=== PATIENT | female | born 1965 | race Two or more races ===

== ENCOUNTER 2020-08-16 21:34 | Inpatient (IN) | payer OTHER ==
[~2020-08-16] VITALS: Ht 154.9 cm; Wt 96.2 kg
[2020-08-16 23:05] LABS: Basophils # (auto) 0 10 ^3/uL (0-0.2); Basophils % (auto) 0.1 % (0.0-2.0); Eosinophils # (auto) 0 10 ^3/uL (0-0.8); Hemoglobin 10.1 g/dL (12.2-16.2); Lymphocytes # (auto) 0.5 10 ^3/uL (0.4-5.4)
[2020-08-16 23:06] LABS: Hematocrit 31.6 % (36.0-46.0); Lymphocytes % (auto) 4.2 % (10.0-50.0); Mean Corpuscular Hgb Conc. 32.1 g/dL (32.0-36.0); Mean Corpuscular Volume 77.7 fL (80.0-100.0); Monocytes # (auto) 0.7 10 ^3/uL (0-1.3); Monocytes % (auto) 5.8 % (0.0-12.0); Neutrophils # (auto) 10.5 10 ^3/uL (1.6-8.6); Neutrophils % (auto) 89.9 % (37.0-80.0); Platelet Count (auto) 369 10^3/uL (140-450); Red Blood Cells 4.06 10^6/uL (4.0-5.20); Red Cell Distribution Width 19.6 % (11.8-14.3); White Blood Cell 11.7 10^3/uL (4.4-10.8)
[2020-08-16] MEDS ORDERED: levoFLOXacin 750MG 150 ML IV ONE (23:15)
[2020-08-16 23:18] LABS: INR 0.97 (0.9-1.15); Partial Thromboplastin Time 23.9 sec (23.0-31.2)
[2020-08-16 23:19] LABS: Albumin 2.8 g/dL (3.4-5.0); Anion Gap 2 (5-15); Blood Urea Nitrogen 16 mg/dL (7-18); Calcium 8.8 mg/dL (8.5-10.1); Carbon Dioxide 28 mmol/L (21-32); Chloride 110 mmol/L (98-107); Glucose 119 mg/dL (74-106); Magnesium 2.4 mg/dL (1.6-2.6); Potassium 4.3 mmol/L (3.5-5.1); Sodium 140 mmol/L (136-145)
[2020-08-16 23:27] LABS: Alanine Aminotransferase 23 U/L (13-56); Alkaline Phosphatase 79 U/L (45-117); Aspartate Aminotransferase 25 U/L (15-37); BUN/Creatinine Ratio 20.8; Bilirubin, Total 0.2 mg/dL (0.2-1.0); GFR African American 100 mL/min; GFR Non-African American 83 mL/min; Total Protein 7.7 g/dL (6.4-8.2)
[2020-08-17] MEDS ORDERED: LORazepam 2MG/ML-1ML VIAL IV ONE (05:30)
[2020-08-17] MEDS ORDERED: HYDROcodone-ACET 5/325MG TAB PO ONE (08:00)
[2020-08-17] MEDS ORDERED: DexAMETHasone SOD PHOS 10MG/1ML VIAL INJ IV ONE (09:45)
[2020-08-17] MEDS ORDERED: cefTRIAXone 1GM/50ML D5W 50 ML IV ONE (09:45)
[2020-08-17] MEDS ORDERED: NITROGLYCERIN 0.4 MG SL TAB SL PRN (10:00)
[2020-08-17] MEDS ORDERED: MORPHINE SULF INJ 2 MG/ML SYRINGE 1ML IV PRN (10:00)
[2020-08-17] MEDS: ONDANSETRON HCL 4 MG/2 ML VIAL IV PRN ×2 (10:00→23:18)
[2020-08-17] MEDS ORDERED: FUROSEMIDE 40 MG/4 ML VIAL IV ONE (10:00)
[2020-08-17] MEDS ORDERED: ONDANSETRON HCL 4 MG/2 ML VIAL ONE (10:01)
[2020-08-17 10:10] VITALS: BP 129/88
[2020-08-17] MEDS ORDERED: SODIUM CHLORIDE 0.9% 1,000 ML IV SCH (10:15)
[2020-08-17] MEDS ORDERED: ACETAMINOPHEN 325 MG TAB PO PRN (10:15)
[2020-08-17] MEDS ORDERED: VANCOMYCIN PER PHARMACY 0 MG IV SCH (10:15)
[2020-08-17] MEDS ORDERED: ENOXAPARIN SOD 100 MG/1 ML SYRINGE SC ONE (10:15)
[2020-08-17] MEDS ORDERED: methylPREDNISolone SOD SUCC 125 MG/2 ML VL IV ONE (10:15)
[2020-08-17] MEDS: VANCOMYCIN 1GM/250ML 250 ML IV SCH ×2 (11:55→22:05)
[2020-08-17 12:50] LABS: Urine Bacteria NONE SEEN /hpf (None Seen); Urine Blood Negative /uL (Negative); Urine Mucus FEW (None Seen); Urine Specific Gravity 1.027 (1.001-1.035); Urine WBC 1 /hpf (0 - 5)
[2020-08-17] MEDS: MORPHINE SULFATE 4 MG/ML SYR/VIAL IV PRN ×2 (13:05→23:18)
[2020-08-17] MEDS: PIPERACILLIN-TAZOB 3.375GM 100 ML IV SCH ×2 (13:53→18:46)
[2020-08-17] MEDS: methylPREDNISolone SOD SUCC 40 MG/ML VL IV SCH ×2 (14:00→22:03)
[2020-08-17 14:12] LABS: Basophils # (auto) 0 10 ^3/uL (0-0.2); Basophils % (auto) 0.1 % (0.0-2.0); Eosinophils # (auto) 0 10 ^3/uL (0-0.8); Monocytes # (auto) 0.7 10 ^3/uL (0-1.3)
[2020-08-17 14:14] LABS: Hematocrit 32.7 % (36.0-46.0); Hemoglobin 10.5 g/dL (12.2-16.2); Lymphocytes # (auto) 0.5 10 ^3/uL (0.4-5.4); Lymphocytes % (auto) 3.3 % (10.0-50.0); Mean Corpuscular Hemoglobin 24.8 pg (28.0-32.0); Mean Corpuscular Hgb Conc. 32.2 g/dL (32.0-36.0); Mean Corpuscular Volume 76.8 fL (80.0-100.0); Monocytes % (auto) 4.8 % (0.0-12.0); Neutrophils # (auto) 12.8 10 ^3/uL (1.6-8.6); Neutrophils % (auto) 91.8 % (37.0-80.0); Platelet Count (auto) 359 10^3/uL (140-450); Red Blood Cells 4.25 10^6/uL (4.0-5.20); Red Cell Distribution Width 19.9 % (11.8-14.3)
[2020-08-17 14:29] LABS: Anion Gap 6 (5-15); Blood Urea Nitrogen 16 mg/dL (7-18); Carbon Dioxide 29 mmol/L (21-32); Chloride 103 mmol/L (98-107); Glucose 114 mg/dL (74-106); Magnesium 2.1 mg/dL (1.6-2.6); Potassium 3.6 mmol/L (3.5-5.1); Sodium 138 mmol/L (136-145)
[2020-08-17 14:31] LABS: Lactic Acid w/Reflex 2.1 mmol/L (0.4-2.0)
[2020-08-17 14:32] LABS: INR 1.04 (0.9-1.15); Partial Thromboplastin Time 26.8 sec (23.0-31.2)
[2020-08-17 14:34] VITALS: BP 122/77
[2020-08-17] MEDS: ALBUTEROL SULF HFA 90MCG INH 200DOSE IN SCH ×2 (14:34→21:25)
[2020-08-17 14:37] LABS: Alanine Aminotransferase 22 U/L (13-56); Alkaline Phosphatase 85 U/L (45-117); Aspartate Aminotransferase 19 U/L (15-37); BUN/Creatinine Ratio 19.3; Bilirubin, Total 0.5 mg/dL (0.2-1.0); CRP High Sensitivity 6.87 mg/dL (< 0.3); GFR African American 92 mL/min; GFR Non-African American 76 mL/min; Lactate Dehydrogenase 351 U/L (84-246); Total Protein 8.1 g/dL (6.4-8.2)
[2020-08-17 15:30] LABS: Cholesterol 163 mg/dL (< 200); HDL Cholesterol 52 mg/dL (40-59); LDL Cholesterol 98 mg/dL (< 100); Triglycerides 105 mg/dL (< 150)
[2020-08-17 18:22] VITALS: BP 124/64
[2020-08-17] MEDS: LORazepam 2MG/ML-1ML VIAL IV PRN (18:51)
[2020-08-17 21:25] VITALS: BP 130/66
[2020-08-17] MEDS: BUDESONIDE (INHALATION) 180 MCG IH IN SCH (21:25)
[2020-08-17] MEDS: ENOXAPARIN SOD 100 MG/1 ML SYRINGE SC SCH (22:04)
[2020-08-17] MEDS: FAMOTIDINE (10MG/ML) 2ML VL IV SCH (22:05)
[2020-08-18] VITALS (14 sets, daily range): BP systolic 93–153; BP diastolic 43–81
--- NOTE | 2020-08-18 01:04 | NUR ---
Admit to [facility] JOSE ANGEL SANTILLAN admitted to [facility] via gurney on director of cardiac rehabilitation, and portable 02. Patient transferred to bed, connected to unit monitoring and oxygen, [facility]. Patient oriented to Lis Pfeiffer, primary RN, unit, room, bed, and unit policies regarding patient care and visiting hours. All questions and concerns addressed, patient verbalized understanding. Pt on non rebreather at this time, RT will come back and place on CPAP or BiPAP. No S/S of distress. Shortness of breath when talking. Will continue to monitor.
[2020-08-18] MEDS: MORPHINE SULFATE 4 MG/ML SYR/VIAL IV PRN ×3 (02:38→20:21)
[2020-08-18] MEDS: PIPERACILLIN-TAZOB 3.375GM 100 ML IV SCH ×4 (02:38→18:20)
[2020-08-18 03:29] LABS: Basophils # (auto) 0 10 ^3/uL (0-0.2); Basophils % (auto) 0.1 % (0.0-2.0); Eosinophils # (auto) 0 10 ^3/uL (0-0.8); Hemoglobin 9.5 g/dL (12.2-16.2); Monocytes # (auto) 0.6 10 ^3/uL (0-1.3)
[2020-08-18 03:31] LABS: Lymphocytes # (auto) 0.6 10 ^3/uL (0.4-5.4); Lymphocytes % (auto) 5.3 % (10.0-50.0); Mean Corpuscular Hemoglobin 25.2 pg (28.0-32.0); Mean Corpuscular Hgb Conc. 32.9 g/dL (32.0-36.0); Mean Corpuscular Volume 76.5 fL (80.0-100.0); Monocytes % (auto) 5.9 % (0.0-12.0); Neutrophils # (auto) 9.3 10 ^3/uL (1.6-8.6); Neutrophils % (auto) 88.7 % (37.0-80.0); Platelet Count (auto) 354 10^3/uL (140-450); Red Blood Cells 3.79 10^6/uL (4.0-5.20); Red Cell Distribution Width 19.1 % (11.8-14.3); White Blood Cell 10.5 10^3/uL (4.4-10.8)
[2020-08-18 03:55] LABS: Albumin 2.6 g/dL (3.4-5.0); BUN/Creatinine Ratio 25.4; Bilirubin, Total 0.4 mg/dL (0.2-1.0); Calcium 8.6 mg/dL (8.5-10.1); Total Protein 7.1 g/dL (6.4-8.2)
[2020-08-18] MEDS: LORazepam 2MG/ML-1ML VIAL IV PRN ×5 (05:36→21:26)
--- NOTE | 2020-08-18 05:37 | NUR ---
Pt states feels like she needs her inhaler. Treatment due at 0600, Ativan given for anxiety. Will continue to monitor.
[2020-08-18] MEDS: BUDESONIDE (INHALATION) 180 MCG IH IN SCH ×2 (06:17→22:28)
[2020-08-18] MEDS: ALBUTEROL SULF HFA 90MCG INH 200DOSE IN SCH ×3 (06:17→22:27)
[2020-08-18] MEDS: methylPREDNISolone SOD SUCC 40 MG/ML VL IV SCH ×2 (07:10→18:20)
--- NOTE | 2020-08-18 07:45 | NUR ---
REPORT REPORT RECEIVED FROM MAGALI DUPREE, CARE ASSUMED.
[2020-08-18] MEDS: SODIUM CHLORIDE 0.9% 1,000 ML IV SCH ×2 (08:00→10:45)
--- NOTE | 2020-08-18 08:12 | NUR ---
PT PLACED ON HIGH FLOW NC ON 100% FIO2 AT 50LPM. JOON FLYNN MADE AWARE.
--- NOTE | 2020-08-18 08:15 | NUR ---
INITIAL CONTACT PT IS AWAKE, ALERT, AND ORIENTED. PT APPEARS TO BE ANXIOUS AND RESTLESS AT THIS TIME. WAS ABLE TO EDUCATED AND ABLE TO CALM DOWN. PT C/O LOWER ABDOMINAL/PELVIC PAIN. WARM COMPRESS AND PAIN MEDICATION TO BE GIVEN. PT ABLE TO MOVE ALL EXTREMITIES EQUALLY AND REPOSITION SELF IN BED. PT ON HIGH FLOW. OXYGEN SATURATION GREATER THEM 92%. VITAL SIGNS REMAIN STABLE. SKIN INTACT. ALARMS IN PLACE. BED LOCKED IN LOWEST POSITION, HEAD OF BED GREATER THAN 30 DEGREES. CALL LIGHT AND PERSONAL BELONGINGS WITHIN REACH. PT INSTRUCTED TO CALL FOR ASSISTANCE. PT VERBALIZED UNDERSTANDING.
[2020-08-18] MEDS: ONDANSETRON HCL 4 MG/2 ML VIAL IV PRN (08:35)
--- NOTE | 2020-08-18 10:00 | NUR ---
MD VISIT DR.MOHSIN REDD AT BEDSIDE. MD AWARE OF LABS, PAIN, AND OXYGEN STATUS. NEW ORDERS RECEIVED.
--- NOTE | 2020-08-18 10:20 | NUR ---
HERNANDEZ MONTANA FROM [facility] CALLED FOR UPDATE.
[2020-08-18] MEDS: HYDROcodone-ACET 5/325MG TAB PO PRN ×2 (10:53→11:53)
--- NOTE | 2020-08-18 10:53 | NUR ---
PAIN/ANXIETY PT C/O OF LOWER ABDOMINAL DISCOMFORT AND FEELING ANXIOUS. PRN NORCO AND ATIVAN ADMINISTERED. VS REMAIN STABLE. WARM COMPRESS APPLIED TO LOWER ABDOMEN, PT REPOSITIONED IN BED. NO FURTHER REQUEST MADE BY PATIENT.
--- NOTE | 2020-08-18 11:52 | NUR ---
FAMILY PATIENT SON BABITA CALLED FOR UPDATE. PASSWORD PROVIDED.
[2020-08-18] MEDS: FAMOTIDINE (10MG/ML) 2ML VL IV SCH ×2 (11:54→21:26)
[2020-08-18] MEDS: ZINC SULFATE 220mg CAP or TAB PO SCH (11:54)
[2020-08-18] MEDS: VANCOMYCIN 1GM/250ML 250 ML IV SCH ×2 (11:54→21:25)
[2020-08-18] MEDS: ASCORBIC ACID 1,000 MG TAB PO SCH (11:55)
[2020-08-18] MEDS: ENOXAPARIN SOD 100 MG/1 ML SYRINGE SC SCH ×2 (11:55→21:26)
[2020-08-18] MEDS: CHOLECALCIFEROL (VITD3) 2,000 UNIT CAP PO SCH (11:55)
--- NOTE | 2020-08-18 14:30 | NUR ---
US PRIVACY OFFICER AT BEDSIDE.
--- NOTE | 2020-08-18 15:18 | NUR ---
US RESULTS SPOKE WITH RN LPN LVN. THEY DID OBTAIN IMAGES OF BLADDER DURING US, NO ABNORMAL FINDINGS PRESENT. IF MD WISHES THE IMAGINING REPORT TO STATE THAT, HE MAY MAKE A REQUEST.
--- NOTE | 2020-08-18 18:00 | NUR ---
CARES SYLVAIN CARE PERFORMED AND PARTIAL LINEN CHANGE COMPLETE. PATIENT ABLE TO STAND AT BEDSIDE BRIEFLY AND REPOSITION SELF IN BED. PATIENT SITTING UP FOR DINNER. CALL LIGHT WITHIN REACH.
[2020-08-18] MEDS: FUROSEMIDE 20 MG/2 ML VIAL IV SCH (18:20)
--- NOTE | 2020-08-18 19:09 | NUR ---
MD VISIT AT BEDSIDE SPEAKING WITH PATIENT. MD REVIEWING MEDICAL CHART.
--- NOTE | 2020-08-18 19:38 | NUR ---
REPORT REPORT GIVEN TO MAGALI DUPREE, CARE ENDORSED.
[2020-08-19] VITALS (12 sets, daily range): BP systolic 105–154; BP diastolic 50–81
[2020-08-19] MEDS: MORPHINE SULFATE 4 MG/ML SYR/VIAL IV PRN ×6 (01:21→21:02)
[2020-08-19] MEDS: PIPERACILLIN-TAZOB 3.375GM 100 ML IV SCH ×5 (01:21→23:12)
[2020-08-19] MEDS: LORazepam 2MG/ML-1ML VIAL IV PRN ×4 (03:14→22:06)
[2020-08-19 04:17] LABS: Basophils # (auto) 0 10 ^3/uL (0-0.2); Basophils % (auto) 0.1 % (0.0-2.0); Eosinophils # (auto) 0 10 ^3/uL (0-0.8); Hemoglobin 10.1 g/dL (12.2-16.2); Lymphocytes # (auto) 0.7 10 ^3/uL (0.4-5.4); Lymphocytes % (auto) 5.4 % (10.0-50.0); Mean Corpuscular Hgb Conc. 32.6 g/dL (32.0-36.0); Mean Corpuscular Volume 76.6 fL (80.0-100.0); Monocytes # (auto) 0.8 10 ^3/uL (0-1.3); Monocytes % (auto) 5.9 % (0.0-12.0); Neutrophils # (auto) 12.1 10 ^3/uL (1.6-8.6); Neutrophils % (auto) 88.6 % (37.0-80.0); Nucleated Red Blood Cells % 0.1 %; Platelet Count (auto) 416 10^3/uL (140-450); Red Blood Cells 4.05 10^6/uL (4.0-5.20); Red Cell Distribution Width 19.3 % (11.8-14.3); White Blood Cell 13.7 10^3/uL (4.4-10.8)
[2020-08-19 04:34] LABS: Potassium 3.6 mmol/L (3.5-5.1)
[2020-08-19 04:46] LABS: Albumin 2.5 g/dL (3.4-5.0); Bilirubin, Total 0.4 mg/dL (0.2-1.0); CRP High Sensitivity 6.14 mg/dL (< 0.3); Calcium 8.6 mg/dL (8.5-10.1); Magnesium 2.1 mg/dL (1.6-2.6); Phosphorus 3.1 mg/dL (2.5-4.90)
[2020-08-19 04:53] LABS: INR 1.08 (0.9-1.15); Partial Thromboplastin Time 28.5 sec (23.0-31.2)
[2020-08-19] MEDS: ALBUTEROL SULF HFA 90MCG INH 200DOSE IN SCH ×3 (06:05→23:38)
[2020-08-19] MEDS: BUDESONIDE (INHALATION) 180 MCG IH IN SCH ×2 (06:05→23:38)
--- NOTE | 2020-08-19 08:00 | NUR ---
OPENING SHIFT NOTE Received report from NOC RN, Lis. Assumed care of patient. Patient is currently on Novel Respiratory Isolation for COVID-19. Received patient lying in bed, connected to bedside monitor with alarms in place. Patient is A&Ox4, complains of pain to back and feeling restless, but is well controlled with pain medication and will received Ativan as ordered. No other s/s of distress noted. Patient on Bipap 12/7 fiO2 100% with O2 sats in the low 90s. RT attempted to take patient off Bipap this am on High Flow patient quickly desaturated to the 70s. ABG pending this am. Patient with PIV to R AC #20 patent and flushes well. Bean draining to gravity clear yellow UOP. Bed in lowest position, rails x3 up and call light within reach. Updated on plan of care. Will continue to monitor.
[2020-08-19] MEDS: FUROSEMIDE 20 MG/2 ML VIAL IV SCH ×2 (08:09→18:05)
--- NOTE | 2020-08-19 08:19 | NUR ---
Pt has anxiety during the shift. Pt has been on pain medication and ativan every 4 hours throughout the shift. Pt has stated increased pain to left chest area, increased sounds of coarseness as opposed to the previous shift. A CXR was ordered for this morning. Hot packs and hot water have been provided per request. Bipap has been in place for comfort and rest this shift and since pt was not maintaining adequate O2 sat. Pt got upset with another RN thinking he was yelling at her when infact he was just trying to encourage her to relax and breathe in an elevated voice to be heard over the vents and through his mask. Pt was encouraged to relax as much as possible and focus on her breathing. Report given to AM shift, care endorsed.
--- NOTE | 2020-08-19 08:54 | NUR ---
Paged Dr Berger regarding morning CXR results of subcutaneous emphysema and worsening pneumonia.
[2020-08-19] MEDS ORDERED: VANCOMYCIN 1GM/250ML 250 ML IV SCH (09:00)
[2020-08-19] MEDS: ZINC SULFATE 220mg CAP or TAB PO SCH (09:56)
[2020-08-19] MEDS: ASCORBIC ACID 1,000 MG TAB PO SCH (09:56)
[2020-08-19] MEDS: CHOLECALCIFEROL (VITD3) 2,000 UNIT CAP PO SCH (09:57)
[2020-08-19] MEDS: FAMOTIDINE (10MG/ML) 2ML VL IV SCH ×2 (10:05→22:05)
[2020-08-19] MEDS: DexAMETHasone SOD PHOS 10MG/1ML VIAL INJ IV SCH (10:07)
[2020-08-19] MEDS: ENOXAPARIN SOD 100 MG/1 ML SYRINGE SC SCH ×2 (10:07→22:06)
--- NOTE | 2020-08-19 10:14 | NUR ---
MEDICATIONS 1000 am medications given except for oral/po medications due to patient being on Bipap and quickly desaturating once taken off. Pain medication given as ordered, q4hrs PRN, last pulled medication was around 0555 per Pyxis.
--- NOTE | 2020-08-19 13:02 | NUR ---
MD Dr Houser and Dr Woodward at bedside. Pulmonary consult now with Dr Woodward. Orders received.
--- NOTE | 2020-08-19 14:55 | NUR ---
FAMILY T/C from patient's son, Moshe. Verified password. Received updated contact number for son, . Updated on patient status. All questions addressed at this time. Informed son that Dr. Houser was attempting to call family and update on patient status.
--- NOTE | 2020-08-19 15:15 | NUR ---
RESPIRATORY Patient found with Bipap mask and O2 sats dropped as low as the 40s. RN paged RT and replaced Bipap at current settings. O2 sats quickly returned to 80s once mask was properly replaced. After 10 minutes patient's O2 sats returned to baseline low 90s. Pradip RT aware. No need for any RT interventions. Will continue to monitor.
[2020-08-19] MEDS ORDERED: REMDESIVIR 200 MG in NS 210ml LOADING DOSE ADULT IV ONE (17:00)
--- NOTE | 2020-08-19 18:59 | NUR ---
CLOSING SHIFT NOTE Patient lying in bed. Patient remains on Bipap 12/7 fiO2 100% with O2 sats in low 90s. Patient received loading dose of Remdesivir. Patient pending convalescent plasma. Bean draining clear yellow UOP. Patient has been medicated for pain and anxiety throughout shift with Morphine and Ativan. Report to be given to Nedra MARTINEZ RN.
--- NOTE | 2020-08-19 19:20 | NUR ---
Opening Shift Note Received shift report and Assumed care of patient, awake and alert. No S/S of distress patient currently on bipap with settings of 12/7, 100% FIO2 / 12 patient is resting quietly in bed patient has a valdez draining to gravity yellow urine, patient bed is in the lowest position with bed rails up x3 and brake applied.
--- NOTE | 2020-08-19 20:40 | NUR ---
Family Call: Received a call from patient Son Moshe, requesting up date on patient, questions answered and concerns addressed. Family member verbalized understating of patient condition.
[2020-08-19] MEDS: VANCOMYCIN 1GM/250ML 250 ML IV SCH (20:48)
--- NOTE | 2020-08-19 21:00 | NUR ---
Pain Patient c/o of pain 8/10 generalized to the chest and neck, patient provided with medication
--- NOTE | 2020-08-19 22:00 | NUR ---
Anxiety Patient c/o of reduced pain but having anxiety due to use of the bipap. patient medicated per md order.
--- NOTE | 2020-08-19 23:20 | NUR ---
Patient Rounding Patient resting quietly with out s/s of distress or SOB Patient is on Bipap at this time.O2 Sat of 94%
[2020-08-20] VITALS (13 sets, daily range): BP systolic 102–135; BP diastolic 49–75
[2020-08-20] MEDS: LORazepam 2MG/ML-1ML VIAL IV PRN ×4 (02:10→19:45)
[2020-08-20] MEDS: MORPHINE SULFATE 4 MG/ML SYR/VIAL IV PRN ×2 (02:10→07:45)
--- NOTE | 2020-08-20 02:10 | NUR ---
PAIN/ANXIETY: Pt anxious, removed leads, gown, and bipap mask. Pt also c/o pain at level 7/10 in chest area. Pt given water to drink as also thirsty. Pt requesting medication for pain. Pt medicated w/ Morphine 2mg IV for pain and Ativan 1mg IV for anxiety as per order. To continue to monitor pt.
--- NOTE | 2020-08-20 03:10 | NUR ---
Patient Rounding Patient resting quietly without S/S of distress or SOB patient remains on bipap at 94% Oxygen
[2020-08-20 03:49] LABS: Basophils # (auto) 0 10 ^3/uL (0-0.2); Basophils % (auto) 0.1 % (0.0-2.0); Eosinophils # (auto) 0.1 10 ^3/uL (0-0.8); Lymphocytes # (auto) 0.8 10 ^3/uL (0.4-5.4); Monocytes # (auto) 0.5 10 ^3/uL (0-1.3)
[2020-08-20 03:54] LABS: Eosinophils % (auto) 0.6 % (0.0-7.0); Hematocrit 33.6 % (36.0-46.0); Hemoglobin 11.3 g/dL (12.2-16.2); Lymphocytes % (auto) 8.1 % (10.0-50.0); Mean Corpuscular Hgb Conc. 33.6 g/dL (32.0-36.0); Mean Corpuscular Volume 77.4 fL (80.0-100.0); Monocytes % (auto) 4.8 % (0.0-12.0); Neutrophils # (auto) 8.8 10 ^3/uL (1.6-8.6); Neutrophils % (auto) 86.4 % (37.0-80.0); Platelet Count (auto) 472 10^3/uL (140-450); Red Blood Cells 4.34 10^6/uL (4.0-5.20); Red Cell Distribution Width 19.2 % (11.8-14.3); White Blood Cell 10.2 10^3/uL (4.4-10.8)
--- NOTE | 2020-08-20 03:54 | NUR ---
Convolesnt Plasma C-plasma started pre-vital signs WNL, patient resting quietly without s/s of distress.
--- NOTE | 2020-08-20 04:09 | NUR ---
C-Plasma Transfusion is progressing well and patient vs WNL patient resting quietly without s/s of distress or SOB
[2020-08-20 04:10] LABS: Potassium 3.4 mmol/L (3.5-5.1)
[2020-08-20 04:14] LABS: Calcium 8.9 mg/dL (8.5-10.1)
--- NOTE | 2020-08-20 05:00 | NUR ---
Morning Care provided patient with partial bath using CHG wipes valdez care and tasha area care provided patient refused linen change.
[2020-08-20] MEDS: VANCOMYCIN 1GM/250ML 250 ML IV SCH ×2 (05:20→14:33)
--- NOTE | 2020-08-20 05:37 | NUR ---
C-Plasma Transfusion Complete VS WNL patient shows no s/s of reaction 200ML infused.
[2020-08-20] MEDS: ALBUTEROL SULF HFA 90MCG INH 200DOSE IN SCH ×3 (06:23→23:40)
[2020-08-20] MEDS: BUDESONIDE (INHALATION) 180 MCG IH IN SCH ×2 (06:23→23:39)
[2020-08-20] MEDS: FUROSEMIDE 20 MG/2 ML VIAL IV SCH ×2 (06:31→18:40)
[2020-08-20] MEDS: PIPERACILLIN-TAZOB 3.375GM 100 ML IV SCH ×4 (06:33→23:30)
--- NOTE | 2020-08-20 07:45 | NUR ---
OPENING SHIFT NOTE Received report from NOC RN, Annette. Assumed care of patient. Patient is currently on Novel Respiratory Isolation for COVID-19. Received patient lying in bed, connected to bedside monitor with alarms in place. Patient is A&Ox4, complains of pain to back and feeling restless, and will medicated with Morphine as ordered. No other s/s of distress noted. Patient on Bipap 12/7 fiO2 100% with O2 sats in the low 90s. Patient frequently adjusting and removing Bipap mask, but is easily reoriented and follows directions appropriately. Patient with PIV to R AC #20 patent and flushes well. Bean draining to gravity clear yellow UOP. Bed in lowest position, rails x3 up and call light within reach. Updated on plan of care. Will continue to monitor.
--- NOTE | 2020-08-20 10:02 | NUR ---
assessment Per consult patient worried about finances being in the hospital. Patient has been informed to go online and print up disability paperwork and have her son Moshe take to her PCP. Patient is on bipap and unable to talk at this time. I will do an assessment once off bipap and patient is able to communicate with me. I have also left a message for patients son Moshe to return my call. Addendum: 08/20/20 at [place] by Odalys Jolly Amended: Links added.
[2020-08-20] MEDS: ENOXAPARIN SOD 100 MG/1 ML SYRINGE SC SCH ×2 (10:26→19:45)
[2020-08-20] MEDS: CHOLECALCIFEROL (VITD3) 2,000 UNIT CAP PO SCH (10:26)
[2020-08-20] MEDS: ASCORBIC ACID 1,000 MG TAB PO SCH (10:26)
[2020-08-20] MEDS: FAMOTIDINE (10MG/ML) 2ML VL IV SCH ×2 (10:26→19:44)
[2020-08-20] MEDS: POTASSIUM CHL 10 Meq TABLET PO SCH ×2 (10:27→19:45)
[2020-08-20] MEDS: DexAMETHasone SOD PHOS 10MG/1ML VIAL INJ IV SCH (10:27)
[2020-08-20] MEDS: ZINC SULFATE 220mg CAP or TAB PO SCH (10:27)
--- NOTE | 2020-08-20 11:00 | NUR ---
FAMILY T/C from patient's son, Moshe. Verified password. Updated on patient status and plan of care. Relayed info from delinquency prevention social worker in regards to patient getting disability due to miss work. All questions addressed at this time.
--- NOTE | 2020-08-20 11:05 | NUR ---
MD Dr Houser to see patient.
[2020-08-20] MEDS: Ensure Enlive Strawberry 8oz Bottle PO SCH ×2 (11:55→18:00)
--- NOTE | 2020-08-20 12:08 | NUR ---
MD Dr Woodward to see patient.
--- NOTE | 2020-08-20 12:45 | NUR ---
VANCO TROUGH Called lab. 1200 trough not drawn yet. Per Santa, lab is short staffed and someone will be up shortly. Addendum: 08/20/20 at 1321 by GILBERT LIM RN Notified Jennifer in pharmacy that 1200 trough has not been drawn yet and patient was still infusing Zosyn.
--- NOTE | 2020-08-20 12:55 | NUR ---
Nutrition Assessment Notes Please refer to link for full assessment notes. Est Energy needs: [id number] kcals (12-15 kcal/kgBW) Est Protein needs: 95-115 gms/day (2.0-2.5 gm/kgIBW of 47.7 kg) Will continue to monitor and reassess prn. Addendum: 08/20/20 at [address] Amended: Links added.
--- NOTE | 2020-08-20 14:57 | NUR ---
Respiratory note: PATIENT WAS PLACED ON HFNC TO TRIAL FOR TOLERANCE; SHE FAILED DUE TO LOW SPO2 WITH SATS MAINTAINING AT 86%. SHE WAS PLACED BACK ON BIPAP WITH ALL PREVIOUSLY ORDERED SETTINGS. RN VAMSHI AWARE OF TRIAL, AND FAILURE, OF HFNC.
--- NOTE | 2020-08-20 14:57 | NUR ---
RESPIRATORY RT at bedside. Attempted to place patient on High Flow. Patient unable to tolerate. O2 sats dropped to low 80s. RT placed patient back on Bipap at previous settings.
[2020-08-20] MEDS: REMDESIVIR 100mg in NS 230ml DAILYx4DAYS (NO VENT) IV SCH (17:00)
--- NOTE | 2020-08-20 18:54 | NUR ---
CLOSING SHIFT NOTE Patient lying in bed. Patient remains on Bipap 12/7 fiO2 100% with O2 sats in low 90s. Patient received second dose of Remdesivir. Bean draining clear yellow UOP. Patient has been medicated for pain and anxiety throughout shift with Morphine and Ativan. Report to be given to NOC Annette DUPREE.
--- NOTE | 2020-08-20 19:15 | NUR ---
RECEIVED REPORT FROM NURSE HUNT TO RESUME CARE OF PATIENT
--- NOTE | 2020-08-20 19:35 | NUR ---
PATIENT ATTEMPTING TO GET OUT OF BED AND REMOVE BIPAP. REORIENTED PATIENT. PATIENT STATES SHE HAS TROUBLE BREATHING AND IS ANXIOUS. PATIENT REPOSITIONED HEAD OF BEAD SECURED BIPAP MASK TO PREVENT LEAKS. PATIENT O2SAT 83-87% ON BIPAP, ENCOURAGED PATIENT TO RELAX AND CONCENTRATE ON HER BREATHING PT O2SAT 89-91% ON BIPAP. INFORMED PATIENT WILL GET HER ANXIETY MEDICATION TO HELP RELAX HER. PT VERBALIZES UNDERSTANDING AND REMAINS IN BED WITH CALL LIGHT WITHIN REACH.
--- NOTE | 2020-08-20 20:08 | NUR ---
ANXIETY PATIENT C/O OF ANXIETY REQUESTING HER ANXIETY MEDICATION. ADMINISTERED ATIVAN 1MG IV PRESCRIBED PATIENT TOLERATED WELL. PATIENT LYING IN COMFORTABLY SIDE LYING SEMI FOWLERS, IN NO APPARENT RESPIRATORY DISTRESS OR SOB O2 SAT 92-95%. WILL CONTINUE TO MONITOR PATIENT.
--- NOTE | 2020-08-20 20:39 | NUR ---
BED BATH AND COMPLETE LINEN CHANGE ON PATIENT. PATIENT SKIN INTACT
[2020-08-21] VITALS (40 sets, daily range): BP systolic 84–222; BP diastolic 44–113
[2020-08-21] MEDS: LORazepam 2MG/ML-1ML VIAL IV PRN ×2 (00:37→04:30)
--- NOTE | 2020-08-21 00:37 | NUR ---
ANXIETY PATIENT WOKE UP AND WAS FEELING SOB AND TACHYPNEIC. PATIENT REMOVED BIPAP MASK OFF ADVISED PATIENT TO LEAVE MASK ON. PATIENT REQUESTING ANXIETY MEDICATION. ADMINISTERED ATIVAN 1MG IV PRESCRIBED. PATIENT CURRENTLY RELAXED IN BED O2SAT 93% RR 23
[2020-08-21] MEDS: MORPHINE SULFATE 4 MG/ML SYR/VIAL IV PRN ×2 (01:46→05:30)
--- NOTE | 2020-08-21 01:48 | NUR ---
PAIN PATIENT C/O 10/10 BODY AND NECK PAIN REQUESTING PAIN MEDICATION. PATIENT REMOVED BIPAP. PLACED PATIENT BACK ON BIPAP INFORMED HER THAT IF SHE DOESNT KEEP BIPAP ON OR SHE MAY RISK GETTING INTUBATED PATIENT VERBALIZES UNDERSTANDING. PATIENT O2SAT 92% ON BIPAP. ADMINISTERED MORPHINE 2MG IV PRESCRIBED.
--- NOTE | 2020-08-21 02:16 | NUR ---
REASSESSMENT OF PAIN PATIENT HAS NO COMPLAINTS OF PAIN OR ANY DISCOMFORT. LYING IN BED COMFORTABLY AND CONTINUES TO BE ON BIPAP WITHOUT ANY RESPIRATORY DISTRESS OR SOB
[2020-08-21 03:24] LABS: Basophils # (auto) 0 10 ^3/uL (0-0.2); Eosinophils # (auto) 0 10 ^3/uL (0-0.8); Eosinophils % (auto) 0.2 % (0.0-7.0); Lymphocytes # (auto) 0.8 10 ^3/uL (0.4-5.4); Monocytes # (auto) 0.7 10 ^3/uL (0-1.3)
[2020-08-21 03:26] LABS: Basophils % (auto) 0.1 % (0.0-2.0); Hemoglobin 11.1 g/dL (12.2-16.2); Mean Corpuscular Hemoglobin 24.2 pg (28.0-32.0); Mean Corpuscular Hgb Conc. 31.8 g/dL (32.0-36.0); Mean Corpuscular Volume 76.3 fL (80.0-100.0); Monocytes % (auto) 4.1 % (0.0-12.0); Neutrophils # (auto) 14.5 10 ^3/uL (1.6-8.6); Neutrophils % (auto) 90.6 % (37.0-80.0); Platelet Count (auto) 522 10^3/uL (140-450); Red Blood Cells 4.59 10^6/uL (4.0-5.20); Red Cell Distribution Width 19.3 % (11.8-14.3)
[2020-08-21 03:42] LABS: Albumin 2.5 g/dL (3.4-5.0); Anion Gap 6 (5-15); Blood Urea Nitrogen 22 mg/dL (7-18); Calcium 9.4 mg/dL (8.5-10.1); Carbon Dioxide 34 mmol/L (21-32); Chloride 96 mmol/L (98-107); Glucose 78 mg/dL (74-106); Potassium 3.1 mmol/L (3.5-5.1); Sodium 136 mmol/L (136-145)
[2020-08-21 03:52] LABS: Alanine Aminotransferase 13 U/L (13-56); Alkaline Phosphatase 75 U/L (45-117); Aspartate Aminotransferase 27 U/L (15-37); BUN/Creatinine Ratio 25.6; Bilirubin, Total 0.7 mg/dL (0.2-1.0); CRP High Sensitivity > 19.0 mg/dL (< 0.3); GFR African American 88 mL/min; GFR Non-African American 73 mL/min; Lactate Dehydrogenase 433 U/L (84-246); Total Protein 8.1 g/dL (6.4-8.2)
[2020-08-21] MEDS: FUROSEMIDE 20 MG/2 ML VIAL IV SCH ×2 (04:30→18:00)
--- NOTE | 2020-08-21 05:02 | NUR ---
ANXIETY/TACHYPNEIC/LOW O2SAT PATIENT ANXIOUS REPEATEDLY TAKES OFF MASK AND O2 SAT 60-70S TACHYPNEIC 40-50S. REAPPLIED BIPAP ON PATIENT. PATIENT UNABLE TO REDIRECT AND CONSTANTLY ATTEMPTS TO TAKE OFF MASKS. ADMINISTERED ATIVAN 1MG IV PRESCRIBED ALONG WITH LASIX 20MG IV. PATIENT CONSTINUES TO BE TACHYPNEIC UNABLE TO CALM DOWN APPEARS TO BE MORE CONFUSED AND NOT FOLLOWING COMMANDS. STAT ABG TAKEN BY RT. HOSPITALIST [place] AT BEDSIDE TO EXAMINE PATIENT, PATIENT MORE RELAXED BUT STILL TACHYPNEIC IN 30-40S ON BIPAP FIO2 100%. PATIENT HR 110S RR 47 [id number] PATIENT LYING IN HIGH FOWLERS POSITION. ABG REPORTED TO HOSPITALIST, NO NEW ORDERS WERE GIVEN.
--- NOTE | 2020-08-21 05:30 | NUR ---
PAIN PATIENT C/O 10/10 BODY AND NECK PAIN REQUESTING PAIN MEDICAITON. ADMINISTERED MORPHINE 2MG IV PRESCRIBED. WILL CONTINUE TO MONITOR PATIENT
[2020-08-21] MEDS: PIPERACILLIN-TAZOB 3.375GM 100 ML IV SCH ×4 (05:42→22:22)
--- NOTE | 2020-08-21 05:55 | NUR ---
REASSESSMENT OF PAIN PATINET HAS NO COMPLAINTS OF PAIN RESTING IN BED HIGH FOWLERS POSITION
[2020-08-21] MEDS: ALBUTEROL SULF HFA 90MCG INH 200DOSE IN SCH (06:29)
[2020-08-21] MEDS: BUDESONIDE (INHALATION) 180 MCG IH IN SCH (06:29)
--- NOTE | 2020-08-21 07:00 | NUR ---
BIPAP RT CHANGED SETTINGS TO BIPAP 18/5 FIO2 100% PATIENT WAS NOT TOLERATING PREVIOUS SETTINGS RT WILL COME BACK AND REEVALUATE PATIENT. PATIENT RESTING COMFORTABLY IN BED WITH HR 110S RR 20S AND O2SAT LOW 90S. WILL CONTINUE TO MONITOR PATINET.
--- NOTE | 2020-08-21 07:29 | NUR ---
GAVE REPORT TO NURSE AMEZCUA TO RESUME CARE OF PATIENT
[2020-08-21] MEDS: Ensure Enlive Strawberry 8oz Bottle PO SCH (07:32)
[2020-08-21] MEDS: POTASSIUM CHL 10 Meq TABLET PO SCH (09:04)
[2020-08-21] MEDS: ZINC SULFATE 220mg CAP or TAB PO SCH (09:04)
[2020-08-21] MEDS: ASCORBIC ACID 1,000 MG TAB PO SCH (09:05)
[2020-08-21] MEDS: CHOLECALCIFEROL (VITD3) 2,000 UNIT CAP PO SCH (09:05)
--- NOTE | 2020-08-21 09:10 | NUR ---
DR. BURCH AT BEDSIDE: ORDERS INFORMED PATIENT IS CONFUSED AND PULLS OFF BIPAP. DESATS DOWN TO 30% ON O2 SATS. INFORMED PATIENT NEEDS TO BE INTUBATED. WAITING FOR MORNING ABG. NOW SATS ARE UP TO 87% ON 100% OF FIO2 ON BIPAP. CONTINUE CARE.
[2020-08-21] MEDS ORDERED: POTASSIUM CHL 20 Meq TABLET PO ONE (09:15)
[2020-08-21] MEDS ORDERED: FAMOTIDINE (10MG/ML) 2ML VL IV SCH (10:00)
[2020-08-21] MEDS ORDERED: ETOMIDATE (2MG/ML) 20ML VIAL IV ONE (11:41)
[2020-08-21] MEDS ORDERED: ROCURONIUM 10MG/ML 10ML VIAL IV ONE (11:41)
--- NOTE | 2020-08-21 12:28 | NUR ---
Midline Placement: Patient educated on need for midline placement. All risks and benefits explained and all questions and concerns addresses prior to procedure. 18g/10cm midline inserted via LEFT BASILIC vein using Ultrasound. Sterile technique utilized. Blood return obtained from SINGLE lumen and flushed easily with NS using proper technique. Midline secured with saline lock; biodisc and occlusive dressing applied. Primary RN notified. Midline lot # [id number].
--- NOTE | 2020-08-21 12:45 | NUR ---
INTUBATION AT THIS TIME: DR NIXON AT BEDSIDE PATIENT NEEDING TO BE INTUBATED AT THIS TIME. PATIENT GIVEN ETOMIDATE 20 MG AND 90 MG OF CHELSEA. AT THIS TIME. PRE-OXYGENATED. R.T AT BEDSIDE. #7.5 ETT, 22 CM AT LIP PLACED. PATIENT PLACED ON SETTINGS AC 18, 450 VT, 100% FIO2, PEEP +8. PATIENT'S SEDATION GTT'S STARTED AROUND 1300, SEE IV FLOW SHEET FOR TITRATIONS MADE. ALL GTT'S INFUSING INTO LEFT UPPER ARM MID LINE. PICC LINE RN'S TO COME BACK LATER TO INSERT PICC LINE OVER MID LINE. WILL CONTINUE CARE.
[2020-08-21] MEDS ORDERED: fentaNYL Drip 2500mCg/250mlNS 250 ML IV ONE (12:55)
[2020-08-21] MEDS ORDERED: MIDAZOLAM DRIP 50 mg/50mL 50 ML IV ONE (12:56)
[2020-08-21] MEDS: fentaNYL Drip 2500mCg/250mlNS 250 ML IV SCH (13:00)
[2020-08-21] MEDS: PROPOFOL 100 ML IV SCH (13:00)
[2020-08-21] MEDS ORDERED: POTASSIUM EFFERVESENT TAB 25 MEQ GT ONE (13:00)
[2020-08-21] MEDS: MIDAZOLAM DRIP 50 mg/50mL 50 ML IV SCH ×2 (13:00→22:23)
[2020-08-21] MEDS ORDERED: POTASSIUM CHL 10 Meq TABLET PO SCH (14:00)
--- NOTE | 2020-08-21 14:30 | NUR ---
VENT CHANGES MADE: DR. NIXON GIVEN ORDERS VENT CHANGED OVER TO PRESSURE CONTROL RATE 18, PRESSURE 28, PEEP +12, FIO2 AT 100%. PATIENT NOW SATSING AT 96 % AFTER CHANGES ON VENT MADE. CONTINUE CARE. Addendum: 08/21/20 at 1603 by Marge Cruz RN Molly ZHAO AT BEDSIDE AND MADE CHANGES.
[2020-08-21] MEDS: ALBUTEROL SULF 2.5 MG/0.5ML(0.5%) NEB SOLN NEB SCH ×2 (14:59→19:03)
[2020-08-21] MEDS: ACETYLCYSTEINE 10 %(100MG/ML) SOL 4ML NEB SCH ×2 (14:59→19:03)
[2020-08-21] MEDS: ENOXAPARIN SOD 100 MG/1 ML SYRINGE SC SCH ×2 (15:39→21:07)
[2020-08-21] MEDS: DexAMETHasone SOD PHOS 10MG/1ML VIAL INJ IV SCH (15:39)
[2020-08-21] MEDS: REMDESIVIR 100mg in NS 230ml DAILYx4DAYS (NO VENT) IV SCH ×2 (17:00→19:26)
--- NOTE | 2020-08-21 18:25 | NUR ---
PICC LINE RN'S AT BEDSIDE: STAT CXR TO BE TAKEN. CONTINUE CARE.
--- NOTE | 2020-08-21 18:40 | NUR ---
PICC line placement Patient/Patient significant other educated on need for PICC line placement. All risks and benefits explained and all questions and concerns addressed prior to procedure. Noted past medical history and allergies with no contraindications. INR and Plt counts within acceptable range. 5 fr PICC line inserted via LEFT BASILIC vein using [employer] US and Tip Location System. Sterile technique with maximum barrier precautions utilized. Blood return obtained from each of TRIPLE lumens and each flushed easily with NS using proper technique. PICC secured with Stat-lock; biodisc and occlusive dressing applied. Stat portable chest x-ray obtained for PICC tip placement. *Baseline Arm Circumference 44CM. *INTERNAL L. 44CM *EXTERNAL L. 44CM PICC lot # [id number]. Note:
--- NOTE | 2020-08-21 18:42 | NUR ---
PICC LINE RN'S CORTNEY'D MIDLINE IV AND PUT NEW PICC LINE TO LEFT UPPER ARM. CXR VERIFIED. OKAY TO USE AT THIS TIME, VERBAL FROM JOON.Edyta' Addendum: 08/21/20 at 1853 by Marge Cruz RN PREVIOUS GTTS NOW IN PICC LINE.
--- NOTE | 2020-08-21 18:45 | NUR ---
OK to use PICC line Xray completed. OK to use PICC line. PRIMARY RN NOTIFIED
[2020-08-21] MEDS: BUDESONIDE (INHALATION) 0.5 MG/2 ML NEB NEB SCH (19:03)
--- NOTE | 2020-08-21 21:00 | NUR ---
Hospitalist paged. Low O2 saturation
[2020-08-21] MEDS: POTASSIUM EFFERVESENT TAB 25 MEQ GT SCH (21:06)
[2020-08-21] MEDS: FAMOTIDINE (10MG/ML) 2ML VL IV SCH (21:07)
--- NOTE | 2020-08-21 21:10 | NUR ---
covering and lining supervisor aware of low saturation.
--- NOTE | 2020-08-21 21:36 | NUR ---
Patient repositioned and suctioned. RT aware. Patient oxygen saturation in the 70S-80S and labile. Hospitalist paged awaiting response
--- NOTE | 2020-08-21 21:42 | NUR ---
Becerra OUTBOARD MOTORBOAT RIGGER updated regarding poc, pertinent lab values, imaging, and patient current status. ABG at midnight ordered.
--- NOTE | 2020-08-21 22:08 | NUR ---
OG placed. Placement verified via stomach acid contents returned and bowel sounds. RT aware of abg at 0000. cross roller aware of poc. No further orders.
[2020-08-22] VITALS (84 sets, daily range): BP systolic 64–148; BP diastolic 23–95
[2020-08-22] MEDS: ACETYLCYSTEINE 10 %(100MG/ML) SOL 4ML NEB SCH ×4 (00:29→22:13)
[2020-08-22] MEDS: ALBUTEROL SULF 2.5 MG/0.5ML(0.5%) NEB SOLN NEB SCH ×3 (00:29→22:13)
[2020-08-22] MEDS: MIDAZOLAM DRIP 50 mg/50mL 50 ML IV SCH ×6 (02:42→22:35)
[2020-08-22 03:40] LABS: Nucleated Red Blood Cells % 0.1 %
[2020-08-22 03:42] LABS: Basophils # (auto) 0 10 ^3/uL (0-0.2); Eosinophils # (auto) 0.3 10 ^3/uL (0-0.8); Eosinophils % (auto) 1.3 % (0.0-7.0); Hematocrit 36.5 % (36.0-46.0); Hemoglobin 11.4 g/dL (12.2-16.2); Lymphocytes # (auto) 0.9 10 ^3/uL (0.4-5.4); Lymphocytes % (auto) 3.7 % (10.0-50.0); Mean Corpuscular Hemoglobin 24.3 pg (28.0-32.0); Mean Corpuscular Hgb Conc. 31.3 g/dL (32.0-36.0); Mean Corpuscular Volume 77.6 fL (80.0-100.0); Monocytes # (auto) 0.8 10 ^3/uL (0-1.3); Monocytes % (auto) 3.3 % (0.0-12.0); Neutrophils # (auto) 22.8 10 ^3/uL (1.6-8.6); Neutrophils % (auto) 91.7 % (37.0-80.0); Platelet Count (auto) 590 10^3/uL (140-450); Red Blood Cells 4.71 10^6/uL (4.0-5.20); Red Cell Distribution Width 19.4 % (11.8-14.3); White Blood Cell 24.8 10^3/uL (4.4-10.8)
[2020-08-22 03:57] LABS: Albumin 2.5 g/dL (3.4-5.0); Calcium 9.3 mg/dL (8.5-10.1); Potassium 3.2 mmol/L (3.5-5.1)
[2020-08-22 04:00] LABS: Bilirubin, Total 0.8 mg/dL (0.2-1.0); Total Protein 8.3 g/dL (6.4-8.2)
[2020-08-22] MEDS: FUROSEMIDE 20 MG/2 ML VIAL IV SCH (04:53)
[2020-08-22] MEDS: PIPERACILLIN-TAZOB 3.375GM 100 ML IV SCH (06:04)
[2020-08-22] MEDS: BUDESONIDE (INHALATION) 0.5 MG/2 ML NEB NEB SCH ×2 (06:23→22:13)
--- NOTE | 2020-08-22 06:23 | NUR ---
Respiratory note: HELD MUCOMYST AND ALBUTEROL TX, DUE TO ELEVATED HR. RN INFORMED, PULMOCORT GIVEN ONLY AT THIS TIME.
[2020-08-22] MEDS: NOREPINEPHRINE 8 MG/250ML KIT 250 ML IV SCH ×2 (07:00→14:02)
--- NOTE | 2020-08-22 07:00 | NUR ---
REPORT RECEIVED FROM SUBSTANCE ABUSE CLINICIAN NURSE. PATIENT RESTING IN BED AT THIS TIME, INTUBATED AND SEDATED. RESPIRATIONS EVEN AND UNLABORED. PATIENTS BLOOD PRESSURE IN TO 70-80'S SYSTOLIC. WILL CONTINUE TO TITRATE VASOPRESSORS PER PROTOCOL. BED IN LOW POSITION. WILL CONTINUE TO MONITOR.
--- NOTE | 2020-08-22 07:45 | NUR ---
Respiratory note: VENT CHANGE POST AM ABG PER DIAMOND CLEANER [place] KINSEY. RR FROM 18 TO 20
--- NOTE | 2020-08-22 08:45 | NUR ---
UPON ASSESSING PATIENT THERE IS NOTED SUBCUTANEOUS EMPHYSEMA NOTED TO RIGHT CLAVICLE AREA. PER REPORT THIS HAS BEEN NOTED AND MD AWARE. WILL INFORM MD ON ROUNDS.
[2020-08-22] MEDS: POTASSIUM EFFERVESENT TAB 25 MEQ GT SCH (08:51)
[2020-08-22] MEDS: ENOXAPARIN SOD 100 MG/1 ML SYRINGE SC SCH (08:51)
[2020-08-22] MEDS: ZINC SULFATE 220mg CAP or TAB GT SCH (08:51)
[2020-08-22] MEDS: FAMOTIDINE (10MG/ML) 2ML VL IV SCH (08:51)
[2020-08-22] MEDS: CHOLECALCIFEROL (VITD3) 1,000UNIT=25mCg TAB GT SCH (08:52)
[2020-08-22] MEDS: ASCORBIC ACID 1,000 MG TAB GT SCH (08:52)
[2020-08-22] MEDS: DexAMETHasone SOD PHOS 10MG/1ML VIAL INJ IV SCH (08:53)
--- NOTE | 2020-08-22 10:00 | NUR ---
PAGED DR BURCH FOR PATIENTS DECREASED BLOOD PRESSURES IN THE 60-70S SYSTOLIC AND ON 28MCG/MIN OF LEVOPHED CURRENTLY. MD CALLED BACK AND ORDERED PHENYLEPHRINE PER PROTOCOL NEEDED. MD ALSO ORDERED ALBUMIN X1 DOSE. ALL ORDERS NOTED IN CHART.
[2020-08-22] MEDS: PHENYLEPHRINE IV 250 ML IV SCH ×2 (10:15→18:35)
[2020-08-22] MEDS ORDERED: ALBUMIN 25% 100 ML IV ONE (10:15)
--- NOTE | 2020-08-22 11:16 | NUR ---
DR BURCH AT BEDSIDE TO ASSESS PATIENT AND DISCUSS PLAN OF CARE. ALL ORDERS NOTED IN CHART. MD AWARE THAT MORNING POTASSIUM WAS GIVEN WELL SUBCUTANEOUS EMPHYSEMA TO THE RIGHT CLAVICLE AREA.
--- NOTE | 2020-08-22 11:40 | NUR ---
WOUND CARE NOTE: Wound care in to see patient per wound care request regarding low Moo score of 11 and intubation status, putting patient to high risk for skin breakdown. Patient is 55 years old female with admitting diagnosis of CoVid 19, Pneumonia. Patient is resting in SDU low air loss bed in Rm. 263. Patient is intubated,sedated and mechanically ventilated. Patient appears to be in no pain using Conklin Guardado Faces Pain Scale. Skin assessment done with the assistance of patient's nurse, JOON Lee. No open wound noted other than intact ecchymosis to L clarke and fading ecchymosis to Rt lateral feet and 5th toe. No pressure injury noted. Rosita care given, applied moisture barrier cream to lower sacral, buttocks and applied protective Opti foam dressing to upper sacrum. Repositioned patient for comfort facing her Lt. side, redistributed pressure points with pillows and elevate heels on pillows. Patient tolerated well. JOON Lee at bedside. RECOMMENDATION: Nursing to continue with BID/PRN cleaning and application Barrier cream to sacral, buttocks as preventative, Dietary consult for low Moo score, frequent turning and repositioning as condition permits, redistribute pressure points with pillows, elevate heels on pillows, continue monitoring by wound care while patient is intubated. Addendum: 08/22/20 at 1514 by Komal Dangelo RN Amended: Links added.
[2020-08-22] MEDS ORDERED: ALBUMIN 25% 100 ML IV SCH (11:45)
[2020-08-22] MEDS: fentaNYL Drip 2500mCg/250mlNS 250 ML IV SCH ×2 (11:52)
[2020-08-22] MEDS: PIPERACILLIN-TAZOB 2.25GM 50 ML IV SCH ×2 (11:52→18:10)
--- NOTE | 2020-08-22 12:20 | NUR ---
DR NIXON AT BEDSIDE TO ASSESS PATIENT AND DISCUSS PLAN OF CARE. NO NEW ORDERS AT THIS TIME.
[2020-08-22] MEDS: SODIUM CHLORIDE 0.9% 1,000 ML IV SCH ×2 (13:55→23:15)
[2020-08-22] MEDS: PROPOFOL 100 ML IV SCH (14:00)
--- NOTE | 2020-08-22 14:53 | NUR ---
SPOKE TO DR CARREON AND UPDATED ON PATIENT STATUS AND URINE OUTPUT. PER MD WILL STOP LASIX AT THIS TIME. ALL ORDERS NOTED IN CHART.
[2020-08-22] MEDS: ALBUMIN 25% 100 ML IV SCH (16:30)
--- NOTE | 2020-08-22 16:40 | NUR ---
PATIENT TRANSFERRED FROM [facility] ROOM 263 TO ICU ROOM 112 CONNECTED TO PORTABLE VENTILATOR AND MONITOR. VITAL SIGNS STABLE. UPON ARRIVAL PATIENT CONNECTED TO BEDSIDE MONITOR AND VENTILATOR. BED IN LOW POSITION. WILL CONTINUE TO MONITOR.
[2020-08-22] MEDS: REMDESIVIR 100mg in NS 230ml DAILYx4DAYS (NO VENT) IV SCH (17:33)
[2020-08-22] MEDS ORDERED: FUROSEMIDE 40 MG/4 ML VIAL IV SCH (18:00)
[2020-08-22] MEDS: NYSTATIN (MOUTH-THROAT) 500,000 UNITS/5 ML SUSP MT SCH ×2 (18:10→22:22)
--- NOTE | 2020-08-22 21:15 | NUR ---
PAGED RT REGARDING LOW SATURATION SPO2 WENT LOW 74% LUNG SOUNDS CLEAR ANTERIORLY, DIMINISHED AT LATERAL SIDES. WHITE MINIMUM ETT SECRETIONS. PATIENT RIDING VENT, TV DECREASING PERIODICALLY WHICH LEADS TO DESATURATION. VERIFIED ETT TUBE PLACEMENT AGAIN. CHANGED PULSE OX FROM LEFT FINGER TO LEFT EAR LOBE. FIO2 AT 90%. RT CHANGED IT TO 100%
--- NOTE | 2020-08-22 21:36 | NUR ---
PAGED RT REGARDING LOW SPO2 DESATURATING LOW 50% REPOSITIONED PATIENT, NO SEEING ANY IMPROVEMENTS, HR INCREASED TO 90 - 100 BPM. BASELINE 70 -80 BPM. NOTIFIED GEOPHYSICIST YVONNE FOR ADVICE.
--- NOTE | 2020-08-22 22:10 | NUR ---
RT AT BEDSIDE.
[2020-08-22] MEDS: LINEZOLID 600MG/300ML 300 ML IV SCH (22:24)
--- NOTE | 2020-08-22 23:19 | NUR ---
RESPIRATORY STATUS ABOUT EVERY 20 MIN PATIENT DESATURATES TO LOW 80%, SATURATION RETURNS BACK ABOVE 95% WITHIN 15 SECONDS OF DESATURATION.
[2020-08-23] VITALS (101 sets, daily range): BP systolic 95–133; BP diastolic 47–67
[2020-08-23] MEDS: ALBUMIN 25% 100 ML IV SCH ×2 (00:11→09:38)
[2020-08-23] MEDS: PIPERACILLIN-TAZOB 2.25GM 50 ML IV SCH ×4 (00:12→18:34)
--- NOTE | 2020-08-23 01:10 | NUR ---
RT AT BEDSIDE NEW VENTILATOR SETTINGS
[2020-08-23] MEDS: NOREPINEPHRINE 8 MG/250ML KIT 250 ML IV SCH (01:18)
[2020-08-23] MEDS: fentaNYL Drip 2500mCg/250mlNS 250 ML IV SCH ×2 (01:20→15:49)
[2020-08-23] MEDS: MIDAZOLAM DRIP 50 mg/50mL 50 ML IV SCH ×3 (02:47→17:47)
[2020-08-23] MEDS: PHENYLEPHRINE IV 250 ML IV SCH ×3 (02:55→19:35)
[2020-08-23 03:56] LABS: Basophils # (auto) 0 10 ^3/uL (0-0.2); Basophils % (auto) 0.1 % (0.0-2.0); Eosinophils # (auto) 0 10 ^3/uL (0-0.8); Hematocrit 27.1 % (36.0-46.0); Monocytes # (auto) 1.1 10 ^3/uL (0-1.3); Neutrophils # (auto) 16.5 10 ^3/uL (1.6-8.6); Red Cell Distribution Width 19.3 % (11.8-14.3)
[2020-08-23 04:08] LABS: Hemoglobin 8.4 g/dL (12.2-16.2); Lymphocytes # (auto) 0.5 10 ^3/uL (0.4-5.4); Lymphocytes % (auto) 2.8 % (10.0-50.0); Mean Corpuscular Hgb Conc. 31.1 g/dL (32.0-36.0); Mean Corpuscular Volume 77.3 fL (80.0-100.0); Neutrophils % (auto) 91.1 % (37.0-80.0); Platelet Count (auto) 448 10^3/uL (140-450); Red Blood Cells 3.51 10^6/uL (4.0-5.20); White Blood Cell 18.2 10^3/uL (4.4-10.8)
[2020-08-23 04:27] LABS: Albumin 3.2 g/dL (3.4-5.0); Calcium 9.1 mg/dL (8.5-10.1)
[2020-08-23 04:30] LABS: BUN/Creatinine Ratio 23.6; Bilirubin, Total 1.3 mg/dL (0.2-1.0); Total Protein 7.5 g/dL (6.4-8.2)
--- NOTE | 2020-08-23 04:34 | NUR ---
WITH MARINUM MOVEMENT PATIENT DESATURATED TO LOW 80'S TAKES 5 TO 10 MIN TO RECOVER ABOVE 90'S WILL HOLD BED LINEN CHANGE AND BATH AT THIS TIME.
[2020-08-23] MEDS: NYSTATIN (MOUTH-THROAT) 500,000 UNITS/5 ML SUSP MT SCH ×4 (05:41→22:34)
[2020-08-23] MEDS: ACETYLCYSTEINE 10 %(100MG/ML) SOL 4ML NEB SCH ×3 (06:25→22:05)
[2020-08-23] MEDS: ALBUTEROL SULF 2.5 MG/0.5ML(0.5%) NEB SOLN NEB SCH ×3 (06:25→22:05)
[2020-08-23] MEDS: BUDESONIDE (INHALATION) 0.5 MG/2 ML NEB NEB SCH ×2 (06:25→22:05)
--- NOTE | 2020-08-23 07:00 | NUR ---
REPORT RECEIVED FROM COUNTING MACHINE OPERATOR NURSE. PATIENT RESTING IN BED AT THIS TIME INTUBATED AND SEDATED. RESPIRATIONS EVEN AND UNLABORED. NO SIGNS OF ACUTE DISTRESS NOTED. BED IN LOW POSITION, WILL CONTINUE TO MONITOR.
[2020-08-23] MEDS: SODIUM CHLORIDE 0.9% 1,000 ML IV SCH ×2 (09:15→13:00)
[2020-08-23] MEDS ORDERED: FAMOTIDINE (10MG/ML) 2ML VL IV SCH (10:00)
[2020-08-23] MEDS: ENOXAPARIN SOD 100 MG/1 ML SYRINGE SC SCH (10:04)
[2020-08-23] MEDS: ZINC SULFATE 220mg CAP or TAB GT SCH (10:04)
[2020-08-23] MEDS: LINEZOLID 600MG/300ML 300 ML IV SCH ×2 (10:04→22:34)
[2020-08-23] MEDS: CHOLECALCIFEROL (VITD3) 1,000UNIT=25mCg TAB GT SCH (10:05)
[2020-08-23] MEDS: DexAMETHasone SOD PHOS 10MG/1ML VIAL INJ IV SCH (10:06)
[2020-08-23] MEDS: ASCORBIC ACID 1,000 MG TAB GT SCH (10:06)
--- NOTE | 2020-08-23 11:05 | NUR ---
DR NIXON AT BEDSIDE TO ASSESS PATIENT AND DISCUSS PLAN OF CARE. MD MADE AWARE OF PATIENTS DESATURATIONS THROUGHOUT THE NIGHT AND VENTILATOR CHANGES. MD SPOKE WITH NILAM DELCID TO MAKE VENTIALOR CHANGES. ALL ORDERS NOTED IN CHART.
--- NOTE | 2020-08-23 11:46 | NUR ---
DR BURCH AT BEDSIDE TO ASSESS PATIENT AND DISCUSS PLAN OF CARE. PER MD WILL START TUBE FEEDINGS IF OK WITH DR EID. ALL ORDERS NOTED IN CHART.
--- NOTE | 2020-08-23 12:05 | NUR ---
Nutrition Followup Note Wt 94.7 kg Pt is intubated sedated COVID +ve in isolation. Pt is currently NPO with no new diet orders Est Energy needs: 4464-7101 kcals (12-15 kcal/kgBW), Est Protein needs: 95-115 gms/day (2.0-2.5 gm/kgIBW of 47.7 kg). Will continue to monitor and reassess prn. Labs: JAUN 1.3 H GLU 133 H ALB 3.2 L. BM: Pt has no BM reported per RN note Skin: BS 11 low risk, full details in director career services note PES: 1) Inadequate oral intake aeb pt with 0% PO intake on BIPAP, refusal to eat r/t pt with a poor appetite 2) Obesity aeb 199% IBW and BMI of 39.6 kg/m2 r/t energy intake in excess of energy needs Comments: will continue to monitor NPO status, skin status. F/u high 2-3 days Rec: 1) advance diet as medically feasible 2) continue current plan of care. 3) consider EN support with Jevity @ 45 ml/hr per MD approval
[2020-08-23] MEDS ORDERED: Jevity 1.2 Cal/Fiber 1 Liter GT SCH (13:00)
--- NOTE | 2020-08-23 13:00 | NUR ---
Respiratory note: VENT CHANGES MADE PER . NEW VENT SETTINGS A/C 14, 450, +14, 100%. ABG IN 1 HOUR. RN AWARE OF CHANGE.
--- NOTE | 2020-08-23 13:08 | NUR ---
DR CARREON AT BEDSIDE TO ASSESS PATIENT AND DISCUSS PLAN OF CARE. PER MD IF PATIENT IS STARTED ON TUBE FEEDINGS STOP IV FLUIDS. ALL ORDERS NOTED IN CHART.
[2020-08-23] MEDS: PROPOFOL 100 ML IV SCH (14:00)
[2020-08-23] MEDS: REMDESIVIR 100mg in NS 230ml DAILYx4DAYS (NO VENT) IV SCH (17:19)
--- NOTE | 2020-08-23 18:14 | NUR ---
SPOKE TO DR CARREON AND UPDATED ON PATIENT STATUS AND URINE OUTPUT. PER MD ADMINISTER LASIX 40MG IVP X 1 DOSE. ALL ORDERS NOTED IN CHART.
[2020-08-23] MEDS ORDERED: FUROSEMIDE 40 MG/4 ML VIAL IV ONE (18:15)
--- NOTE | 2020-08-23 19:45 | NUR ---
Opening Shift Note Report received from day shift RN. Pt on mechanical ventilator on sedation. Full assessment done see interventions. Pt in isolation for COVID-19. All alarms on and audible. VSS. Pt in full view of RN. No pain indicated
--- NOTE | 2020-08-23 22:45 | NUR ---
Family Received phone call from Son, Moshe. Updated on POC and all questions and concerns addressed at this time.
[2020-08-24] VITALS (102 sets, daily range): BP systolic 99–136; BP diastolic 38–71
[2020-08-24] MEDS: PHENYLEPHRINE IV 250 ML IV SCH ×3 (03:55→20:35)
[2020-08-24 04:52] LABS: Eosinophils # (auto) 0.1 10 ^3/uL (0-0.8); Hemoglobin 7.4 g/dL (12.2-16.2); Neutrophils # (auto) 11.8 10 ^3/uL (1.6-8.6)
[2020-08-24 04:54] LABS: Basophils # (auto) 0 10 ^3/uL (0-0.2); Basophils % (auto) 0.1 % (0.0-2.0); Eosinophils % (auto) 0.5 % (0.0-7.0); Hematocrit 23.2 % (36.0-46.0); Lymphocytes # (auto) 0.3 10 ^3/uL (0.4-5.4); Lymphocytes % (auto) 2.5 % (10.0-50.0); Mean Corpuscular Hemoglobin 24.7 pg (28.0-32.0); Mean Corpuscular Hgb Conc. 32.1 g/dL (32.0-36.0); Mean Corpuscular Volume 77.2 fL (80.0-100.0); Monocytes % (auto) 7.6 % (0.0-12.0); Neutrophils % (auto) 89.3 % (37.0-80.0); Platelet Count (auto) 327 10^3/uL (140-450); Red Cell Distribution Width 19.8 % (11.8-14.3); White Blood Cell 13.2 10^3/uL (4.4-10.8)
[2020-08-24 05:29] LABS: Calcium 8.6 mg/dL (8.5-10.1); Potassium 3.7 mmol/L (3.5-5.1)
[2020-08-24 05:32] LABS: BUN/Creatinine Ratio 18.3; Bilirubin, Total 0.5 mg/dL (0.2-1.0); Total Protein 6.9 g/dL (6.4-8.2)
[2020-08-24] MEDS: NYSTATIN (MOUTH-THROAT) 500,000 UNITS/5 ML SUSP MT SCH ×4 (06:00→22:00)
[2020-08-24] MEDS: BUDESONIDE (INHALATION) 0.5 MG/2 ML NEB NEB SCH ×2 (06:00→22:33)
[2020-08-24] MEDS: PIPERACILLIN-TAZOB 2.25GM 50 ML IV SCH ×4 (06:25→17:54)
[2020-08-24] MEDS: MIDAZOLAM DRIP 50 mg/50mL 50 ML IV SCH ×2 (06:29→16:00)
[2020-08-24] MEDS: SODIUM CHLORIDE 0.9% 1,000 ML IV SCH (07:42)
--- NOTE | 2020-08-24 09:12 | NUR ---
OPEN RECEIVED REPORT FROM NIGHT RN. ASSUMED CARE OF ICU PATIENT, FULL CODE STATUS. PATIENT SEDATED ON VENT. CURRENTLY ON AC MODE, 70% FIO2, +14 PEEP. OGT WITH JEVITY AT 25 ML/HR. MALHOTRA TO GRAVITY. SEE BARIATRIC SURGEON FOR FURTHER PATIENT INFORMATION, SEE IV SPREAD SHEET FOR INFO. WILL CONTINUE TO TURN PATIENT Q2HRS AND PRN. OFF LOADING PRESSURE AREAS WITH PILLOWS. CONTINUE CARE.
--- NOTE | 2020-08-24 10:00 | NUR ---
DR. MIX AT BEDSIDE: ORDERS MD UPDATED ON PT'S CURRENT STATUS, LABS AND POC FOR TODAY. ORDERS GIVEN AND TO BE CARRIED OUT. CONTINUE CARE AT THIS TIME.
[2020-08-24] MEDS ORDERED: BUMETANIDE 2.5mg/10ml (0.25 mg/ml) INJ IV ONE (10:15)
--- NOTE | 2020-08-24 10:40 | NUR ---
DR. NIXON AT BEDSIDE: ORDERS MD UPDATED ON PT'S CURRENT STATUS, LABS AND ABG RESULTS AT THIS TIME. ORDERS RECEIVED AND TO BE CARRIED OUT. CONTINUE CARE.
[2020-08-24 11:14] LABS: Urine WBC None Seen /hpf (0 - 5)
[2020-08-24] MEDS: CHOLECALCIFEROL (VITD3) 1,000UNIT=25mCg TAB GT SCH (11:21)
[2020-08-24] MEDS: ZINC SULFATE 220mg CAP or TAB GT SCH (11:21)
[2020-08-24] MEDS: ASCORBIC ACID 1,000 MG TAB GT SCH (11:21)
[2020-08-24] MEDS: LINEZOLID 600MG/300ML 300 ML IV SCH ×2 (11:21→22:00)
[2020-08-24] MEDS: ENOXAPARIN SOD 100 MG/1 ML SYRINGE SC SCH (11:21)
[2020-08-24 11:37] LABS: Urine Amorphous Crystal MOD /hpf (None Seen); Urine Bacteria NONE SEEN /hpf (None Seen); Urine Blood 1+ /uL (Negative); Urine Hyaline Cast FEW /lpf (0 - 2); Urine Mucus FEW (None Seen); Urine Specific Gravity 1.015 (1.001-1.035)
[2020-08-24 11:39] LABS: Creatinine, Urine 69 mg/dL (30.0-125.0); Sodium Urine 30 mmol/L (40-220)
[2020-08-24] MEDS: PROPOFOL 100 ML IV SCH (13:05)
--- NOTE | 2020-08-24 14:23 | NUR ---
HOLD ON TURNING AT THIS TIME: RESP. STATUS UNSTABLE PATIENT CURRENT O2 SATS 90%. VENTILATOR FIO2 CURRENTLY AT 100% AND PATIENT DE-SATS WHEN TURNING OR TOUCHING OF PATIENT. HOLDING TURNING AT THIS TIME. REMAINS IN SUPINE POSITION. CONTINUE CARE.
[2020-08-24] MEDS: ACETYLCYSTEINE 10 %(100MG/ML) SOL 4ML NEB SCH ×3 (14:53→22:33)
[2020-08-24] MEDS: ALBUTEROL SULF 2.5 MG/0.5ML(0.5%) NEB SOLN NEB SCH ×3 (14:53→22:33)
[2020-08-24 18:14] LABS: Calcium 8.8 mg/dL (8.5-10.1); Potassium 3.8 mmol/L (3.5-5.1)
--- NOTE | 2020-08-24 19:30 | NUR ---
Opening Shift Note Received pt on mechanical ventilator, on covid isolation. Full assessment done see interventions. VSS. No pain indicated at this time. Pt currently sedated, see IV spreadsheet for details. Will continue to monitor closely
--- NOTE | 2020-08-24 20:45 | NUR ---
Family Received phone call from son, Moshe. Updated on POC all questions and concerns addressed at this time.
--- NOTE | 2020-08-24 22:00 | NUR ---
Turned pt at this time and able to tolerate with no change in respiratory status. Will continue to monitor closely.
--- NOTE | 2020-08-24 22:39 | NUR ---
RT NOTE VENT CHECK COMPLETED. PT TOLERATING SETTINGS. NO CHANGES MADE. RT GAVE PT TX INLINE. TUBE MOVED TO THE LEFT POSTION TO PREVENT ANY SKIN BREAKDOWN AT THE LIPS. RT HELPED JOON JEAN-BAPTISTE REPOSITION PT. RT SUCTIONED ETT WITH A MODERATE RETURN OF THICK, YELLOW BLOOD TINGED SECRETIONS. PT AT 100% FIO2. RT LAVAGED AND SUCTIONED TO TRY AND BREAK UP ANY POSSIBLE PLUGGING AND HELP GET THE SAT UP. RT DROPPED FIO2 TO 80% TO TEST TO SEE IF PT COULD MAINTIAN THE 93% SPO2 AT A LOWER FIO2. PT DID DROP DOWN TO 87%. RT CAME BACK UP IN INCREMENTS OF 5% UNTIL RT HAD NO OTHER OPTION BUT TO PLACE PT BACK ON 100% FIO2. PT SPO2 93% AT 100% FIO2.
[2020-08-24] MEDS: fentaNYL Drip 2500mCg/250mlNS 250 ML IV SCH (22:50)
[2020-08-25] VITALS (85 sets, daily range): BP systolic 99–142; BP diastolic 2–73
--- NOTE | 2020-08-25 | NUR ---
Residuals Pt is having high residuals, will turn off TF at this time and continue to reassess.
--- NOTE | 2020-08-25 04:00 | NUR ---
Residuals at 50cc. will still hold TF for now.
[2020-08-25] MEDS: PHENYLEPHRINE IV 250 ML IV SCH ×3 (04:55→21:35)
[2020-08-25] MEDS: SODIUM CHLORIDE 0.9% 1,000 ML IV SCH (05:00)
[2020-08-25] MEDS: PIPERACILLIN-TAZOB 2.25GM 50 ML IV SCH ×5 (05:38→23:46)
[2020-08-25] MEDS: MIDAZOLAM DRIP 50 mg/50mL 50 ML IV SCH ×4 (05:38→16:45)
[2020-08-25 06:00] LABS: Basophils # (auto) 0 10 ^3/uL (0-0.2); Basophils % (auto) 0.2 % (0.0-2.0); Eosinophils # (auto) 0 10 ^3/uL (0-0.8); Eosinophils % (auto) 0.1 % (0.0-7.0); Hemoglobin 8.5 g/dL (12.2-16.2); Lymphocytes # (auto) 0.3 10 ^3/uL (0.4-5.4); Lymphocytes % (auto) 1.8 % (10.0-50.0); Mean Corpuscular Hemoglobin 24.1 pg (28.0-32.0); Mean Corpuscular Hgb Conc. 30.2 g/dL (32.0-36.0); Monocytes # (auto) 1.7 10 ^3/uL (0-1.3); Monocytes % (auto) 8.8 % (0.0-12.0); Neutrophils % (auto) 89.1 % (37.0-80.0); Nucleated Red Blood Cells % 0.1 %; Platelet Count (auto) 372 10^3/uL (140-450)
[2020-08-25 06:01] LABS: Red Cell Distribution Width 20.2 % (11.8-14.3)
[2020-08-25] MEDS: NYSTATIN (MOUTH-THROAT) 500,000 UNITS/5 ML SUSP MT SCH ×4 (06:11→21:44)
[2020-08-25 06:20] LABS: Albumin 2.7 g/dL (3.4-5.0); BUN/Creatinine Ratio 15.8; Calcium 8.9 mg/dL (8.5-10.1); Potassium 4.2 mmol/L (3.5-5.1)
[2020-08-25 06:22] LABS: Bilirubin, Total 0.5 mg/dL (0.2-1.0); Total Protein 7.6 g/dL (6.4-8.2)
--- NOTE | 2020-08-25 06:56 | NUR ---
Left message with Dr. Saunders regarding critical BUN this AM. Awaiting return call.
--- NOTE | 2020-08-25 07:00 | NUR ---
REPORT RECEIVED FROM HOME VISITS NURSE NURSE. PATIENT RESTING IN BED AT THIS TIME, INTUBATED AND SEDATED. RESPIRATIONS EVEN AND UNLABORED. NO SIGNS OF ACUTE DISTRESS NOTED. BED IN LOW POSITION. WILL CONTINUE TO MONITOR.
--- NOTE | 2020-08-25 07:00 | NUR ---
REPORT RECEIVED FROM VALIDATION ENGINEER NURSE. PATIENT RESTING IN BED INTUBATED AND SEDATED. RESPIRATIONS EVEN AND UNLABORED. NO SIGNS OF ACUTE DISTRESS NOTED. BED IN LOW POSITION. WILL CONTINUE TO MONITOR.
--- NOTE | 2020-08-25 08:16 | NUR ---
UPDATED SON ON PATIENT STATUS AND INFORMED THAT I WILL CALL WHEN MD ROUNDS AND UPDATE ABOUT ANY CHANGES AND POSSIBLE NEED FOR DIALYSIS CATHETER IF PERFORMANCE IMPROVEMENT DIRECTOR FEELS ITS NEEDED. SON VERBALIZED UNDERSTANDING AND ALL QUESTIONS AND CONCERNS WERE ADDRESSED AT THIS TIME.
[2020-08-25] MEDS: LINEZOLID 600MG/300ML 300 ML IV SCH ×2 (09:25→21:42)
[2020-08-25] MEDS: ZINC SULFATE 220mg CAP or TAB GT SCH (09:26)
[2020-08-25] MEDS: ENOXAPARIN SOD 100 MG/1 ML SYRINGE SC SCH (09:26)
[2020-08-25] MEDS: CHOLECALCIFEROL (VITD3) 1,000UNIT=25mCg TAB GT SCH (09:26)
[2020-08-25] MEDS: ASCORBIC ACID 1,000 MG TAB GT SCH (09:26)
--- NOTE | 2020-08-25 09:30 | NUR ---
AM CARE PARTIAL LINEN CHANGE COMPLETED. PATIENT TOLERATED WELL WITH NO DECREASED IN SATURATIONS. UPON ASSESSING RESIDUALS OF GASTRIC ON CONTENT THERE WAS NOTED TO BE APPROXIMATELY 60ML OF RESIDUAL. STARTED TUBE FEEDINGS AT 15ML/HR. WILL CONTINUE TO MONITOR FOR TOLERANCE.
--- NOTE | 2020-08-25 09:47 | NUR ---
DR MIX ON UNIT TO DISCUSS PLAN OF CARE. PER MD PATIENT NEEDS DIALYSIS AT THIS TIME. OBTAIN CONSENT FROM FAMILY FOR CATHETER PLACEMENT. PATIENT TO HAVE DIALYSIS TODAY ONCE CATHETER PLACED. ALL ORDERS NOTED IN CHART.
[2020-08-25] MEDS ORDERED: SODIUM CHL 0.9% 1000 ML BAG XX ONE (10:15)
--- NOTE | 2020-08-25 10:30 | NUR ---
DR NIXON ON UNIT TO DISCUSS PLAN OF CARE. PER MD WILL PLACE DIALYSIS CATHETER ONCE CONSENTS OBTAINED.
--- NOTE | 2020-08-25 10:30 | NUR ---
CONSENT OBTAINED CONSENT FROM MAGGY SANTILLAN WELL SON BABITA SANTILLAN TO PLACE GLO CATHETER FOR DIALYSIS. ALL QUESTIONS AND CONCERNS ADDRESSED AT THIS TIME. DOUBLE NURSE CONSENT OBTAINED VIA TELEPHONE. ALL CONSENTS PLACED IN CHART.
[2020-08-25] MEDS ORDERED: HEPARIN 1,000 UNITS/ml 1ML VIAL ONE (10:34)
--- NOTE | 2020-08-25 11:00 | NUR ---
GLO CATHETER PLACEMENT DR NIXON AT BEDSIDE TO PLACE DIALYSIS CATHETER. GLO CATHETER PLACED TO RIGHT FEMORAL ARTERY. PATIENT TOLERATED WELL. NO BLEEDING NOTED, STERILE DRESSING PLACED. Addendum: 08/25/20 at 1720 by Rosa Giron RN ULTRASOUND USED TO OBTAIN PLACEMENT.
--- NOTE | 2020-08-25 12:20 | NUR ---
DIALYSIS NURSE AT BEDSIDE TO START TREATMENT. VITAL SIGNS STABLE, WILL CONTINUE TO MONITOR.
[2020-08-25] MEDS: PROPOFOL 100 ML IV SCH (14:00)
--- NOTE | 2020-08-25 15:20 | NUR ---
DIALYSIS COMPLETED, REMOVED 2.6LITERS.
[2020-08-25] MEDS: fentaNYL Drip 2500mCg/250mlNS 250 ML IV SCH (15:52)
--- NOTE | 2020-08-25 16:11 | NUR ---
Nutrition Followup Note Wt 98.1 kg Pt is intubated sedated COVID +ve in isolation with medical personnel at bedside when rounded this morning. Pt is currently NPO with TF held d/t residuals per RN note. Pt with no new diet orders Est Energy needs: 8250-6057 kcals (12-15 kcal/kgBW), Est Protein needs: 95-115 gms/day (2.0-2.5 gm/kgIBW of 47.7 kg). Will continue to monitor and reassess prn. Labs: GLU 112 H ALB 2.7 L, BUN 90 H, Creat 5.68 H, GFR 8 L BM: Pt has no BM reported per RN note Skin: BS 12 high risk, full details in rn care manager note PES: 1) Inadequate oral intake aeb pt with 0% PO intake on BIPAP, refusal to eat r/t pt with a poor appetite 2) Obesity aeb 199% IBW and BMI of 39.6 kg/m2 r/t energy intake in excess of energy needs Comments: will continue to monitor NPO status, skin status. F/u high 2-3 days Rec: 1) advance diet as medically feasible 2) continue current plan of care. 3) consider EN support with Jevity @ 45 ml/hr per MD approval
[2020-08-25] MEDS: ALBUTEROL SULF 2.5 MG/0.5ML(0.5%) NEB SOLN NEB SCH ×2 (18:29→22:30)
[2020-08-25] MEDS: BUDESONIDE (INHALATION) 0.5 MG/2 ML NEB NEB SCH (18:29)
--- NOTE | 2020-08-25 20:00 | NUR ---
STARTED JEVITY AT 10CC CURRENT RESIDUAL IS 15CC YELLOW FLUID.
--- NOTE | 2020-08-25 20:11 | NUR ---
COOLING MEASURES RECTAL TEMP 100.0. APPLIED COLD DAMP WASH CLOTH TO FOREHEAD. DECREASED ROOM TEMPERATURE.
--- NOTE | 2020-08-25 20:14 | NUR ---
HOLDING NORMAL SALINE PER REPORT PER REPORT MD REQUESTED TO HOLD NS IF FEEDING IS RUNNING.
[2020-08-25] MEDS: ACETYLCYSTEINE 10 %(100MG/ML) SOL 4ML NEB SCH ×2 (22:30→22:31)
--- NOTE | 2020-08-25 23:40 | NUR ---
COOLING MEASURES TEMP RECTAL 100.6 APPLIED ICE PACKS TO BILATERAL AXILLA, NECK AND GROIN.
--- NOTE | 2020-08-25 23:49 | NUR ---
JEVITY RUNNING AT 10CC/HR RESIDUAL IS 20CC HOB 40 DEGREES WILL CONTINUE TO MONITOR AND TITRATE FEEDING PATIENT TOLERATING IT.
[2020-08-26] VITALS (100 sets, daily range): BP systolic 80–139; BP diastolic 36–68
[2020-08-26] MEDS: SODIUM CHLORIDE 0.9% 1,000 ML IV SCH (01:00)
[2020-08-26] MEDS: ALBUTEROL SULF 2.5 MG/0.5ML(0.5%) NEB SOLN NEB SCH ×6 (02:19→22:00)
--- NOTE | 2020-08-26 04:01 | NUR ---
TOLERATING FEEDING JEVITY INCREASED TO 20 CC/HR RESIDUAL 10 CC HOB 40 DEGREES HYPOACTIVE BOWEL SOUNDS NO S/S OF RESPIRATORY DISTRESS OR ASPIRATION.
[2020-08-26 04:19] LABS: Basophils # (auto) 0 10 ^3/uL (0-0.2); Basophils % (auto) 0.1 % (0.0-2.0); Eosinophils # (auto) 0.1 10 ^3/uL (0-0.8); Hemoglobin 7.8 g/dL (12.2-16.2); Lymphocytes # (auto) 0.6 10 ^3/uL (0.4-5.4); Nucleated Red Blood Cells % 0.1 %
[2020-08-26 04:21] LABS: Eosinophils % (auto) 0.7 % (0.0-7.0); Hematocrit 24.7 % (36.0-46.0); Lymphocytes % (auto) 4.3 % (10.0-50.0); Mean Corpuscular Hemoglobin 24.1 pg (28.0-32.0); Mean Corpuscular Hgb Conc. 31.4 g/dL (32.0-36.0); Mean Corpuscular Volume 76.6 fL (80.0-100.0); Monocytes # (auto) 0.9 10 ^3/uL (0-1.3); Monocytes % (auto) 6.7 % (0.0-12.0); Neutrophils # (auto) 11.7 10 ^3/uL (1.6-8.6); Neutrophils % (auto) 88.2 % (37.0-80.0); Platelet Count (auto) 293 10^3/uL (140-450); Red Blood Cells 3.23 10^6/uL (4.0-5.20); White Blood Cell 13.2 10^3/uL (4.4-10.8)
[2020-08-26 04:23] LABS: Red Cell Distribution Width 19.9 % (11.8-14.3)
[2020-08-26 04:33] LABS: Potassium 3.8 mmol/L (3.5-5.1)
[2020-08-26 04:38] LABS: Albumin 2.4 g/dL (3.4-5.0); BUN/Creatinine Ratio 13.4; Bilirubin, Total 0.6 mg/dL (0.2-1.0); Calcium 8.2 mg/dL (8.5-10.1); Total Protein 6.7 g/dL (6.4-8.2)
[2020-08-26] MEDS: PHENYLEPHRINE IV 250 ML IV SCH ×3 (05:55→22:35)
[2020-08-26] MEDS: PIPERACILLIN-TAZOB 2.25GM 50 ML IV SCH ×3 (05:58→19:28)
[2020-08-26] MEDS: NYSTATIN (MOUTH-THROAT) 500,000 UNITS/5 ML SUSP MT SCH ×4 (05:58→21:40)
[2020-08-26] MEDS: MIDAZOLAM DRIP 50 mg/50mL 50 ML IV SCH ×4 (06:47→21:41)
[2020-08-26] MEDS: fentaNYL Drip 2500mCg/250mlNS 250 ML IV SCH ×2 (06:49→21:43)
[2020-08-26] MEDS: ACETYLCYSTEINE 10 %(100MG/ML) SOL 4ML NEB SCH ×3 (06:59→22:00)
--- NOTE | 2020-08-26 07:25 | NUR ---
REPORT REPORT RECEIVED FROM AMRIT DUPREE, CARE ASSUMED. VS REMAIN STABLE AT THIS TIME.
--- NOTE | 2020-08-26 07:50 | NUR ---
INITIAL CONTACT PT INTUBATED AND ON MECHANICAL VENTILATION. NO DISTRESS NOTED. TOLERATING MECHANICAL VENTILATOR WELL AT THIS TIME. OXYGEN SATURATION 91%. LUNGS CLEAR ANTERIORLY. VS STABLE. PHYSICAL ASSESSMENT COMPLETE. HEART RATE 90-100'S SINUS RHYTHM. TUBE FEEDINGS RUNNING THROUGH OGT. MALHOTRA CATHETER PRESENT AND SECURED BELOW BLADDER. SKIN INTACT. ALL EXTREMITIES OFF LOADED ON PILLOWS. PT ON FREQUENT TURNING SCHEDULE. ALARMS IN PLACE. BED LOCKED IN LOWEST POSITION. WILL CONTINUE TO MONITOR.
--- NOTE | 2020-08-26 08:00 | NUR ---
TUBE FEEDINGS GASTRIC RESIDUAL CHECKED. 40 CC TUBE FEEDINGS NOTED. WILL CONTINUE FEEDINGS AT SAME RATE.
[2020-08-26] MEDS ORDERED: BUMETANIDE 2.5mg/10ml (0.25 mg/ml) INJ IV ONE (09:00)
[2020-08-26] MEDS: CHOLECALCIFEROL (VITD3) 1,000UNIT=25mCg TAB GT SCH (09:24)
[2020-08-26] MEDS: ASCORBIC ACID 1,000 MG TAB GT SCH (09:24)
[2020-08-26] MEDS: LINEZOLID 600MG/300ML 300 ML IV SCH (09:24)
[2020-08-26] MEDS: ZINC SULFATE 220mg CAP or TAB GT SCH (09:24)
[2020-08-26] MEDS: ENOXAPARIN SOD 100 MG/1 ML SYRINGE SC SCH (09:25)
[2020-08-26] MEDS: BUDESONIDE (INHALATION) 0.5 MG/2 ML NEB NEB SCH ×2 (10:51→22:00)
--- NOTE | 2020-08-26 10:57 | NUR ---
FAMILY PATIENT SON BABITA CALLED FOR UPDATE. FAMILY REQUESTING TO BE ALLOWED TO COME SEE PATIENT. WILL ASK CASTING MACHINE SERVICE OPERATOR.
--- NOTE | 2020-08-26 11:13 | NUR ---
MD VISIT DR.TANJAVOUR REDD. MD AWARE OF LABS, URINE OUTPUT, AND IV MEDICATIONS.
--- NOTE | 2020-08-26 11:27 | NUR ---
MD VISIT ROUNDING ON PATIENT. MD AWARE OF CURRENT FIO2 SETTINGS AND VS TRENDS. NO NEW ORDERS RECEIVED AT THIS TIME.
[2020-08-26] MEDS: PROPOFOL 100 ML IV SCH (11:33)
[2020-08-26] MEDS: ACETAMINOPHEN 500 MG TAB PO PRN (11:34)
--- NOTE | 2020-08-26 11:34 | NUR ---
COOLING MEASURES INITIATED PATIENT RECTAL TEMPERATURE 100.4. PRN TYLENOL GIVEN WELL ICE PACKS APPLIED TO TRUNK.
[2020-08-26 11:59] LABS: Hepatitis A Ab IgM Negative; Hepatitis B Core IgM Negative; Hepatitis B Surface Antigen Negative (Negative); Hepatitis C Antibody Negative (Negative)
--- NOTE | 2020-08-26 12:00 | NUR ---
TUBE FEEDINGS GASTRIC RESIDUAL CHECKED. GREATER THAN 60 CC, TUBE FEEDINGS HELD AT THIS TIME.
--- NOTE | 2020-08-26 12:40 | NUR ---
MD VISIT ROUNDING AT BEDSIDE.
[2020-08-26] MEDS: NOREPINEPHRINE 8 MG/250ML KIT 250 ML IV SCH (13:23)
--- NOTE | 2020-08-26 13:25 | NUR ---
HYPOTENSION PATIENT BLOOD PRESSURE TRENDING LOW CONTINUOUSLY DESPITE OTHER INTERVENTIONS. MD AWARE. LOW DOSE LEVOPHED STARTED.
--- NOTE | 2020-08-26 18:00 | NUR ---
CARES/TUBE FEEDINGS GASTRIC RESIDUAL CHECKED. 30 CC TUBE FEEDINGS NOTED. WILL CONTINUE FEEDINGS. COMPLETE LINEN CHANGE PERFORMED. SKIN REASSESSMENT COMPLETE. PT REPOSITIONED ON SIDE. TOLERATED WELL.
--- NOTE | 2020-08-26 19:29 | NUR ---
REPORT REPORT GIVEN TO AMRIT DUPREE, CARE ENDORSED.
--- NOTE | 2020-08-26 20:15 | NUR ---
SPOKE TO AMAYA YangNate (MOTHER) UPDATED HER ON PATIENTS STATUS AND POC, ALL QUESTION AND CONCERNS ADDRESSED. AMAYA STATED THAT SHE HERSELF TESTED POSITIVE FOR COVID AND RECOVERED WITH NO SYMPTOMS.
--- NOTE | 2020-08-26 22:00 | NUR ---
DESATURATED TO 77% SPO2 PATIENT BREATHING ABOVE THE VENT, PATIENT WAS SUCTIONED MINIMUM THICK WHITE SECRETIONS. RT AT BEDSIDE RECTAL TEMP READS 99.7, PATIENT FEELS HOT TO TOUCH. RECHECKED TEMP AT AXILLA (99.8) AND ORALLY (100.1) IMPLEMENTED COOLING MEASURES, APPLIED ICE PACKS TO BILATERAL AXILLA AND BEHIND NECK, DAMP WASH CLOTH TO FOREHEAD AND BOTH FEET.
--- NOTE | 2020-08-26 22:40 | NUR ---
PATIENT DESATURATED TO LOW 80'S AFTER PATIENT RECOVERED TO ABOVE 90%, PATIENT DESATURATED AGAIN TO LOW 80'S PAGED RT, FIO2 INCREASED TO 100% FROM 60%, PATIENT IS SATURATING 91% AND ABOVE. WILL CONTINUE TO MONITOR.
[2020-08-27] VITALS (111 sets, daily range): BP systolic 78–160; BP diastolic 32–75
[2020-08-27] MEDS: PIPERACILLIN-TAZOB 2.25GM 50 ML IV SCH ×4 (00:32→17:50)
--- NOTE | 2020-08-27 01:00 | NUR ---
REPARATORY PROGRESS NOTE THERE ARE PERIODS WHERE PATIENT DESATURATES BELOW 90% SPO2 BUT RECOVERS WITHIN 2 TO 5 MIN BACK ABOVE 90% SPO2. WILL CONTINUE TO MONITOR.
[2020-08-27] MEDS: ALBUTEROL SULF 2.5 MG/0.5ML(0.5%) NEB SOLN NEB SCH ×6 (02:38→22:23)
[2020-08-27] MEDS: PROPOFOL 100 ML IV SCH ×5 (03:22→19:24)
[2020-08-27] MEDS: MIDAZOLAM DRIP 50 mg/50mL 50 ML IV SCH ×4 (03:56→22:08)
[2020-08-27 04:09] LABS: Basophils # (auto) 0.1 10 ^3/uL (0-0.2); Eosinophils # (auto) 0.2 10 ^3/uL (0-0.8); Hemoglobin 8.1 g/dL (12.2-16.2); Lymphocytes # (auto) 0.7 10 ^3/uL (0.4-5.4); Monocytes # (auto) 1.1 10 ^3/uL (0-1.3); Neutrophils # (auto) 14.1 10 ^3/uL (1.6-8.6); Neutrophils % (auto) 87.1 % (37.0-80.0)
[2020-08-27 04:10] LABS: Basophils % (auto) 0.3 % (0.0-2.0); Eosinophils % (auto) 1.3 % (0.0-7.0); Hematocrit 25.6 % (36.0-46.0); Lymphocytes % (auto) 4.2 % (10.0-50.0); Mean Corpuscular Hemoglobin 24.4 pg (28.0-32.0); Mean Corpuscular Hgb Conc. 31.7 g/dL (32.0-36.0); Mean Corpuscular Volume 76.9 fL (80.0-100.0); Monocytes % (auto) 7.1 % (0.0-12.0); Platelet Count (auto) 346 10^3/uL (140-450); Red Blood Cells 3.32 10^6/uL (4.0-5.20); White Blood Cell 16.1 10^3/uL (4.4-10.8)
[2020-08-27 04:16] LABS: Red Cell Distribution Width 20.4 % (11.8-14.3)
[2020-08-27 04:32] LABS: Albumin 2.2 g/dL (3.4-5.0); Calcium 8.7 mg/dL (8.5-10.1); Potassium 4.2 mmol/L (3.5-5.1)
[2020-08-27 04:37] LABS: BUN/Creatinine Ratio 13.7; Bilirubin, Total 0.5 mg/dL (0.2-1.0); Total Protein 6.9 g/dL (6.4-8.2)
--- NOTE | 2020-08-27 05:28 | NUR ---
PAGED RT PATIENT DESATURATING TO SPO2 80% AFTER XRAY WAS TAKEN. DOES NOT TOLERATE TURNS, BREATHING OVER VENT, LUNGS SOUND COARSE, NO ETT SECRETIONS.
[2020-08-27] MEDS: NYSTATIN (MOUTH-THROAT) 500,000 UNITS/5 ML SUSP MT SCH ×4 (05:38→22:06)
--- NOTE | 2020-08-27 05:39 | NUR ---
CALLED TO BEDSIDE, PT DESATURATING ON VENTILATOR TO 77%. MANUALLY VENTILATED PT WITH PEEP VALVE TO 10 CM H20. SPO2 INCREASED TO 94%. TOTAL TIME IN ROOM 15 MINS.
--- NOTE | 2020-08-27 05:39 | NUR ---
RT AT BEDSIDE PT SAT AT 80%
--- NOTE | 2020-08-27 05:44 | NUR ---
PAGE HOSPITALIST REGARDING PATIENT DESATURATING
--- NOTE | 2020-08-27 05:50 | NUR ---
HOSPITALIST RETURNED CALL RECEIVED NEW ORDERS, PARALYTIC
[2020-08-27] MEDS ORDERED: ATRACURIUM BESYLATE (10 MG/ ML) 10 ML VIAL ONE ×2 (05:51→23:40)
[2020-08-27] MEDS: ATRACURIUM BESYLATE 1,000 MG in D5W 5% 150 ML IV SCH (06:10)
--- NOTE | 2020-08-27 06:10 | NUR ---
STARTED PARALYTIC (TOF #5 STARTING POINT) GETTING 4/4 AT LEVEL #5, FACIAL NERVE LEFT SIDE. PATIENT RECEIVED BOLUS ACCORDING TO PROTOCOL.
[2020-08-27] MEDS: ACETYLCYSTEINE 10 %(100MG/ML) SOL 4ML NEB SCH ×3 (06:44→22:23)
[2020-08-27] MEDS: PHENYLEPHRINE IV 250 ML IV SCH ×3 (06:55→23:35)
--- NOTE | 2020-08-27 07:00 | NUR ---
VASOPRESSOR SYSTOLIC BLOOD PRESSURE TRENDING 90'S. DIALYSIS NURSE AT BEDSIDE ABOUT TO START TREATMENT. LEVOPHED GTT STARTED AT LOW DOSE TO ALLOW FOR DIALYSIS TREATMENT TO BE PERFORMED.
--- NOTE | 2020-08-27 07:00 | NUR ---
DECREASED FIO2 TO 85% POST AM ABG.
--- NOTE | 2020-08-27 07:25 | NUR ---
REPORT REPORT RECEIVED FROM AMRIT DUPREE, CARE ASSUMED. VS REMAIN STABLE AT THIS TIME WITH VASOPRESSOR THERAPY.
--- NOTE | 2020-08-27 08:00 | NUR ---
INITIAL CONTACT PT INTUBATED AND ON MECHANICAL VENTILATION. NO DISTRESS NOTED. TOLERATING MECHANICAL VENTILATOR WELL AT THIS TIME. OXYGEN SATURATION 93% ON FIO2 85%. LUNGS CLEAR ANTERIORLY. VS STABLE. PT ON PARALYTIC. TRAIN OF FOUR PERFORMED. 4/4 TICKS NOTED AT MA OF 5. PARALYTIC INCREASED. PHYSICAL ASSESSMENT COMPLETE. HEART RATE 80-90'S SINUS RHYTHM. TUBE FEEDINGS BEING HELD AT THIS TIME. MALHOTRA CATHETER PRESENT AND SECURED BELOW BLADDER. SKIN INTACT. ALL EXTREMITIES OFF LOADED ON PILLOWS. PT ON FREQUENT TURNING SCHEDULE. ALARMS IN PLACE. BED LOCKED IN LOWEST POSITION. WILL CONTINUE TO MONITOR.
--- NOTE | 2020-08-27 08:10 | NUR ---
DIALYSIS DIALYSIS STARTED, TOLERATING TREATMENT AT THIS TIME.
--- NOTE | 2020-08-27 08:20 | NUR ---
WARMING MEASURES PT RECTAL TEMPERATURE 96.6, CORRELATING WITH ORAL TEMPERATURE. BLANKETS APPLIED. WILL CONTINUE TO MONITOR.
--- NOTE | 2020-08-27 09:51 | NUR ---
MD VISIT DR.BAVEJA REDD AT BEDSIDE. MD AWARE OF RESPIRATORY STATUS AND DESATURATION EVENTS THROUGHOUT THE NIGHT. MD SATISFIED WITH CURRENT SETTINGS AND VS. REPEAT ABG 2 HOURS AFTER DIALYSIS IS COMPLETE.
--- NOTE | 2020-08-27 09:59 | NUR ---
MD VISIT ROUNDING AT BEDSIDE. MD AWARE OF LABS AND IMAGING. NO NEW ORDERS RECEIVED AT THIS TIME.
[2020-08-27] MEDS: ENOXAPARIN SOD 100 MG/1 ML SYRINGE SC SCH (10:00)
[2020-08-27] MEDS: BUDESONIDE (INHALATION) 0.5 MG/2 ML NEB NEB SCH ×2 (10:10→18:05)
[2020-08-27] MEDS: ZINC SULFATE 220mg CAP or TAB GT SCH (10:22)
[2020-08-27] MEDS: ASCORBIC ACID 1,000 MG TAB GT SCH (10:22)
[2020-08-27] MEDS: CHOLECALCIFEROL (VITD3) 1,000UNIT=25mCg TAB GT SCH (10:23)
--- NOTE | 2020-08-27 10:23 | NUR ---
LOVENOX HELD PER ADMINISTRATION DIRECTION COMMENT, HOLD DOSE IF HBG LESS THAN 9.0. PT HGB THIS MORNING IS 8.1.
--- NOTE | 2020-08-27 10:35 | NUR ---
MD VISIT DR.TANJAVOUR REDD AT BEDSIDE. SPEAKING WITH ALL AROUND PRESSER. ORDERS OBTAINED FOR BUMEX 4 MG ONE TIME DOSE.
[2020-08-27] MEDS ORDERED: BUMETANIDE 2.5mg/10ml (0.25 mg/ml) INJ IV ONE (10:45)
--- NOTE | 2020-08-27 11:30 | NUR ---
DIALYSIS COMPLETE 2 L REMOVED. VS REMAIN STABLE AT THIS TIME.
--- NOTE | 2020-08-27 11:50 | NUR ---
TOF TRAIN OF FOUR PERFORMED 2/4 TICKS NOTED AT MA OF 5. CONTINUE PARALYTIC AT SAME RATE.
--- NOTE | 2020-08-27 12:40 | NUR ---
DESATURATION WHILE CHECKING PATENCY OF IV LINES. NO REPOSITIONING OR SUCTIONING BEING PERFORMED, PT DESATURATED FROM 90'S TO 42%. 100% FIO2 BOOST GIVEN. OXYGEN SATURATION CHECKED FROM OTHER SOURCE, CORRELATING. RT PAGED STAT TO BEDSIDE. FIO2 INCREASED BY RT TO 100%. PATIENT REPOSITIONED MORE ON LEFT SIDE WITH HEAD OF BED INCREASED TO 45%. AFTER APPROX 5 MINUTES. PATIENT OXYGEN SATURATION RETURNED TO GREATER THAN 90%. PARALYTIC INCREASED DUE TO TRAIN OF FOUR APPEARING MORE PROMINENT THAN PREVIOUSLY CHECKED. ALL FOUR TICKS NOTED AT MA OF 5.
[2020-08-27] MEDS: fentaNYL Drip 2500mCg/250mlNS 250 ML IV SCH ×2 (12:53→22:09)
--- NOTE | 2020-08-27 13:08 | NUR ---
FAMILY ATTEMPTED TO CONTACT PATIENTS SON. NO ANSWER, MESSAGE LEFT REQUESTING CALL BACK.
--- NOTE | 2020-08-27 14:08 | NUR ---
abg obtained. decreased fio2 to 90% post abg. spo2 99% after change. rn aware of changes.
--- NOTE | 2020-08-27 14:08 | NUR ---
Nutrition Followup Note Wt 97.0 kg Pt is intubated sedated COVID +ve in isolation with medical personnel at bedside when rounded this morning. Pt with propofol running at 21.576 ml/hr which provides 570 kcal from lipids. Pt is currently NPO with Jevity 1.2 ordered at 40 ml/hr. Pt received 190 ml of TF 08/26 per RN with residuals of 60ml, TF held per RN note. Pt with ESTEFANY with HD per MD note, consider Nepro CS 1.8 at 40 ml/hr while pt is on HD. Est Energy needs: 4416-6888 kcals (14-18 kcal/kgBW 97kg), Est Protein needs: 95-115 gms/day (2.0-2.5 gm/kgIBW of 47.7 kg). Will continue to monitor and reassess prn. Labs: BUN 77H, Creat 5.62H, Alb 2.2L, Na 133L, Alb 2.2L BM: Pt has no BM reported per RN note Skin: BS 12 high risk, full details in patient care specialist note PES: 1) Inadequate oral intake aeb pt with 0% PO intake on BIPAP, refusal to eat r/t pt with a poor appetite 2) Obesity aeb 199% IBW and BMI of 39.6 kg/m2 r/t energy intake in excess of energy needs Comments: will continue to monitor NPO status, skin status. F/u high 2-3 days Rec: 1) advance diet as medically feasible 2) continue current plan of care. 3) Consider Nepro CS 1.8 at 40 ml/hr while on HD 4) consider EN support with Jevity 1.2 @ 45 ml/hr per MD approval if ESTEFANY resolves and no HD needed
--- NOTE | 2020-08-27 16:00 | NUR ---
TOF TRAIN OF FOUR PERFORMED 2/4 TICKS NOTED AT MA OF 5. CONTINUE PARALYTIC AT SAME RATE.
--- NOTE | 2020-08-27 16:20 | NUR ---
CARES PARTIAL LINEN CHANGE COMPLETED. SYLVAIN CARE AND ORAL CARE PERFORMED. PT REPOSITIONED ON SIDE. VS REMAIN STABLE. ALL EXTREMITIES OFF LOADED ON PILLOWS. ALARMS IN PLACE. WILL CONTINUE TO MONITOR.
[2020-08-27] MEDS: NOREPINEPHRINE 8 MG/250ML KIT 250 ML IV SCH (16:47)
--- NOTE | 2020-08-27 19:12 | NUR ---
REPORT REPORT GIVEN TO CIELO DUPREE, CARE ENDORSED. VS STABLE.
--- NOTE | 2020-08-27 20:08 | NUR ---
INITIAL CONTACT PT INTUBATED AND ON MECHANICAL VENTILATION. NO DISTRESS NOTED. TOLERATING MECHANICAL VENTILATOR WELL AT THIS TIME. OXYGEN SATURATION 99% ON FIO2 90%. LUNGS CLEAR ANTERIORLY. VS STABLE. PT ON PARALYTIC. TRAIN OF FOUR PERFORMED. 2/4 TICKS NOTED AT MA OF 5, ROTATED THE SIDE TO RIGHT ULNAR NERVE, TEMPERATURE CORRELATES WITH RECTAL, AXILLARY AND ORAL SITES. PHYSICAL ASSESSMENT COMPLETE. HEART RATE 80-90'S SINUS RHYTHM. TUBE FEEDINGS BEING HELD AT THIS TIME. MALHOTRA CATHETER PRESENT AND SECURED BELOW BLADDER. SKIN INTACT. ALL EXTREMITIES OFF LOADED ON PILLOWS. PT ON FREQUENT TURNING SCHEDULE, TOLERATING TURNS. ALARMS IN PLACE. BED LOCKED IN LOWEST POSITION. WILL CONTINUE TO MONITOR.
[2020-08-28] VITALS (102 sets, daily range): BP systolic 87–148; BP diastolic 38–80
[2020-08-28] MEDS: PIPERACILLIN-TAZOB 2.25GM 50 ML IV SCH ×4 (00:04→18:16)
[2020-08-28] MEDS: ATRACURIUM BESYLATE 1,000 MG in D5W 5% 150 ML IV SCH ×2 (00:05→13:00)
[2020-08-28] MEDS: PROPOFOL 100 ML IV SCH ×6 (00:06→22:43)
--- NOTE | 2020-08-28 00:11 | NUR ---
TOF TRAIN OF FOUR PERFORMED 2/4 TICKS NOTED AT MA OF 5. CONTINUE PARALYTIC AT SAME RATE.
[2020-08-28] MEDS: MIDAZOLAM DRIP 50 mg/50mL 50 ML IV SCH ×4 (02:18→18:19)
[2020-08-28] MEDS: ALBUTEROL SULF 2.5 MG/0.5ML(0.5%) NEB SOLN NEB SCH ×6 (02:38→22:19)
--- NOTE | 2020-08-28 04:00 | NUR ---
TOF /, MA 5
--- NOTE | 2020-08-28 04:00 | NUR ---
TOF 4/4 AT MA OF 5 WILL TITRATE PARALYTIC PER PROTOCOL
--- NOTE | 2020-08-28 04:10 | NUR ---
CARES PARTIAL BED BATH. PATIENT DESATURATED DURING CARES TO 87% (75% FIO2), HYPEROXYGENATION USING 100% BUTTON. PATIENT RECOVERED TO 91%
[2020-08-28 04:51] LABS: Hemoglobin 7.6 g/dL (12.2-16.2); White Blood Cell 14.8 10^3/uL (4.4-10.8)
[2020-08-28 04:54] LABS: Hematocrit 23.7 % (36.0-46.0); Mean Corpuscular Hemoglobin 24.1 pg (28.0-32.0); Mean Corpuscular Volume 75.3 fL (80.0-100.0); Platelet Count (auto) 323 10^3/uL (140-450); Red Blood Cells 3.15 10^6/uL (4.0-5.20)
[2020-08-28 05:00] LABS: Red Cell Distribution Width 20.4 % (11.8-14.3)
--- NOTE | 2020-08-28 05:00 | NUR ---
TOF /, MA 5
[2020-08-28 05:02] LABS: Band Neutrophils % (manual) 0; Basophils % (manual) 0 (0.0-2.0); Blast Cells 0; Eosinophils % (manual) 0 (0-7); Metamyelocytes % 0; Myelocytes % 0; Promyelocytes % 0; Reactive Lymphocytes 0
[2020-08-28 05:07] LABS: Albumin 1.9 g/dL (3.4-5.0); Calcium 8.5 mg/dL (8.5-10.1); Potassium 3.7 mmol/L (3.5-5.1)
[2020-08-28 05:11] LABS: BUN/Creatinine Ratio 11.2; Bilirubin, Total 0.4 mg/dL (0.2-1.0); Total Protein 6.6 g/dL (6.4-8.2)
[2020-08-28 05:44] LABS: Lymphocytes % (manual) 8 (10.0-50.0); Monocytes % (manual) 9 (0-12)
[2020-08-28] MEDS: NYSTATIN (MOUTH-THROAT) 500,000 UNITS/5 ML SUSP MT SCH ×4 (06:00→22:40)
--- NOTE | 2020-08-28 06:00 | NUR ---
TOF /, MA 5
[2020-08-28] MEDS: ACETYLCYSTEINE 10 %(100MG/ML) SOL 4ML NEB SCH ×3 (06:55→22:19)
[2020-08-28] MEDS: BUDESONIDE (INHALATION) 0.5 MG/2 ML NEB NEB SCH ×2 (06:55→18:26)
--- NOTE | 2020-08-28 07:54 | NUR ---
PT'S SON NEL CALLED TO GET AN UPDATE ON PT'S CONDITION. I UPDATED HIM ON PT'S CURRENT OXYGENATION REQUIREMENTS, NEEDING TO BE PARALYZED AND REVIEWED AM LABS AND COMPARED TO PREVIOUS ONES. I DISCUSSED WITH HIM THAT DR. BURCH WANTED A FAMILY MEETING WITH HIM AND HIS FAMILY AT NOON.PT'S SON VERBALIZED UNDERSTANDING.
[2020-08-28] MEDS: PHENYLEPHRINE IV 250 ML IV SCH ×2 (07:55→16:15)
[2020-08-28] MEDS: ENOXAPARIN SOD 100 MG/1 ML SYRINGE SC SCH (08:18)
[2020-08-28] MEDS: ZINC SULFATE 220mg CAP or TAB GT SCH (09:20)
[2020-08-28] MEDS: CHOLECALCIFEROL (VITD3) 1,000UNIT=25mCg TAB GT SCH (09:21)
[2020-08-28] MEDS: ASCORBIC ACID 1,000 MG TAB GT SCH (09:21)
--- NOTE | 2020-08-28 09:30 | NUR ---
AM ASSESSMENT COMPLETED PT REMAINS INTUBATED BOTH SEDATED AND PARALYZED WITH ATRACURIUM TOF AT 4/4 TWITCHES, HOWEVER PT IS IN SYNCHRONY WITH VENTILATOR , WELL OXYGENATED AND IS NOT ON ANY DISTRESS. PT CURRENTLY REQUIRING 75% FIO2 AND TOLERATING BEING REPOSITION. LS WITH RHONCHI BUT CLEAR OUT POST SUCTIONING. PT HAS THICK GRIFFIN ETT SECRETIONS WITH BLOOD STREAKS. PT'S SKIN REMAINS INTACT. ABDOMEN SOFT WITH HYPOACTIVE BOWEL SOUNDS, FC IN PLACE WITH DRAINING CLEAR YELLOW URINE. PT'S BP IN THE LOW 90'S TO 100'S ON 6 JEFFERSON/MIN OF LEVOPHED. REPOSITIONED PT WITH JOON DE LOS SANTOS'S ASSISTANCE.
--- NOTE | 2020-08-28 10:57 | NUR ---
DR. BURCH ROUNDING ON PT. HAS A MEETING WITH PT'S FAMILY AT NOON TO DISCUSS PT'S MEDICAL CONDITION AND POC. PT HAS BEEN INTUBATED FOR 12 DAYS , FAMILY WOULD HAVE TO DECIDE IF PT GETS A TRACHEOSTOMY , PT STILL REQUIRING A HIGH OXYGENATION AND A PARALYTIC ALONG WITH LEVOPHED FOR BP SUPPORT.
[2020-08-28] MEDS ORDERED: LACTULOSE 20Gm/30ML SOLN GT ONE (11:45)
[2020-08-28] MEDS ORDERED: BUMETANIDE 2.5mg/10ml (0.25 mg/ml) INJ IV ONE (12:15)
[2020-08-28] MEDS: fentaNYL Drip 2500mCg/250mlNS 250 ML IV SCH (12:25)
[2020-08-28] MEDS: NOREPINEPHRINE 8 MG/250ML KIT 250 ML IV SCH (12:29)
--- NOTE | 2020-08-28 12:55 | NUR ---
TOF 4/ MEDICATED WITH LACTULOSE FOR CONSTIPATION RX BY DR. BURCH. PT HAS NOT HAD A BM SINCE ADMISSION.
--- NOTE | 2020-08-28 16:00 | NUR ---
T0F 02/23 REPOSITION PT WITH RT UZMA'S ASSISTANCE. PT TOLERATED WELL.
--- NOTE | 2020-08-28 16:03 | NUR ---
DR. Jaylin BRADFORD CAME IN TO SEE PT FOR GI CONSULTATION FOR PEG TUBE PLACEMENT. SHE WILL LET KIERSTEN RUSSO KNOW WHEN SHE'LL INSERT PEG TUBE. MD AWARE PT HAS BEEN INTUBATED FOR 12 DAYS AND PT'S FAMILY WANT EVERYTHING DONE PEG AND TRACH.
--- NOTE | 2020-08-28 18:30 | NUR ---
TO4 4/4 PT REMANS ON SAME ATRACURIUM DOSE, SHE TOLERATED BEING TURNED FOR BED BATH WITHOUT ANY MAJOR DESATURATION. PT RECUPERATED WELL AFTER PROVIDING 100% OXYGENATING DURING AND AFTER PROCEDURE.
--- NOTE | 2020-08-28 18:30 | NUR ---
PT HAD A LARGE LOSE BM FROM LACTULOSE THAT WAS PREVIOUSLY GIVEN. COMPLETE BED BATH GIVEN . LINEN CHANGED AND REPOSITIONED FOR COMFORT.PT SPO2 DROPPED TO 85 % BUT FULLY RECOVERED AFTER GIVING HER 100% OXYGENATION. ORAL CARE PROVIDED.
--- NOTE | 2020-08-28 19:00 | NUR ---
REPORT GIVEN TO ONCOMING SHIFT.
--- NOTE | 2020-08-28 22:25 | NUR ---
PATIENT DESATURATING TO LOW 88% PATIENT DID NOT TOLERATE TURNING WITHOUT DESATURATING, OXYGENATED PATIENT 100% DURING TURNING (SP02 GOES UP TO 96%), SOON FI02 RETURNS TO 75% PATIENT DESATURATES BACK TO 88%. LUNG SOUND COARSE, NO ETT SECRETIONS. RT AT BEDSIDE, INCREASED FI02 FROM 75% TO 80%
--- NOTE | 2020-08-28 22:33 | NUR ---
IMPLEMENTED WARMING MEASURES RECTAL TEMP 95.9, AXILLARY TEMP 94.5 INCREASED ROOM TEMP, COVERED PATIENT WITH PREWARMED BLANKETS.
[2020-08-29] VITALS (102 sets, daily range): BP systolic 90–141; BP diastolic 38–62
[2020-08-29] MEDS: PIPERACILLIN-TAZOB 2.25GM 50 ML IV SCH ×5 (00:05→23:51)
[2020-08-29] MEDS: PHENYLEPHRINE IV 250 ML IV SCH ×3 (00:08→17:15)
[2020-08-29] MEDS: MIDAZOLAM DRIP 50 mg/50mL 50 ML IV SCH ×5 (00:09→22:26)
[2020-08-29] MEDS: fentaNYL Drip 2500mCg/250mlNS 250 ML IV SCH ×2 (00:11→15:02)
--- NOTE | 2020-08-29 00:12 | NUR ---
SPO2 DROPS TO 88-89% FI02 80% WITH OXYGENATION 100% SP02 GOES UP TO 95% LUNG SOUNDS COARSE, NO ETT SECRETIONS.
--- NOTE | 2020-08-29 00:15 | NUR ---
RT AT BEDSIDE SPO2 90%
[2020-08-29] MEDS: ATRACURIUM BESYLATE 1,000 MG in D5W 5% 150 ML IV SCH ×2 (01:15→15:03)
[2020-08-29] MEDS: PROPOFOL 100 ML IV SCH ×3 (02:11→18:52)
[2020-08-29] MEDS: ALBUTEROL SULF 2.5 MG/0.5ML(0.5%) NEB SOLN NEB SCH ×6 (02:13→21:50)
--- NOTE | 2020-08-29 04:00 | NUR ---
TOF AT 2000, 0000 AND 0400 TOF 4/4 ON MA OF 5. PATIENT IS SYNCHRONIZED WITH THE VENT, NO SIGN OF SHORTNESS OF BREATH. SITE: RIGHT FACIAL NERVE, SKIN IS INTACT, EYES ARE CLOSE AND MOIST, PATIENT WAS TURNED EVERY TWO HOURS.
[2020-08-29 04:32] LABS: Hemoglobin 7.6 g/dL (12.2-16.2); White Blood Cell 13.2 10^3/uL (4.4-10.8)
[2020-08-29 04:39] LABS: Hematocrit 23.8 % (36.0-46.0); Mean Corpuscular Hemoglobin 24.6 pg (28.0-32.0); Mean Corpuscular Hgb Conc. 32.1 g/dL (32.0-36.0); Mean Corpuscular Volume 76.6 fL (80.0-100.0); Platelet Count (auto) 278 10^3/uL (140-450); Red Blood Cells 3.11 10^6/uL (4.0-5.20)
[2020-08-29 04:51] LABS: INR 0.99 (0.9-1.15); Partial Thromboplastin Time 27.4 sec (23.0-31.2)
[2020-08-29 05:00] LABS: Albumin 1.9 g/dL (3.4-5.0); BUN/Creatinine Ratio 11.3; Bilirubin, Total 0.4 mg/dL (0.2-1.0); Calcium 8.6 mg/dL (8.5-10.1); Total Protein 6.6 g/dL (6.4-8.2)
--- NOTE | 2020-08-29 05:00 | NUR ---
CARES PARTIAL BED LINEN CHANGE, CHG BATH, OPTIFOAM ALLIED TO SACRUM, NEW RECTAL THERMOMETER. PATIENT TOLERATED TURNS WITH OXYGENATION OF 100% VIA VENT. PICC LINE DRESSING INTACT AND RETURNS.
[2020-08-29 05:53] LABS: Red Cell Distribution Width 20.7 % (11.8-14.3)
[2020-08-29 05:54] LABS: Band Neutrophils % (manual) 0; Basophils % (manual) 0 (0.0-2.0); Blast Cells 0; Eosinophils % (manual) 0 (0-7); Metamyelocytes % 0; Myelocytes % 0; Promyelocytes % 0; Reactive Lymphocytes 0
[2020-08-29] MEDS: NYSTATIN (MOUTH-THROAT) 500,000 UNITS/5 ML SUSP MT SCH ×4 (06:27→21:58)
[2020-08-29 06:37] LABS: Lymphocytes % (manual) 4 (10.0-50.0); Monocytes % (manual) 4 (0-12)
[2020-08-29] MEDS: ACETYLCYSTEINE 10 %(100MG/ML) SOL 4ML NEB SCH ×3 (07:10→21:50)
[2020-08-29] MEDS: LACTULOSE 20Gm/30ML SOLN GT SCH (09:40)
[2020-08-29] MEDS: CHOLECALCIFEROL (VITD3) 1,000UNIT=25mCg TAB GT SCH (09:40)
[2020-08-29] MEDS: ZINC SULFATE 220mg CAP or TAB GT SCH (09:40)
[2020-08-29] MEDS: ASCORBIC ACID 1,000 MG TAB GT SCH (09:40)
[2020-08-29] MEDS: ENOXAPARIN SOD 100 MG/1 ML SYRINGE SC SCH (09:41)
[2020-08-29] MEDS: BUDESONIDE (INHALATION) 0.5 MG/2 ML NEB NEB SCH ×2 (10:11→21:50)
--- NOTE | 2020-08-29 10:41 | NUR ---
Dr. Parry rounding on pt, new orders received at this time.
--- NOTE | 2020-08-29 11:45 | NUR ---
WOUND CARE NOTE: PATIENT IS BEING MONITORED FOR SKIN INTEGRITY. SHE CONTINUES TO BE INTUBATED, SEDATED, IN COVID ROOM 112A, AIRBORNE ISOLATION. PATIENT IS RESTING ON ICU LOW AIRLOSS BED. SHE CONTINUES TO BE WOUND FREE AT THIS TIME PER BEDSIDE NURSE. SKIN/WOUND CARE PLAN UPDATED. RECOMMEND: CONTINUATION WITH ALL WOUND CARE ORDERS PREVIOUSLY PRESCRIBED BY . WOUND CARE TEAM WILL CONTINUE TO MONITOR.
--- NOTE | 2020-08-29 12:07 | NUR ---
COVID swab taken and walked to lab
--- NOTE | 2020-08-29 12:12 | NUR ---
Nutrition Followup Note Wt 93.4 kg Pt is intubated sedated COVID +ve in isolation with medical personnel at bedside when rounded this morning. Pt with propofol running at 22.94 ml/hr which provides 605 kcal from lipids. Pt received 73 ml Jevity 1.2 on 08/27 per RN doc. Pt is active for a PEG Tube placement. Pt with ESTEFANY with HD per MD note. Consider Nepro CS 1.8 at 40 ml/hr while pt is on HD. Est Energy needs: 1030-2695 kcals (14-18 kcal/kgBW 97kg), Est Protein needs: 95-115 gms/day (2.0-2.5 gm/kgIBW of 47.7 kg). Will continue to monitor and reassess prn. Labs: BUN 54H, Creat 4.76H, Alb 1.9L BM: Pt has no BM reported per RN note Skin: BS 12 high risk, full details in caretaker resort note PES: 1) Inadequate oral intake aeb pt with 0% PO intake on BIPAP, refusal to eat r/t pt with a poor appetite 2) Obesity aeb 199% IBW and BMI of 39.6 kg/m2 r/t energy intake in excess of energy needs Comments: will continue to monitor NPO status, skin status. F/u high 2-3 days Rec: 1) advance diet as medically feasible 2) continue current plan of care. 3) Consider Nepro CS 1.8 at 40 ml/hr while on HD 4) consider EN support with Jevity 1.2 @ 45 ml/hr per MD approval if ESTEFANY resolves and no HD needed
--- NOTE | 2020-08-29 12:30 | NUR ---
Received phone call from MD Fragoso, new orders received, Will hold HD for today.
[2020-08-29] MEDS ORDERED: BUMETANIDE 2.5mg/10ml (0.25 mg/ml) INJ IV ONE (13:00)
[2020-08-29] MEDS ORDERED: BUMETANIDE INJECTION 10 ML ONE (15:25)
--- NOTE | 2020-08-29 16:03 | NUR ---
RECEIVED PHONE CALL FROM [place]. Pt still COVID positive.
--- NOTE | 2020-08-29 18:00 | NUR ---
Partial linen change performed at this time, pt tolerated well. Skin integrity assessed for any changes; none noted. Z-GUARD applied to moisture related areas and optifoam to sacrum.
--- NOTE | 2020-08-29 19:49 | NUR ---
Assumed care, full assessment done; see interventions. Patient sedated and paralyzed, TOF performed to right restorationism with 4/4 twitches noted on mA 5; patient already on max dose of Atracurium. Levophed, Versed, Fentanyl, and Propofol infusing per IV spreadsheet. Vital signs stable. Oral care and repositioning done. Continue care.
--- NOTE | 2020-08-29 22:33 | NUR ---
Left UA PICC dressing changed using sterile technique.
[2020-08-30] VITALS (102 sets, daily range): BP systolic 87–125; BP diastolic 40–67
[2020-08-30] MEDS: PROPOFOL 100 ML IV SCH ×4 (00:04→22:09)
[2020-08-30] MEDS: fentaNYL Drip 2500mCg/250mlNS 250 ML IV SCH ×2 (01:29→14:53)
[2020-08-30] MEDS: ATRACURIUM BESYLATE 1,000 MG in D5W 5% 150 ML IV SCH ×2 (01:29→14:51)
[2020-08-30] MEDS: PHENYLEPHRINE IV 250 ML IV SCH ×3 (01:35→18:15)
--- NOTE | 2020-08-30 02:00 | NUR ---
Full CHG bath given, linens changed, no new skin issues noted. Patient tolerated activity well with no desaturation issues.
[2020-08-30] MEDS: ALBUTEROL SULF 2.5 MG/0.5ML(0.5%) NEB SOLN NEB SCH ×6 (02:01→22:30)
[2020-08-30] MEDS: MIDAZOLAM DRIP 50 mg/50mL 50 ML IV SCH ×2 (02:25→22:09)
[2020-08-30 04:13] LABS: Basophils # (auto) 0 10 ^3/uL (0-0.2); Eosinophils # (auto) 0.2 10 ^3/uL (0-0.8); Hemoglobin 7.3 g/dL (12.2-16.2); Lymphocytes # (auto) 0.9 10 ^3/uL (0.4-5.4)
[2020-08-30 04:16] LABS: Basophils % (auto) 0.3 % (0.0-2.0); Eosinophils % (auto) 1.5 % (0.0-7.0); Lymphocytes % (auto) 7.2 % (10.0-50.0); Mean Corpuscular Hemoglobin 24.3 pg (28.0-32.0); Mean Corpuscular Hgb Conc. 31.7 g/dL (32.0-36.0); Mean Corpuscular Volume 76.6 fL (80.0-100.0); Monocytes # (auto) 1.6 10 ^3/uL (0-1.3); Monocytes % (auto) 12.9 % (0.0-12.0); Neutrophils # (auto) 9.7 10 ^3/uL (1.6-8.6); Neutrophils % (auto) 78.1 % (37.0-80.0); Platelet Count (auto) 253 10^3/uL (140-450); White Blood Cell 12.4 10^3/uL (4.4-10.8)
[2020-08-30 04:21] LABS: Red Cell Distribution Width 20.1 % (11.8-14.3)
[2020-08-30 04:52] LABS: Potassium 3.7 mmol/L (3.5-5.1)
[2020-08-30 04:59] LABS: Albumin 1.8 g/dL (3.4-5.0); BUN/Creatinine Ratio 11.8; Bilirubin, Total 0.4 mg/dL (0.2-1.0); Calcium 8.6 mg/dL (8.5-10.1); Total Protein 6.6 g/dL (6.4-8.2)
[2020-08-30] MEDS: PIPERACILLIN-TAZOB 2.25GM 50 ML IV SCH ×3 (05:36→17:43)
[2020-08-30] MEDS: NYSTATIN (MOUTH-THROAT) 500,000 UNITS/5 ML SUSP MT SCH ×4 (05:37→22:08)
[2020-08-30] MEDS: ACETYLCYSTEINE 10 %(100MG/ML) SOL 4ML NEB SCH ×3 (06:56→22:30)
--- NOTE | 2020-08-30 07:30 | NUR ---
Opening Shift Note Assumed care of pt at this time. Full assessment done, see interventions. Patient on sedation and paralyzed. TOF performed to right voodoo with 4/4 twitches at mA 5 and patient on max dose of Atracurium. See IV spreadsheet for details. VS stable. Continue care
--- NOTE | 2020-08-30 08:59 | NUR ---
Family Son, Moshe, updated on pt status. All questions and concerns addressed at this time.
--- NOTE | 2020-08-30 09:39 | NUR ---
Dr. Parry rounding on pt
[2020-08-30] MEDS: ENOXAPARIN SOD 30 MG/0.3 ML SYRINGE SC SCH (10:00)
[2020-08-30] MEDS: LACTULOSE 20Gm/30ML SOLN GT SCH (10:23)
[2020-08-30] MEDS: CHOLECALCIFEROL (VITD3) 1,000UNIT=25mCg TAB GT SCH (10:23)
[2020-08-30] MEDS: ZINC SULFATE 220mg CAP or TAB GT SCH (10:23)
[2020-08-30] MEDS: ASCORBIC ACID 1,000 MG TAB GT SCH (10:23)
[2020-08-30] MEDS: BUDESONIDE (INHALATION) 0.5 MG/2 ML NEB NEB SCH ×2 (10:25→18:49)
--- NOTE | 2020-08-30 10:56 | NUR ---
Dr. Fragoso in to see pt, decided pt will get dialysis today
--- NOTE | 2020-08-30 13:28 | NUR ---
Received phone call from Dr. Houser, new order received to transfuse 1 u prbc after dialyses. Will type and screen pt first
--- NOTE | 2020-08-30 14:34 | NUR ---
Dialysis nurse at bedside dialyzing pt
--- NOTE | 2020-08-30 16:45 | NUR ---
Dialysis ended. Dialysis nurse able to remove 2L from patient. VSS
--- NOTE | 2020-08-30 17:06 | NUR ---
Blood transfusion started No S/S of reaction noted. Will continue to monitor closely
--- NOTE | 2020-08-30 19:13 | NUR ---
Report given to date night caregiver RN. Blood transfusion still transfusing. VSS
--- NOTE | 2020-08-30 19:35 | NUR ---
Pharmacy called pharmacy for Atracurium since pt doesn't have more in medication Pyxis. Pharmacy Nim stated he will send me some.
--- NOTE | 2020-08-30 20:00 | NUR ---
Opening Shift note Received report from day shift RN Alma. Pt came in on 08/16 for SOB and cough was 70% RA. Pt was COVID + 3 days prior to coming into [facility] and was started on azithromycin and prednisone but symptoms worsened. Pt was admitted to [facility]. Pt was intubated 08/21 due to the patient being on bipap and spo2 at 70%. Pt came to the ICU on 08/22. Hx obtained from chart and previous RN. Pt is currently intubated, sedated, and on paralytic. Pt is lying in bed, eyes closed, TOF 4/4 at 5mV and maxed on paralytic. Subcutaneous emphysema noted to the left side of neck. PRAKASH PICC line and Rt groin Rohith asymptomatic and dressing is clean and intact. Pt has valdez that is patent and draining. No s/s of distress noted at this time. Bed is locked at lowest position and side rails are up. Will continue to monitor.
--- NOTE | 2020-08-30 20:25 | NUR ---
Blood Finished infusing Blood finished infusing, line flushed with normal saline. No s/s of distress noted to the patient. VS are as follows : Temp 99.5, HR 106, RR 26, Spo2 98%, B/p 104/58. Will continue to monitor.
[2020-08-31] VITALS (99 sets, daily range): BP systolic 86–116; BP diastolic 39–71
[2020-08-31] MEDS: PIPERACILLIN-TAZOB 2.25GM 50 ML IV SCH ×4 (01:07→18:03)
[2020-08-31] MEDS: PROPOFOL 100 ML IV SCH ×5 (01:43→21:09)
[2020-08-31] MEDS: fentaNYL Drip 2500mCg/250mlNS 250 ML IV SCH ×2 (01:43→13:30)
[2020-08-31] MEDS: MIDAZOLAM DRIP 50 mg/50mL 50 ML IV SCH ×7 (01:53→23:54)
[2020-08-31] MEDS: ALBUTEROL SULF 2.5 MG/0.5ML(0.5%) NEB SOLN NEB SCH ×6 (02:24→22:36)
[2020-08-31] MEDS: PHENYLEPHRINE IV 250 ML IV SCH ×3 (02:35→19:15)
--- NOTE | 2020-08-31 05:00 | NUR ---
Wound Pictures taken Pictures taken of the right ear non blanching redness, tongue wound, and medial thighs hyperpigmentation. Pt positioned off of the right ear, oral care provided, and z guard placed medial thighs. Wound care consult placed. Addendum: 08/31/20 at 0647 by LISA LO RN RN Wound consult already in place. Will place wound care documentation sheets in their place for wound care to evaluate.
[2020-08-31 05:25] LABS: Basophils # (auto) 0.1 10 ^3/uL (0-0.2); Eosinophils # (auto) 0.1 10 ^3/uL (0-0.8); Eosinophils % (auto) 0.6 % (0.0-7.0); Neutrophils # (auto) 10.7 10 ^3/uL (1.6-8.6)
[2020-08-31 05:28] LABS: Basophils % (auto) 0.5 % (0.0-2.0); Hematocrit 23.8 % (36.0-46.0); Lymphocytes % (auto) 7.1 % (10.0-50.0); Mean Corpuscular Hemoglobin 26.4 pg (28.0-32.0); Mean Corpuscular Hgb Conc. 33.5 g/dL (32.0-36.0); Mean Corpuscular Volume 78.7 fL (80.0-100.0); Monocytes # (auto) 1.8 10 ^3/uL (0-1.3); Monocytes % (auto) 13.5 % (0.0-12.0); Neutrophils % (auto) 78.3 % (37.0-80.0); Nucleated Red Blood Cells % 0.4 %; Platelet Count (auto) 249 10^3/uL (140-450); Red Blood Cells 3.02 10^6/uL (4.0-5.20); White Blood Cell 13.6 10^3/uL (4.4-10.8)
[2020-08-31 05:35] LABS: Red Cell Distribution Width 21.3 % (11.8-14.3)
[2020-08-31] MEDS: NYSTATIN (MOUTH-THROAT) 500,000 UNITS/5 ML SUSP MT SCH ×4 (06:13→22:11)
[2020-08-31] MEDS: ACETYLCYSTEINE 10 %(100MG/ML) SOL 4ML NEB SCH ×3 (06:33→22:36)
[2020-08-31] MEDS: BUDESONIDE (INHALATION) 0.5 MG/2 ML NEB NEB SCH ×2 (06:33→22:36)
--- NOTE | 2020-08-31 06:40 | NUR ---
Respiratory note: RECEIVED PATIENT ON V6 CARESCAPE VENT ORALLY INTUBATED WITH A 7.5 ETT SECURED VIA CARA AT THE 23CM MARKING AT THE LIP, AND MECHANICALLY VENTILATED WITH THE CHARTED SETTINGS. SPO2 94%, LUNG SOUNDS DIM T/O, NO SECRETIONS WHEN SUCTIONED. SKIN IS WARM/DRY TO THE TOUCH AND IS INTACT NEAR CARA SITE. THERE IS AN OGT IN PLACE AND IS SECURED TO THE ETT. PITTING EDEMA NOTED IN BILATERAL UPPER AND LOWER EXTREMITIES. LEG SEQUENTIALS ARE IN PLACE AND OPERATIONAL. PATIENT IS UNRESPONSIVE TO BOTH VERBAL/TACTILE STIMULI AND IS SEDATED ON VERSED, PROPOFOL, AND FENTANYL DRIPS, AND IS ALSO PARALYZED ON AN ATRICURIUM DRIP. SHE IS RESTING COMFORTABLY AND TOLERATING VENT WELL, NO CHANGES MADE. VENT PLUGGED INTO RED OUTLET AND ALL ALARMS ARE SET AND AUDIBLE. WILL CONTINUE TO ASSESS PATIENT WELL VENTILATOR FUNCTION. [employer] RUN INLINE.
--- NOTE | 2020-08-31 08:36 | NUR ---
Family updated on pt status Family JOSE ANGEL Sehtty updated on patient's status and condition after password verification. All questions and concerns addressed. Patient's son Moshe verbalized understanding.
[2020-08-31] MEDS ORDERED: BUMETANIDE 2.5mg/10ml (0.25 mg/ml) INJ IV ONE (10:00)
--- NOTE | 2020-08-31 10:00 | NUR ---
TOF 4/5 MILIAMPS TWITCHES NOTED ON LEFT UPPER BROW. PATIENT'S BASELINE AT 5 MILIAMPS PER REPORT. ATRECURIUM WILL CONTINUE RUNNING AT A RATE OF 10 MCG.
[2020-08-31 11:02] LABS: Potassium 3.9 mmol/L (3.5-5.1)
[2020-08-31 11:04] LABS: BUN/Creatinine Ratio 9.9
--- NOTE | 2020-08-31 11:45 | NUR ---
HOSPITALIST VISITS/AUTH TO START ENTERAL FEEDING DR BURCH VISITS, UPDATED ON PATIENT'S STATUS, DRIPS AND CONFIRM ORDER FOR ENTERAL FEEDING PATIENT IS ON PARALYTIC. DR BURCH AUTHORIZED THIS NURSE TO CONTINUE WITH ENTERAL FEEDING PREVIOUSLY ORDERED YESTERDAY, MD DISCUSSED WITH DR NIXON WELL AND BOTH AUTHORIZED START OF ENTERAL FEEDING. WILL BEGIN FEEDING AND MONITOR FOR ASPIRATION PRECAUTIONS ON SHIFT.
--- NOTE | 2020-08-31 12:00 | NUR ---
NEPHROLOGY VISITS DR CARREON UPDATED ON PATIENT'S STATUS, ORDERS TO HOLD BUMEX RECEIVED.
--- NOTE | 2020-08-31 12:52 | NUR ---
Nutrition Followup Note Wt 93.3 kg Pt is intubated sedated COVID +ve in isolation. Pt with propofol running at 21.576 ml/hr which provides 570 kcal from lipids. Pt last received TF of 73 ml Jevity 1.2 on 08/27 per RN doc. Pt medications now have Nepro CS 1.8 ordered at 40 ml/hr consider starting TF when medically feasible Est Energy needs: 6922-8536 kcals (14-18 kcal/kgBW 97kg), Est Protein needs: 95-115 gms/day (2.0-2.5 gm/kgIBW of 47.7 kg). Will continue to monitor and reassess prn. Labs: BUN 61H, Creat 5.18H, Alb 1.8L, Na 133L BM: Pt has no BM reported per RN note Skin: BS 9 high risk, full details in memory care director note PES: 1) Inadequate oral intake aeb pt with 0% PO intake on BIPAP, refusal to eat r/t pt with a poor appetite 2) Obesity aeb 199% IBW and BMI of 39.6 kg/m2 r/t energy intake in excess of energy needs Comments: will continue to monitor NPO status, skin status. F/u high 2-3 days Rec: 1) advance diet as medically feasible 2) continue current plan of care. 3) Consider Nepro CS 1.8 at 40 ml/hr while on HD 4) consider EN support with Jevity 1.2 @ 45 ml/hr per MD approval if ESTEFANY resolves and no HD needed
--- NOTE | 2020-08-31 13:16 | NUR ---
WOUND CARE NOTE: Wound care in to see patient due to new skin integrity issue noted by bedside nurse upon assessment. Bedside nurse took photograph of patient's new skin issue upon discovery for reference. Patient continue resting in ICU low air loss bed in Rm. 112. Patient is intubated, sedated and mechanically ventilated. Patient appears to be in no pain using Conklin Guardado Faces Pain Scale. Skin assessment done with the assistance of charge nurse, JOON Parsons. Patient's medial distal tongue noted with 1x1cm mucosal ulcer. Wound is red with pink surrounding skin. Patient is receiving routine oral care and repositioning of ET tube by R.T. 2x1cm slow to candy redness noted to her Rt. ear, skin is intact, clean and dry, left open to air. Patient's upper medial thigh noted with brown hyperpigmented skin appears to be from moisture associated dermatitis. Patient is big and skin on thighs are touching. Patient's sacral and back remain intact, with pink blanchable skin. Rosita care given and applied Z Guard cream to sacral, buttocks and thighs. Reapplied preventative Opti foam sacral dressing. Repositioned patient for comfort facing her Lt side, redistributed pressure points with pillows. Patient tolerated well. JOON Parsons at bedside. Dr. Houser at ICU nurse station and made aware of patient's new skin issue. RECOMMENDATION: Nursing to continue with BID/PRN cleaning and application of Z Guard cream to sacral, buttocks and thighs per MD order, continue with routine oral care, keep mucosal ulcer moist, continuation of all other wound care orders prescribed by MD, continue with skin/wound plan of care, continue monitoring by wound care while patient is hospitalized. Addendum: 08/31/20 at 1657 by Komal Dangelo RN Amended: Links added.
--- NOTE | 2020-08-31 13:29 | NUR ---
CALL RECEIVED FROM [facility] [employer] REVIEW SPOKE WITH PAUL, UPDATED ON PATIENT'S STATUS. PAUL NOTIFIED THAT PATIENT NOT STABLE FOR TRANSFER.
--- NOTE | 2020-08-31 14:00 | NUR ---
TOF 4/5 MILIAMPS TWITCHES NOTED ON LEFT UPPER BROW. PATIENT'S BASELINE AT 5 MILIAMPS PER REPORT. ATRECURIUM WILL CONTINUE RUNNING AT A RATE OF 10 MCG.
[2020-08-31] MEDS: ASCORBIC ACID 1,000 MG TAB GT SCH (14:01)
[2020-08-31] MEDS: ZINC SULFATE 220mg CAP or TAB GT SCH (14:01)
[2020-08-31] MEDS: LACTULOSE 20Gm/30ML SOLN GT SCH (14:01)
[2020-08-31] MEDS: CHOLECALCIFEROL (VITD3) 1,000UNIT=25mCg TAB GT SCH (14:01)
[2020-08-31] MEDS: ENOXAPARIN SOD 30 MG/0.3 ML SYRINGE SC SCH (14:02)
--- NOTE | 2020-08-31 14:30 | NUR ---
ENTER FEEDING STARTED PER DR BURCH'S ORDER, PATIENT HAS HYPOACTIVE BOWEL SOUNDS, ENTERAL FEEDING STARTED AT 10 MG/HR, HOB ELEVATED ABOVE 30 DEGREES, WILL MONITOR FOR PATIENT TOLERANCE AND ASPIRATION PRECAUTIONS.
--- NOTE | 2020-08-31 16:50 | NUR ---
BM/COMFORT PATIENT CLEANSED OF MODERATE SIZE ORANGE/BROWN LOOSE STOOL, ZGUARD APPLIED, COMPLETE BEDDING CHANGED - PATIENT TOLERATED WELL. WILL CONTINUE TO MONITOR.
--- NOTE | 2020-08-31 18:00 | NUR ---
TOF NO TWITCHES NOTED ON 10 MILIAMPS ON LEFT UPPER BROW. PATIENT'S BASELINE AT 5 MILIAMPS PER REPORT. ATRECURIUM DECREASED TO 8 MCG PER PROTOCOL.
[2020-08-31] MEDS: ATRACURIUM BESYLATE 1,000 MG in D5W 5% 150 ML IV SCH (18:49)
--- NOTE | 2020-08-31 18:50 | NUR ---
BM/COMFORT/FEEDING PATIENT CLEANSED OF MODERATE SIZE, LOOSE ORANGE/BROWN STOOL. Z-GUARD SKIN PROTECTANT APPLIED - PATIENT TOLERATED WELL. ENTERAL FEEDING RESIDUAL 150 MLS. FEEDING REMAINS RUNNING AT 10 MLS/HR.
--- NOTE | 2020-08-31 20:00 | NUR ---
Opening Shift note Received report from day shift RN Puja. Pt came in on 08/16 for SOB and cough was 70% RA. Pt was COVID + 3 days prior to coming into [facility] and was started on azithromycin and prednisone but symptoms worsened. Pt was admitted to [facility]. Pt was intubated 08/21 due to the patient being on bipap and spo2 at 70%. Pt came to the ICU on 08/22. Hx obtained from chart and previous RN. Pt is currently intubated, sedated, and on paralytic. Pt is lying in bed, eyes closed, TOF 2/4 at 5mV on 8mg/hr of paralytic. PRAKASH PICC line and Rt groin Rohith asymptomatic and dressing is clean and intact. No BM at this time. Pt has valdez that is patent and draining. No s/s of distress noted at this time. Bed is locked at lowest position and side rails are up. Will continue to monitor.
--- NOTE | 2020-08-31 22:00 | NUR ---
Tube feeding residual 40ml total input of tube feeding 50ml of residual Tube feeding stopped at this time. Will continue to monitor.
--- NOTE | 2020-08-31 22:42 | NUR ---
RT NOTE VENT CHECK COMPLETED. NO CHANGES MADE. PT TOLERATING SETTINGS. TX GIVEN INLINE. RT NOTICED THAT THE TUBE LOOKED LIKE IT HAD SLIPPED OUT SOME SINCE LAST CHECK. RT WITH JOON LOZANO ASSISTANCE WAS ABLE TO ADVANCE THE TUBE BACK TO 23CM AT THE LIP FROM THE 20CM AT THE LIP IT WAS FOUND AT DURING THIS CHECK. RT SUCTIONED PT MOUTH AND RETURNED A MODERATE AMOUNT OF BLOOD TINGED SECRETIONS. SUCTION OF ETT RETURNED A SMALL AMOUNT OF THIN CLEAR SECRETIONS.
--- NOTE | 2020-08-31 22:42 | NUR ---
ETT Pt's ETT at 20 at the lip. VSS, spo2 at 94%. RT AR advanced tube back to 23 at the lip. Pt tolerated well. VS WNL. Will continue to monitor.
[2020-09-01] VITALS (100 sets, daily range): BP systolic 91–135; BP diastolic 34–65
[2020-09-01] MEDS: PIPERACILLIN-TAZOB 2.25GM 50 ML IV SCH ×4 (00:16→18:00)
[2020-09-01] MEDS: PROPOFOL 100 ML IV SCH ×3 (01:19→21:15)
[2020-09-01] MEDS: fentaNYL Drip 2500mCg/250mlNS 250 ML IV SCH (01:42)
[2020-09-01] MEDS: ALBUTEROL SULF 2.5 MG/0.5ML(0.5%) NEB SOLN NEB SCH ×6 (02:20→22:12)
[2020-09-01] MEDS: MIDAZOLAM DRIP 50 mg/50mL 50 ML IV SCH ×4 (03:37→21:15)
--- NOTE | 2020-09-01 04:23 | NUR ---
Blood drawn and sent to lab
--- NOTE | 2020-09-01 04:50 | NUR ---
Tube feeding restarted Residual is 10ml, will restart tube feeding at 10ml/hr
--- NOTE | 2020-09-01 05:45 | NUR ---
Bowel Movement Large loose dark brown bowel movement. Linen changed, tasha care provided, and z guard placed. Addendum: 09/01/20 at 0602 by LISA LO RN RN Pt desaturated to 90% despite preoxygenation. After a couple minutes, oxygen saturation came up to 93%.
[2020-09-01] MEDS: NYSTATIN (MOUTH-THROAT) 500,000 UNITS/5 ML SUSP MT SCH ×4 (05:47→22:00)
[2020-09-01] MEDS: ACETYLCYSTEINE 10 %(100MG/ML) SOL 4ML NEB SCH ×3 (06:27→22:13)
[2020-09-01 06:41] LABS: Hematocrit 23.7 % (36.0-46.0); Hemoglobin 8.1 g/dL (12.2-16.2); Mean Corpuscular Hemoglobin 27.2 pg (28.0-32.0); Mean Corpuscular Hgb Conc. 34.2 g/dL (32.0-36.0); Mean Corpuscular Volume 79.6 fL (80.0-100.0); Platelet Count (auto) 242 10^3/uL (140-450); Red Blood Cells 2.98 10^6/uL (4.0-5.20); White Blood Cell 13.2 10^3/uL (4.4-10.8)
[2020-09-01 06:56] LABS: Basophils % (manual) 0 (0.0-2.0); Blast Cells 0; Promyelocytes % 0; Reactive Lymphocytes 0; Red Cell Distribution Width 22.2 % (11.8-14.3)
[2020-09-01 06:57] LABS: Calcium 7.6 mg/dL (8.5-10.1); Potassium 3.4 mmol/L (3.5-5.1)
[2020-09-01 07:05] LABS: BUN/Creatinine Ratio 10.4
--- NOTE | 2020-09-01 07:50 | NUR ---
CALL RECEIVED FROM RADIOLOGIST/PNEUMO CALL RECEIVED FROM RADIOLOGIST TO REPORT RIGHT SIDE PNEUMO "MEASURING 2 CM". ATTEMPTED TO [facility] HOSPITALIST, NOT AVAILABLE UNTIL AFTER 8 AM.
--- NOTE | 2020-09-01 08:00 | NUR ---
TOF ATRICURIUM CURRENTLY RUNNING AT 12 MCG - PATIENT BASELINE 5/10 MILIAMPS. CURRENTLY PATIENT 4/4 AT 10/10 MILIAMPS. WILL INCREASE ATRICURIUM TO 14 MCG PER PROTOCOL AND REASSESS.
--- NOTE | 2020-09-01 08:36 | NUR ---
SPOKE WITH HOSPITALIST DR CARREON RETURNED CALL, ORDERED DR BURCH TO BE NOTIFIED, PAGED DR BURCH, AWAITING RESPONSE.
--- NOTE | 2020-09-01 08:45 | NUR ---
RETURN CALL FROM DR BURCH NOTIFIED OF PNEUMOTHORAX - MD WILL REVIEW.
[2020-09-01 09:24] LABS: Band Neutrophils % (manual) 6
[2020-09-01 09:25] LABS: Eosinophils % (manual) 3 (0-7); Lymphocytes % (manual) 4 (10.0-50.0); Metamyelocytes % 3; Monocytes % (manual) 7 (0-12); Myelocytes % 2
[2020-09-01] MEDS: BUDESONIDE (INHALATION) 0.5 MG/2 ML NEB NEB SCH ×2 (09:29→22:13)
[2020-09-01] MEDS ORDERED: POTASSIUM EFFERVESENT TAB 25 MEQ PO ONE (09:30)
[2020-09-01] MEDS: ZINC SULFATE 220mg CAP or TAB GT SCH (09:35)
[2020-09-01] MEDS: CHOLECALCIFEROL (VITD3) 1,000UNIT=25mCg TAB GT SCH (09:35)
[2020-09-01] MEDS: ASCORBIC ACID 1,000 MG TAB GT SCH (09:35)
[2020-09-01] MEDS: ENOXAPARIN SOD 30 MG/0.3 ML SYRINGE SC SCH (09:35)
[2020-09-01] MEDS: LACTULOSE 20Gm/30ML SOLN GT SCH (09:36)
--- NOTE | 2020-09-01 09:43 | NUR ---
NEPHROLOGY AT BEDSIDE DR CARREON VISITS, UPDATED ON PATIENT'S STATUS. DOCTOR REQUESTING ALL FLUIDS TO BE CHANGED FROM D5 TO NS. CALLED PHARMACY, WILL NOTIFY PHARMACIST AND CALL BACK.
--- NOTE | 2020-09-01 10:53 | NUR ---
ORDERS CHANGED FROM D5 TO NS.
[2020-09-01] MEDS ORDERED: ATRACURIUM BESYLATE IV SCH (11:00)
[2020-09-01] MEDS ORDERED: SODIUM CHL 0.9% IV SCH (11:00)
[2020-09-01] MEDS: ATRACURIUM BESYLATE IV SCH (11:52)
[2020-09-01] MEDS: SODIUM CHL 0.9% IV SCH (11:52)
--- NOTE | 2020-09-01 13:00 | NUR ---
TOF ATRICURIUM CURRENTLY RUNNING AT 14 MCG - PATIENT BASELINE 5/10 MILIAMPS. CURRENTLY PATIENT 4/4 TWITCHES AT 10/10 MILIAMPS. WILL INCREASE ATRICURIUM TO MAX RATE 15 MCG PER PROTOCOL.
[2020-09-01] MEDS ORDERED: BUMETANIDE 2.5mg/10ml (0.25 mg/ml) INJ IV ONE (15:00)
--- NOTE | 2020-09-01 18:35 | NUR ---
Family updated on pt status/Consent Family JOSE ANGEL Shetty updated on patient's status and condition after password verificastion. All questions and concerns addressed. Patient's mother Nani Neal and spouse Davis Johnson both verbalized understanding. Family was also notified of Dr. Houser's conversation with son Moshe regarding need for chest tube. Family verbalized understanding and stated patient's spouse will be giving telephone consent and verified by second [employer].
--- NOTE | 2020-09-01 19:15 | NUR ---
LAB FOR SEND OUT PER LAB, SBP WAS ORDERED BY AND WILL BE A SEND OUT AND WILL NOT BE SENT TILL TOMORROW MORNING. ORDERS WILL BE CHANGED TO COLLECT TOMORROW MORNING WITH AM LAB FOR SEND OUT IN THE AM.
--- NOTE | 2020-09-01 20:15 | NUR ---
Opening Shift Note: Patient is intubated/sedated/paralyzed. Patient was originally admitted to [facility] and transferred to ICU on 08/22/20 related to previous intubation. Positive COVID (08/17/20 & 08/29/20); all precaution in place. Neuro: pupils bilateral 2 mm/sluggish; absent cough/gag; flaccid extremities; per report, baseline MA 5: currently 4/4 twitches; max on atracurium @ 15, Fentanyl @ 200, Propofol @ 40; Versed @ 15. Cardio: ST 110s; SBPs 90s-100s; generalized nonpitting edema noted; all pulses palpable. Resp: ET size 7.5/23 @ lip intubated on 08/21/20; settings PC 30, rate 26, FiO2 65%, PEEP 10. Anterior lung sounds coarse anterior/lateral; no secretions from ET tube; small/bloody secretions from mouth; Dr. Hobbs planning to insert right CT related to right 2 cm pneumothorax. GI: OGT clamped at this time for CT insertion; previously Nephro carb steady with goal rate of 40 ml/hr; no residual at this time; hypoactive BS; last BM 09/01/20 early AM and per report was diarrhea. : Bean inserted on 08/16/20 for strict I/O: yellow/cloudy; new onset dialysis with admission, right femoral radhika catheter inserted on 08/25/20, last dialysis on 08/30/20 with 2L out per report. Skin: oral mucosal ulcerations [employer]ICE PRESIDENT [employer] DEVELOPMENT: lip moisturizer applied; right ear slow to candy:[employer]; bilateral medial thighs MASD/hyperpigmentation. IV: LUE PICC TLC inserted on 08/21/20. Patient received conv. Plasma on 08/20/20 and one unit of PRBCs on 08/30/20. Still pending Echo but will not be completed until COVID neg. Plan for Trach/PEG with Dr. Logan and Dr. Parry when patient is more stable/COVID neg. Pending BMP/CBC/CXR for AM. Will continue to round/reposition/perform oral care prn.
--- NOTE | 2020-09-01 21:15 | NUR ---
Dr. Hobbs at bedside to place chest tube for 2 cm right pneumothorax.
[2020-09-01] MEDS: PHENYLEPHRINE IV 250 ML IV SCH ×2 (23:20→23:21)
[2020-09-02] VITALS (99 sets, daily range): BP systolic 80–131; BP diastolic 34–95
[2020-09-02] MEDS: SODIUM CHL 0.9% IV SCH ×2 (00:15→12:58)
[2020-09-02] MEDS: ATRACURIUM BESYLATE IV SCH ×2 (00:15→12:58)
[2020-09-02] MEDS: fentaNYL Drip 2500mCg/250mlNS 250 ML IV SCH ×2 (00:15→13:46)
[2020-09-02] MEDS: MIDAZOLAM DRIP 50 mg/50mL 50 ML IV SCH ×5 (00:30→22:15)
[2020-09-02] MEDS: PHENYLEPHRINE IV 250 ML IV SCH ×3 (01:23→20:03)
[2020-09-02] MEDS: Nepro With Carb Steady 1 Liter Bottle GT SCH (02:00)
--- NOTE | 2020-09-02 02:00 | NUR ---
Nephro carb steady restarted at 10 ml/hr; goal 40 ml/hr. Residual is 0 ml.
[2020-09-02] MEDS: ALBUTEROL SULF 2.5 MG/0.5ML(0.5%) NEB SOLN NEB SCH ×6 (02:05→22:41)
--- NOTE | 2020-09-02 02:30 | NUR ---
Patient bathe/linen change Patient given complete CHG bath. Skin integrity assessed for any changes. Linens and gown changed. Patient repositioned for comfort.
--- NOTE | 2020-09-02 03:14 | NUR ---
AM labs and urine sample for osmolarity/NA sent to lab via [employer] system.
[2020-09-02 03:27] LABS: Hemoglobin 8.6 g/dL (12.2-16.2); Mean Corpuscular Volume 79.6 fL (80.0-100.0)
[2020-09-02 03:29] LABS: Hematocrit 26.8 % (36.0-46.0); Mean Corpuscular Hemoglobin 25.5 pg (28.0-32.0); Platelet Count (auto) 283 10^3/uL (140-450); Red Blood Cells 3.36 10^6/uL (4.0-5.20); White Blood Cell 18.4 10^3/uL (4.4-10.8)
[2020-09-02 03:30] LABS: Red Cell Distribution Width 21.8 % (11.8-14.3)
[2020-09-02 03:31] LABS: Basophils % (manual) 0 (0.0-2.0); Blast Cells 0; Eosinophils % (manual) 0 (0-7); Promyelocytes % 0; Reactive Lymphocytes 0
[2020-09-02 03:44] LABS: BUN/Creatinine Ratio 10.6; Calcium 8.7 mg/dL (8.5-10.1); Potassium 5.5 mmol/L (3.5-5.1)
[2020-09-02 04:00] LABS: Band Neutrophils % (manual) 4; Lymphocytes % (manual) 6 (10.0-50.0); Metamyelocytes % 3; Monocytes % (manual) 8 (0-12); Myelocytes % 1
[2020-09-02] MEDS: PIPERACILLIN-TAZOB 2.25GM 50 ML IV SCH ×4 (06:00→18:22)
[2020-09-02] MEDS: NYSTATIN (MOUTH-THROAT) 500,000 UNITS/5 ML SUSP MT SCH ×4 (06:00→20:08)
--- NOTE | 2020-09-02 06:00 | NUR ---
Page sent to physical education teacher hospitalist in regards to high potassium level of 5.5. No plans for dialysis today.
[2020-09-02] MEDS: ACETYLCYSTEINE 10 %(100MG/ML) SOL 4ML NEB SCH ×3 (06:40→22:40)
[2020-09-02] MEDS: BUDESONIDE (INHALATION) 0.5 MG/2 ML NEB NEB SCH ×2 (06:40→18:52)
--- NOTE | 2020-09-02 06:40 | NUR ---
Respiratory note: RECEIVED PT FROM SYSTEMS SECURITY ANALYST ON VENT V-8 PLUGGED INTO RED OUTLET. ALL VENT ALARMS ARE AUDIBLE, AND FUNCTIONING. AMBU BAG/MASK IS AT BEDSIDE CONNECTED TO AN O2 SOURCE. ETT IS 7.5 @ THE 23 LIP LINE SECURED WITH A CARA. MOVED ETT FROM LEFT TO RIGHT. SOME ORAL SKIN BREAK DOWN NOTED AT THE TOP CENTER/BOTTOM LIP, AND ON THE TIP OF TONGUE. RN AWARE. BS ARE CLEAR/DIMINISHED BILATERALLY. SX FOR SCANT AMOUNTS OF THICK, WHITE SECRETIONS. NO GAG REFLEX NOTED. MEDNEB TX GIVEN INLINE VIA AEROGEN, WITH NO ADVERSE EFFECTS NOTED. PT SKIN IS WARM/DRY TO THE TOUCH. EDEMA NOTED IN BOTH UPPER, AND LOWER EXTREMITIES. CHEST TUBE PLACED IN R PLEURAL CAVITY. PT CONTINUE TO BE UNRESPONSIVE TO BOTH VERBAL, AND TACTILE STIMULI. NO NEW VENT CHANGES ORDERED AT THIS TIME. WILL CONTINUE TO MONITOR PT. CHARTING COMPLETE FROM OUTSIDE OF PT ROOM PER COVID-19 PRECAUTIONS/PROTOCOL.
--- NOTE | 2020-09-02 07:10 | NUR ---
Page return from hand button splitter hospitalist: new order for lokelma 10g x1 for potassium of 5.5.
[2020-09-02] MEDS ORDERED: SODIUM ZIRCONIUM CYCL 10 GM PAK PO ONE (08:00)
[2020-09-02] MEDS: LACTULOSE 20Gm/30ML SOLN GT SCH (08:35)
[2020-09-02] MEDS: ASCORBIC ACID 1,000 MG TAB GT SCH (08:35)
[2020-09-02] MEDS: ENOXAPARIN SOD 30 MG/0.3 ML SYRINGE SC SCH (08:36)
[2020-09-02] MEDS: ZINC SULFATE 220mg CAP or TAB GT SCH (08:36)
[2020-09-02] MEDS: CHOLECALCIFEROL (VITD3) 1,000UNIT=25mCg TAB GT SCH (08:37)
--- NOTE | 2020-09-02 09:50 | NUR ---
[employer] - UPDATE GIVEN .
--- NOTE | 2020-09-02 10:15 | NUR ---
PATIENT'S SON BABITA YOUNG - UPDATED ON PATIENT CONDITION - VERBALIZES UNDERSTANDING.
[2020-09-02] MEDS: PROPOFOL 100 ML IV SCH ×3 (10:34→20:08)
--- NOTE | 2020-09-02 11:10 | NUR ---
PATIENT'S MOTHER PHONES - UPDATED ON PATIENT CONDITION.
--- NOTE | 2020-09-02 11:40 | NUR ---
DR EID VISITS-NO NEW ORDERS AT THIS TIME.
--- NOTE | 2020-09-02 12:48 | NUR ---
Nutrition Followup Note Wt 100 kg Pt is intubated sedated COVID +ve in isolation. Pt with propofol running at 21.576 ml/hr which provides 570 kcal from lipids. Pt is with Nepro CS 1.8 at 40 ml/hr ordered. Per Rn note starting TF 09/02 at 10 ml/hr currently with no residuals, continue to advance TF rate as tolerated. Est Energy needs: 5691-0502 kcals (14-18 kcal/kgBW 97kg), Est Protein needs: 95-115 gms/day (2.0-2.5 gm/kgIBW of 47.7 kg). Will continue to monitor and reassess prn. Labs: BUN 49H, Creat 4.62H, Alb 1.8L, K 5.5H, Na 128L BM: Pt had 3 BMs 09/01 per RN note Skin: BS 9 high risk, full details in career placement specialist note PES: 1) Inadequate oral intake aeb pt with 0% PO intake on BIPAP, refusal to eat r/t pt with a poor appetite 2) Obesity aeb 199% IBW and BMI of 39.6 kg/m2 r/t energy intake in excess of energy needs Comments: will continue to monitor NPO status, skin status. F/u high 2-3 days Rec: 1) advance diet as medically feasible 2) continue current plan of care. 3) Continue Nepro CS 1.8 at 40 ml/hr while on HD 4) consider EN support with Jevity 1.2 @ 45 ml/hr per MD approval if ESTEFANY resolves and no HD needed
--- NOTE | 2020-09-02 13:00 | NUR ---
DR DELCID VISITS-ORDER RECEIVED.
--- NOTE | 2020-09-02 14:30 | NUR ---
PATIENT WITH CONSISTENT 8O'S SBP-LEVOPHED INCREASED PER PROTOCOL.
[2020-09-02] MEDS: DexAMETHasone SOD PHOS 10MG/1ML VIAL INJ IV SCH (14:42)
[2020-09-02] MEDS ORDERED: BUMETANIDE 2.5mg/10ml (0.25 mg/ml) INJ IV ONE (14:45)
[2020-09-02] MEDS: SODIUM ZIRCONIUM CYCL 10 GM PAK GT SCH ×2 (14:45→20:08)
[2020-09-02] MEDS ORDERED: ALBUMIN 25% 100 ML IV SCH (15:00)
[2020-09-02] MEDS ORDERED: CATHFLO ACTIVASE (ALTEPLASE) 2 MG VIAL IV ONE (15:00)
[2020-09-02] MEDS: CATHFLO ACTIVASE (ALTEPLASE) 2 MG VIAL IV ONE ×2 (15:00→15:19)
--- NOTE | 2020-09-02 15:05 | NUR ---
PHARMACY NOTIFIED OF NEED FOR CATHLFLO AFTER ATTEMPTS TO RETRIEVE FROM CATHLAB UNSUCCESSFUL.
--- NOTE | 2020-09-02 15:45 | NUR ---
HD TREATMENT ABLE TO BE RESUMED AFTER PATIENT LAID FLAT - QM CATHETER POSITIONAL. NO NEED TO GIVE ALTEPLASE - DR NIXON AND VELMA NOTIFIED - ORDERS RECEIVED. TF TURNED OFF.
[2020-09-02] MEDS: ALBUMIN 25% 100 ML IV SCH ×2 (16:12→17:00)
--- NOTE | 2020-09-02 17:00 | NUR ---
PER HD RN - 3RD DOSE OF ALBUMIN NOT NEEDED - SBP STABLE 100'S
[2020-09-02] MEDS: NOREPINEPHRINE 8 MG/250ML KIT 250 ML IV SCH (17:41)
--- NOTE | 2020-09-02 17:54 | NUR ---
DR MIRELES VISITS - NO NEW ORDERS RECEIVED.
--- NOTE | 2020-09-02 18:50 | NUR ---
AT BEDSIDE IN FULL PPE DUE TO COVID PRECAUTIONS. RECEIVED PT ON VENT V19, VENT CONNECTED TO RED OUTLET O2 AND MEDICAL AIR WALL SOURCE. AMBU BAG AND MASK AT BEDSIDE.MOUTH NOTED TO HAVE BLOODY SCABBING AND DRY BLOOD. SXD VIA ETT FOR SMALL CREAMY GRIFFIN. MED NEB TX GIVEN VIA VENT/AEROGEN, NO ADVERSE REACTION NOTED. RN [facility] AT BEDSIDE AND AWARE OF PT FINDINGS. PTS CURRENT TEMP IS 98.1F. WILL CONTINUE POC.
--- NOTE | 2020-09-02 20:00 | NUR ---
Opening Shift Note: Patient is intubated/sedated/paralyzed. Patient was originally admitted to [facility] and transferred to ICU on 08/22/20 related to previous intubation. Positive COVID (08/17/20 & 08/29/20); all precaution in place. Neuro: pupils bilateral 4 mm/sluggish; absent cough/gag; flaccid extremities; per report, baseline MA 5: currently 4/4 twitches; max on atracurium @ 15, Fentanyl @ 200, Propofol @ 40; Versed @ 15. Cardio: ST 110s-120s; SBPs 90s-110s; generalized nonpitting edema noted; all pulses palpable. Resp: ET size 7.5/23 @ lip intubated on 08/21/20; settings PC 30, rate 26, FiO2 60%, PEEP 10. Anterior lung sounds diminished anterior/lateral; no secretions from ET tube; large amount/bloody secretions from mouth; Dr. Hobbs inserted right CT related to right 2 cm pneumothorax on 09/01/12. GI: OGT running Nephro carb steady at 20 ml/hr with 5 ml residual; with goal rate of 40 ml/hr; active BS; last BM 09/02/20 and per report was diarrhea. : Bean inserted on 08/16/20 for strict I/O: yellow/cloudy; new onset dialysis with admission, right femoral radhika catheter inserted on 08/25/20, last dialysis on 09/02/20 with 2L out per report. Skin: oral mucosal ulcerations JIM: lip moisturizer applied; right ear slow to candy:JIM; bilateral medial thighs MASD/hyperpigmentation. IV: LUE PICC TLC inserted on 08/21/20. Patient received conv. Plasma on 08/20/20 and one unit of PRBCs on 08/30/20. Still pending Echo but will not be completed until COVID neg. Plan for Trach/PEG with Dr. Logan and Dr. Parry when patient is more stable/COVID neg. Pending BMP/CBC/CXR for AM. Will continue to round/reposition/perform oral care prn. Addendum: 09/03/20 at 0001 by TERESSA YEGAER RN FiO2 65% not 60%
--- NOTE | 2020-09-02 22:41 | NUR ---
Respiratory note: AT BEDSIDE IN FULL PPE DUE TO COVID PRECAUTIONS. NO VENT CHANGES MADE. SXD VIA ETT FOR SCANT WHITE/GRIFFIN. MED NEB TX GIVEN VIA AEROGEN, NO ADVERSE REACTION NOTED. PTS CURRENT TEMP IS 98.2F. WILL CONTINUE TO MONITOR.
[2020-09-03] VITALS (101 sets, daily range): BP systolic 88–118; BP diastolic 39–63
[2020-09-03] MEDS: PROPOFOL 100 ML IV SCH ×6 (00:02→21:00)
[2020-09-03] MEDS: ALBUTEROL SULF 2.5 MG/0.5ML(0.5%) NEB SOLN NEB SCH ×6 (02:23→22:23)
[2020-09-03] MEDS: fentaNYL Drip 2500mCg/250mlNS 250 ML IV SCH ×2 (02:30→14:31)
[2020-09-03] MEDS: MIDAZOLAM DRIP 50 mg/50mL 50 ML IV SCH ×5 (02:30→21:55)
[2020-09-03] MEDS: ATRACURIUM BESYLATE IV SCH ×2 (03:30→14:32)
[2020-09-03] MEDS: SODIUM CHL 0.9% IV SCH ×2 (03:30→14:32)
--- NOTE | 2020-09-03 04:30 | NUR ---
Patient bathe/linen change Patient given complete CHG bath. Skin integrity assessed for any changes. Partial linen and gown changed. Patient repositioned for comfort.
[2020-09-03 04:58] LABS: Eosinophils # (auto) 0 10 ^3/uL (0-0.8)
[2020-09-03 05:00] LABS: Basophils # (auto) 0.1 10 ^3/uL (0-0.2); Basophils % (auto) 0.4 % (0.0-2.0); Hematocrit 25.4 % (36.0-46.0); Hemoglobin 7.9 g/dL (12.2-16.2); Lymphocytes # (auto) 0.9 10 ^3/uL (0.4-5.4); Lymphocytes % (auto) 4.9 % (10.0-50.0); Mean Corpuscular Hgb Conc. 31.1 g/dL (32.0-36.0); Mean Corpuscular Volume 80.3 fL (80.0-100.0); Monocytes # (auto) 1.4 10 ^3/uL (0-1.3); Monocytes % (auto) 7.3 % (0.0-12.0); Neutrophils # (auto) 16.8 10 ^3/uL (1.6-8.6); Neutrophils % (auto) 87.4 % (37.0-80.0); Nucleated Red Blood Cells % 0.3 %; Platelet Count (auto) 337 10^3/uL (140-450); Red Blood Cells 3.17 10^6/uL (4.0-5.20); White Blood Cell 19.3 10^3/uL (4.4-10.8)
[2020-09-03] MEDS: PHENYLEPHRINE IV 250 ML IV SCH ×3 (05:13→20:51)
[2020-09-03] MEDS: PIPERACILLIN-TAZOB 2.25GM 50 ML IV SCH ×3 (05:13→12:48)
[2020-09-03] MEDS: NYSTATIN (MOUTH-THROAT) 500,000 UNITS/5 ML SUSP MT SCH ×4 (05:13→20:51)
[2020-09-03] MEDS: NOREPINEPHRINE 8 MG/250ML KIT 250 ML IV SCH (05:15)
[2020-09-03 05:17] LABS: Red Cell Distribution Width 22.1 % (11.8-14.3)
[2020-09-03 05:18] LABS: BUN/Creatinine Ratio 9.9; Calcium 8.6 mg/dL (8.5-10.1); Potassium 4.4 mmol/L (3.5-5.1)
[2020-09-03] MEDS: SODIUM ZIRCONIUM CYCL 10 GM PAK GT SCH (05:44)
[2020-09-03] MEDS: ACETYLCYSTEINE 10 %(100MG/ML) SOL 4ML NEB SCH ×3 (06:22→22:23)
--- NOTE | 2020-09-03 07:25 | NUR ---
Page sent to Dr. Valente in regards to patient's AM ABG results. Worsening respiratory acidosis; notification to day shift RN about page
--- NOTE | 2020-09-03 07:51 | NUR ---
DR MIRELES RETURNS CALL - ORDERS RECEIVED. Signed: 09/03/20 at 0752 by Ronit Corrigan RN
[2020-09-03] MEDS ORDERED: SODIUM BICARBONATE 8.4 % INJ 50ML VIAL IV ONE (08:00)
[2020-09-03] MEDS: ASCORBIC ACID 1,000 MG TAB GT SCH (08:59)
[2020-09-03] MEDS: ENOXAPARIN SOD 30 MG/0.3 ML SYRINGE SC SCH (08:59)
[2020-09-03] MEDS: CHOLECALCIFEROL (VITD3) 1,000UNIT=25mCg TAB GT SCH (08:59)
[2020-09-03] MEDS: DexAMETHasone SOD PHOS 10MG/1ML VIAL INJ IV SCH (08:59)
[2020-09-03] MEDS: ZINC SULFATE 220mg CAP or TAB GT SCH (09:00)
[2020-09-03] MEDS: LACTULOSE 20Gm/30ML SOLN GT SCH (09:00)
[2020-09-03] MEDS: BUDESONIDE (INHALATION) 0.5 MG/2 ML NEB NEB SCH ×2 (10:04→22:23)
--- NOTE | 2020-09-03 10:40 | NUR ---
PATIENT INVOL LARGE AMT LOOSE LIQ BROWN STOOL - COMPLETE LINENS CHANGED WITH PERICARE GIVEN. TF PLACED ON HOLD. LACTULOSE HELD THIS AM.
--- NOTE | 2020-09-03 11:05 | NUR ---
PATIENT'S SON CALLS - UPDATED ON PATIENT CONDITION - VERBALIZED UNDERSTANDING.
--- NOTE | 2020-09-03 11:37 | NUR ---
DR CARREON VISITS - DISCUSSED PATIENT CONDITION-MD TO REVIEW CHART TO DETERMINE NEED FOR FURTHER ORDERS.
--- NOTE | 2020-09-03 11:45 | NUR ---
PATIENT'S MOTHER PHONES - UPDATED ON PATIENT CONDITION - VERBALIZED UNDERSTANDING.
--- NOTE | 2020-09-03 11:48 | NUR ---
DR NIXON VISITS - ORDERS RECEIVED AT 1020 FOR VENTILATOR CHANGES AND INSTITUTED PER RT.
--- NOTE | 2020-09-03 11:53 | NUR ---
DR BURCH VISITS, NO NEW ORDERS AT PRESENT.
--- NOTE | 2020-09-03 12:12 | NUR ---
DR CRAWFORD VISITS - UPDATED ON CURRENT PATIENT FIO2 NEEDS - NO ORDERS RECEIVED.
--- NOTE | 2020-09-03 13:00 | NUR ---
DR BURCH INFORMS FRAMING MILL SUPERVISOR OF FAMILY TOMORROW AT 1500 - SHE SPOKE WITH PATIENT'S SON SO FAMILY AWARE OF MEETING.
[2020-09-03] MEDS ORDERED: BUMETANIDE 2.5mg/10ml (0.25 mg/ml) INJ IV ONE (13:30)
[2020-09-03] MEDS: NOREPINEPHRINE BITARTRATE 16 MG in SODIUM CHL 0.9% 250 ML IV SCH (16:00)
--- NOTE | 2020-09-03 16:00 | NUR ---
TF RE-STARTED AT 25ML/HR
--- NOTE | 2020-09-03 18:40 | NUR ---
CLAIMS MANAGER NOTED LARGE AIR LEAK IN PLEURAVAC. CLAIMS MANAGER NOTED AUDIBLE LEAK AT CHEST TUBE INSERTION SITE, SUTURES NOTED INTACT WITH OCCLUSIVE DRESSING COVERING CHEST TUBE. STAT CXR ORDERED. BILAT BREATH SOUNDS CLEAR AND DIMINISHED - SAO2 98%.
--- NOTE | 2020-09-03 19:33 | NUR ---
RECEIVED CALL FROM [facility] RE: ABNORMAL CHEST XRAY RESULT STATING CHEST TUBE NO LONGER IN PLEURAL SPACE - CALL PLACED TO DR MIRELES.
--- NOTE | 2020-09-03 19:45 | NUR ---
DR MIRELES RETURNS CALL - INFORMED OF CHEST TUBE ISSUE - STATES SKEIN YARD DRIER SHOULD NOTIFY HOSPITALIST COVERING FOR DR NIXON - CALL PLACED TO HOSPITALIST.
--- NOTE | 2020-09-03 19:50 | NUR ---
Page sent to deputy sheriff civil division hospitalist per Dr. Valente for chest tube removal. Spoke with Reyes MEJIA, review of CXR completed and agreed to removed chest tube as it is in the soft tissue.
--- NOTE | 2020-09-03 20:00 | NUR ---
Opening Shift Note: Patient is intubated/sedated/paralyzed. Patient was originally admitted to [facility] and transferred to ICU on 08/22/20 related to previous intubation. Positive COVID (08/17/20 & 08/29/20); all precaution in place. Neuro: pupils bilateral 4 mm/sluggish; absent cough/gag; flaccid extremities; per report, baseline MA 5: currently 4/4 twitches; max on atracurium @ 15, Fentanyl @ 200, Propofol @ 40; Versed @ 15. Cardio: SR 80s-90s; SBPs 100s-110s; generalized nonpitting edema noted; all pulses palpable; DP weak. Resp: ET size 7.5/23 @ lip intubated on 08/21/20; settings PC 30, rate 28, FiO2 65%, PEEP 10. Anterior lung sounds diminished bases and JUAN; expiratory wheezes in RUL; no secretions from ET tube; moderate amount/bloody secretions from mouth; Dr. Hobbs inserted right CT related to right 2 cm pneumothorax on 09/01/12; Chest tube removed per Dr. Valente and solar installation foreman hospitalist as it is in the soft tissue with a major air leak. GI: OGT running Nephro carb steady at 25 ml/hr with 0 ml residual; increased to 40 ml/hr; with goal rate of 40 ml/hr; active BS; last BM 09/03/20 and per report was diarrhea. : Bean inserted on 08/16/20 for strict I/O: yellow/cloudy; new onset dialysis with admission, right femoral radhika catheter inserted on 08/25/20, last dialysis on 09/02/20 with 2L out per report. Skin: oral mucosal ulcerations JIM: lip moisturizer applied; right ear slow to candy:SHEET ROCK INSTALLER; bilateral medial thighs MASD/hyperpigmentation. IV: LUE PICC TLC inserted on 08/21/20. Patient received conv. Plasma on 08/20/20 and one unit of PRBCs on 08/30/20. Still pending Echo but will not be completed until COVID neg. Plan for Trach/PEG with Dr. Logan and Dr. Parry when patient is more stable/COVID neg. Pending BMP/CBC/CXR/ABG/HD for AM. Per Dr. Houser and Dr. Woodward notes, family meeting to discuss plan of care will take place tomorrow at 1500. Will continue to round/reposition/perform oral care prn.
[2020-09-04] VITALS (106 sets, daily range): BP systolic 102–158; BP diastolic 40–84
[2020-09-04] MEDS: PROPOFOL 100 ML IV SCH ×6 (02:00→23:49)
[2020-09-04] MEDS: MIDAZOLAM DRIP 50 mg/50mL 50 ML IV SCH ×5 (02:00→21:50)
[2020-09-04] MEDS: ALBUTEROL SULF 2.5 MG/0.5ML(0.5%) NEB SOLN NEB SCH ×6 (02:25→22:11)
[2020-09-04] MEDS: ATRACURIUM BESYLATE IV SCH ×2 (02:30→13:59)
[2020-09-04] MEDS: SODIUM CHL 0.9% IV SCH ×2 (02:30→13:59)
[2020-09-04] MEDS: fentaNYL Drip 2500mCg/250mlNS 250 ML IV SCH ×2 (03:30→13:03)
--- NOTE | 2020-09-04 05:30 | NUR ---
Patient bathe/linen change Patient given complete CHG bath. Skin integrity assessed for any changes. Linens and gown changed. Patient repositioned for comfort.
[2020-09-04 05:37] LABS: Hemoglobin 7.2 g/dL (12.2-16.2)
[2020-09-04 05:39] LABS: Hematocrit 22.1 % (36.0-46.0); Mean Corpuscular Hemoglobin 25.8 pg (28.0-32.0); Mean Corpuscular Hgb Conc. 32.6 g/dL (32.0-36.0); Platelet Count (auto) 300 10^3/uL (140-450); Red Blood Cells 2.79 10^6/uL (4.0-5.20); White Blood Cell 20.4 10^3/uL (4.4-10.8)
[2020-09-04 05:49] LABS: Red Cell Distribution Width 22.7 % (11.8-14.3)
[2020-09-04 05:50] LABS: Basophils % (manual) 0 (0.0-2.0); Blast Cells 0; Eosinophils % (manual) 0 (0-7); Promyelocytes % 0; Reactive Lymphocytes 0
[2020-09-04 05:58] LABS: BUN/Creatinine Ratio 10.4; Calcium 8.7 mg/dL (8.5-10.1); Potassium 3.2 mmol/L (3.5-5.1)
[2020-09-04] MEDS: NYSTATIN (MOUTH-THROAT) 500,000 UNITS/5 ML SUSP MT SCH ×2 (06:00→11:43)
[2020-09-04] MEDS: Nepro With Carb Steady 1 Liter Bottle GT SCH (06:00)
[2020-09-04] MEDS: PHENYLEPHRINE IV 250 ML IV SCH ×3 (06:12→23:15)
--- NOTE | 2020-09-04 06:15 | NUR ---
Low potassium: level is 3.2. HD about to start, RN at bedside. Page sent to collection team lead hospitalist.
[2020-09-04] MEDS: ACETYLCYSTEINE 10 %(100MG/ML) SOL 4ML NEB SCH ×3 (06:23→22:11)
[2020-09-04 06:51] LABS: Band Neutrophils % (manual) 2; Lymphocytes % (manual) 9 (10.0-50.0); Metamyelocytes % 3; Monocytes % (manual) 17 (0-12); Myelocytes % 3
--- NOTE | 2020-09-04 07:34 | NUR ---
SBP 109. PT. WAS STARTED ON HEMODIALYSIS AT 0650 THIS AM. INCREASED LEVOPHED GTT. TO 6 MCG., HD RN SAID HE IS PULLING FLUID OFF. MONITORING BP.
--- NOTE | 2020-09-04 07:40 | NUR ---
ASSESS- PT. LYING IN BED ON VENT SIZE #7.5 ET, 23 AT THE LIP, PC-28, PRESSURE-30, PEEP-10, FIO2-65%. LUNGS WITH INSPIRATORY WHEEZE RT. UPPER LOBE, CLEAR THROUGHOUT REMAINDER LUNGS. PT. ON TRACRIUM GTT. AT 15 MCG./KG./MIN MAX DOSE WITH TOF 4 OUT OF 4. ON VERSED GTT. AT 15 MG./HR., FENTANYL GTT. AT 200 MCG./MIN., AND PROPOFOL GTT. AT 40 MCG. NO GAG/COUGH REFLEX. PUPILS 4 AND SLUGGISH JAUN. NO RESPONSE TO PAINFUL/TACTILE STIMULI. NO MOVEMENT OF EXTREMITIES SEEN, FLACCID ALL EXT. OGT IN PLACE WITH TF OF NEPHRO AT 40 CC/HR., TURNED OFF DURING HD. ABD. SOFT, ROUND, LG. BOWEL SOUNDS HYPOACTIVE ALL FOUR QUADRANTS. F/C TO GRAVITY WITH CLOUDY YELLOW URINE WITH SEDIMENT. RECTAL PROBE IN PLACE. RADIAL PULSES STRONG, PALPABLE JAUN. DORSALIS PEDAL PULSES WEAK, PALPABLE JAUN. SCD'S JAUN. LE. ON LEVOPHED GTT. AT 4 MCG. PICC PRAKASH TLC INTACT. HANDS SWOLLEN JAUN., NON-PITTING EDEMA. 2 PLUS EDEMA ANKLES/FT. JAUN. ULCERS IN MOUTH BLEEDING AT TIMES WITH ORAL CARE. RT. EAR WITH BLANCHABLE REDNESS, PT. MOVES HEAD TO RT. SIDE, PLACED TOWEL TO LIFT EAR OFF PILLOW. JAUN. INNER THIGHS WITH ERYTHEMA, PEELING SKIN, OPEN TO AIR. GLO CATHETER RT. FEMORAL INTACT WITH DSG. D/I, CURRENTLY RECEIVING HD. ON AIRBORNE PRECAUTIONS FOR COVID POSITIVE.
[2020-09-04] MEDS ORDERED: POTASSIUM CHL 20MEQ/100ML 100 ML IV ONE (07:45)
--- NOTE | 2020-09-04 08:15 | NUR ---
Respiratory note: PT FIO2 TITRATED TO 55%. PT TOLERATING WELL.
--- NOTE | 2020-09-04 08:20 | NUR ---
SBP ONE TEENS TO 120'S. MONITORING BP.
--- NOTE | 2020-09-04 08:30 | NUR ---
ORDER FOR 20 MEQ. KCL IV TIMES ONE GIVEN PREVIOUSLY BY HOSPITALIST THIS AM FOR K LEVEL 3.2. PULLED MED. AND HELD FOR NOW TO CLARIFY WITH CAR BODY MECHANIC, PT. IS CURRENTLY RECEIVING HEMODIALYSIS WITH 3K BATH HD RN SAID.
[2020-09-04] MEDS: ENOXAPARIN SOD 30 MG/0.3 ML SYRINGE SC SCH (09:19)
[2020-09-04] MEDS: LACTULOSE 20Gm/30ML SOLN GT SCH (09:19)
--- NOTE | 2020-09-04 09:30 | NUR ---
HEMODIALYSIS COMPLETED, 3 LITERS REMOVED PER BUSINESS AREA MANAGER. BP STABLE. WILL TITRATE LEVOPHED GTT. DOWN TO KEEP SBP >90.
[2020-09-04] MEDS: DexAMETHasone SOD PHOS 10MG/1ML VIAL INJ IV SCH (09:36)
[2020-09-04] MEDS: ZINC SULFATE 220mg CAP or TAB GT SCH (09:36)
[2020-09-04] MEDS: CHOLECALCIFEROL (VITD3) 1,000UNIT=25mCg TAB GT SCH (09:36)
[2020-09-04] MEDS: ASCORBIC ACID 1,000 MG TAB GT SCH (09:36)
[2020-09-04] MEDS ORDERED: VANCOMYCIN PER PHARMACY 0 MG IV SCH (09:45)
[2020-09-04] MEDS: BUDESONIDE (INHALATION) 0.5 MG/2 ML NEB NEB SCH ×2 (10:05→18:35)
--- NOTE | 2020-09-04 10:20 | NUR ---
SBP 153, HAS BEEN IN THE 140'S-150'S AFTER HD. TITRATED LEVOPHED GTT. DOWN TO 4 MCG. MONITORING BP.
--- NOTE | 2020-09-04 10:50 | NUR ---
BP 143/76. TITRATED LEVOPHED GTT. DOWN TO 2 MCG. MONITORING BP.
--- NOTE | 2020-09-04 11:12 | NUR ---
DR. CARREON Provider/Hospitalist at bedside. GAVE UPDATE ON PT. ORDER TO D'C POTASSIUM RIDER ORDERED THIS AM BY HOSPITALIST. MED NOT GIVEN PREVIOUSLY.
[2020-09-04 11:19] LABS: Urine Bacteria FEW /hpf (None Seen); Urine Blood 2+ /uL (Negative); Urine Budding Yeast MANY /hpf (None Seen); Urine Specific Gravity 1.017 (1.001-1.035); Urine WBC 51 /hpf (0 - 5); Urine WBC Clumps PRESENT /hpf (None Seen)
[2020-09-04] MEDS: MEROPENEM 500MG IVPB 50 ML IV SCH (11:27)
--- NOTE | 2020-09-04 11:35 | NUR ---
DR. NIXON Provider/Hospitalist at bedside. GAVE UPDATE ON PT.
--- NOTE | 2020-09-04 11:45 | NUR ---
SBP 134. TURNED OFF LEVOPHED GTT. CONTINUING TO MONITOR BP.
--- NOTE | 2020-09-04 11:57 | NUR ---
DR. BURCH Provider/Hospitalist at bedside. GAVE UPDATE ON PT. NEW ORDERS RECEIVED PREVIOUSLY.
[2020-09-04] MEDS: NOREPINEPHRINE BITARTRATE 16 MG in SODIUM CHL 0.9% 250 ML IV SCH (12:30)
--- NOTE | 2020-09-04 12:45 | NUR ---
TOF 4 OUT OF FOUR. TRACIUM GTT. AT 15 MCG./KG./MIN. MAX DOSE. PT. REMAINS SEDATED, UNAROUSABLE WITH PC ON VENT.
--- NOTE | 2020-09-04 12:51 | NUR ---
Nutrition Followup Note Wt 101.2 kg Pt is intubated, sedated, positive for COVID. Pt with propofol running at 21.576 ml/hr which provides 570 kcal from lipids. Pt is with Nepro CS 1.8 at 40 ml/hr, with no residuals per RN. RN noted pt received HD. Est Energy needs: 5611-8653 kcals (14-18 kcal/kgBW 97kg), Est Protein needs: 95-115 gms/day (2.0-2.5 gm/kgIBW of 47.7 kg). Will continue to monitor and reassess prn. Labs: BUN 51H, Creat 4.91H, Alb 1.8L, K 3.2H BM: Pt had no BM today per RN note Skin: BS 12 high risk, full details in special needs child caregiver note PES: 1) Inadequate oral intake aeb pt with 0% PO intake on BIPAP, refusal to eat r/t pt with a poor appetite 2) Obesity aeb 199% IBW and BMI of 39.6 kg/m2 r/t energy intake in excess of energy needs Comments: will continue to monitor NPO status, skin status. F/u high 2-3 days Rec: 1) Advance diet as medically feasible 2) Continue current plan of care. 3) Continue Nepro CS 1.8 at 40 ml/hr while on HD 4) Consider EN support with Jevity 1.2 @ 45 ml/hr per MD approval if ESTEFANY resolves and no HD needed
--- NOTE | 2020-09-04 13:30 | NUR ---
SBP 100'S TO ONE TEENS. PT. REMAINS OFF LEVOPHED GTT. MONITORING BP.
--- NOTE | 2020-09-04 15:25 | NUR ---
DR. BURCH AND DR. NIXON HAD FAMILY MEETING WITH PT'S. , DTG., SON AND MOM WITH MYSELF.
[2020-09-04] MEDS ORDERED: VANCOMYCIN 1GM/250ML 250 ML IV ONE (16:00)
--- NOTE | 2020-09-04 18:00 | NUR ---
AUSCULTATED GOOD PLACEMENT WITH OGT. CHECKED RESIDUAL LESS THAN 5 CC. NO EMESIS. TOLERATING NEPHRO AT 40 CC/HR.
--- NOTE | 2020-09-04 19:30 | NUR ---
REPORT REPORT RECEIVED FROM JOON GARCIA PATIENT ISOLATED FOR POSITIVE COVID RESULT. SEDATED AND PARALYZED. MD ORDERS TO WEAN OFF PARALYTIC. WILL ASSESS PATIENT INTUBATED ON PRESSURE CONTROL MODE, FIO2 55% VS STABLE. NOT ON PRESSOR SUPPORT. PATIENT IS ON TUBE FEEDING OF NEPHRO AT 40ML/HR HAD HD TODAY 3L OUT WILL DO FULL ASSESSMENT - REFER INTERVENTIONS
--- NOTE | 2020-09-04 20:00 | NUR ---
WEANING PARALYTICS TRACIUM WAS DECREASED TO 13MCG/KG/MIN AT 1600HRS NO DESATURATIONS/DISTRESS NOTED PATIENT REMAINED UNAROUSABLE, VS STABLE DECREASED TRACIUM TO 11 MCG/KG/MIN WILL CONTINUE TO MONITOR Addendum: 09/04/20 at 2157 by Neida Ferrer RN TOF /
[2020-09-04] MEDS: metroNIDAZOLE 500MG/100ML 100 ML IV SCH (21:50)
--- NOTE | 2020-09-04 22:00 | NUR ---
WEANING OFF PARALYTIC PATIENT REMAINED STABLE REFER IV SPREADSHEET FOR TITRATION Addendum: 09/05/20 at 0237 by Neida Ferrer RN REMAINED UNAROUSABLE
[2020-09-05] VITALS (99 sets, daily range): BP systolic 98–146; BP diastolic 41–78
--- NOTE | 2020-09-05 | NUR ---
TUBE FEEDING OGT RESIDUAL CHECKED = 0 ML CONTINUED TUBE FEEDING AT 40ML/HR
[2020-09-05] MEDS: fentaNYL Drip 2500mCg/250mlNS 250 ML IV SCH ×3 (00:09→20:40)
[2020-09-05] MEDS: MIDAZOLAM DRIP 50 mg/50mL 50 ML IV SCH ×7 (00:26→20:41)
[2020-09-05] MEDS: ALBUTEROL SULF 2.5 MG/0.5ML(0.5%) NEB SOLN NEB SCH ×6 (02:05→22:19)
[2020-09-05] MEDS: PROPOFOL 100 ML IV SCH ×5 (02:50→23:51)
--- NOTE | 2020-09-05 04:00 | NUR ---
HYGIENE PATIENT CLEANED WITH CHG WIPES.LINENS CHANGED. ORAL CARE DONE
[2020-09-05 04:10] LABS: Hematocrit 21.8 % (36.0-46.0); Mean Corpuscular Hemoglobin 25.3 pg (28.0-32.0); Mean Corpuscular Hgb Conc. 32.3 g/dL (32.0-36.0); Mean Corpuscular Volume 78.2 fL (80.0-100.0); Platelet Count (auto) 281 10^3/uL (140-450); Red Blood Cells 2.78 10^6/uL (4.0-5.20); White Blood Cell 18.3 10^3/uL (4.4-10.8)
[2020-09-05 04:12] LABS: Red Cell Distribution Width 22.9 % (11.8-14.3)
[2020-09-05 04:14] LABS: Band Neutrophils % (manual) 0; Basophils % (manual) 0 (0.0-2.0); Blast Cells 0; Eosinophils % (manual) 0 (0-7); Metamyelocytes % 0; Myelocytes % 0; Promyelocytes % 0; Reactive Lymphocytes 0
--- NOTE | 2020-09-05 04:20 | NUR ---
PICC LINE DRESSING PICC LINE DRESSING CHANGE DUE. SITE CLEANED ASEPTICALLY DRESSING CHANGED
[2020-09-05 04:25] LABS: Calcium 8.7 mg/dL (8.5-10.1); Potassium 3.1 mmol/L (3.5-5.1)
--- NOTE | 2020-09-05 04:30 | NUR ---
TRACIUM OFF PATIENT COUGH AND GAG NOTED - HYPOACTIVE TOF 4/4 VS STABLE
[2020-09-05 04:38] LABS: Lymphocytes % (manual) 12 (10.0-50.0); Monocytes % (manual) 11 (0-12)
--- NOTE | 2020-09-05 05:16 | NUR ---
PAGED HOSPITALIST FOR CRITICAL LAB RESULT
--- NOTE | 2020-09-05 05:27 | NUR ---
HOSPITALIST CALLED BACK INFORMED OF HGB 7.0 AND POTASSIUM 3.1 FOR HGB - IF PATIENT IS FOR DIALYSIS TODAY TO REPEAT H&H AND TRANSFUSE BLOOD DURING DIALYSIS FOR POTASSIUM - WILL HOLD OFF REPLACEMENT FOR NOW AND INFORM NEPHRO
[2020-09-05] MEDS: metroNIDAZOLE 500MG/100ML 100 ML IV SCH ×3 (06:07→22:08)
--- NOTE | 2020-09-05 06:30 | NUR ---
ASKED PBX IF DR. CARREON HAD AN DISTRICT SUPERINTENDENT MD AT NIGHT/ UNDER A GROUP OF CONFLICTS ANALYST - SHE SAID SHE IS NOT SURE AND CONNECTED ME TO [facility] ASKED THE DIRECTOR PRODUCT OF [facility] - SHE SAID DR. CARREON IS NOT UNDER THE GROUP WILL INFORM DAY SHIFT RN TO INFORM DR. CARREON OF LAB RESULTS TODAY
[2020-09-05] MEDS: ACETYLCYSTEINE 10 %(100MG/ML) SOL 4ML NEB SCH ×3 (06:32→22:18)
[2020-09-05] MEDS: BUDESONIDE (INHALATION) 0.5 MG/2 ML NEB NEB SCH ×2 (06:32→22:19)
--- NOTE | 2020-09-05 07:20 | NUR ---
REPORT REPORT GIVEN TO DAY SHIFT JOON JEAN-BAPTISTE
[2020-09-05] MEDS: PHENYLEPHRINE IV 250 ML IV SCH ×2 (07:35→15:55)
[2020-09-05 08:21] LABS: Hemoglobin 7.6 g/dL (12.2-16.2)
[2020-09-05 08:23] LABS: Hematocrit 23.3 % (36.0-46.0)
[2020-09-05] MEDS: ENOXAPARIN SOD 30 MG/0.3 ML SYRINGE SC SCH (10:00)
--- NOTE | 2020-09-05 10:20 | NUR ---
Stool sample obtained and sent to lab
[2020-09-05] MEDS: ASCORBIC ACID 1,000 MG TAB GT SCH (10:31)
[2020-09-05] MEDS: ZINC SULFATE 220mg CAP or TAB GT SCH (10:31)
[2020-09-05] MEDS: MEROPENEM 500MG IVPB 50 ML IV SCH (10:32)
[2020-09-05] MEDS: CHOLECALCIFEROL (VITD3) 1,000UNIT=25mCg TAB GT SCH (10:32)
[2020-09-05] MEDS: DexAMETHasone SOD PHOS 10MG/1ML VIAL INJ IV SCH (10:32)
--- NOTE | 2020-09-05 10:52 | NUR ---
MD Fragoso rounding on pt. Made aware of potassium level. New order for PO potassium 20 meq. Will carry out.
[2020-09-05] MEDS ORDERED: POTASSIUM EFFERVESENT TAB 25 MEQ GT ONE (11:00)
[2020-09-05 11:05] LABS: Calcium 9.1 mg/dL (8.5-10.1)
--- NOTE | 2020-09-05 11:05 | NUR ---
Dr. Houser rounding on pt. New orders received. New order for convalescent plasma received. Spoke with blood bank and they stated that the order was placed with [facility]
--- NOTE | 2020-09-05 12:00 | NUR ---
Pt tolerating TF well. No residuals. Continue at goal rate.
--- NOTE | 2020-09-05 12:10 | NUR ---
09/05/20 1210 Faxed to [facility] [phone], clinical packet with post stabilization requesting transfer to their facility.
[2020-09-05] MEDS: NOREPINEPHRINE BITARTRATE 16 MG in SODIUM CHL 0.9% 250 ML IV SCH (12:30)
--- NOTE | 2020-09-05 13:00 | NUR ---
Received call from case management; working on transfer to [place].
--- NOTE | 2020-09-05 14:03 | NUR ---
09/05/20 Yani3 Called [facility] [phone], spoke with Sudhir material flow analyst, stated they received the clinical packet, per Stacie HANDLEY she has not started working on the transfer gave authorization for 09/06/20 @1000 am # [id number]
--- NOTE | 2020-09-05 17:30 | NUR ---
Elimination/ Valdez change Pt had another large liquid BM. Cleansed pt and provided skin care/barrier cream. Valdez DC'D and inserted new valdez per MD order.
--- NOTE | 2020-09-05 19:14 | NUR ---
End of shift Report given and care endorsed to assembler 1st shift RN
--- NOTE | 2020-09-05 20:10 | NUR ---
REPORT ASSUMED CARE OF PATIENT. PATIENT ISOLATED FOR POSITIVE COVID RESULT. PATIENT REMAINED SEDATED WITH VERSED,PROPOFOL AND FENTANYL. PUPILS BOTH SLUGGISHLY REACTIVE TO LIGHT. HYPOACTIVE COUGH AND GAG NOTED. INTUBATED AND VENTILATED ON PRESSURE CONTROL MODE, FIO2 WAS INCREASED THIS MORNING TO 65% HR AND BP STABLE. TEMP LOW 97.0F RECTALLY - COVERED WITH WARM BLANKETS. PATIENT IS ON TUBE FEEDING OF NEPHRO AT 40ML/HR - TOLERATED WELL. NO RESIDUAL NOTED. MALHOTRA CATHETER WAS CHANGED TODAY WITH YELLOWISH OUTPUT WITH SEDIMENTS STILL. FOR DIALYSIS CLIFF ORDERED. LEFT UPPER ARM PICC LINE - DRESSING DRY AND INTACT. REPOSITIONED, ORAL CARE DONE. FULL ASSESSMENT DONE -REFER INTERVENTIONS.
[2020-09-06] VITALS (102 sets, daily range): BP systolic 101–141; BP diastolic 44–77
--- NOTE | 2020-09-06 00:10 | NUR ---
ELIMINATION/HYGIENE PATIENT HAD A MODERATE AMOUNT LOOSE BROWNISH STOOL. SPONGE BATH RENDERED. LINENS CHANGED. Z GUARD APPLIED ON THE GROIN AND PERIANAL AREA OPTIFOAM SACRAL CHANGED. REPOSITIONED
[2020-09-06] MEDS: PHENYLEPHRINE IV 250 ML IV SCH ×3 (00:15→20:00)
--- NOTE | 2020-09-06 00:30 | NUR ---
HELD FEEDING FOR NOW TO SEE IF IT HELP WITH DECREASING LOOSE STOOL
[2020-09-06] MEDS: MIDAZOLAM DRIP 50 mg/50mL 50 ML IV SCH ×3 (00:44→13:37)
[2020-09-06] MEDS: ALBUTEROL SULF 2.5 MG/0.5ML(0.5%) NEB SOLN NEB SCH ×5 (02:13→22:16)
--- NOTE | 2020-09-06 03:00 | NUR ---
CALLED BLOOD BANK TO FOLLOW UP CONVALESCENT PLASMA - STILL NOT AVAILABLE
[2020-09-06] MEDS: PROPOFOL 100 ML IV SCH ×3 (04:14→21:00)
[2020-09-06 05:19] LABS: Hematocrit 22.3 % (36.0-46.0); Hemoglobin 7.1 g/dL (12.2-16.2); Mean Corpuscular Hemoglobin 25.4 pg (28.0-32.0); Mean Corpuscular Hgb Conc. 31.8 g/dL (32.0-36.0); Platelet Count (auto) 287 10^3/uL (140-450); Red Blood Cells 2.78 10^6/uL (4.0-5.20); White Blood Cell 16.9 10^3/uL (4.4-10.8)
[2020-09-06 05:25] LABS: Red Cell Distribution Width 23.2 % (11.8-14.3)
[2020-09-06 05:27] LABS: Basophils % (manual) 0 (0.0-2.0); Blast Cells 0; Eosinophils % (manual) 0 (0-7); Promyelocytes % 0; Reactive Lymphocytes 0
[2020-09-06 05:38] LABS: Albumin 2.2 g/dL (3.4-5.0); BUN/Creatinine Ratio 12.2; Calcium 9.4 mg/dL (8.5-10.1); Potassium 3.8 mmol/L (3.5-5.1)
[2020-09-06 05:41] LABS: Bilirubin, Total 0.5 mg/dL (0.2-1.0); Total Protein 6.9 g/dL (6.4-8.2)
[2020-09-06 06:34] LABS: Band Neutrophils % (manual) 1; Lymphocytes % (manual) 8 (10.0-50.0); Metamyelocytes % 2; Monocytes % (manual) 9 (0-12); Myelocytes % 3
[2020-09-06] MEDS: metroNIDAZOLE 500MG/100ML 100 ML IV SCH ×3 (06:56→21:30)
[2020-09-06] MEDS: ACETYLCYSTEINE 10 %(100MG/ML) SOL 4ML NEB SCH ×3 (08:11→22:16)
[2020-09-06] MEDS: BUDESONIDE (INHALATION) 0.5 MG/2 ML NEB NEB SCH ×2 (08:11→22:17)
--- NOTE | 2020-09-06 08:30 | NUR ---
Respiratory note: PT FI02 DECREASED TO 55%. PT TOLERATING. CHARLES CONTINUE TO MONITO.
--- NOTE | 2020-09-06 09:00 | NUR ---
Dialysis nurse at bedside
[2020-09-06] MEDS: fentaNYL Drip 2500mCg/250mlNS 250 ML IV SCH ×2 (10:00→21:00)
[2020-09-06] MEDS: ENOXAPARIN SOD 30 MG/0.3 ML SYRINGE SC SCH (10:00)
[2020-09-06] MEDS: ASCORBIC ACID 1,000 MG TAB GT SCH (10:43)
[2020-09-06] MEDS: ZINC SULFATE 220mg CAP or TAB GT SCH (10:43)
[2020-09-06] MEDS: MEROPENEM 500MG IVPB 50 ML IV SCH (10:44)
[2020-09-06] MEDS: DexAMETHasone SOD PHOS 10MG/1ML VIAL INJ IV SCH (10:44)
[2020-09-06] MEDS: CHOLECALCIFEROL (VITD3) 1,000UNIT=25mCg TAB GT SCH (10:44)
--- NOTE | 2020-09-06 10:45 | NUR ---
MD austin rounding on pt. Stated to give first unit of prbc with dialysis.
--- NOTE | 2020-09-06 11:02 | NUR ---
One unit of PRBC being transfused with dialysis.
[2020-09-06] MEDS: SODIUM CHL 0.9% IV SCH (11:15)
[2020-09-06] MEDS: ATRACURIUM BESYLATE IV SCH (11:15)
--- NOTE | 2020-09-06 11:28 | NUR ---
Nutrition Followup Note Wt 101.0 kg Pt is intubated, sedated, positive for COVID. Pt with propofol running at 21.576 ml/hr which provides 570 kcal from lipids. Pt is with Nepro CS 1.8 at 40 ml/hr, providing 1728 kcals and 78 gm proteins with no residuals per RN. pt to have HD today Est Energy needs: 9777-3232 kcals (14-18 kcal/kgBW 97kg), Est Protein needs: 95-115 gms/day (2.0-2.5 gm/kgIBW of 47.7 kg). Will continue to monitor and reassess prn. Labs: BUN 57 H CREAT 4.67 H ALB 2.2 L BM: Pt had 1 BM today per RN note Skin: BS 11 high risk, full details in client care manager note PES: 1) Inadequate oral intake aeb pt with 0% PO intake on BIPAP, refusal to eat r/t pt with a poor appetite 2) Obesity aeb 199% IBW and BMI of 39.6 kg/m2 r/t energy intake in excess of energy needs Comments: will continue to monitor NPO status, EN tolerance, skin status. F/u high 2-3 days Rec: 1) Advance diet as medically feasible 2) Continue current plan of care. 3) Continue Nepro CS 1.8 at 40 ml/hr while on HD
--- NOTE | 2020-09-06 12:20 | NUR ---
1 PRBC Infused with dialysis. 3 liters removed.
[2020-09-06] MEDS: NOREPINEPHRINE BITARTRATE 16 MG in SODIUM CHL 0.9% 250 ML IV SCH (12:30)
--- NOTE | 2020-09-06 12:30 | NUR ---
1 unit Convalescent plasma infusing per MD order.
--- NOTE | 2020-09-06 14:30 | NUR ---
09/06/20 1430 Received a call from Karoline HANDLEY at [facility] and stated the FIO2 on the patient was too high and they would not transfer today, will review again tomorrow, gave in patient stay auth for 09/07/20 @1000 am [id number]
--- NOTE | 2020-09-06 15:00 | NUR ---
Convalescent plasma infused. VSS. See VS interventions.
[2020-09-06] MEDS ORDERED: VANCOMYCIN 500 MG in D5W 5% 100 ML IV ONE (16:00)
--- NOTE | 2020-09-06 19:32 | NUR ---
Report given to family services coordinator RN to assume care
--- NOTE | 2020-09-06 19:35 | NUR ---
OPENING SHIFT RECEIVED REPORT FROM DAY SHIFT RN. ASSUMED CARE OF PATIENT. PATIENT INTUBATED AND SEDATED WITH NO SIGNS OR SYMPTOMS OF SOB, PAIN OR DISTRESS. LEFT UPPER ARM PICC TLC AND RIGHT FEMORAL GLO CATHETER - CLEAN/DRY/INTACT. MALHOTRA HUNG TO GRAVITY. SEDATION: VERSED - 9MG/HR FENTANYL - 200MCG/MIN PROPOFOL - 40MCG/KG/HR REPOSITIONED FOR COMFORT. BED IN LOWEST POSITION, SIDE RAILS UP X2. WILL CONTINUE TO MONITOR.
[2020-09-07] VITALS (99 sets, daily range): BP systolic 85–159; BP diastolic 33–91
[2020-09-07] MEDS: MIDAZOLAM DRIP 50 mg/50mL 50 ML IV SCH ×2 (01:00→05:30)
[2020-09-07] MEDS: PROPOFOL 100 ML IV SCH ×3 (01:00→21:30)
[2020-09-07] MEDS: PHENYLEPHRINE IV 250 ML IV SCH ×3 (01:15→18:39)
--- NOTE | 2020-09-07 03:05 | NUR ---
MORNING CARE PERFORMED MORNING CARE WITH CHG WIPES AND WASH CLOTHS TO THE FACE. PARTIAL LINEN CHANGE AND GOWN CHANGED. REPOSITIONED FOR COMFORT. SKIN REASSESSED AT THIS TIME. ORAL AND MALHOTRA CARE PERFORMED. WILL CONTINUE TO MONITOR
[2020-09-07 04:58] LABS: Basophils # (auto) 0.1 10 ^3/uL (0-0.2); Hemoglobin 7.9 g/dL (12.2-16.2); Lymphocytes # (auto) 0.9 10 ^3/uL (0.4-5.4)
[2020-09-07 05:00] LABS: Basophils % (auto) 0.8 % (0.0-2.0); Eosinophils # (auto) 0.2 10 ^3/uL (0-0.8); Eosinophils % (auto) 1.1 % (0.0-7.0); Hematocrit 23.2 % (36.0-46.0); Lymphocytes % (auto) 6.7 % (10.0-50.0); Mean Corpuscular Hemoglobin 27.6 pg (28.0-32.0); Mean Corpuscular Volume 81.3 fL (80.0-100.0); Monocytes # (auto) 1.2 10 ^3/uL (0-1.3); Monocytes % (auto) 8.8 % (0.0-12.0); Neutrophils # (auto) 11.7 10 ^3/uL (1.6-8.6); Neutrophils % (auto) 82.6 % (37.0-80.0); Nucleated Red Blood Cells % 0.4 %; Platelet Count (auto) 263 10^3/uL (140-450); Red Blood Cells 2.86 10^6/uL (4.0-5.20); White Blood Cell 14.1 10^3/uL (4.4-10.8)
[2020-09-07 05:01] LABS: Red Cell Distribution Width 24.3 % (11.8-14.3)
[2020-09-07 05:34] LABS: Calcium 7.8 mg/dL (8.5-10.1); Potassium 3.3 mmol/L (3.5-5.1)
[2020-09-07 05:37] LABS: Bilirubin, Total 0.6 mg/dL (0.2-1.0); Total Protein 6.1 g/dL (6.4-8.2)
[2020-09-07 05:43] LABS: BUN/Creatinine Ratio 12.5
--- NOTE | 2020-09-07 05:54 | NUR ---
PAGED HIGH [facility] - AWAITING CALL BACK
[2020-09-07] MEDS: metroNIDAZOLE 500MG/100ML 100 ML IV SCH ×3 (06:08→22:13)
[2020-09-07] MEDS: ACETYLCYSTEINE 10 %(100MG/ML) SOL 4ML NEB SCH ×3 (06:24→22:33)
[2020-09-07] MEDS: ALBUTEROL SULF 2.5 MG/0.5ML(0.5%) NEB SOLN NEB SCH ×3 (06:24→22:33)
[2020-09-07] MEDS: BUDESONIDE (INHALATION) 0.5 MG/2 ML NEB NEB SCH ×2 (06:24→22:33)
--- NOTE | 2020-09-07 07:30 | NUR ---
END OF SHIFT REPORT GIVEN TO DAY SHIFT RN. CARE ENDORSED.
--- NOTE | 2020-09-07 08:30 | NUR ---
ASSESSMENT COMPLETED SEE INTERVENTIONS
--- NOTE | 2020-09-07 08:30 | NUR ---
Respiratory note: ADVANCED ETT 3CM FROM 22 TO 25 POST AM XRAY.
[2020-09-07] MEDS ORDERED: POTASSIUM EFFERVESENT TAB 25 MEQ GT ONE (09:00)
[2020-09-07] MEDS ORDERED: CALCIUM GLUC 4.65meq/50ml D5AE 50 ML IV ONE (09:00)
--- NOTE | 2020-09-07 09:07 | NUR ---
SPOKE WITH DR BURCH, NEW ORDERS RECEIVED, DR BURCH NOT IN HOSPITAL TODAY. PLACED NEW CXR TO CHECK ETT PLACEMENT DUE TO ADVANCEMENT OF ETT BY 3 CM BY MICHAEL DELCID PER LAST CXR RESULTS
[2020-09-07] MEDS: CHOLECALCIFEROL (VITD3) 1,000UNIT=25mCg TAB GT SCH (11:09)
[2020-09-07] MEDS: DexAMETHasone SOD PHOS 10MG/1ML VIAL INJ IV SCH (11:09)
[2020-09-07] MEDS: ZINC SULFATE 220mg CAP or TAB GT SCH (11:09)
[2020-09-07] MEDS: ASCORBIC ACID 1,000 MG TAB GT SCH (11:09)
[2020-09-07] MEDS: ENOXAPARIN SOD 30 MG/0.3 ML SYRINGE SC SCH (11:10)
[2020-09-07] MEDS: SODIUM CHL 0.9% IV SCH (11:15)
[2020-09-07] MEDS: ATRACURIUM BESYLATE IV SCH (11:15)
[2020-09-07] MEDS: MEROPENEM 500MG IVPB 50 ML IV SCH ×2 (11:16→20:30)
--- NOTE | 2020-09-07 11:29 | NUR ---
re-assessment I faxed clinical information to [facility] for continued stay authorization. Called and spoke with Elvira and she informed me they are still reviewing and to call back in a couple hours. Addendum: 09/07/20 at 1131 by Odalys DIAZ Amended: Links added.
--- NOTE | 2020-09-07 12:15 | NUR ---
WOUND CARE NOTE: IN TO SEE PATIENT AT THIS TIME FOR SKIN INTEGRITY MONITORING. PATIENT CONTINUES TO BE INTUBATED, SEDATED, CURRENT OTTO SCORE IS 11. PATIENT CONTINUES TO REST ON ICU LOW AIRLOSS MATTRESS. SHE REMAINS ON AIRBORNE ISOLATION FOR COVID 19. PATIENT'S INTERTRIGO TO SACRUM/BUTTOCKS/PERINEUM, BILATERAL UPPER MEDIAL THIGHS IS NOT IMPROVING. SHE MAY BENEFIT WITH SWITCHING FROM ANTIFUNGAL CLEAR BARRIER CREAM TO BID APPLICATIONS OF NYSTATIN POWDER. SKIN REMAINS INTACT TO THESE AREAS. PATIENT HAS A SMALL MUCOSAL ULCER TO THE TONGUE FROM THE ET TUBE. WOUND APPEARS SLIGHTLY IMPROVED FROM LAST EXAM. RIGHT EAR STILL HAS NON BLANCHABLE DARK RED AREA. PATIENT APPEARS TO FAVOR TURNING HER HEAD IN THIS DIRECTION. HEAD/NECK IS PROPPED UP, SO TO AVOID THIS POSITION. NEW WOUND PHOTOS TAKEN AT THIS TIME FOR REFERENCE. SKIN/WOUND CARE PLAN UPDATED. RECOMMEND: NYSTATIN POWDER BID TO INTERTRIGO TO SACRUM/BUTTOCKS/PERIENEUM, BILATERAL UPPER MEDIAL THIGHS, CONTINUATION WITH ALL OTHER WOUND CARE ORDERS PREVIOUSLY PRESCRIBED BY MD. WOUND CARE TEAM WILL CONTINUE TO MONITOR PATIENT. Addendum: 09/07/20 at 1542 by Kourtney Ford RN Amended: Links added.
[2020-09-07] MEDS: NOREPINEPHRINE BITARTRATE 16 MG in SODIUM CHL 0.9% 250 ML IV SCH (12:30)
--- NOTE | 2020-09-07 13:28 | NUR ---
re-assessment I called back to [facility] and per Radha, patients disability case manager Karoline has authorized continued stay for today Auth # [id number]. Addendum: 09/07/20 at 1329 by Odalys DIAZ Amended: Links added.
--- NOTE | 2020-09-07 13:30 | NUR ---
DR MUNSON AT BEDSIDE
[2020-09-07] MEDS ORDERED: VANCOMYCIN 500 MG in D5W 5% 100 ML IV ONE (18:00)
[2020-09-07] MEDS ORDERED: FUROSEMIDE 20 MG/2 ML VIAL IV ONE (18:00)
[2020-09-07] MEDS ORDERED: POTASSIUM CHL 20MEQ/100ML 100 ML IV ONE (18:30)
--- NOTE | 2020-09-07 18:30 | NUR ---
Respiratory note: RECEIVED PT ON VENT V8, VENT CHECK DONE BY PTS ROOM DOOR DUE TO COVID PRECAUTIONS. VENT CONNECTED TO RED OUTLET AND O2 SOURCE ALARMS ARE SET AND AUDIBLE AMBU BAG AND MASK AT BEDSIDE. PTS CURRENT TEMP READS 98.4F. JOON RAMIREZ AT BEDSIDE. WILL CONTINUE TO MONITOR.
[2020-09-07] MEDS: fentaNYL Drip 2500mCg/250mlNS 250 ML IV SCH (20:00)
[2020-09-07] MEDS: NYSTATIN TOPICAL POWDER 15GM TOP SCH (22:00)
--- NOTE | 2020-09-07 22:33 | NUR ---
Respiratory note: AT BEDSIDE IN FULL PPE DUE TO COVID PRECAUTIONS. AT BEDSIDE FOR ROUTINE VENT CHECK AND MED NEB TX. BS ARE FINE COURSE SXD FOR SMALL GRIFFIN/BROWN. ORAL BREAKDOWN NOTED ON CORNERS OF MOUTH AND JOON HAMMER AWARE, WOUND NURSE IS ALSO AWARE. TX GIVEN INLINE VIA AEROGEN, NO ADVERSE REACTION NOTED. JIL WATER CHANGED AT THIS TIME. WILL CONTINUE TO MONITOR.
[2020-09-08] VITALS (100 sets, daily range): BP systolic 95–151; BP diastolic 45–82
[2020-09-08] MEDS: PROPOFOL 100 ML IV SCH ×4 (01:30→22:30)
[2020-09-08] MEDS: PHENYLEPHRINE IV 250 ML IV SCH ×3 (02:15→18:55)
[2020-09-08 05:41] LABS: Hematocrit 25.9 % (36.0-46.0); Hemoglobin 8.6 g/dL (12.2-16.2); Mean Corpuscular Hemoglobin 27.1 pg (28.0-32.0); Mean Corpuscular Hgb Conc. 33.2 g/dL (32.0-36.0); Mean Corpuscular Volume 81.6 fL (80.0-100.0); Platelet Count (auto) 299 10^3/uL (140-450); Red Blood Cells 3.17 10^6/uL (4.0-5.20); White Blood Cell 16.2 10^3/uL (4.4-10.8)
[2020-09-08 05:42] LABS: Red Cell Distribution Width 24.5 % (11.8-14.3)
[2020-09-08 05:47] LABS: Basophils % (manual) 0 (0.0-2.0); Blast Cells 0; Promyelocytes % 0; Reactive Lymphocytes 0
[2020-09-08] MEDS ORDERED: FUROSEMIDE 20 MG/2 ML VIAL IV SCH (06:00)
[2020-09-08 06:01] LABS: Band Neutrophils % (manual) 17; Eosinophils % (manual) 2 (0-7); Lymphocytes % (manual) 4 (10.0-50.0); Metamyelocytes % 1; Monocytes % (manual) 1 (0-12); Myelocytes % 2
[2020-09-08 06:05] LABS: Albumin 2.1 g/dL (3.4-5.0); Calcium 8.6 mg/dL (8.5-10.1); Magnesium 2.3 mg/dL (1.6-2.6); Potassium 3.2 mmol/L (3.5-5.1)
[2020-09-08 06:08] LABS: BUN/Creatinine Ratio 15.2; Bilirubin, Total 0.6 mg/dL (0.2-1.0); Phosphorus 4.7 mg/dL (2.5-4.90); Total Protein 6.2 g/dL (6.4-8.2)
[2020-09-08] MEDS: metroNIDAZOLE 500MG/100ML 100 ML IV SCH ×2 (06:17→14:00)
[2020-09-08] MEDS ORDERED: POTASSIUM CHL 20MEQ/100ML 100 ML IV ONE ×2 (06:30→19:00)
--- NOTE | 2020-09-08 06:36 | NUR ---
SPOKE WITH HOSPITALIST MADE AWARE OF POTASSIUM - 3.2 RECEIVED ORDERS TO REPLACE WITH 20MEQ K RIDER IV. WILL CONTINUE TO MONITOR.
--- NOTE | 2020-09-08 07:29 | NUR ---
END OF SHIFT REPORT GIVEN TO DAY SHIFT RN. CARE ENDORSED.
--- NOTE | 2020-09-08 07:45 | NUR ---
Opening Shift Note Received pt on mechanical ventilator sedated on versed, propofol, and fentanyl See IV spreadsheet for details. Full assessment done see interventions. Oral care done; pt bleeding from sores in mouth. mouth moisturizer applied. No S/S of pain indicated. Pt swollen on b/l upper extremities. Redness/ irritation noted to inner thighs. Bean catheter hung to gravity; patent. Continue care.
[2020-09-08] MEDS: MEROPENEM 500MG IVPB 50 ML IV SCH ×2 (07:55→21:43)
[2020-09-08] MEDS: fentaNYL Drip 2500mCg/250mlNS 250 ML IV SCH ×2 (08:00→20:18)
[2020-09-08] MEDS: POTASSIUM CHL 20MEQ/100ML 100 ML IV SCH ×2 (08:45→10:45)
[2020-09-08] MEDS: ENOXAPARIN SOD 30 MG/0.3 ML SYRINGE SC SCH (10:00)
[2020-09-08] MEDS: NYSTATIN TOPICAL POWDER 15GM TOP SCH ×2 (10:00→22:00)
[2020-09-08] MEDS: BUDESONIDE (INHALATION) 0.5 MG/2 ML NEB NEB SCH ×2 (10:04→22:37)
[2020-09-08] MEDS: ALBUTEROL SULF 2.5 MG/0.5ML(0.5%) NEB SOLN NEB SCH ×2 (10:04→22:37)
[2020-09-08] MEDS: ACETYLCYSTEINE 10 %(100MG/ML) SOL 4ML NEB SCH ×2 (10:04→22:37)
[2020-09-08 10:57] LABS: Partial Thromboplastin Time 21.9 sec (23.0-31.2)
[2020-09-08] MEDS: ATRACURIUM BESYLATE IV SCH (11:15)
[2020-09-08] MEDS: SODIUM CHL 0.9% IV SCH (11:15)
[2020-09-08] MEDS: ZINC SULFATE 220mg CAP or TAB GT SCH (11:28)
[2020-09-08] MEDS: ASCORBIC ACID 1,000 MG TAB GT SCH (11:29)
[2020-09-08] MEDS: CHOLECALCIFEROL (VITD3) 1,000UNIT=25mCg TAB GT SCH (11:29)
[2020-09-08] MEDS: DexAMETHasone SOD PHOS 10MG/1ML VIAL INJ IV SCH (11:30)
--- NOTE | 2020-09-08 11:59 | NUR ---
Nutrition Followup Note Wt 102.5 kg Pt is intubated, sedated, positive for COVID. Pt with propofol running at 24.52 ml/hr which provides 647 kcal from lipids. Pt is with Nepro CS 1.8 at 40 ml/hr, providing 1728 kcals and 78 gm proteins with no residuals per RN. Est Energy needs: 6784-2252 kcals (14-18 kcal/kgBW 97kg), Est Protein needs: 95-115 gms/day (2.0-2.5 gm/kgIBW of 47.7 kg). Will continue to monitor and reassess prn. Labs: BUN 53 H CREAT 3.48 H ALB 2.1 L, Gluc 126 H, K 3.2 L BM: Pt is with diarrhea today per RN note Skin: BS 11 high risk, full details in aged or disabled care worker note PES: 1) Inadequate oral intake aeb pt with 0% PO intake on BIPAP, refusal to eat r/t pt with a poor appetite 2) Obesity aeb 199% IBW and BMI of 39.6 kg/m2 r/t energy intake in excess of energy needs Comments: will continue to monitor NPO status, EN tolerance, skin status. F/u high 2-3 days Rec: 1) Advance diet as medically feasible 2) Continue current plan of care. 3) Continue Nepro CS 1.8 at 40 ml/hr while on HD
[2020-09-08] MEDS: NOREPINEPHRINE BITARTRATE 16 MG in SODIUM CHL 0.9% 250 ML IV SCH (12:30)
--- NOTE | 2020-09-08 16:30 | NUR ---
CARES partial linen change given at this time. Pt tolerated well. Skin integirty assessed for any changes; none noted. zguard applied to inner thighs. Bleeding from mouth noted.
[2020-09-08] MEDS: MIDAZOLAM DRIP 50 mg/50mL 50 ML IV SCH ×3 (18:25→23:00)
[2020-09-08] MEDS ORDERED: MICAFUNGIN SODIUM 100 MG in SODIUM CHL 0.9% 100 ML IV ONE (19:00)
--- NOTE | 2020-09-08 19:28 | NUR ---
Report given to overnight houseperson RN to assume care
--- NOTE | 2020-09-08 23:40 | NUR ---
HELD POTASSIUM PATIENT RECEIVED 60 MEQ OF K FOR POTASSIUM OF 3.2. K LAB VALUES AT 2237 IS 4.6, PATIENT IS ON HD, HELD 20 MEQ OF POTASSIUM.
--- NOTE | 2020-09-08 23:40 | NUR ---
CARES PARTIAL BED LINEN CHANGE, PARTIAL BED BATH, OPTIFOAM TO SACRUM. PATIENT TOLERATED TURNS WELL, VS STABLE
[2020-09-09] VITALS (101 sets, daily range): BP systolic 90–141; BP diastolic 48–91
--- NOTE | 2020-09-09 | NUR ---
FEEDING FEEDING RUNNING AT 40 CC/HR NO RESIDUAL HOB 35 DEGREES NG TUBE AUSCULTATED, TUBE IS SECURED.
[2020-09-09] MEDS: metroNIDAZOLE 500MG/100ML 100 ML IV SCH ×3 (00:30→15:01)
[2020-09-09] MEDS: PROPOFOL 100 ML IV SCH ×5 (02:27→20:00)
[2020-09-09] MEDS: PHENYLEPHRINE IV 250 ML IV SCH ×3 (03:15→19:55)
[2020-09-09 04:45] LABS: Hematocrit 26.3 % (36.0-46.0); Hemoglobin 8.7 g/dL (12.2-16.2); Mean Corpuscular Hgb Conc. 33.2 g/dL (32.0-36.0); Mean Corpuscular Volume 81.3 fL (80.0-100.0); Platelet Count (auto) 299 10^3/uL (140-450); Red Blood Cells 3.23 10^6/uL (4.0-5.20); White Blood Cell 14.5 10^3/uL (4.4-10.8)
[2020-09-09 04:54] LABS: Blast Cells 0; Promyelocytes % 0; Reactive Lymphocytes 0; Red Cell Distribution Width 24.8 % (11.8-14.3)
[2020-09-09 04:56] LABS: Basophils % (manual) 0 (0.0-2.0)
[2020-09-09 05:00] LABS: Albumin 1.9 g/dL (3.4-5.0); Calcium 9.3 mg/dL (8.5-10.1); Potassium 4.5 mmol/L (3.5-5.1)
[2020-09-09 05:05] LABS: BUN/Creatinine Ratio 16.2; Bilirubin, Total 0.4 mg/dL (0.2-1.0); Total Protein 6.3 g/dL (6.4-8.2)
[2020-09-09 05:25] LABS: Band Neutrophils % (manual) 1; Eosinophils % (manual) 1 (0-7); Lymphocytes % (manual) 3 (10.0-50.0); Metamyelocytes % 4; Monocytes % (manual) 1 (0-12); Myelocytes % 1
--- NOTE | 2020-09-09 06:00 | NUR ---
STOPPED FEEDING - DIARRHEA
[2020-09-09] MEDS: MIDAZOLAM DRIP 50 mg/50mL 50 ML IV SCH ×3 (06:01→20:00)
--- NOTE | 2020-09-09 06:10 | NUR ---
CARES FULL BED LINEN CHANGE, BED BATH. OPTIFOAM TO SACRUM. TOLERATED TURNS, STABLE VS
[2020-09-09] MEDS: BUDESONIDE (INHALATION) 0.5 MG/2 ML NEB NEB SCH ×2 (06:30→22:04)
[2020-09-09] MEDS: ALBUTEROL SULF 2.5 MG/0.5ML(0.5%) NEB SOLN NEB SCH ×3 (06:30→22:04)
[2020-09-09] MEDS: ACETYLCYSTEINE 10 %(100MG/ML) SOL 4ML NEB SCH ×3 (06:30→22:04)
[2020-09-09] MEDS: MEROPENEM 500MG IVPB 50 ML IV SCH ×2 (07:55→20:15)
[2020-09-09] MEDS: fentaNYL Drip 2500mCg/250mlNS 250 ML IV SCH ×2 (08:01→18:38)
[2020-09-09] MEDS: CHOLECALCIFEROL (VITD3) 1,000UNIT=25mCg TAB GT SCH (09:28)
[2020-09-09] MEDS: DexAMETHasone SOD PHOS 10MG/1ML VIAL INJ IV SCH (09:28)
[2020-09-09] MEDS: ASCORBIC ACID 1,000 MG TAB GT SCH (09:28)
[2020-09-09] MEDS: ZINC SULFATE 220mg CAP or TAB GT SCH (09:28)
[2020-09-09] MEDS: ENOXAPARIN SOD 30 MG/0.3 ML SYRINGE SC SCH (09:29)
--- NOTE | 2020-09-09 09:30 | NUR ---
NEPHROLOGY VISITS DR CARREON UPDATED ON PATIENT'S STATUS, PATIENT WILL BE RECEIVING DIALYSIS TODAY PER MD. NO VERBAL ORDERS RECEIVED AT THIS TIME.
[2020-09-09] MEDS ORDERED: MICAFUNGIN SODIUM 100 MG in SODIUM CHL 0.9% 100 ML IV SCH (10:00)
[2020-09-09] MEDS ORDERED: POTASSIUM EFFERVESENT TAB 25 MEQ PO SCH (10:00)
--- NOTE | 2020-09-09 10:40 | NUR ---
PULMONOLOGY AT BEDSIDE DR NIXON UPDATED ON PATIENT'S STATUS AND MD PREVIOUSLY NOTIFIED OF MORNING ABG. NO VERBAL ORDERS RECEIVED AT THIS TIME.
[2020-09-09] MEDS: ATRACURIUM BESYLATE IV SCH (11:15)
[2020-09-09] MEDS: SODIUM CHL 0.9% IV SCH (11:15)
--- NOTE | 2020-09-09 12:25 | NUR ---
DIALYSIS NURSE AT BEDSIDE
[2020-09-09] MEDS: NOREPINEPHRINE BITARTRATE 16 MG in SODIUM CHL 0.9% 250 ML IV SCH (12:30)
[2020-09-09] MEDS ORDERED: VANCOMYCIN 1GM/250ML 250 ML IV ONE (13:00)
--- NOTE | 2020-09-09 14:39 | NUR ---
HOSPITALIST AT BEDSIDE DR BURCH UPDATED ON PATIENT'S STATUS, DIARRHEA AND DIALYSIS IN PROCESS. NO VERBAL ORDERS RECEIVED AT THIS THIS TIME, WILL FOLLOW-UP WITH RESPIRATORY THERAPY TO DECREASE FIO2 APPROPRIATE.
--- NOTE | 2020-09-09 15:25 | NUR ---
DIALYSIS COMPLETE A TOTAL OF 2 LITERS REMOVED, PATIENT TOLERATED WELL. WILL CONTINUE TO MONITOR.
[2020-09-09] MEDS ORDERED: LOPERAMIDE 2 mg/15ml ORAL soln GT PRN (15:45)
--- NOTE | 2020-09-09 16:05 | NUR ---
Faxed to [facility] [phone] face sheet, D/C order for transfer to [facility], progress notes, Post Stabilization, requesting transfer to [facility].
[2020-09-09] MEDS: NYSTATIN TOPICAL POWDER 15GM TOP SCH ×2 (17:33→21:47)
--- NOTE | 2020-09-09 21:00 | NUR ---
FEEDING RUNNING AT 20 CC/HR RESIDUAL 4 CC BOWEL SOUNDS HYPERACTIVE. HOB 35 DEGREES. OG TUBE LOCATION VERIFIED BY AUSCULTATIONS. NO SIGN OF ASPIRATION.
[2020-09-10] VITALS (101 sets, daily range): BP systolic 95–168; BP diastolic 39–98
--- NOTE | 2020-09-10 00:11 | NUR ---
FEEDING RUNNING AT 20 CC/HR RESIDUAL 2 CC BOWEL SOUNDS HYPERACTIVE. HOB 35 DEGREES. OG TUBE LOCATION VERIFIED BY AUSCULTATIONS. NO SIGN OF ASPIRATION.
[2020-09-10] MEDS: MIDAZOLAM DRIP 50 mg/50mL 50 ML IV SCH ×3 (02:00→20:04)
--- NOTE | 2020-09-10 02:30 | NUR ---
SENT URINE FOR CULTURING
[2020-09-10] MEDS: PHENYLEPHRINE IV 250 ML IV SCH ×3 (04:15→20:55)
--- NOTE | 2020-09-10 05:22 | NUR ---
FEEDING RUNNING AT 20 CC/HR RESIDUAL 0 CC BOWEL SOUNDS HYPERACTIVE. HOB 35 DEGREES. NO SIGN OF ASPIRATION OR BOWEL MOVEMENT.
[2020-09-10] MEDS: fentaNYL Drip 2500mCg/250mlNS 250 ML IV SCH (05:35)
[2020-09-10] MEDS: PROPOFOL 100 ML IV SCH ×4 (05:36→23:15)
[2020-09-10 05:58] LABS: Hematocrit 26.7 % (36.0-46.0); Hemoglobin 8.8 g/dL (12.2-16.2); Mean Corpuscular Hemoglobin 26.6 pg (28.0-32.0); Mean Corpuscular Hgb Conc. 32.8 g/dL (32.0-36.0); Platelet Count (auto) 300 10^3/uL (140-450); Red Blood Cells 3.29 10^6/uL (4.0-5.20); White Blood Cell 15.7 10^3/uL (4.4-10.8)
[2020-09-10 06:18] LABS: Red Cell Distribution Width 25.7 % (11.8-14.3)
[2020-09-10 06:19] LABS: Albumin 2.1 g/dL (3.4-5.0); BUN/Creatinine Ratio 15.1; Calcium 9.2 mg/dL (8.5-10.1); Potassium 3.5 mmol/L (3.5-5.1)
[2020-09-10 06:20] LABS: Basophils % (manual) 0 (0.0-2.0); Blast Cells 0; Promyelocytes % 0; Reactive Lymphocytes 0
[2020-09-10 06:22] LABS: Bilirubin, Total 0.5 mg/dL (0.2-1.0); Total Protein 6.7 g/dL (6.4-8.2)
[2020-09-10 07:19] LABS: Band Neutrophils % (manual) 2; Eosinophils % (manual) 5 (0-7); Lymphocytes % (manual) 8 (10.0-50.0); Metamyelocytes % 4; Monocytes % (manual) 5 (0-12); Myelocytes % 1
[2020-09-10] MEDS: BUDESONIDE (INHALATION) 0.5 MG/2 ML NEB NEB SCH ×2 (07:44→22:06)
[2020-09-10] MEDS: ALBUTEROL SULF 2.5 MG/0.5ML(0.5%) NEB SOLN NEB SCH ×3 (07:44→22:06)
[2020-09-10] MEDS: ACETYLCYSTEINE 10 %(100MG/ML) SOL 4ML NEB SCH ×3 (07:45→22:06)
--- NOTE | 2020-09-10 07:59 | NUR ---
Respiratory note: RECEIVED PATIENT ON V8 CARESCAPE VENT ORALLY INTUBATED WITH A 7.5 ETT SECURED VIA CARA AT THE 22CM MARKING AT THE LIP AND MECHANICALLY VENTILATED WITH THE CHARTED SETTINGS. SPO2 92%, LUNG SOUNDS DIM T/O. SCANT AMOUNT OF THIN CLEAR SECRETIONS WHEN SUCTIONED. SKIN IS WARM/DRY TO THE TOUCH. PITTING EDEMA NOTED IN BILATERAL UPPER/LOWER EXTREMITIES. LEG SEQUENTIALS ARE IN PLACE AND OPERATIONAL. PATIENT IS UNRESPONSIVE TO BOTH VERBAL/TACTILE STIMULI AND IS SEDATED ON PROPOFOL, VERSED, AND FENTANYL DRIPS. SHE IS RESTING COMFORTABLY AND TOLERATING VENT WELL, NO CHANGES MADE. VENT PLUGGED INTO RED OUTLET AND ALL ALARMS ARE SET AND AUDIBLE. WILL CONTINUE TO ASSESS PATIENT WELL VENTILATOR FUNCTION. [employer] IN[employer].
[2020-09-10] MEDS: ENOXAPARIN SOD 30 MG/0.3 ML SYRINGE SC SCH (08:38)
[2020-09-10] MEDS: ZINC SULFATE 220mg CAP or TAB GT SCH (08:39)
[2020-09-10] MEDS: CHOLECALCIFEROL (VITD3) 1,000UNIT=25mCg TAB GT SCH (08:39)
[2020-09-10] MEDS: ASCORBIC ACID 1,000 MG TAB GT SCH (08:39)
[2020-09-10] MEDS: MEROPENEM 500MG IVPB 50 ML IV SCH ×2 (08:40→20:00)
[2020-09-10] MEDS: NYSTATIN TOPICAL POWDER 15GM TOP SCH ×2 (10:00→22:00)
--- NOTE | 2020-09-10 11:46 | NUR ---
Nutrition Followup Note Wt 101.8kg Pt is intubated, sedated, positive for COVID. Pt with propofol running at 21.576 ml/hr which provides 569 kcal from lipids. Pt is with Nepro CS 1.8 at 20 ml/hr, providing 864 kcals and 39 gm proteins with no residuals per RN. pt had HD on 09/09 Est Energy needs: 9897-9156 kcals (14-18 kcal/kgBW 97kg), Est Protein needs: 95-115 gms/day (2.0-2.5 gm/kgIBW of 47.7 kg). Will continue to monitor and reassess prn. Labs: BUN 45 H, CREAT 2.98 H ALB 2.1 L BM: Pt had 1 BM yesterday per RN note Skin: BS 11 high risk, full details in md do resident urgent care note PES: 1) Inadequate oral intake aeb pt with 0% PO intake on BIPAP, refusal to eat r/t pt with a poor appetite 2) Obesity aeb 199% IBW and BMI of 39.6 kg/m2 r/t energy intake in excess of energy needs Comments: will continue to monitor NPO status, EN tolerance, skin status. F/u high 2-3 days Rec: 1) Advance diet as medically feasible 2) Continue current plan of care. 3) Advance Nepro CS 1.8 at 40 ml/hr while on HD
[2020-09-10] MEDS: NOREPINEPHRINE BITARTRATE 16 MG in SODIUM CHL 0.9% 250 ML IV SCH (12:30)
--- NOTE | 2020-09-10 14:28 | NUR ---
09/10/20 Nestor8 Called [facility] [phone] and spoke with David grants analyst, stated they received the clinical packet, stated per Naila HANDLEY the patient is not stable for them to transfer to a [facility] facility, gave authorization for in patient stay 09/11/20 @1000am #[id number].
--- NOTE | 2020-09-10 20:00 | NUR ---
ADMITTED ON 08/16/20 WITH DYSPNEA, COUGH AND DIAPHORESIS. WAS IN [facility] ON BIPAP. ON 08/21 SHE WAS INTUBATED AND BROUGHT HERE. +COVID. WE HAVE HAD DIFFICULTY IN WEANING HER DOWN ON PC VENTILATION. SHE IS A NG PATIENT AND THEY ARE NOT ACCEPTING HER ON PRESSURE CONTROL VENTILATION AND A PEEP OF 10. SHE IS AUTHORIZED FOR TRANSFER IF WE CAN WEAN HER DOWN. ORALLY INTUBATED. ORAL NGT WITH NEPRO AT 30CC/HR. RESIDUAL 10CC. OBESE. LARGE AMOUNT OF WHITE SECRETIONS FROM THE ETT. LARGE AMOUNT OF CLEAR ORAL SECRETIONS WITH A FEW FLECKS OF BLOOD. NO FEVER. NSR WITHOUT ECTOPY. BP STABLE. HAS A LEFT TRIPLE LUMEN PICC WITH NORMAL SALINE, FENTANYL, PROPOFOL AND VERSED. NO LONGER ON ATRACURIUM. ABDOMEN SOFT AND ROUND. INCONTINENT OF LOOSE, SOFT LIQUID BROWN STOOL. BOTTOM AND INNER THIGH IS A DARKER RED. Z GUARD APPLIED. SCDS ON. REMOVED THEM TO VIEW THE SKIN. REPOSITIONED TO BACK. NUTRITION: NEPRO. RESPIRATORY CULTURE GROWING LORRAINE. UA CULTURE LORRAINE. HAS RECEIVED CONVALESCENT PLASMA. IS MRSA NEGATIVE. C DIFF NEGATIVE.
--- NOTE | 2020-09-10 22:00 | NUR ---
VSS. REPOSITIONED TO LEFT. NSR 86. NO TEMP.
[2020-09-11] VITALS (98 sets, daily range): BP systolic 108–151; BP diastolic 45–86
--- NOTE | 2020-09-11 | NUR ---
Pt tolerating TF at this time. No residuals noted Addendum: 09/11/20 at 1436 by ESTIVEN HURST RN WRONG TIME
--- NOTE | 2020-09-11 | NUR ---
VSS. NSR WITHOUT ECTOPY. LUNGS CLEAR. ORAL CARE DONE. REPOSITIONED. NO BM THIS ROUND. MALHOTRA DRAINING CLEAR YELLOW LIQUID TO DOWN DRAIN BAG. TEMP DONE ORALLY. 2 BLANKETS ADDED. IV SHOWS NO REDNESS OR SWELLING.
[2020-09-11] MEDS: MIDAZOLAM DRIP 50 mg/50mL 50 ML IV SCH ×4 (02:00→21:30)
--- NOTE | 2020-09-11 02:00 | NUR ---
ST 100. NO ECTOPY. BP STABLE. TOLERATING TUBE FEEDING.
[2020-09-11] MEDS: PROPOFOL 100 ML IV SCH ×4 (02:30→22:15)
--- NOTE | 2020-09-11 03:49 | NUR ---
AM LABS DRAWN
[2020-09-11 04:49] LABS: Hemoglobin 8.3 g/dL (12.2-16.2); White Blood Cell 12.4 10^3/uL (4.4-10.8)
[2020-09-11 04:50] LABS: Hematocrit 25.2 % (36.0-46.0); Mean Corpuscular Hgb Conc. 32.9 g/dL (32.0-36.0); Mean Corpuscular Volume 82.1 fL (80.0-100.0); Platelet Count (auto) 299 10^3/uL (140-450); Red Blood Cells 3.07 10^6/uL (4.0-5.20)
[2020-09-11 05:03] LABS: Albumin 1.8 g/dL (3.4-5.0); Calcium 8.6 mg/dL (8.5-10.1); Potassium 3.5 mmol/L (3.5-5.1)
[2020-09-11 05:06] LABS: BUN/Creatinine Ratio 16.6; Bilirubin, Total 0.4 mg/dL (0.2-1.0)
[2020-09-11] MEDS: PHENYLEPHRINE IV 250 ML IV SCH ×2 (05:15→13:35)
[2020-09-11 05:40] LABS: Basophils % (manual) 0 (0.0-2.0); Blast Cells 0; Metamyelocytes % 0; Myelocytes % 0; Promyelocytes % 0; Reactive Lymphocytes 0
[2020-09-11] MEDS: fentaNYL Drip 2500mCg/250mlNS 250 ML IV SCH ×2 (06:00→18:41)
[2020-09-11 06:13] LABS: Band Neutrophils % (manual) 4; Lymphocytes % (manual) 7 (10.0-50.0)
[2020-09-11 06:14] LABS: Eosinophils % (manual) 10 (0-7); Monocytes % (manual) 12 (0-12)
[2020-09-11] MEDS: BUDESONIDE (INHALATION) 0.5 MG/2 ML NEB NEB SCH ×2 (07:10→22:15)
[2020-09-11] MEDS: ALBUTEROL SULF 2.5 MG/0.5ML(0.5%) NEB SOLN NEB SCH ×3 (07:10→22:15)
[2020-09-11] MEDS: ACETYLCYSTEINE 10 %(100MG/ML) SOL 4ML NEB SCH ×3 (07:10→22:15)
[2020-09-11] MEDS: MEROPENEM 500MG IVPB 50 ML IV SCH ×2 (08:10→20:00)
[2020-09-11] MEDS: ASCORBIC ACID 1,000 MG TAB GT SCH (10:00)
[2020-09-11] MEDS: ZINC SULFATE 220mg CAP or TAB GT SCH (10:00)
[2020-09-11] MEDS: ENOXAPARIN SOD 30 MG/0.3 ML SYRINGE SC SCH (10:00)
[2020-09-11] MEDS: NYSTATIN TOPICAL POWDER 15GM TOP SCH ×2 (10:00→21:51)
[2020-09-11] MEDS: CHOLECALCIFEROL (VITD3) 1,000UNIT=25mCg TAB GT SCH (10:00)
--- NOTE | 2020-09-11 10:15 | NUR ---
NEPHROLOGY VISITS DR CARREON UPDATED ON PATIENT'S STATUS, PATIENT WILL BE RECEIVING DIALYSIS TODAY PER MD. NO VERBAL ORDERS RECEIVED AT THIS TIME.
--- NOTE | 2020-09-11 10:38 | NUR ---
Dr. Woodward rounding on pt. continue current care
--- NOTE | 2020-09-11 12:00 | NUR ---
Pt tolerating TF at this time. No residuals noted
[2020-09-11] MEDS: NOREPINEPHRINE BITARTRATE 16 MG in SODIUM CHL 0.9% 250 ML IV SCH (12:30)
--- NOTE | 2020-09-11 15:44 | NUR ---
Dialysis nurse done at bedside. 2.5 liters out. Pt tolerated well, VS stable throughout procedure.
--- NOTE | 2020-09-11 18:28 | NUR ---
Temperature Pt's temp at 101.7. Ice packs applied and Tylenol given per MD order.
[2020-09-11] MEDS: ACETAMINOPHEN 500 MG TAB PO PRN (19:15)
--- NOTE | 2020-09-11 20:00 | NUR ---
ADMITTED ON 08/16/20 WITH DYSPNEA, COUGH AND DIAPHORESIS. WAS IN [facility] ON BIPAP. ON 08/21 SHE WAS INTUBATED AND BROUGHT HERE. +COVID. WE HAVE HAD DIFFICULTY IN WEANING HER DOWN ON PC VENTILATION. SHE IS A NG PATIENT AND THEY ARE NOT ACCEPTING HER ON PRESSURE CONTROL VENTILATION AND A PEEP OF 10. SHE IS AUTHORIZED FOR TRANSFER IF WE CAN WEAN HER DOWN. ORALLY INTUBATED. ORAL NGT WITH NEPRO AT 30CC/HR. RESIDUAL 0. OBESE. SMALL AMOUNT OF WHITE SECRETIONS FROM THE ETT. LARGE AMOUNT OF CLEAR ORAL SECRETIONS WITH A FEW FLECKS OF BLOOD. NO FEVER. NSR WITHOUT ECTOPY. BP STABLE. HAS A LEFT TRIPLE LUMEN PICC WITH NORMAL SALINE, FENTANYL, PROPOFOL AND VERSED. NO LONGER ON ATRACURIUM. ABDOMEN SOFT AND ROUND. BOTTOM AND INNER THIGH IS A DARKER RED. Z GUARD APPLIED. SCDS ON. REMOVED THEM TO VIEW THE SKIN. REPOSITIONED TO BACK. NUTRITION: NEPRO. RESPIRATORY CULTURE GROWING LORRAINE. UA CULTURE LORRAINE. HAS RECEIVED CONVALESCENT PLASMA. IS MRSA NEGATIVE. C DIFF NEGATIVE. NO VENTILATOR CHANGES TODAY.
--- NOTE | 2020-09-11 20:30 | NUR ---
TUBE FEEDING RESTARTED. REPOSITIONED TO LEFT SIDE. TEMP 100.4. ORAL CARE DONE. SYLVAIN AREA CLEAN AND DRY. 2+ PITTING EDEMA IN ARMS AN LEGS. ALL PULSES ARE STRONG AND PALPABLE.
--- NOTE | 2020-09-11 22:00 | NUR ---
REPOSITIONED. ORAL CARE. USING BED TO TURN HER.
[2020-09-11] MEDS: Nepro With Carb Steady 1 Liter Bottle GT SCH (22:27)
[2020-09-12] VITALS (98 sets, daily range): BP systolic 90–169; BP diastolic 36–92
--- NOTE | 2020-09-12 | NUR ---
TEMP COMING OWN. NSR RATE 88-96. NO ECTOPY. SBP STABLE.
--- NOTE | 2020-09-12 02:30 | NUR ---
LINES FOR PROPOFOL, VERSED , FENTANYL AND MAIN IV ALL CHANGED. REPOSITIONED PATIENT TO HER BACK. LARGE AMOUNT OF ORAL SECRETIONS.
[2020-09-12] MEDS: fentaNYL Drip 2500mCg/250mlNS 250 ML IV SCH ×3 (02:45→23:47)
[2020-09-12] MEDS: PROPOFOL 100 ML IV SCH ×5 (02:45→21:04)
[2020-09-12] MEDS: MIDAZOLAM DRIP 50 mg/50mL 50 ML IV SCH ×3 (02:45→19:44)
--- NOTE | 2020-09-12 05:00 | NUR ---
CHG BATH AND COMPLETE LINEN CHANGE. PICC LINE DRESSING CHANGE.
--- NOTE | 2020-09-12 05:10 | NUR ---
CXR COMPLETED. LABS SENT
[2020-09-12 05:45] LABS: Hematocrit 27.6 % (36.0-46.0); White Blood Cell 13.6 10^3/uL (4.4-10.8)
[2020-09-12 05:48] LABS: Mean Corpuscular Hemoglobin 26.4 pg (28.0-32.0); Mean Corpuscular Hgb Conc. 32.6 g/dL (32.0-36.0); Mean Corpuscular Volume 80.9 fL (80.0-100.0); Platelet Count (auto) 320 10^3/uL (140-450); Red Blood Cells 3.41 10^6/uL (4.0-5.20)
[2020-09-12 06:17] LABS: Calcium 8.6 mg/dL (8.5-10.1); Potassium 3.3 mmol/L (3.5-5.1)
[2020-09-12 06:21] LABS: BUN/Creatinine Ratio 14.7; Bilirubin, Total 0.4 mg/dL (0.2-1.0); Total Protein 6.8 g/dL (6.4-8.2)
[2020-09-12 06:23] LABS: Red Cell Distribution Width 25.7 % (11.8-14.3)
[2020-09-12 06:25] LABS: Basophils % (manual) 0 (0.0-2.0); Blast Cells 0; Metamyelocytes % 0; Promyelocytes % 0; Reactive Lymphocytes 0
[2020-09-12 06:52] LABS: Band Neutrophils % (manual) 3; Eosinophils % (manual) 13 (0-7); Lymphocytes % (manual) 8 (10.0-50.0); Monocytes % (manual) 14 (0-12); Myelocytes % 1
[2020-09-12] MEDS: ALBUTEROL SULF 2.5 MG/0.5ML(0.5%) NEB SOLN NEB SCH ×3 (07:09→22:10)
[2020-09-12] MEDS: ACETYLCYSTEINE 10 %(100MG/ML) SOL 4ML NEB SCH ×3 (07:09→22:10)
[2020-09-12] MEDS: BUDESONIDE (INHALATION) 0.5 MG/2 ML NEB NEB SCH ×2 (07:09→22:10)
[2020-09-12] MEDS: MEROPENEM 500MG IVPB 50 ML IV SCH ×3 (08:00→19:50)
--- NOTE | 2020-09-12 08:00 | NUR ---
GGTS VERIFIED. VISUAL ASSESSMENT DONE THOUGHT WINDOW. PT ON AIRBORNE ISOLATION.
--- NOTE | 2020-09-12 09:09 | NUR ---
AM ASSESSMENT COMPLETED. PT REMAINS INTUBATED AND SEDATED. ON VERSED AT 9 MG/HR AND FENTANYL AT 200 MCG/HR, LS CL IN THE UPPER LOBES & DIMINISHED ON THE BASIS, PT HAVING BLOODY ORAL SECRETIONS WITH ORAL CARE. ST IN THE LOW 100'S AFEBRILE, TOLERATING NEPHRO TF AT 30 ML/HR. SKIN . SKIN WITH MACERATIONS ON COCCYX, PT WILL BE REPOSITION Q2 HOURS AND SKIN WILL BE KEPT CLEAN AND DRY. NYSTATIN POWDER APPLIED AND REPOSITIONED FOR COMFORT AT THIS TIME.
[2020-09-12] MEDS ORDERED: POTASSIUM CHL 20MEQ/100ML 100 ML IV ONE (09:45)
[2020-09-12] MEDS: ZINC SULFATE 220mg CAP or TAB GT SCH (11:04)
[2020-09-12] MEDS: CHOLECALCIFEROL (VITD3) 1,000UNIT=25mCg TAB GT SCH (11:05)
[2020-09-12] MEDS: NYSTATIN TOPICAL POWDER 15GM TOP SCH ×2 (11:05→21:39)
[2020-09-12] MEDS: ENOXAPARIN SOD 30 MG/0.3 ML SYRINGE SC SCH (11:05)
[2020-09-12] MEDS: ASCORBIC ACID 1,000 MG TAB GT SCH (11:49)
--- NOTE | 2020-09-12 12:00 | NUR ---
REPOSITIONED FOR COMFORT. ORAL CARE PROVIDED WITH RT 'S ASSISTANCE.
--- NOTE | 2020-09-12 14:04 | NUR ---
Nutrition Followup Note Wt 97.1 kg Pt is intubated, sedated, positive for COVID. Pt with propofol running at 21.576 ml/hr which provides 569 kcal from lipids. Pt is with Nepro CS 1.8 at 40 ml/hr. Pt received 298 ml of TF 09/12 so far per RN note. Pt is tolerating well per Rn Est Energy needs: 0699-7334 kcals (14-18 kcal/kgBW 97kg), Est Protein needs: 95-115 gms/day (2.0-2.5 gm/kgIBW of 47.7 kg). Will continue to monitor and reassess prn. Labs: BUN 33H, Creat 2.24H, Alb 2.0L BM: Pt had 2 BMs yesterday per RN note Skin: BS 12 high risk, full details in care specialist note PES: Partially resolved: pt receiving TF to meet needs1) Inadequate oral intake aeb pt with 0% PO intake on BIPAP, refusal to eat r/t pt with a poor appetite 2) Obesity aeb 199% IBW and BMI of 39.6 kg/m2 r/t energy intake in excess of energy needs Comments: will continue to monitor NPO status, EN tolerance, skin status. F/u high 2-3 days Rec: 1) Advance diet as medically feasible 2) Continue current plan of care. 3) Advance Nepro CS 1.8 at 40 ml/hr while on HD
--- NOTE | 2020-09-12 19:41 | NUR ---
ADMITTED ON 08/16/20 WITH DYSPNEA, COUGH AND DIAPHORESIS. WAS IN [facility] ON BIPAP. ON 08/21 SHE WAS INTUBATED AND BROUGHT HERE. +COVID. WE HAVE HAD DIFFICULTY IN WEANING HER DOWN ON PC VENTILATION. SHE IS A NG PATIENT AND THEY ARE NOT ACCEPTING HER ON PRESSURE CONTROL VENTILATION AND A PEEP OF 10. SHE IS AUTHORIZED FOR TRANSFER IF WE CAN WEAN HER DOWN. ORALLY INTUBATED. ORAL NGT WITH NEPRO AT 30CC/HR. RESIDUAL 0. OBESE. SMALL AMOUNT OF WHITE SECRETIONS FROM THE ETT. LARGE AMOUNT OF CLEAR ORAL SECRETIONS WITH A FEW FLECKS OF BLOOD. NO FEVER. NSR WITHOUT ECTOPY. BP STABLE. HAS A LEFT TRIPLE LUMEN PICC WITH NORMAL SALINE, FENTANYL, PROPOFOL AND VERSED. NO LONGER ON ATRACURIUM. ABDOMEN SOFT AND ROUND. BOTTOM AND INNER THIGH IS A DARKER RED. SCDS ON. REMOVED THEM TO VIEW THE SKIN. REPOSITIONED TO BACK. NUTRITION: NEPRO. RESPIRATORY CULTURE GROWING LORRAINE. UA CULTURE LORRAINE. HAS RECEIVED CONVALESCENT PLASMA. IS MRSA NEGATIVE. C DIFF NEGATIVE. UNABLE TO WEAN DOWN THE FIO2 TODAY. DID CHANGE THE PRESSURE TO 26, AND ARE CONTINUING ON A RATE OF 28 , FIO2 45% AND A PEEP OF 10.
--- NOTE | 2020-09-12 19:49 | NUR ---
VERSED IN NORMAL SALINE DUE TO A PREVIOUS NA LEVEL OF 122 ON 09/01/20
[2020-09-12] MEDS: Nepro With Carb Steady 1 Liter Bottle GT SCH (20:00)
--- NOTE | 2020-09-12 21:00 | NUR ---
NSR WITHOUT ECTOPY. NO CHANGE IN VENTILATOR SETTINGS OR RATE ON DRIPS.
--- NOTE | 2020-09-12 22:00 | NUR ---
REPOSITIONED THE PATIENT. ORAL CARE DONE. LUNGS CLEAR. NOTHING SUCTIONED FROM THE ETT. IV PICC SITE SHOWS NO REDNESS, DRNG OR SWELLING. SYLVAIN AREA DRY AND CLEAN.
[2020-09-13] VITALS (98 sets, daily range): BP systolic 100–152; BP diastolic 55–83
--- NOTE | 2020-09-13 | NUR ---
REPOSITIONED. ORAL CARE. LESS BLOOD IN THE MOUTH. LUNGS CLEAR AND DIMINISHED. ABDOMEN IS SOFT. ONLY 2 CC RESIDUAL FROM THE OGT. NEPRO AT 40CC/HR. SYLVAIN AREA CLEAN.
[2020-09-13] MEDS: MIDAZOLAM DRIP 50 mg/50mL 50 ML IV SCH ×4 (00:59→22:46)
[2020-09-13] MEDS: PROPOFOL 100 ML IV SCH ×4 (01:00→22:47)
--- NOTE | 2020-09-13 02:00 | NUR ---
CHG BATH AND LINEN CHANGE
--- NOTE | 2020-09-13 03:41 | NUR ---
AM LABS DRAWN
--- NOTE | 2020-09-13 04:00 | NUR ---
VSS. NSR WITHOUT ECTOPY. SEDATION CONTINUES WITH VERSED, FENTANYL AND PROPOFOL. IV SHOWS NO REDNESS OR SWELLING. MALHOTRA IN PLACE DRAINING CLEAR YELLOW LIQUID TO DOWN DRAIN BAG. STRONG PULSES. PITTING EDEMA IN ARMS AND LEGS.
[2020-09-13 04:42] LABS: Potassium 3.7 mmol/L (3.5-5.1)
[2020-09-13 04:45] LABS: BUN/Creatinine Ratio 17.3
[2020-09-13] MEDS: ALBUTEROL SULF 2.5 MG/0.5ML(0.5%) NEB SOLN NEB SCH ×3 (06:24→22:32)
[2020-09-13] MEDS: BUDESONIDE (INHALATION) 0.5 MG/2 ML NEB NEB SCH ×2 (06:24→22:32)
[2020-09-13] MEDS: ACETYLCYSTEINE 10 %(100MG/ML) SOL 4ML NEB SCH ×3 (06:24→22:32)
--- NOTE | 2020-09-13 08:00 | NUR ---
ASSESSMENT COMPLETED SEE INTERVENTIONS
[2020-09-13] MEDS: ZINC SULFATE 220mg CAP or TAB GT SCH (11:36)
[2020-09-13] MEDS: ENOXAPARIN SOD 30 MG/0.3 ML SYRINGE SC SCH (11:37)
[2020-09-13] MEDS: ASCORBIC ACID 1,000 MG TAB GT SCH (11:37)
[2020-09-13] MEDS: NYSTATIN TOPICAL POWDER 15GM TOP SCH ×2 (11:37→21:39)
[2020-09-13] MEDS: CHOLECALCIFEROL (VITD3) 1,000UNIT=25mCg TAB GT SCH (11:37)
[2020-09-13] MEDS: MEROPENEM 500MG IVPB 50 ML IV SCH ×4 (11:38→20:25)
[2020-09-13] MEDS: NOREPINEPHRINE BITARTRATE 16 MG in SODIUM CHL 0.9% 250 ML IV SCH ×2 (11:38→16:13)
[2020-09-13] MEDS: PHENYLEPHRINE IV 250 ML IV SCH ×5 (11:38→16:14)
[2020-09-13] MEDS: fentaNYL Drip 2500mCg/250mlNS 250 ML IV SCH (11:40)
--- NOTE | 2020-09-13 12:30 | NUR ---
DR NIXON AT BEDSIDE
--- NOTE | 2020-09-13 13:10 | NUR ---
WOUND CARE NOTE: Wound care in to see patient for reevaluation of wounds and skin integrity monitoring. Patient continue resting in ICU ow air loss bed in Rm. 112. She's still intubated, sedated and mechanically ventilated. She remain on airborne precaution for CoVid19.Patient appears to be in no pain using Conklin Guardado Faces Pain Scale. Her Moo score is 12. Skin/wound assessment done with the assistance of another ICU nurse. Patient's Rt ear continue to display 2x1cm non-blanchable redness, skin remain intact, clean and dry, left open to air. Distal tongue mucosal ulcer remain the same. She's receiving routine oral care to keep site moist. Upper medial thigh , perineum continue to display , dark brown hyperpigmented skin/intertrigo. Her medial sacrum and perirectal area display open, dry resolving skin tear from dry peeling hyperpigmented skin. Rosita care given and applied Z Guard cream. New photograph of wounds are taken for reference. Repositioned patient for comfort redistributed pressure points with pillows. Patient tolerated well. RECOMMENDATION: Continuation of all wound care orders prescribed by MD, continue with skin/wound plan of care, continue monitoring by wound care while patient is hospitalized. Addendum: 09/13/20 at 1630 by Komal Dangelo RN Amended: Links added.
[2020-09-13] MEDS ORDERED: MICAFUNGIN SODIUM 100 MG in SODIUM CHL 0.9% 100 ML IV ONE (14:00)
--- NOTE | 2020-09-13 18:30 | NUR ---
DR MIX AT BEDSIDE
--- NOTE | 2020-09-13 19:20 | NUR ---
Opening Shift Note Recieved Shift Report and Assumed care of patient, who is sedated with 9 of versed, 40 of Propofol, and 200 of Fentanyl patient is currently vented with settings of PC - 30, Rate -28, PEEP - 10 and FIO2 at 40% patient currently receiving Neupro continuous feeding via OGT at 40 per hour with zero residual.
--- NOTE | 2020-09-13 21:10 | NUR ---
Patient Care; Provided patient with medication as ordered by MD, changed nutrition bottle and tubing, patient repositioned with extremities placed in anatomically correct position, Patient VS are stable at this time patient has gag reflex, suction of the mouth and oral care performed, tasha-area and Bean cleaned and nystatin powder applied.
[2020-09-13] MEDS: Nepro With Carb Steady 1 Liter Bottle GT SCH (21:37)
--- NOTE | 2020-09-13 23:00 | NUR ---
VSS. RECTAL TEMP PROBE STOPPED WORKING. RECTAL TEMP PROBE 97.5. ORAL TEMP IS 99.6. Addendum: 09/15/20 at 0006 by GODWIN FREDERICK RN WRONG DATE
--- NOTE | 2020-09-13 23:30 | NUR ---
Patient repositioned to supine, extremities in anatomically correct position with heels off loaded, patient continues to have stable VS
[2020-09-14] VITALS (100 sets, daily range): BP systolic 97–169; BP diastolic 50–92
--- NOTE | 2020-09-14 | NUR ---
WEAK GAG AND COUGH. DON'T GET MUCH SECRETION FROM THE ETT. SCABBED SIDES OF THE MOUTH. SYLVAIN AREA CHECK. NO BM TONIGHT. NGT RESIDUAL 30CC OF GREEN LIQUID. PUFFINESS IN HANDS AND LEGS.
[2020-09-14] MEDS: fentaNYL Drip 2500mCg/250mlNS 250 ML IV SCH ×3 (00:02→22:30)
--- NOTE | 2020-09-14 02:20 | NUR ---
Patient repositioned, to left side with extremities in anatomically correct position, patient sedated with 9 of versed, 40 of Propofol, and 200 of Fentanyl patient is currently vented with settings of PC - 30, Rate -28, PEEP - 10 and FIO2 at 40% O2 Sat of 98% HR of 88
[2020-09-14] MEDS: PROPOFOL 100 ML IV SCH ×5 (03:58→22:00)
--- NOTE | 2020-09-14 04:20 | NUR ---
Morning Care; Provided patient with a CHG Wipe bath, tasha-area cleaned and valdez care provided, Nystatin powder applied to folds and zgaurd applied, full linen changed and gown provided, suction canister, hoses and Yanker, along with irrigation tray replaced. patient repositioned with all extremities and anatomically correct position oral care and oral suctioning performed, patient tolerated process with minimal distress. sedated with 9 of versed, 40 of Propofol, and 200 of Fentanyl patient is currently vented with settings of PC - 30, Rate -28, PEEP - 10 and FIO2 at 40% O2 Sat of 97% and HR of 87
[2020-09-14 05:06] LABS: Basophils # (auto) 0 10 ^3/uL (0-0.2); Basophils % (auto) 0.3 % (0.0-2.0); Eosinophils # (auto) 0.3 10 ^3/uL (0-0.8); Monocytes # (auto) 0.6 10 ^3/uL (0-1.3); Neutrophils # (auto) 6.7 10 ^3/uL (1.6-8.6); White Blood Cell 8.6 10^3/uL (4.4-10.8)
[2020-09-14 05:08] LABS: Eosinophils % (auto) 3.3 % (0.0-7.0); Hematocrit 23.9 % (36.0-46.0); Hemoglobin 8.7 g/dL (12.2-16.2); Lymphocytes # (auto) 0.9 10 ^3/uL (0.4-5.4); Lymphocytes % (auto) 10.6 % (10.0-50.0); Mean Corpuscular Hemoglobin 30.4 pg (28.0-32.0); Mean Corpuscular Hgb Conc. 36.5 g/dL (32.0-36.0); Mean Corpuscular Volume 83.4 fL (80.0-100.0); Monocytes % (auto) 7.1 % (0.0-12.0); Neutrophils % (auto) 78.7 % (37.0-80.0); Platelet Count (auto) 340 10^3/uL (140-450); Red Blood Cells 2.87 10^6/uL (4.0-5.20)
[2020-09-14] MEDS: MIDAZOLAM DRIP 50 mg/50mL 50 ML IV SCH ×4 (05:10→21:00)
[2020-09-14 05:15] LABS: Red Cell Distribution Width 25.2 % (11.8-14.3)
[2020-09-14 05:27] LABS: Potassium 3.8 mmol/L (3.5-5.1)
[2020-09-14] MEDS: ALBUTEROL SULF 2.5 MG/0.5ML(0.5%) NEB SOLN NEB SCH ×3 (06:52→21:53)
[2020-09-14] MEDS: BUDESONIDE (INHALATION) 0.5 MG/2 ML NEB NEB SCH ×2 (06:52→21:53)
[2020-09-14] MEDS: ACETYLCYSTEINE 10 %(100MG/ML) SOL 4ML NEB SCH ×3 (06:53→21:53)
[2020-09-14 07:06] LABS: BUN/Creatinine Ratio 20.7
[2020-09-14 07:45] LABS: Calcium 7.6 mg/dL (8.5-10.1)
--- NOTE | 2020-09-14 08:00 | NUR ---
OPEN RECEIVED REPORT FROM NIGHT RNGODWIN. ASSUMED CARE OF ICU PATIENT, FULL CODE STATUS. PATIENT SEDATED ON VENT. SEE IV FLOW SHEET FOR GTT'S AND TITRATIONS MADE. PATIENT ON VENT, #7.5 ETT, 25 CM AT LIP. ON PRESSURE CONTROL 30, RATE 28, FIO2 40%, PEEP +10. OGT WITH NEPRO TUBE FEEDING AT 40 ML/HR, NO RESIDUALS AT THIS TIME. MALHOTRA TO GRAVITY. SCD'S TO LE. WILL CONTINUE TO TURN PATIENT Q2HRS AND PRN. OFF LOADING PRESSURE AREAS WITH PILLOWS. SEE HEAT ENGINEERING TEACHER FOR FURTHER PATIENT INFORMATION. PICC LINE TO LEFT UA, PATENT AND FLUSHED. CONTINUE CARE.
[2020-09-14] MEDS: MEROPENEM 500MG IVPB 50 ML IV SCH ×2 (08:08→20:00)
[2020-09-14] MEDS: PHENYLEPHRINE IV 250 ML IV SCH ×2 (08:15→14:10)
[2020-09-14] MEDS: ENOXAPARIN SOD 30 MG/0.3 ML SYRINGE SC SCH (09:11)
[2020-09-14] MEDS: NYSTATIN TOPICAL POWDER 15GM TOP SCH ×2 (09:11→22:00)
[2020-09-14] MEDS: ZINC SULFATE 220mg CAP or TAB GT SCH (10:13)
[2020-09-14] MEDS: ASCORBIC ACID 1,000 MG TAB GT SCH (10:13)
[2020-09-14] MEDS: MICAFUNGIN SODIUM 100 MG in SODIUM CHL 0.9% 100 ML IV SCH (10:13)
[2020-09-14] MEDS: CHOLECALCIFEROL (VITD3) 1,000UNIT=25mCg TAB GT SCH (10:13)
--- NOTE | 2020-09-14 10:35 | NUR ---
DR. FARR AT BEDSIDE: ORDERS MD UPDATED ON PT'S CURRENT STATUS, TRENDING V/S AND POC FOR TODAY. ORDERS GIVEN AND TO BE CARRIED OUT. CONTINUE CARE.
[2020-09-14] MEDS: NOREPINEPHRINE BITARTRATE 16 MG in SODIUM CHL 0.9% 250 ML IV SCH (10:50)
--- NOTE | 2020-09-14 10:52 | NUR ---
Nutrition Followup Note Wt 97.0 kg Pt is intubated, sedated, positive for COVID. Pt with propofol running at 21.576 ml/hr which provides 569 kcal from lipids. Pt is with Nepro CS 1.8 at 40 ml/hr providing 1728 kcals and 77 gm proteins. pt with adequate EN support Est Energy needs: 5795-2497 kcals (14-18 kcal/kgBW 97kg), Est Protein needs: 95-115 gms/day (2.0-2.5 gm/kgIBW of 47.7 kg). Will continue to monitor and reassess prn. Labs: BUN 42 H CREAT 2.03 H GLU 167 H CA 7.6 L, ALB 2.0 L. BM: Pt had 2 BMs yesterday per RN note Skin: BS 12 high risk, full details in transition of care specialist note PES: Inadequate oral intake aeb pt with 0% PO intake on BIPAP, refusal to eat r/t pt with a poor appetite 2) Obesity aeb 199% IBW and BMI of 39.6 kg/m2 r/t energy intake in excess of energy needs Comments: Will continue to monitor NPO status, EN tolerance, skin status. F/u high 2-3 days Rec: 1) Advance diet as medically feasible. 2) Consider prostat 1 packet bid. 3) Continue current plan of care.
--- NOTE | 2020-09-14 11:13 | NUR ---
FAMILY CALLED: UPDATE TALKED WITH PATIENT'S SON, BABITA. UPDATED HIM ON PT'S STATUS, LABS AND POC FOR TODAY. SON TO CALL BACK LATER ON TODAY. CONTINUE CARE.
--- NOTE | 2020-09-14 19:28 | NUR ---
ADMITTED ON 08/16/20 WITH DYSPNEA, COUGH AND DIAPHORESIS. WAS IN [facility] ON BIPAP. ON 08/21 SHE WAS INTUBATED AND BROUGHT HERE. +COVID. WE HAVE HAD DIFFICULTY IN WEANING HER DOWN ON PC VENTILATION. SHE IS A NG PATIENT AND THEY ARE NOT ACCEPTING HER ON PRESSURE CONTROL VENTILATION AND A PEEP OF 10. SHE IS AUTHORIZED FOR TRANSFER IF WE CAN WEAN HER DOWN. ORALLY INTUBATED. ORAL NGT WITH NEPRO AT 40CC/HR. RESIDUAL 0. OBESE. SMALL AMOUNT OF WHITE SECRETIONS FROM THE ETT. LARGE AMOUNT OF CLEAR ORAL SECRETIONS WITH A FEW FLECKS OF BLOOD.BOTH CORNERS OF MOUTH ARE SCABBED. BLEEDS EASILY. NO FEVER. NSR WITHOUT ECTOPY. BP STABLE. HAS A LEFT TRIPLE LUMEN PICC WITH NORMAL SALINE, FENTANYL, PROPOFOL AND VERSED. AT ONE TIME WAS ON ATRACURIUM. ABDOMEN SOFT AND ROUND. BOTTOM AND INNER THIGH IS A DARKER RED. SCDS ON. REMOVED THEM TO VIEW THE SKIN. REPOSITIONED TO BACK. NUTRITION: NEPRO. RESPIRATORY CULTURE GROWING LORRAINE. UA CULTURE LORRAINE. HAS RECEIVED CONVALESCENT PLASMA. IS MRSA NEGATIVE. C DIFF NEGATIVE. UNABLE TO WEAN DOWN THE FIO2 TODAY. DID CHANGE THE PRESSURE TO 30, AND ARE CONTINUING ON A RATE OF 28 , FIO2 40% AND A PEEP OF 10.
[2020-09-14] MEDS: Nepro With Carb Steady 1 Liter Bottle GT SCH (20:00)
--- NOTE | 2020-09-14 23:00 | NUR ---
RECTAL TEMP PROBE STOPPED WORKING. RECTAL TEMP 97.6. ORAL TEMP 99.6.
[2020-09-14] MEDS ORDERED: POTASSIUM CHL 20MEQ/100ML 100 ML IV SCH (23:30)
[2020-09-15] VITALS (97 sets, daily range): BP systolic 112–173; BP diastolic 56–90
--- NOTE | 2020-09-15 | NUR ---
REPOSITIONED. NEPRO BOTTLE MISFUNCTIONING. NO EXTRA BOTTLES AVAILABLE. BOLUS FEED OF 250CC GIVEN. TRIED 2 DIFFERENT TUBINGS AND 3 DIFFERENT PUMPS. ORAL CARE DONE. NOTHING SUCTIONED FROM THE ETT. NO OGT RESIDUAL. ABDOMEN SOFT. ALL PULSES PALPABLE. GOOD URINE OUTPUT.
--- NOTE | 2020-09-15 02:00 | NUR ---
VSS. NO VENTILATOR CHANGES. REPOSITIONED. NOTHING SUCTIONED FROM THE ETT.NSR WITHOUT ECTOPY.
[2020-09-15] MEDS: MIDAZOLAM DRIP 50 mg/50mL 50 ML IV SCH ×3 (02:30→18:27)
[2020-09-15] MEDS: PROPOFOL 100 ML IV SCH ×4 (02:30→22:15)
--- NOTE | 2020-09-15 06:00 | NUR ---
REPOSITIONED AND NEW LINEN DRAW SHEET. ORAL CARE. ADEQUATE URINE OUTPUT
[2020-09-15] MEDS: BUDESONIDE (INHALATION) 0.5 MG/2 ML NEB NEB SCH ×2 (06:20→21:53)
[2020-09-15] MEDS: ALBUTEROL SULF 2.5 MG/0.5ML(0.5%) NEB SOLN NEB SCH ×3 (06:20→21:53)
[2020-09-15] MEDS: ACETYLCYSTEINE 10 %(100MG/ML) SOL 4ML NEB SCH ×3 (06:20→21:53)
[2020-09-15 07:25] LABS: Hemoglobin 8.1 g/dL (12.2-16.2); Mean Corpuscular Volume 82.7 fL (80.0-100.0); White Blood Cell 9.8 10^3/uL (4.4-10.8)
[2020-09-15 07:27] LABS: Hematocrit 25.2 % (36.0-46.0); Mean Corpuscular Hemoglobin 26.6 pg (28.0-32.0); Mean Corpuscular Hgb Conc. 32.1 g/dL (32.0-36.0); Platelet Count (auto) 451 10^3/uL (140-450); Red Blood Cells 3.04 10^6/uL (4.0-5.20)
[2020-09-15 07:31] LABS: Basophils % (manual) 0 (0.0-2.0); Blast Cells 0; Metamyelocytes % 0; Promyelocytes % 0; Reactive Lymphocytes 0
[2020-09-15 07:42] LABS: Potassium 3.5 mmol/L (3.5-5.1)
[2020-09-15 07:52] LABS: BUN/Creatinine Ratio 22.7
[2020-09-15] MEDS: MEROPENEM 500MG IVPB 50 ML IV SCH ×2 (08:30→20:00)
[2020-09-15] MEDS: PHENYLEPHRINE IV 250 ML IV SCH ×3 (08:30→17:35)
--- NOTE | 2020-09-15 08:30 | NUR ---
ASSESSMENT PT RESTING IN BED WITH EYES CLOSED. IN ISOLATION FOR +COVID. PT SEDATED ON PROPOFOL, VERSED AND FENTANYL. VENTILATOR SETTINGS: PC RATE OF 28, PRESSURE OF 30, 40% FIO2, PEEP OF 10 AND I TIME OF 0.8. LUNGS CLEAR THROUGHOUT. SUCTIONED FOR SMALL AMOUNT OF THICK WHITE FLUID VIA ETT. TELE SR 98. PALPABLE PULSES TO ALL EXTREMITIES. SCDS TO BLE. +1 PITTING EDEMA TO THE LET HAND AND +2 PITTING EDEMA TO THE RIGHT HAND. BRUISE TO LEFT ABDOMEN. SMALL SKIN TEAR NOTED IN CREVICE BETWEEN BUTTOCKS, JIM. ABD SOFT WITH + BOWEL SOUNDS. OGT WTIH PLACEMENT VERIFIED BY AUSCULTATION. NO RESIDUAL NOTED. WAITING FOR FEEDING TO BE DELIVERED. LAST BM WAS 3 DAYS AGO. MALHOTRA CATHETER DRAINING YELLOW URINE WITH SEDIMENT. TURNED FOR COMFORT TO HER RIGHT SIDE. HDX CATHETER TO THE RIGHT FEMORAL, SITE BENIGN. RAILS UP AND BED IN LOW POSITION FOR PT SAFETY.
[2020-09-15 09:05] LABS: Band Neutrophils % (manual) 6; Lymphocytes % (manual) 12 (10.0-50.0)
[2020-09-15 09:06] LABS: Eosinophils % (manual) 11 (0-7); Monocytes % (manual) 14 (0-12); Myelocytes % 1
[2020-09-15] MEDS: ZINC SULFATE 220mg CAP or TAB GT SCH (10:33)
[2020-09-15] MEDS: CHOLECALCIFEROL (VITD3) 1,000UNIT=25mCg TAB GT SCH (10:34)
[2020-09-15] MEDS: ASCORBIC ACID 1,000 MG TAB GT SCH (10:34)
[2020-09-15] MEDS: MICAFUNGIN SODIUM 100 MG in SODIUM CHL 0.9% 100 ML IV SCH (10:34)
[2020-09-15] MEDS: ENOXAPARIN SOD 30 MG/0.3 ML SYRINGE SC SCH (10:35)
[2020-09-15] MEDS: NYSTATIN TOPICAL POWDER 15GM TOP SCH ×2 (10:35→21:09)
[2020-09-15] MEDS: fentaNYL Drip 2500mCg/250mlNS 250 ML IV SCH (10:45)
[2020-09-15] MEDS: NOREPINEPHRINE BITARTRATE 16 MG in SODIUM CHL 0.9% 250 ML IV SCH (12:30)
--- NOTE | 2020-09-15 12:30 | NUR ---
CONTINUE MEDS AND CONTINUE CARE.
--- NOTE | 2020-09-15 15:50 | NUR ---
SPOKE WITH PT'S MOTHER AND UPDATED HER ON THE PT'S CONDITION AND POC.
--- NOTE | 2020-09-15 19:00 | NUR ---
Shift opening note: Patient intubated 7.5/ 23CM@LL, Vent on pressure control, bilateral lung sounds clear and diminished. Left upper arm PICC line infusing Fent, Prop, and versed. OG tube in place with feeding running at 40mL/hr, placement checked. Bean catheter draining via gravity with yellow urine. Safety precautions in place. Will continue to monitor. Patient on Isolation for COVID Positive.
--- NOTE | 2020-09-15 19:40 | NUR ---
REPORT REPORT GIVEN TO MELITON GUSMAN RN.
[2020-09-16] VITALS (92 sets, daily range): BP systolic 75–181; BP diastolic 29–121
[2020-09-16] MEDS: PHENYLEPHRINE IV 250 ML IV SCH ×3 (01:55→18:35)
--- NOTE | 2020-09-16 03:45 | NUR ---
Rectal temp probe placed for temp management.
[2020-09-16 04:40] LABS: Basophils # (auto) 0.1 10 ^3/uL (0-0.2); Basophils % (auto) 1.2 % (0.0-2.0); Eosinophils # (auto) 0.8 10 ^3/uL (0-0.8); Eosinophils % (auto) 7.1 % (0.0-7.0); Hematocrit 27.3 % (36.0-46.0); Hemoglobin 8.8 g/dL (12.2-16.2); Lymphocytes # (auto) 1.2 10 ^3/uL (0.4-5.4); Lymphocytes % (auto) 10.7 % (10.0-50.0); Mean Corpuscular Hemoglobin 26.9 pg (28.0-32.0); Mean Corpuscular Hgb Conc. 32.1 g/dL (32.0-36.0); Mean Corpuscular Volume 83.9 fL (80.0-100.0); Monocytes # (auto) 1.5 10 ^3/uL (0-1.3); Monocytes % (auto) 13.5 % (0.0-12.0); Neutrophils # (auto) 7.8 10 ^3/uL (1.6-8.6); Neutrophils % (auto) 67.5 % (37.0-80.0); Nucleated Red Blood Cells % 0.2 %; Platelet Count (auto) 487 10^3/uL (140-450); Red Blood Cells 3.25 10^6/uL (4.0-5.20); White Blood Cell 11.5 10^3/uL (4.4-10.8)
[2020-09-16 04:45] LABS: BUN/Creatinine Ratio 20.1; Potassium 3.5 mmol/L (3.5-5.1)
[2020-09-16 04:53] LABS: Red Cell Distribution Width 25.1 % (11.8-14.3)
[2020-09-16] MEDS: ALBUTEROL SULF 2.5 MG/0.5ML(0.5%) NEB SOLN NEB SCH ×3 (06:29→22:14)
[2020-09-16] MEDS: BUDESONIDE (INHALATION) 0.5 MG/2 ML NEB NEB SCH ×2 (06:29→22:14)
[2020-09-16] MEDS: ACETYLCYSTEINE 10 %(100MG/ML) SOL 4ML NEB SCH ×3 (06:29→22:14)
--- NOTE | 2020-09-16 06:55 | NUR ---
Patient saturating at 86-87%. RT increased FIO2 to 45%. RN will continue to monitor and assess patient.
--- NOTE | 2020-09-16 07:00 | NUR ---
Respiratory note: UNALBE TO READ BACK CRITICAL ABG TO DR NIXON DUE TO BEING UNAVAILABLE FOR PAGES UNTIL [address] HAYNES PAGED TO CALL RT. WILL ATTEMPT ANOTHER PAGE IN 15 MINUTES.
--- NOTE | 2020-09-16 07:10 | NUR ---
Respiratory note: HOLD WORKER HAYNES CALLED, AND READ BACK CRITICAL ABG VALUES. NO CHANGES ORDERED AT THIS TIME. WILL CONTINUE TO MONITOR PT.
--- NOTE | 2020-09-16 07:33 | NUR ---
CALL RECEIVED FROM RADIOLOGIST DR WALLER TO NOTIFY OF RIGHT SIDE PNEUMOTHORAX AND POSSIBLE SHIFT BUT UNABLE TO VERIFY SECONDARY TO PATIENT POSITION. ATTEMPT TO PAGE PULMONOLOGY UNSUCCESSFUL, PAGEABLE AFTER 0800.
--- NOTE | 2020-09-16 08:20 | NUR ---
PAGED PULMONOLOGY DR NIXON TO NOTIFY OF CXR RESULTS, AWAITING RESPONSE.
[2020-09-16] MEDS: ZINC SULFATE 220mg CAP or TAB GT SCH (11:03)
[2020-09-16] MEDS: fentaNYL Drip 2500mCg/250mlNS 250 ML IV SCH (11:03)
[2020-09-16] MEDS: NYSTATIN TOPICAL POWDER 15GM TOP SCH ×2 (11:04→21:06)
[2020-09-16] MEDS: ASCORBIC ACID 1,000 MG TAB GT SCH (11:04)
[2020-09-16] MEDS: ENOXAPARIN SOD 30 MG/0.3 ML SYRINGE SC SCH (11:04)
[2020-09-16] MEDS: CHOLECALCIFEROL (VITD3) 1,000UNIT=25mCg TAB GT SCH (11:04)
[2020-09-16] MEDS: ACETAMINOPHEN 500 MG TAB PO PRN (11:08)
[2020-09-16] MEDS: MEROPENEM 500MG IVPB 50 ML IV SCH ×2 (11:09→21:06)
--- NOTE | 2020-09-16 11:09 | NUR ---
Family updated on pt status Family of SANTILLANJOSE ANGEL updated on patient's status and condition after password verification. All questions and concerns addressed. Patient's mother verbalized understanding and stated she would be calling patient's to call hospital and provide authorization for chest tube insertion. Will await spouse call.
--- NOTE | 2020-09-16 11:15 | NUR ---
09/16/20 1115 Received a call from Naila HANDLEY at [facility], stating the patient is too critical for them to transport, Stated she reviewed the clinicals that were sent and the Vent setting are too high and the ABG results are bad and the patient has a new mod to large Pneumo. Gave authorization for in patient stay 09/17/20 @ 1000am #[id number].
--- NOTE | 2020-09-16 11:27 | NUR ---
RETURN CALL FROM FAMILY SPOKE WITH PATIENT'S SPOUSE MADHU NIELSEN WHO CONSENTED FOR CHEST TUBE INSERTION.
[2020-09-16] MEDS: MIDAZOLAM DRIP 50 mg/50mL 50 ML IV SCH ×2 (11:38→19:17)
--- NOTE | 2020-09-16 12:17 | NUR ---
Nutrition Followup Note Wt 101.7 kg Pt is intubated, sedated, positive for COVID. Pt with propofol running at 24.6ml/hr which provides 649 kcal from lipids. Pt is with Nepro CS 1.8 at 40 ml/hr providing 1728 kcals and 77 gm proteins. pt with adequate EN support Est Energy needs: 5422-5766 kcals (14-18 kcal/kgBW 97kg), Est Protein needs: 95-115 gms/day (2.0-2.5 gm/kgIBW of 47.7 kg). Will continue to monitor and reassess prn. Labs: BUN 38 H CREAT 1.89 H CA 8.0 L ALB 2.0 L BM: Pt had 1 BM 09/11 per RN note Skin: BS 10 high risk, full details in medicare sales representative note PES: Inadequate oral intake aeb pt with 0% PO intake on BIPAP, refusal to eat r/t pt with a poor appetite 2) Obesity aeb 199% IBW and BMI of 39.6 kg/m2 r/t energy intake in excess of energy needs Comments: Will continue to monitor NPO status, EN tolerance, skin status. F/u high 2-3 days Rec: 1) Advance diet as medically feasible. 2) Consider prostat 1 packet bid. 3) Continue current plan of care.
[2020-09-16] MEDS: NOREPINEPHRINE BITARTRATE 16 MG in SODIUM CHL 0.9% 250 ML IV SCH (12:30)
[2020-09-16] MEDS: MICAFUNGIN SODIUM 100 MG in SODIUM CHL 0.9% 100 ML IV SCH (14:09)
[2020-09-16] MEDS ORDERED: ROCURONIUM 10MG/ML 10ML VIAL IV ONE (14:46)
--- NOTE | 2020-09-16 15:12 | NUR ---
CONSENT/FAMILY Family updated on pt status/CONSENT Family of SANTILLANJOSE ANGEL updated on patient's status and condition after password verification. All questions and concerns addressed. Patient's spouse Davis verbalized understanding and consented to surical chest tube insertion. Dr. Mik lombardo.
--- NOTE | 2020-09-16 15:20 | NUR ---
Respiratory note: PT TRANSPORTED TO OR VIA TRANSPORT VENT WITHOUT INCIDENT FOR CHEST TUBE PLACEMENT. RN JONAS, AND BHARGAV AT BEDSIDE. SPO2 97%, HR 110, RR 29.
--- NOTE | 2020-09-16 15:20 | NUR ---
PATIENT OFF FLOOR PATIENT TAKEN TO OR VIA GURNEY AND PORTABLE MONITOR AND VENTILATOR. PATIENT ACCOMPANIED BY THIS NURSE, JONAS, CHARGE NURSE AND Eleuterio KIRKLAND. VSS - WILL CONTINUE TO MONITOR PATIENT UPON RETURN TO FLOOR.
--- NOTE | 2020-09-16 16:20 | NUR ---
RETURN TO FLOOR/COMFORT PATIENT RETURN TO FLOOR, CONNECTED TO BEDSIDE MONITOR, VSS AND DOCUMENTED. CHEST TUBE TO RIGHT UPPER CHEST IS CLEAN, DRY AND INTACT CONNECTED TO LCS WALL SUCTION, SCANT TITLING NOTED ON ATRIUM. COMPLETE BEDDING CHANGED, PATIENT REPOSITIONED TO MAINTAIN SKIN INTEGRITY.
--- NOTE | 2020-09-16 16:30 | NUR ---
Respiratory note: PT TRANSPORTED BACK FROM OR VIA AMBU BAG WITH HME BY USED CAR MANAGER'S WITHOUT INCIDENT, AND PLACED BACK ON VENT WITH PREVIOUS SETTINGS. FIO2 TITRATED FROM 100%, to 60%. PT RETURNED FROM OR WITH A R CHEST TUBE IN PLACE. PT TOLERATED PROCEDURE WELL. WILL ENDORSE PT STATUS TO EXPORT FREIGHT SPECIALIST. CHARTING COMPLETE FROM OUTSIDE OF PT ROOM PER COVID-19 PRECAUTIONS/PROTOCOL.
--- NOTE | 2020-09-16 17:05 | NUR ---
LOW SBP/CONTACT HOSPITALIST SPOKE WITH DR BURCH, AWARE OF SURGICAL CHEST TUBE PLACEMENT AND LOW SBP IN THE 70's and 80s. ORDERS FOR ONE LITER BOLUS NS AND 100 CC ALBUMIN IV X1, KEEP LEVOPHED ON STANDBY.
--- NOTE | 2020-09-16 17:09 | NUR ---
SPOKE WITH PULMONOLOGY DR NIXON UPDATED ON PATIENT'S STATUS, HOSPITALIST ORDERS AND RECENT PLACEMENT OF SURGICAL CHEST TUBE. DR NIXON ALSO AWARE OF RADIOLOGY AT BEDSIDE FOR CXR. WILL NOTIFY MD ONCE REPORT IS AVAILABLE.
[2020-09-16] MEDS ORDERED: ALBUMIN 25% 100 ML IV ONE (17:15)
[2020-09-16] MEDS ORDERED: SODIUM CHLORIDE 0.9% 1,000 ML IV ONE (17:15)
--- NOTE | 2020-09-16 17:17 | NUR ---
CATHETER TIP SENT TO LAB
--- NOTE | 2020-09-16 17:45 | NUR ---
CONTACT PULMONOLOGY DR NIXON AWARE OF CXR RESULTS, REGARDING PREVIOUS ORDERS FOR 1 LITER NS - ORDERS TO GIVE ONLY 500 MLS AND MONITOR.
[2020-09-16] MEDS: PROPOFOL 100 ML IV SCH ×2 (19:20→23:22)
--- NOTE | 2020-09-16 19:30 | NUR ---
Assumed care, patient is a Full code status. On continues sedation, on a vent, Pressure control 30, rate 28 FIO2 60% PEP 10, ETT size 7.5 23 at the lip. Patient also has a chest tube to the Right upper chest, Dressing intact, output at this time 10ml, Bean catheter to gravity, SCDs on on bilateral extremities. Patient was turned and positioned on left side with pillows. Picc line to the left upper arm patent. Will continue to monitor.
--- NOTE | 2020-09-16 21:33 | NUR ---
Family updated on pt status Family JOSE ANGEL Shetty updated on patient's status and condition. All questions and concerns addressed. verbalized understanding.
--- NOTE | 2020-09-16 21:41 | NUR ---
Transfer report given to RN receiving patient on TELE room 287 A. Addendum: 09/16/20 at 2142 by SHERENE LIM RN Chart on the wrong patient.
[2020-09-17] VITALS (101 sets, daily range): BP systolic 91–161; BP diastolic 44–92
[2020-09-17] MEDS: PHENYLEPHRINE IV 250 ML IV SCH ×3 (02:55→19:35)
[2020-09-17 04:36] LABS: Hematocrit 23.3 % (36.0-46.0); Hemoglobin 7.4 g/dL (12.2-16.2)
[2020-09-17 04:39] LABS: Mean Corpuscular Hemoglobin 26.3 pg (28.0-32.0); Mean Corpuscular Hgb Conc. 31.7 g/dL (32.0-36.0); Platelet Count (auto) 404 10^3/uL (140-450); Red Blood Cells 2.81 10^6/uL (4.0-5.20); White Blood Cell 11.5 10^3/uL (4.4-10.8)
[2020-09-17 04:53] LABS: Red Cell Distribution Width 24.3 % (11.8-14.3)
[2020-09-17 04:54] LABS: BUN/Creatinine Ratio 23.9; Calcium 8.9 mg/dL (8.5-10.1); Potassium 3.5 mmol/L (3.5-5.1)
[2020-09-17 04:56] LABS: Basophils % (manual) 0 (0.0-2.0); Blast Cells 0; Metamyelocytes % 0; Myelocytes % 0; Promyelocytes % 0; Reactive Lymphocytes 0
[2020-09-17 05:32] LABS: Band Neutrophils % (manual) 3; Eosinophils % (manual) 3 (0-7); Lymphocytes % (manual) 7 (10.0-50.0); Monocytes % (manual) 12 (0-12)
[2020-09-17] MEDS: ACETYLCYSTEINE 10 %(100MG/ML) SOL 4ML NEB SCH ×3 (06:24→22:57)
[2020-09-17] MEDS: ALBUTEROL SULF 2.5 MG/0.5ML(0.5%) NEB SOLN NEB SCH ×3 (06:24→22:57)
[2020-09-17] MEDS: MIDAZOLAM DRIP 50 mg/50mL 50 ML IV SCH ×2 (07:55→11:42)
--- NOTE | 2020-09-17 08:00 | NUR ---
FIO2 DECREASED TO 40% PER DR NIXON. NO OTHER CHANGES TO BE DONE. ABG TOMORROW MORNING.
--- NOTE | 2020-09-17 08:00 | NUR ---
AM ASSESSMENT COMPLETED PT REMAINS INTUBATED SEDATED ON FENTANYL, PROPOFOL AND VERSED, PT CURRENTLY ON PC SETTINGS ON VENTILATOR AND PEEP OF 10 AT 50% FIO2, PT HAS A CT TO RT UPPER CHEST WALL TO -20 CM H2O SUCTION, NO CREPITUS AT CT INSERTION SITE. PNEUMOTHORAX ALMOST RESOLVED PER CXR, LS CTA & DIMINISHED ON THE BASES, ORAL CARE PROVIDED, PT HAS SOME BLOODY SECRETIONS AND MINIMAL GRIFFIN ETT SECRETIONS. SR WITH PVC'S +2 PITTING EDEMA ON BUE & BLE, PULSES STRONG AND PALPABLE IN ALL 4 EXTREMITIES, FC WITH SECUREMENT DEVICE IN PLACE DRAINING CLEAR YELLOW URINE. PT HAS MULTIPLE SKIN BREAK DOWN, SEE SKIN FLOW SHEET FOR FURTHER DETAIL. ORAL CARE RENDERED PER VAP, REPOSITIONED FOR COMFORT. MONITOR ALARMS VERIFIED.PT REMAINS ON COVID PRECAUTIONS.
--- NOTE | 2020-09-17 08:00 | NUR ---
FIO2 DECREASED TO 40% PER DR NIXON. PT TOLERATING WELL. WILL CONTINUE TO MONITOR PT.
[2020-09-17] MEDS: fentaNYL Drip 2500mCg/250mlNS 250 ML IV SCH ×2 (08:03→18:11)
[2020-09-17] MEDS: MEROPENEM 500MG IVPB 50 ML IV SCH ×2 (08:05→20:00)
[2020-09-17] MEDS: ENOXAPARIN SOD 30 MG/0.3 ML SYRINGE SC SCH (10:00)
--- NOTE | 2020-09-17 10:10 | NUR ---
DR. NIXON ROUNDING ON PT. NO NEW ORDERS RECEIVED FROM . SHE ASKED IF I HAD SPOKEN TO PT'S FAMILY STATING THAT PT IS NOT MAKING MUCH PROGRESS AND ASKING IF THEY HAVE CHANGED THEIR MIND REGARDING PT'S CODE STATUS. I INFORMED MD. THAT PT'S FAMILY IS VERY OPTIMISTIC AND WANT TO HANG ON INTO ANY + CHANGE ON PT'S CONDITION, FOR INSTANCE FIO2 CHANGES, AND PT NOT HAVING A FEVER, THAT THEY WERE REQUESTING SPECIFIC INFORMATION TO UPLIFT THEIR SPIRTS. STATES " WE HAVE ALREADY SPOKEN TO FAMILY".
[2020-09-17] MEDS: BUDESONIDE (INHALATION) 0.5 MG/2 ML NEB NEB SCH ×2 (10:15→22:57)
[2020-09-17] MEDS: MICAFUNGIN SODIUM 100 MG in SODIUM CHL 0.9% 100 ML IV SCH (10:45)
[2020-09-17] MEDS: CHOLECALCIFEROL (VITD3) 1,000UNIT=25mCg TAB GT SCH (10:45)
[2020-09-17] MEDS: ZINC SULFATE 220mg CAP or TAB GT SCH (10:46)
[2020-09-17] MEDS: ASCORBIC ACID 1,000 MG TAB GT SCH (10:46)
[2020-09-17] MEDS: NYSTATIN TOPICAL POWDER 15GM TOP SCH ×2 (10:52→20:53)
[2020-09-17] MEDS: PROPOFOL 100 ML IV SCH ×3 (11:11→18:09)
--- NOTE | 2020-09-17 12:09 | NUR ---
DR. CARREON ROUNDING ON PT. WE DISCUSSED PT'S CONDITION, POC. AWARE OF LOW HGB AND STATES PT HAS RECEIVED MULTIPLE BLOOD TRANSFUSIONS AND THE BODY NEEDS TO ADOPT, PLUS WE ARE CONSTANTLY DRAWING BLOOD FROM PT. WE'LL KEEP ON MONITORING , WE'LL LEAVE IT UP[ TO DR. HUERTA. PT DOESN'T REQUIRE HD AT THIS POINT, JUST MONITORING.
[2020-09-17] MEDS: NOREPINEPHRINE BITARTRATE 16 MG in SODIUM CHL 0.9% 250 ML IV SCH (12:30)
--- NOTE | 2020-09-17 15:36 | NUR ---
09/17/20 [phone] Faxed to [facility] [phone] request to transfer to [facility] with Post Stabilization form, progress notes
--- NOTE | 2020-09-17 22:03 | NUR ---
Family: Password verified. Family called and was updated on patient condition and POC.
[2020-09-18] VITALS (100 sets, daily range): BP systolic 122–190; BP diastolic 60–97
--- NOTE | 2020-09-18 01:59 | NUR ---
Linen change provided. Patient tolerated intervention well with no s/s of discomfort or distress.
[2020-09-18] MEDS: PHENYLEPHRINE IV 250 ML IV SCH ×3 (03:55→20:35)
[2020-09-18 05:03] LABS: Mean Corpuscular Hemoglobin 26.8 pg (28.0-32.0); Mean Corpuscular Hgb Conc. 31.7 g/dL (32.0-36.0); White Blood Cell 12.6 10^3/uL (4.4-10.8)
[2020-09-18 05:06] LABS: Hematocrit 27.2 % (36.0-46.0); Hemoglobin 8.6 g/dL (12.2-16.2); Mean Corpuscular Volume 84.6 fL (80.0-100.0); Platelet Count (auto) 474 10^3/uL (140-450); Red Blood Cells 3.21 10^6/uL (4.0-5.20)
[2020-09-18 05:31] LABS: Basophils % (manual) 0 (0.0-2.0); Blast Cells 0; Metamyelocytes % 0; Myelocytes % 0; Promyelocytes % 0; Reactive Lymphocytes 0; Red Cell Distribution Width 25.2 % (11.8-14.3)
[2020-09-18 05:32] LABS: Calcium 9.1 mg/dL (8.5-10.1); Potassium 3.4 mmol/L (3.5-5.1)
[2020-09-18 05:34] LABS: BUN/Creatinine Ratio 24.3
[2020-09-18] MEDS: ALBUTEROL SULF 2.5 MG/0.5ML(0.5%) NEB SOLN NEB SCH ×3 (06:39→22:41)
[2020-09-18] MEDS: BUDESONIDE (INHALATION) 0.5 MG/2 ML NEB NEB SCH ×2 (06:40→22:41)
[2020-09-18] MEDS: ACETYLCYSTEINE 10 %(100MG/ML) SOL 4ML NEB SCH ×3 (06:40→22:41)
[2020-09-18 06:44] LABS: Band Neutrophils % (manual) 15; Eosinophils % (manual) 1 (0-7); Lymphocytes % (manual) 9 (10.0-50.0); Monocytes % (manual) 12 (0-12)
--- NOTE | 2020-09-18 08:00 | NUR ---
AM ASSESSMENT COMPLETED REMAINS INTUBATED/ SEDATED ON COVID PRECAUTIONS , AIRBORNE ISOLATION. CT TO RT UPPER CHEST WALL WITH SUBCUTANEOUS EMPHYSEMA TO CHEST WALL AND TO NECK, PLEURA SYSTEM WITH SMALL AIR BUBBLES AT SEAL CHAMBER, CT TO -20 CM OF H20 SUCTION. LS CTA & DIMINISHED TO THE BASIS. PT HAS COPIOUS AMOUTS OF ORAL SECRETIONS THAT ARE BLOOD TINGED AND SMALL GRIFFIN ETT SECRETIONS. ORAL CARE PROVIDED AND REPOSITIONED FOR COMFORT. FC WITH SECUREMENT DEVICE IN PLACE PT HAS CLOUDY PALE YELLOW URINE OUT PUT. SKIN HAS MULTIPLE SKIN BREAK DOWN ON BOTH GROIN AND COCCYX. REFER TO SKIN FLOW SHEET.
[2020-09-18] MEDS: PROPOFOL 100 ML IV SCH ×3 (09:04→19:40)
--- NOTE | 2020-09-18 09:04 | NUR ---
JOSE F NIXON FOR CRITICAL ABG RESULTS.
--- NOTE | 2020-09-18 09:10 | NUR ---
DR. NIXON CALLED BACK NOTIFIED DR. NIXON OF PT'S CRITICAL ABG RESULTS NEW ORDERS RECEIVED TO INCREASE RATE TO 30 ALSO MADE AWARE THAT PT HAS SUBCUTANEOUS EMPHYSEMA AROUND CT INSERTION SITE AND AROUND NECK. STATES "IT DOESN'T SURPRISE ME".
--- NOTE | 2020-09-18 09:39 | NUR ---
DR CRAWFORD CAME TO ROUND ON PT HE, WANTS THE NEGATIVE PRESSURE ON THE CT TO BE INCREASED TO -30. I'LLL GO IN TO INCREASE THE PRESSURE.
[2020-09-18] MEDS: ENOXAPARIN SOD 30 MG/0.3 ML SYRINGE SC SCH (10:00)
[2020-09-18] MEDS: MEROPENEM 500MG IVPB 50 ML IV SCH (10:18)
[2020-09-18] MEDS: ZINC SULFATE 220mg CAP or TAB GT SCH (10:19)
[2020-09-18] MEDS: ASCORBIC ACID 1,000 MG TAB GT SCH (10:19)
--- NOTE | 2020-09-18 10:37 | NUR ---
I SPOKE WITH JOHN FROM [facility] SHE WANTED AN UPDATE ON PT'S CONDITION TO SEE IF PT IS STABLE ENOUGH FOR TRANSFER. I PROVIDED HER WITH ALL THE REQUESTED INFORMATION.
[2020-09-18] MEDS: CHOLECALCIFEROL (VITD3) 1,000UNIT=25mCg TAB GT SCH (10:41)
[2020-09-18] MEDS: NYSTATIN TOPICAL POWDER 15GM TOP SCH ×2 (10:42→22:24)
[2020-09-18 11:43] LABS: Magnesium 2.3 mg/dL (1.6-2.6); Phosphorus 7.4 mg/dL (2.5-4.90)
[2020-09-18] MEDS ORDERED: POTASSIUM EFFERVESENT TAB 25 MEQ GT ONE (12:30)
[2020-09-18] MEDS: NOREPINEPHRINE BITARTRATE 16 MG in SODIUM CHL 0.9% 250 ML IV SCH (12:30)
[2020-09-18] MEDS: MICAFUNGIN SODIUM 100 MG in SODIUM CHL 0.9% 100 ML IV SCH (13:48)
[2020-09-18] MEDS: MIDAZOLAM DRIP 50 mg/50mL 50 ML IV SCH ×3 (14:15→22:50)
--- NOTE | 2020-09-18 16:00 | NUR ---
Called [facility] and spoke with Briana [phone] stated the patient is too unstable to for then to transport, they will not transfer a patient on a vent with PC or has a chest tube connected to suction. Patient has in patient stay for 09/19/20 @1000am #[id number].
[2020-09-18] MEDS: fentaNYL Drip 2500mCg/250mlNS 250 ML IV SCH (18:54)
--- NOTE | 2020-09-18 19:00 | NUR ---
Shift opening note: Patient intubated 7.5/ 23CM@LL, Vent on pressure control, bilateral lung sounds clear and diminished. Left upper arm PICC line infusing Fent, Prop, and versed. OG tube in place, placement checked. Bean catheter draining via gravity with yellow urine. Chest tube noted to be patent and draining. Temp 100.[address], cooling measures initiated. Safety precautions in place. Will continue to monitor. Patient on Isolation for COVID Positive.
--- NOTE | 2020-09-18 19:39 | NUR ---
Hospitalist paged: RN paged hospitalist d/t patient having a systolic BP greater than 160. New orders received and verified.
[2020-09-18] MEDS: ACETAMINOPHEN 500 MG TAB PO PRN (20:00)
--- NOTE | 2020-09-18 20:00 | NUR ---
Temp: Patient noted with a temp of 100.8. PRN tylenol given and cooling measures have been initiated.
[2020-09-18] MEDS: LABETALOL HCL 5 MG/ML 4ML SYRINGE IV PRN (21:51)
--- NOTE | 2020-09-18 23:00 | NUR ---
Temp: RN noted cooling measures and PRN tylenol to be effective in managing patients temp. Patient now noted with a temp of 99.1. RN will continue to monitor and assess patient for temp changes.
[2020-09-19] VITALS (101 sets, daily range): BP systolic 106–174; BP diastolic 59–90
[2020-09-19 03:37] LABS: Hematocrit 25.1 % (36.0-46.0); Mean Corpuscular Hemoglobin 26.6 pg (28.0-32.0); Mean Corpuscular Hgb Conc. 31.8 g/dL (32.0-36.0); Mean Corpuscular Volume 83.7 fL (80.0-100.0); Platelet Count (auto) 396 10^3/uL (140-450); White Blood Cell 10.2 10^3/uL (4.4-10.8)
[2020-09-19 03:46] LABS: Red Cell Distribution Width 24.9 % (11.8-14.3)
[2020-09-19 03:47] LABS: Basophils % (manual) 0 (0.0-2.0); Blast Cells 0; Metamyelocytes % 0; Myelocytes % 0; Promyelocytes % 0; Reactive Lymphocytes 0
[2020-09-19] MEDS: PHENYLEPHRINE IV 250 ML IV SCH ×3 (04:55→21:09)
[2020-09-19 05:36] LABS: Band Neutrophils % (manual) 9; Eosinophils % (manual) 4 (0-7); Lymphocytes % (manual) 8 (10.0-50.0); Monocytes % (manual) 14 (0-12)
[2020-09-19] MEDS: ALBUTEROL SULF 2.5 MG/0.5ML(0.5%) NEB SOLN NEB SCH ×3 (06:40→22:34)
[2020-09-19] MEDS: BUDESONIDE (INHALATION) 0.5 MG/2 ML NEB NEB SCH ×2 (06:40→22:34)
[2020-09-19] MEDS: ACETYLCYSTEINE 10 %(100MG/ML) SOL 4ML NEB SCH ×3 (06:40→22:34)
[2020-09-19 09:08] LABS: BUN/Creatinine Ratio 25.9; Potassium 3.2 mmol/L (3.5-5.1)
[2020-09-19] MEDS: ASCORBIC ACID 1,000 MG TAB GT SCH (09:38)
[2020-09-19] MEDS: CHOLECALCIFEROL (VITD3) 1,000UNIT=25mCg TAB GT SCH (09:38)
[2020-09-19] MEDS: MICAFUNGIN SODIUM 100 MG in SODIUM CHL 0.9% 100 ML IV SCH (09:38)
[2020-09-19] MEDS: ZINC SULFATE 220mg CAP or TAB GT SCH (09:38)
--- NOTE | 2020-09-19 09:50 | NUR ---
DR NIXON AT BEDSIDE DISCUSSED PATIENTS STATUS. NEW ORDERS PLACED
[2020-09-19] MEDS: ENOXAPARIN SOD 30 MG/0.3 ML SYRINGE SC SCH (10:00)
[2020-09-19] MEDS: PROPOFOL 100 ML IV SCH ×2 (10:00→15:38)
[2020-09-19] MEDS: NYSTATIN TOPICAL POWDER 15GM TOP SCH ×2 (10:13→21:44)
--- NOTE | 2020-09-19 10:48 | NUR ---
DR CARREON AT BEDSIDE DISCUSSED PATIENTS STATUS AND PLAN OF CARE. NEW ORDERS RECEIVED
--- NOTE | 2020-09-19 11:22 | NUR ---
PATIENT CORTEZ JC CALLED FOR UPDATE PROVIDED PASSWORD. UPDATED ON CURRENT STATUS AND PLAN OF CARE. NO QUESTIONS AT THIS TIME
--- NOTE | 2020-09-19 11:45 | NUR ---
DR BURCH AT BEDSIDE DISCUSSED PATIENTS STATUS AND PLAN OF CARE.
[2020-09-19] MEDS: NOREPINEPHRINE BITARTRATE 16 MG in SODIUM CHL 0.9% 250 ML IV SCH (12:09)
[2020-09-19] MEDS ORDERED: POTASSIUM EFFERVESENT TAB 25 MEQ GT ONE (12:15)
--- NOTE | 2020-09-19 12:46 | NUR ---
Nutrition Followup Note Wt 104.1kg Pt is still intubated, sedated, positive for COVID. Pt with propofol running at 16.182ml/hr which provides 427 kcal from lipids. Pt is with Nepro CS 1.8 at 40 ml/hr providing 1728 kcals and 77 gm proteins. pt received 520 ml of TF 09/18 per Rn note. Est Energy needs: 9428-1878 kcals (14-18 kcal/kgBW 97kg), Est Protein needs: 95-115 gms/day (2.0-2.5 gm/kgIBW of 47.7 kg). Will continue to monitor and reassess prn. Labs: BUN 51H, Creat 2.10H, Alb 2.0L, K 3.4L, CO2 20L BM: Pt had 1 BM 09/11 per RN note Skin: BS 10 high risk, full details in healthcare marketer note PES: Inadequate oral intake aeb pt with 0% PO intake on BIPAP, refusal to eat r/t pt with a poor appetite 2) Obesity aeb 199% IBW and BMI of 39.6 kg/m2 r/t energy intake in excess of energy needs Comments: Will continue to monitor NPO status, EN tolerance, skin status. F/u high 2-3 days Rec: 1) Advance diet as medically feasible. 2) Consider prostat 1 packet bid. 3) Continue current plan of care.
[2020-09-19] MEDS: MIDAZOLAM DRIP 50 mg/50mL 50 ML IV SCH (13:36)
[2020-09-19] MEDS: fentaNYL Drip 2500mCg/250mlNS 250 ML IV SCH (18:19)
[2020-09-19] MEDS: LABETALOL HCL 5 MG/ML 4ML SYRINGE IV PRN (21:36)
[2020-09-20] VITALS (101 sets, daily range): BP systolic 112–166; BP diastolic 62–90
[2020-09-20] MEDS: PHENYLEPHRINE IV 250 ML IV SCH ×3 (04:03→22:35)
[2020-09-20 05:07] LABS: Hematocrit 24.9 % (36.0-46.0); Mean Corpuscular Hemoglobin 26.7 pg (28.0-32.0); Mean Corpuscular Hgb Conc. 32.4 g/dL (32.0-36.0); Mean Corpuscular Volume 82.6 fL (80.0-100.0); Platelet Count (auto) 400 10^3/uL (140-450); Red Blood Cells 3.01 10^6/uL (4.0-5.20); White Blood Cell 8.9 10^3/uL (4.4-10.8)
[2020-09-20 05:09] LABS: Red Cell Distribution Width 25.8 % (11.8-14.3)
[2020-09-20 05:10] LABS: Basophils % (manual) 0 (0.0-2.0); Metamyelocytes % 0
[2020-09-20 05:11] LABS: Blast Cells 0; Myelocytes % 0; Promyelocytes % 0; Reactive Lymphocytes 0
[2020-09-20 05:13] LABS: Potassium 3.7 mmol/L (3.5-5.1)
[2020-09-20 05:20] LABS: Calcium 8.7 mg/dL (8.5-10.1)
[2020-09-20 05:50] LABS: Band Neutrophils % (manual) 14; Eosinophils % (manual) 2 (0-7); Lymphocytes % (manual) 9 (10.0-50.0); Monocytes % (manual) 7 (0-12)
--- NOTE | 2020-09-20 07:15 | NUR ---
REPORT RECEIVED FROM ERP PROJECT MANAGER NURSE. PATIENT RESTING IN AT THIS TIME. INTUBATED AND SEDATED RESPIRATIONS EVEN AND UNLABORED.CHEST TUBE TO ATRIUM WITH -30 SUCTION PER MD ORDER DRAINING SEROUS SANGUINOUS FLUID, NO AIR LEAK NOTED. CREPITUS NOTED FROM STERNUM TO RIGHT SHOULDER, MD AWARE. NO SIGNS OF ACUTE DISTRESS NOTED. BED IN LOW POSITION WILL CONTINUE TO MONITOR.
--- NOTE | 2020-09-20 09:30 | NUR ---
Respiratory note: DECREASED PEEP TO [address] NIXON.
[2020-09-20] MEDS: ENOXAPARIN SOD 30 MG/0.3 ML SYRINGE SC SCH (09:50)
[2020-09-20] MEDS: CHOLECALCIFEROL (VITD3) 1,000UNIT=25mCg TAB GT SCH (09:51)
[2020-09-20] MEDS: MICAFUNGIN SODIUM 100 MG in SODIUM CHL 0.9% 100 ML IV SCH (09:51)
[2020-09-20] MEDS: ASCORBIC ACID 1,000 MG TAB GT SCH (09:51)
[2020-09-20] MEDS: ZINC SULFATE 220mg CAP or TAB GT SCH (09:51)
[2020-09-20] MEDS: NYSTATIN TOPICAL POWDER 15GM TOP SCH ×2 (09:52→21:34)
--- NOTE | 2020-09-20 10:15 | NUR ---
DR NIXON AT BEDSIDE TO ASSESS PATIENT AND DISCUSS PLAN OF CARE. ALL ORDERS NOTED IN CHART.
[2020-09-20] MEDS: NOREPINEPHRINE BITARTRATE 16 MG in SODIUM CHL 0.9% 250 ML IV SCH (12:30)
[2020-09-20] MEDS: PROPOFOL 100 ML IV SCH ×4 (12:46→21:40)
--- NOTE | 2020-09-20 12:55 | NUR ---
DR CARREON AT BEDSIDE TO ASSESS PATIENT AND DISCUSS PLAN OF CARE. NO NEW ORDERS AT THIS TIME.
[2020-09-20] MEDS: fentaNYL Drip 2500mCg/250mlNS 250 ML IV SCH ×2 (13:00→17:28)
--- NOTE | 2020-09-20 13:30 | NUR ---
CHEST TUBE DRESSING CHANGE CHEST TUBE DRESSING CHANGED TO RIGHT UPPER CHEST USING STERILE TECHNIQUE. CLEANED SITE WITH CHLORHEXIDINE APPLIED PETROLEUM GAUZE, STACK OF STERILE GAUZE PLACED UNDER CHEST TUBE FOR SUPPORT PREVIOUSLY PLACED BY , TEGADERM PLACED OVER. PATIENT TOLERATED WELL. SLIGHT REDNESS NOTED TO SITE AND CREPITUS REMAINS ASSESSED THIS MORNING.
[2020-09-20] MEDS: MIDAZOLAM DRIP 50 mg/50mL 50 ML IV SCH (14:03)
[2020-09-20] MEDS: ACETYLCYSTEINE 10 %(100MG/ML) SOL 4ML NEB SCH ×3 (14:28→22:15)
[2020-09-20] MEDS: BUDESONIDE (INHALATION) 0.5 MG/2 ML NEB NEB SCH ×2 (14:29→22:15)
[2020-09-20] MEDS: ALBUTEROL SULF 2.5 MG/0.5ML(0.5%) NEB SOLN NEB SCH ×2 (14:29→22:15)
--- NOTE | 2020-09-20 14:51 | NUR ---
NG SPOKE TO SCOUT LEASER FROM [facility] AND UPDATED ON PATIENT STATUS. ALL QUESTIONS AND ADDRESSED AT THIS TIME.
--- NOTE | 2020-09-20 20:00 | NUR ---
OPENING NOTE CHEST TUBE SET UP PROPERLY, CONNECTED TO SUCTIONING, DRAINING SEROSANGUINEOUS FLUID. LUNG SOUNDS CLEAR, NO SIGN OF SOB OR RESPIRATORY DISTRESS. MALHOTRA IS PATIENT AND DRAINING DOWN THE GRAVITY RUNNING NEPRO AT 40 CC/HR, RESIDUAL 10 CC, PATIENT ON ASPIRATION PRECAUTIONS. SEE INTERVENTIONS FOR FULL ASSESSMENT
[2020-09-21] VITALS (90 sets, daily range): BP systolic 72–186; BP diastolic 53–93
[2020-09-21] MEDS: LABETALOL HCL 5 MG/ML 4ML SYRINGE IV PRN ×2 (00:40→04:40)
[2020-09-21] MEDS: MIDAZOLAM DRIP 50 mg/50mL 50 ML IV SCH ×2 (02:28→14:13)
[2020-09-21] MEDS: fentaNYL Drip 2500mCg/250mlNS 250 ML IV SCH ×2 (04:11→16:30)
[2020-09-21] MEDS: PROPOFOL 100 ML IV SCH ×5 (04:11→23:11)
[2020-09-21 05:22] LABS: Basophils # (auto) 0.1 10 ^3/uL (0-0.2); Eosinophils # (auto) 0.5 10 ^3/uL (0-0.8); Mean Corpuscular Volume 82.8 fL (80.0-100.0); Monocytes # (auto) 1.2 10 ^3/uL (0-1.3); Monocytes % (auto) 9.9 % (0.0-12.0)
[2020-09-21 05:24] LABS: Basophils % (auto) 0.4 % (0.0-2.0); Eosinophils % (auto) 4.1 % (0.0-7.0); Hematocrit 25.7 % (36.0-46.0); Hemoglobin 8.4 g/dL (12.2-16.2); Lymphocytes # (auto) 1.1 10 ^3/uL (0.4-5.4); Mean Corpuscular Hemoglobin 27.2 pg (28.0-32.0); Mean Corpuscular Hgb Conc. 32.8 g/dL (32.0-36.0); Neutrophils % (auto) 76.6 % (37.0-80.0); Platelet Count (auto) 437 10^3/uL (140-450); White Blood Cell 11.8 10^3/uL (4.4-10.8)
[2020-09-21 05:26] LABS: Red Cell Distribution Width 25.3 % (11.8-14.3)
[2020-09-21 05:46] LABS: BUN/Creatinine Ratio 27.8; Calcium 9.1 mg/dL (8.5-10.1); Potassium 3.4 mmol/L (3.5-5.1)
[2020-09-21] MEDS: PHENYLEPHRINE IV 250 ML IV SCH ×3 (06:55→23:10)
[2020-09-21] MEDS: ACETYLCYSTEINE 10 %(100MG/ML) SOL 4ML NEB SCH ×2 (06:59→22:43)
[2020-09-21] MEDS: ALBUTEROL SULF 2.5 MG/0.5ML(0.5%) NEB SOLN NEB SCH ×2 (06:59→22:44)
[2020-09-21] MEDS: BUDESONIDE (INHALATION) 0.5 MG/2 ML NEB NEB SCH ×2 (06:59→22:44)
--- NOTE | 2020-09-21 08:11 | NUR ---
CALLED DR. STAHL TO REPORT ABG RESULTS. LEFT MESSAGE ON ANSWERING MACHINE WITH ABG RESULTS AND TO CALL ME BACK IF HE HAS ANY ORDERS TO GIVE.
[2020-09-21] MEDS: ENOXAPARIN SOD 30 MG/0.3 ML SYRINGE SC SCH (09:45)
[2020-09-21] MEDS: ZINC SULFATE 220mg CAP or TAB GT SCH (09:45)
[2020-09-21] MEDS: CHOLECALCIFEROL (VITD3) 1,000UNIT=25mCg TAB GT SCH (09:45)
[2020-09-21] MEDS: NYSTATIN TOPICAL POWDER 15GM TOP SCH ×2 (09:46→21:41)
[2020-09-21] MEDS: ASCORBIC ACID 1,000 MG TAB GT SCH (09:46)
--- NOTE | 2020-09-21 10:07 | NUR ---
DR. MANZO ,IN ICU, ABG RESULTS REPORTED. NO RT ORDERS RECEIVED AT THIS TIME.
[2020-09-21] MEDS: POTASSIUM CHL 20MEQ/100ML 100 ML IV SCH ×2 (10:50→12:35)
[2020-09-21] MEDS ORDERED: POTASSIUM CHL 20MEQ/100ML 200 ML IV ONE (10:51)
[2020-09-21] MEDS ORDERED: PANTOPRAZOLE 40 MG/10 ML VIAL INJ IV ONE (11:00)
[2020-09-21] MEDS ORDERED: amLODIPine BESYLATE 5 MG TAB PO ONE (11:00)
[2020-09-21] MEDS ORDERED: MICAFUNGIN SODIUM 100 MG in SODIUM CHL 0.9% 100 ML IV ONE (11:00)
--- NOTE | 2020-09-21 11:55 | NUR ---
Resumed care at 0729, orders reviewed and ongoing assessments being done. Being treated for multiple problems and remains intubated and sedated. Is Covid-19 positive and following isolation protocol. Remains fully sedated for ventilation management. On Pressure control ventilation. RT obtained ABG earlier today and results were forward to Dr. Amor who is covering for the weekend. No changes made. Chest tube in place to right anterior chest secondary to a pneumothorax. Connected to dry suction at -20cm. No air leak detected. Crepitus persist to anterior chest from above breast up to lower neck area. Dr. Amor rounded at 1050 and made aware of low potassium level, 3.4, orders obtained for supplemental potassium. Reviewed new orders with Dr. Amor and he has attempted to contact son, Moshe.
[2020-09-21] MEDS: NOREPINEPHRINE BITARTRATE 16 MG in SODIUM CHL 0.9% 250 ML IV SCH (12:30)
[2020-09-21] MEDS ORDERED: POLYETHYLENE GLYCOL 17 GM PWDR PO ONE (12:30)
[2020-09-21] MEDS ORDERED: METOCLOPRAMIDE HCL 5MG/ml INJ 2ml VIAL IV ONE (12:30)
--- NOTE | 2020-09-21 12:39 | NUR ---
Nutrition Followup Notes Wt 102.0 kg Pt is still intubated, sedated, positive for COVID. Pt with propofol running at 18.45 ml/hr which provides 487 kcal from lipids. Pt is with Nepro CS 1.8 at 40 ml/hr providing 1728 kcals and 77 gm proteins. Pt is tolerating full feeding well per RN doc. Est Energy needs: 3855-5366 kcals (14-18 kcal/kgBW 97kg), Est Protein needs: 95-115 gms/day (2.0-2.5 gm/kgIBW of 47.7 kg). Will continue to monitor and reassess prn. Labs: BUN 54H, Creat 1.94H, Alb 2.0L, K 3.4L, Gluc 112 H BM: Pt had 1 BM 09/11 per RN note Skin: BS 10 high risk, full details in pulmonary care nurse note PES: 1) Inadequate oral intake aeb pt with 0% PO intake on BIPAP, refusal to eat r/t pt with a poor appetite 2) Obesity aeb 199% IBW and BMI of 39.6 kg/m2 r/t energy intake in excess of energy needs Comments: Will continue to monitor NPO status, EN tolerance, skin status. F/u high 2-3 days Rec: 1) Advance diet as medically feasible. 2) Consider Prostat 1 packet bid. 3) Continue current plan of care.
[2020-09-21] MEDS: SODIUM BICARBONATE 50ML VIAL 50 ML in D5W/SOD CHL 0.45% 1,000 ML IV SCH ×2 (13:35→21:30)
[2020-09-21] MEDS: Nepro With Carb Steady 1 Liter Bottle GT SCH (18:00)
--- NOTE | 2020-09-21 18:46 | NUR ---
No remarkable changes throughout shift. Chest tube remains in place and functioning properly. No increase of crepitus felt to upper chest, up to lower neck area. Continue current plan of care.
--- NOTE | 2020-09-21 20:00 | NUR ---
OPENING NOTE RIGHT UPPER CHEST TUBE IS INTACT, NO SIGN OF AIR LEAK OR DRAINAGE AROUND DRESSING NOTED, CONNECTED TO SUCTIONING. NOTED SUBCUTANEOUS CREPITUS AROUND THE RIGHT AND LEFT CHEST, PER DAY SHIFT REPORT MD AWARE. DRAINING SEROSANGUINEOUS FLUID INTO CHEST TUBE CANISTER. NO SIGN OR SYMPTOMS OF SOB OR DISTRESS. RIDING VENT. SEE INTERVENTIONS FOR FULL ASSESSMENT.
[2020-09-22] VITALS (97 sets, daily range): BP systolic 95–145; BP diastolic 52–85
--- NOTE | 2020-09-22 | NUR ---
FEEDING RUNNING AT 40 CC/HR RESIDUAL 40 CC BOWEL SOUNDS ACTIVE NO SIGN OF ASPIRATION HOB 35 DEGREES.
[2020-09-22] MEDS ORDERED: SODIUM BICARBONATE 8.4 % INJ 50ML VIAL IV ONE (00:42)
[2020-09-22] MEDS: SODIUM BICARBONATE 50ML VIAL 50 ML in D5W/SOD CHL 0.45% 1,000 ML IV SCH (00:52)
[2020-09-22] MEDS: MIDAZOLAM DRIP 50 mg/50mL 50 ML IV SCH ×3 (01:18→17:22)
--- NOTE | 2020-09-22 04:00 | NUR ---
CARES BED LINEN CHANGE, CHG BATH, OPTIFOAM TO SACRUM PATIENT TOLERATED TURN WELL PICC LINE DRESSING CHANGED USING STERILE TECHNIQUE, PICC LINE KIT AND BIO DISK. SITE IS FREE OF REDNESS AND DRAINAGE.
[2020-09-22 04:48] LABS: Hematocrit 25.6 % (36.0-46.0); Hemoglobin 8.3 g/dL (12.2-16.2); Mean Corpuscular Hemoglobin 27.6 pg (28.0-32.0); Mean Corpuscular Hgb Conc. 32.6 g/dL (32.0-36.0); Mean Corpuscular Volume 84.6 fL (80.0-100.0); Platelet Count (auto) 408 10^3/uL (140-450); Red Blood Cells 3.02 10^6/uL (4.0-5.20); White Blood Cell 11.8 10^3/uL (4.4-10.8)
[2020-09-22 04:50] LABS: Basophils % (manual) 0 (0.0-2.0); Blast Cells 0; Promyelocytes % 0; Reactive Lymphocytes 0; Red Cell Distribution Width 25.5 % (11.8-14.3)
[2020-09-22 05:08] LABS: Calcium 9.3 mg/dL (8.5-10.1); Magnesium 2.7 mg/dL (1.6-2.6); Potassium 3.7 mmol/L (3.5-5.1)
[2020-09-22 05:11] LABS: BUN/Creatinine Ratio 26.5; Bilirubin, Total 0.3 mg/dL (0.2-1.0); Total Protein 7.2 g/dL (6.4-8.2)
[2020-09-22 05:44] LABS: Band Neutrophils % (manual) 17; Eosinophils % (manual) 2 (0-7); Lymphocytes % (manual) 10 (10.0-50.0); Metamyelocytes % 1; Monocytes % (manual) 2 (0-12); Myelocytes % 3
--- NOTE | 2020-09-22 07:30 | NUR ---
Respiratory note: Called and left message for Dr. Berger to report critical values from morning ABG. Attempted to reach Dr. Amor, per PBX, MD does not get into hospital until [address] Woodward unavailable on weekends. Awaiting call back from Dr. Berger. Notified JOON Damon. Will cont to monitor.
[2020-09-22] MEDS: PHENYLEPHRINE IV 250 ML IV SCH ×2 (07:55→16:15)
[2020-09-22] MEDS: ALBUTEROL SULF 2.5 MG/0.5ML(0.5%) NEB SOLN NEB SCH ×3 (08:12→22:36)
[2020-09-22] MEDS: ACETYLCYSTEINE 10 %(100MG/ML) SOL 4ML NEB SCH ×3 (08:12→22:35)
[2020-09-22] MEDS: BUDESONIDE (INHALATION) 0.5 MG/2 ML NEB NEB SCH ×2 (08:12→22:36)
[2020-09-22] MEDS: PROPOFOL 100 ML IV SCH ×2 (10:24→16:46)
[2020-09-22] MEDS: CHOLECALCIFEROL (VITD3) 1,000UNIT=25mCg TAB GT SCH (10:32)
[2020-09-22] MEDS: ENOXAPARIN SOD 30 MG/0.3 ML SYRINGE SC SCH (10:32)
[2020-09-22] MEDS: ASCORBIC ACID 1,000 MG TAB GT SCH (10:33)
[2020-09-22] MEDS: amLODIPine BESYLATE 5 MG TAB PO SCH (10:33)
[2020-09-22] MEDS: POLYETHYLENE GLYCOL 17 GM PWDR PO SCH (10:33)
[2020-09-22] MEDS: NYSTATIN TOPICAL POWDER 15GM TOP SCH ×2 (10:33→22:33)
[2020-09-22] MEDS: ZINC SULFATE 220mg CAP or TAB GT SCH (10:34)
[2020-09-22] MEDS: MICAFUNGIN SODIUM 100 MG in SODIUM CHL 0.9% 100 ML IV SCH (10:36)
--- NOTE | 2020-09-22 11:58 | NUR ---
Resumed care at 0725, orders reviewed and ongoing assessments being done. Being treated for multiple problems and remains intubated and sedated. Is Covid-19 positive and following isolation protocol. Remains fully sedated for ventilation management. On Pressure control ventilation. RT obtained ABG earlier today; PH 7.13 Dr. Amor made aware. No changes made to ventilator management. Chest tube in place to right anterior chest secondary to a pneumothorax. Connected to dry suction at -20cm. No air leak detected. Crepitus persist to anterior chest from above breast up to lower neck area. Dr. Amor rounded at 1055 and attempted to call Moshe (son) no answer. Will try to contact him later today for possible meeting.
--- NOTE | 2020-09-22 12:20 | NUR ---
WOUND CARE NOTE: IN TO SEE PATIENT AT THIS TIME FOR SKIN INTEGRITY. PATIENT CONTINUES TO BE IN ICU, AIRBORNE ISOLATION FOR COVID 19. SHE REMAINS INTUBATED, SEDATED. PATIENT IS RESTING ON ICU LOW AIRLOSS BED. PATIENT CONTINUES TO HAVE MALHOTRA, RECTAL TUBE, CHEST TUBE IN RIGHT CHEST, MULTIPLE DRIPS. CURRENT OTTO SCORE IS 10. SHE IS NOTED TO HAVE AN INTACT RASH TO TRUNK, LIMBS. SKIN INTACT, APPEARS POSSIBLE ALLERGY RASH. MUCOSAL ULCER TO THE TONGUE APPEARS TO BE RESOLVING WELL, NO ULCERATIONS NOTED AT THIS TIME. TONGUE DARK PINK. BILATERAL EARS HAVE NON BLANCHING AREAS NOTED. SKIN REMAINS INTACT, NON BLANCHABLE. SHE CONTINUES TO HAVE MASD/INTERTRIGO NOTED TO SACRUM/BUTTOCKS/BILATERAL UPPER MEDIAL/POSTERIOR THIGHS/PERINEUM. SKIN REMAINS INTACT, DARK TO BRIGHT RED, BLANCHABLE. OPTIFOAM GENTLE SACRAL DRESSING APPLIED TO UPPER MEDIAL SACRUM. NO OTHER SKIN INTEGRITY ISSUES NOTED. RECOMMEND: WILL DEFER RECOMMENDATIONS ON ALLERGY RASH TO HOSPITALIST; CONTINUATION WITH ALL OTHER WOUND CARE ORDERS PREVIOUSLY PRESCRIBED BY MD. WOUND CARE TEAM WILL CONTINUE TO MONITOR. Addendum: 09/22/20 at 1544 by Kourtney Ford RN Amended: Links added.
[2020-09-22] MEDS: NOREPINEPHRINE BITARTRATE 16 MG in SODIUM CHL 0.9% 250 ML IV SCH (12:30)
--- NOTE | 2020-09-22 13:39 | NUR ---
Dr. Amor phoned in at 1055 and made me aware that he contacted son, Moshe. Per Dr. Amor, told son to come to the hospital before noon so he could speak to him in person. Moshe phoned in at 1102 and stated that he could not arrive before noon, made Dr. Amor aware. Moshe arrived at 1210. Allowed for him and Cade, his father to visit. Bernie DUPREE (wound care) was in for skin surveillance, pictures taken.
[2020-09-22] MEDS: fentaNYL Drip 2500mCg/250mlNS 250 ML IV SCH (14:32)
--- NOTE | 2020-09-22 18:22 | NUR ---
Respiratory note: RECEIVED PT ON VENT V8, VENT CHECK DONE FROM PTS ROOM DOOR DUE TO COVID PRECAUTIONS. VENT CONNECTED TO RED OUTLET O2 AND MEDICAL AIR WALL SOURCE. ALARMS ARE SET AND AUDIBLE. AMBU BAG AND MASK AT BEDSIDE. PTS CURRENT TEMP READS 98.6F. NO CHANGES MADE WILL CONTINUE TO MONITOR.
--- NOTE | 2020-09-22 18:40 | NUR ---
No remarkable changes, continue current plan of care.
--- NOTE | 2020-09-22 20:00 | NUR ---
OPENING NOTE ACCORDING TO VENT PATIENT IS BREATHING ABOVE 30 RR/MIN (HIGHEST NOTED 36 RR/MIN), OTHERWISE THERE IS NO SIGN OF SOB OR DISTRESS. CHEST TUBE CONNECTED TO SUCTIONING, DRESSING APPEAR INTACT, NO SIGN OF AIR LEAK, CHEST TUBE DRAINING YELLOW THIN FLUID. PATIENT IS ABLE TO TOLERATE TURNS. SEE INTERVENTIONS FOR THE REST OF THE ASSESSMENT.
[2020-09-23] VITALS (102 sets, daily range): BP systolic 93–137; BP diastolic 44–80
--- NOTE | 2020-09-23 | NUR ---
FEEDING RUNNING AT 40 CC/HR RESIDUAL 2 CC, BOWEL SOUNDS PRESENT. HOB 40 DEGREES, NO SIGN OF ASPIRATION.
[2020-09-23] MEDS: PHENYLEPHRINE IV 250 ML IV SCH ×3 (00:35→15:14)
[2020-09-23] MEDS: fentaNYL Drip 2500mCg/250mlNS 250 ML IV SCH ×2 (01:42→14:10)
[2020-09-23] MEDS: PROPOFOL 100 ML IV SCH ×4 (01:42→20:00)
[2020-09-23] MEDS: MIDAZOLAM DRIP 50 mg/50mL 50 ML IV SCH ×2 (01:43→17:15)
[2020-09-23] MEDS: Nepro With Carb Steady 1 Liter Bottle GT SCH (01:43)
--- NOTE | 2020-09-23 03:30 | NUR ---
PICC LINE DRESSING CHANGE CHANGED USING ASBESTIC TECHNIQUE, PICC LINE KIT, BIO DISK APPLIED PATIENT TOLERATED CARE WELL, ABLE TO TOLERATE TURNS, VS STABLE
[2020-09-23 05:03] LABS: Hematocrit 24.2 % (36.0-46.0); Hemoglobin 7.8 g/dL (12.2-16.2); Mean Corpuscular Hemoglobin 27.2 pg (28.0-32.0); Mean Corpuscular Hgb Conc. 32.1 g/dL (32.0-36.0); Mean Corpuscular Volume 84.8 fL (80.0-100.0); Platelet Count (auto) 384 10^3/uL (140-450); Red Blood Cells 2.86 10^6/uL (4.0-5.20); White Blood Cell 12.5 10^3/uL (4.4-10.8)
[2020-09-23 05:05] LABS: Red Cell Distribution Width 25.2 % (11.8-14.3)
[2020-09-23 05:07] LABS: Basophils % (manual) 0 (0.0-2.0); Blast Cells 0; Myelocytes % 0; Promyelocytes % 0; Reactive Lymphocytes 0
[2020-09-23 05:09] LABS: BUN/Creatinine Ratio 26.2; Calcium 9.3 mg/dL (8.5-10.1); Potassium 3.7 mmol/L (3.5-5.1)
--- NOTE | 2020-09-23 08:10 | NUR ---
Respiratory note: INCREASED PIP TO [address] NIXON. ABG TO FOLLOW IN 2 HRS.
[2020-09-23] MEDS: ACETYLCYSTEINE 10 %(100MG/ML) SOL 4ML NEB SCH ×3 (08:19→22:01)
[2020-09-23] MEDS: ALBUTEROL SULF 2.5 MG/0.5ML(0.5%) NEB SOLN NEB SCH ×3 (08:19→22:01)
[2020-09-23] MEDS: BUDESONIDE (INHALATION) 0.5 MG/2 ML NEB NEB SCH ×2 (08:19→22:01)
[2020-09-23 09:01] LABS: Band Neutrophils % (manual) 15; Eosinophils % (manual) 2 (0-7); Lymphocytes % (manual) 11 (10.0-50.0); Metamyelocytes % 1; Monocytes % (manual) 6 (0-12)
--- NOTE | 2020-09-23 09:20 | NUR ---
DR. NIXON Provider/Hospitalist at bedside. GAVE UPDATE ON PT. NEW ORDERS RECEIVED.
[2020-09-23] MEDS: ENOXAPARIN SOD 30 MG/0.3 ML SYRINGE SC SCH (10:00)
--- NOTE | 2020-09-23 10:00 | NUR ---
HGB. 7.8 THIS AM. HELD LOVENOX DAILY DOSE SCHEDULED. NO SIGNS OF BLEEDING.
[2020-09-23] MEDS: CHOLECALCIFEROL (VITD3) 1,000UNIT=25mCg TAB GT SCH (10:01)
[2020-09-23] MEDS: ZINC SULFATE 220mg CAP or TAB GT SCH (10:01)
[2020-09-23] MEDS: POLYETHYLENE GLYCOL 17 GM PWDR PO SCH (10:02)
[2020-09-23] MEDS: NYSTATIN TOPICAL POWDER 15GM TOP SCH ×2 (10:02→21:55)
[2020-09-23] MEDS: amLODIPine BESYLATE 5 MG TAB PO SCH (10:02)
[2020-09-23] MEDS: MICAFUNGIN SODIUM 100 MG in SODIUM CHL 0.9% 100 ML IV SCH (10:02)
[2020-09-23] MEDS: NOREPINEPHRINE BITARTRATE 16 MG in SODIUM CHL 0.9% 250 ML IV SCH (10:03)
[2020-09-23] MEDS: ASCORBIC ACID 1,000 MG TAB GT SCH (10:04)
--- NOTE | 2020-09-23 10:15 | NUR ---
AUSCULTATED GOOD PLACEMENT WITH OGT. NO EMESIS. NO BM. NO RESIDUAL. TOLERATING NEPHRO AT 4O CC/HR.
--- NOTE | 2020-09-23 10:25 | NUR ---
DR. BURCH Provider/Hospitalist at bedside. GAVE UPDATE ON PT. NEW ORDERS RECEIVED.
--- NOTE | 2020-09-23 12:25 | NUR ---
Faxed clinical packet to [facility] [phone] with post stabilization form requesting patient be transferred to a [facility] facility.
--- NOTE | 2020-09-23 12:27 | NUR ---
Nutrition Followup Notes Wt 102.0 kg Pt is still intubated, sedated, positive for COVID. Pt with propofol running at 16.182 ml/hr which provides 427 kcal from lipids. Pt is with Nepro CS 1.8 at 40 ml/hr providing 1728 kcals and 77 gm proteins. Est Energy needs: 9813-1198 kcals (14-18 kcal/kgBW 97kg), Est Protein needs: 95-115 gms/day (2.0-2.5 gm/kgIBW of 47.7 kg). Will continue to monitor and reassess prn. Labs: BUN 56 H CREAT 2.14 H ALB 2.0 L GLU 123 H BM: Pt had 1 BM 09/11 per RN note Skin: BS 12 high risk, full details in career orientation teacher note PES: 1) Inadequate oral intake aeb pt with 0% PO intake on BIPAP, refusal to eat r/t pt with a poor appetite 2) Obesity aeb 199% IBW and BMI of 39.6 kg/m2 r/t energy intake in excess of energy needs Comments: Will continue to monitor NPO status, EN tolerance, skin status. F/u high 2-3 days Rec: 1) Advance diet as medically feasible. 2) Consider Prostat 1 packet bid. 3) Continue current plan of care.
--- NOTE | 2020-09-23 14:45 | NUR ---
DR. CARREON Provider/Hospitalist at bedside. GAVE UPDATE ON PT. NEW ORDERS RECEIVED.
[2020-09-23] MEDS ORDERED: BUMETANIDE 2.5mg/10ml (0.25 mg/ml) INJ IV ONE (15:00)
--- NOTE | 2020-09-23 15:30 | NUR ---
[facility] CALLED. GAVE UPDATE ON PT. FOR POSSIBLE TRANSFER TO [facility] PER DR. BURCH'S ORDER TODAY.
--- NOTE | 2020-09-23 16:10 | NUR ---
Called [facility] [phone] and spoke with Sapna beauchampt, stated per Shelley HANDLEY she is working on the transfer and she is trying for tonight or tomorrow, stated will call the unit for any updates
--- NOTE | 2020-09-23 17:00 | NUR ---
SPOKE WITH DENIZ AT [facility] AND SAID SHE SPOKE WITH MD AND SAID PT. IS NOT STABLE TO TRANSFER TO [facility] TODAY AND WILL REEVALUATE PT. TOMORROW.
--- NOTE | 2020-09-23 20:00 | NUR ---
OPENING NOTE PATIENT ON VENTILATOR, SET RATE 30, BREATHING BETWEEN 31 AND 35 BREATHS/MIN, NO SIGN OF RESPIRATORY DISTRESS. NEPRO RUNNING AT 40 CC/HR, RESIDUAL 8 CC, HYPOACTIVE BOWEL SOUNDS, RAISED HOB FROM 10 DEGREES TO 35 DEGREES, NO SIGN OF ASPIRATION, VERIFIED OG TUBE BY ASPIRATION AND AUSCULTATION. CHEST TUBE CONNECTED TO SUCTIONING, NO SIGN OF AIR LEAKAGE, DRAINING SEROUS FLUID, DRESSING INTACT. SEE INTERVENTIONS FOR FULL ASSESSMENT.
[2020-09-24] VITALS (63 sets, daily range): BP systolic 100–149; BP diastolic 45–86
--- NOTE | 2020-09-24 | NUR ---
RESIDUAL 38 CC NEPRO RUNNING AT 40 CC/HR VS ARE STABLE, NO CHANGES.
[2020-09-24] MEDS: PROPOFOL 100 ML IV SCH ×4 (01:30→21:49)
[2020-09-24] MEDS: PHENYLEPHRINE IV 250 ML IV SCH ×4 (01:35→18:15)
[2020-09-24] MEDS: fentaNYL Drip 2500mCg/250mlNS 250 ML IV SCH ×2 (03:30→14:56)
--- NOTE | 2020-09-24 04:00 | NUR ---
CHEST TUBE DRESSING CHANGED SITE APPEARS RED (WILL REINFORCE DAY SHIFT NURSE OF FINDING), NO SIGN OF DISCHARGE OR AIR LEAK, SUTURES ARE INTACT. CLEANED SITE WITH NS AND GAUZE. APPLIED DRY GAUZE AND COVERED IT WITH DECADERM. PATIENT TOLERATED RESTREPO WELL, NO CHANGES IN VS. CHEST TUBE DRAINING SEROUS FLUID. CHEST'S SUBCUTANEOUS CREPITUS DECREASED FROM A DAY AGO.
--- NOTE | 2020-09-24 04:22 | NUR ---
RESIDUAL 4 CC NEPRO RUNNING AT 40 CC/HR HOB 35 DEGREES NO SIGN OF ASPIRATION. OG TUBE VERIFIED BY ASPIRATION AND AUSCULTATION.
[2020-09-24] MEDS: MIDAZOLAM DRIP 50 mg/50mL 50 ML IV SCH ×2 (05:30→17:47)
[2020-09-24] MEDS: ACETYLCYSTEINE 10 %(100MG/ML) SOL 4ML NEB SCH ×3 (06:54→22:27)
[2020-09-24] MEDS: ALBUTEROL SULF 2.5 MG/0.5ML(0.5%) NEB SOLN NEB SCH ×3 (06:54→22:27)
--- NOTE | 2020-09-24 07:05 | NUR ---
Assumed care of pt., report received per JOON Womack. No distress noted, pt. intubated and vented, reading sinus tachycardia 1teen's, will cont.to monitor for any changes, assessment ongoing.
--- NOTE | 2020-09-24 09:09 | NUR ---
AM ABG RESULTS REPORTED TO DR NIXON.
[2020-09-24 10:02] LABS: Hematocrit 21.9 % (36.0-46.0)
[2020-09-24 10:07] LABS: Mean Corpuscular Hemoglobin 26.7 pg (28.0-32.0); Mean Corpuscular Hgb Conc. 31.6 g/dL (32.0-36.0); Mean Corpuscular Volume 84.4 fL (80.0-100.0); Platelet Count (auto) 368 10^3/uL (140-450); White Blood Cell 11.6 10^3/uL (4.4-10.8)
[2020-09-24 10:15] LABS: BUN/Creatinine Ratio 27.5; Calcium 9.5 mg/dL (8.5-10.1)
[2020-09-24 10:16] LABS: Red Cell Distribution Width 25.7 % (11.8-14.3)
[2020-09-24 10:20] LABS: Hemoglobin 6.9 g/dL (12.2-16.2)
[2020-09-24 10:30] LABS: Basophils % (manual) 0 (0.0-2.0); Blast Cells 0; Metamyelocytes % 0; Promyelocytes % 0; Reactive Lymphocytes 0
[2020-09-24] MEDS: amLODIPine BESYLATE 5 MG TAB PO SCH (10:32)
[2020-09-24] MEDS: ASCORBIC ACID 1,000 MG TAB GT SCH (10:33)
[2020-09-24] MEDS: CHOLECALCIFEROL (VITD3) 1,000UNIT=25mCg TAB GT SCH (10:33)
[2020-09-24] MEDS: ZINC SULFATE 220mg CAP or TAB GT SCH (10:34)
[2020-09-24] MEDS: POLYETHYLENE GLYCOL 17 GM PWDR PO SCH (10:34)
[2020-09-24] MEDS: ENOXAPARIN SOD 30 MG/0.3 ML SYRINGE SC SCH (10:41)
[2020-09-24] MEDS: NYSTATIN TOPICAL POWDER 15GM TOP SCH ×2 (10:42→21:47)
[2020-09-24] MEDS: BUDESONIDE (INHALATION) 0.5 MG/2 ML NEB NEB SCH ×2 (10:55→22:26)
--- NOTE | 2020-09-24 11:04 | NUR ---
Received a call from Dr. Houser stating she wants to talk with the [facility] MD, Called [facility] [phone] and spoke with Simba news analyst, stated the MD's are in their morning meeting and doesn't know who the Md will be, stated that I need the Md to call Dr. Houser immediately regarding the patient gave cell phone number for Dr Houser, and express to him to call me back when they have decided who will have the patient, gave call back # [phone]. [phone]. Simba stated he would call back.
[2020-09-24] MEDS ORDERED: SODIUM CHL 0.9% 1000 ML BAG XX ONE (12:00)
[2020-09-24 12:09] LABS: Band Neutrophils % (manual) 8; Eosinophils % (manual) 11 (0-7); Lymphocytes % (manual) 8 (10.0-50.0); Monocytes % (manual) 13 (0-12); Myelocytes % 1
--- NOTE | 2020-09-24 12:13 | NUR ---
Notified by Dr Houser that the MD for the patient today is Dr. Espinoza. Addendum: 09/24/20 at 1237 by Mei Schulz RN, CM this is the patient's PCP not Md at [place],
--- NOTE | 2020-09-24 12:37 | NUR ---
Received a call from [facility]ley EMMANUELLE stated that they are unable to transfer the patient today because she has a chest tube to suction it against their protocol to transfer a patient who is on suction. It has to be changed to water seal or removed, In formed Dr Houser and stated she wants to speak to the MD.
--- NOTE | 2020-09-24 12:40 | NUR ---
Called [facility] [phone] spoke with Shelley HANDLEY, express to her that Dr Houser wants to speak to the Md stated to have Dr Houser call her and she will transfer her to the MD, Gave Dr Houser the number to call for [facility].
--- NOTE | 2020-09-24 15:16 | NUR ---
09/24/2002/09/1516 Called [facility] [phone], spoke with organic preparation analyst Isabella, stated per Shelley HANDLEY she is working on a bed for the patient to transfer [facility]. If not she will send hard copy auth sofya.
[2020-09-24] MEDS: NOREPINEPHRINE BITARTRATE 16 MG in SODIUM CHL 0.9% 250 ML IV SCH (15:36)
--- NOTE | 2020-09-24 15:48 | NUR ---
Called [facility] and spoke with Shelley HANDLEY stated the patient will not transfer tonight, there are no beds in [place] or [place]
--- NOTE | 2020-09-24 19:10 | NUR ---
No distress noted, pt. report given to JOON Womack. Care of pt. assumed per NOC RN, day shift RN relinquished care and signed off.
--- NOTE | 2020-09-24 21:04 | NUR ---
SPOKE WITH BABITA (SON) PROVIDED PASSWORD UPDATED ON PATIENTS STATUS AND POC, ALL QUESTIONS AND CONCERNS ADDRESSED. BABITA VERBALIZED UNDERSTANDING.
--- NOTE | 2020-09-24 22:40 | NUR ---
RT AT BEDSIDE PATIENT DESATURATED TO 87% AFTER RECEIVING BREATHING TREATMENT.
[2020-09-25] VITALS (72 sets, daily range): BP systolic 99–167; BP diastolic 45–99
[2020-09-25] MEDS: fentaNYL Drip 2500mCg/250mlNS 250 ML IV SCH ×2 (01:44→13:19)
[2020-09-25] MEDS: PHENYLEPHRINE IV 250 ML IV SCH ×3 (02:35→18:28)
[2020-09-25] MEDS: PROPOFOL 100 ML IV SCH ×4 (02:44→18:53)
[2020-09-25 04:10] LABS: Hemoglobin 7.6 g/dL (12.2-16.2); White Blood Cell 13.8 10^3/uL (4.4-10.8)
[2020-09-25 04:12] LABS: Hematocrit 23.2 % (36.0-46.0); Mean Corpuscular Hemoglobin 27.1 pg (28.0-32.0); Mean Corpuscular Hgb Conc. 32.9 g/dL (32.0-36.0); Mean Corpuscular Volume 82.3 fL (80.0-100.0); Platelet Count (auto) 318 10^3/uL (140-450); Red Blood Cells 2.81 10^6/uL (4.0-5.20)
[2020-09-25 04:28] LABS: Potassium 3.1 mmol/L (3.5-5.1)
[2020-09-25 04:37] LABS: Red Cell Distribution Width 24.3 % (11.8-14.3)
[2020-09-25 04:39] LABS: BUN/Creatinine Ratio 24.5; Basophils % (manual) 0 (0.0-2.0); Bilirubin, Total 0.3 mg/dL (0.2-1.0); Blast Cells 0; Calcium 8.4 mg/dL (8.5-10.1); Metamyelocytes % 0; Promyelocytes % 0; Reactive Lymphocytes 0; Total Protein 7.1 g/dL (6.4-8.2)
[2020-09-25] MEDS: MIDAZOLAM DRIP 50 mg/50mL 50 ML IV SCH ×2 (05:40→14:02)
[2020-09-25] MEDS: ACETYLCYSTEINE 10 %(100MG/ML) SOL 4ML NEB SCH ×3 (06:06→22:36)
[2020-09-25] MEDS: ALBUTEROL SULF 2.5 MG/0.5ML(0.5%) NEB SOLN NEB SCH ×3 (06:06→22:35)
[2020-09-25] MEDS: BUDESONIDE (INHALATION) 0.5 MG/2 ML NEB NEB SCH ×2 (06:06→22:35)
--- NOTE | 2020-09-25 07:00 | NUR ---
Assumed care of pt., report received per JOON Womack. No distress noted, pt. intubated and vented, reading sinus rhythm 90's, VSS, will cont.to monitor for any changes, assessment ongoing.
[2020-09-25 07:17] LABS: Band Neutrophils % (manual) 8; Eosinophils % (manual) 3 (0-7); Lymphocytes % (manual) 12 (10.0-50.0); Monocytes % (manual) 5 (0-12); Myelocytes % 1
--- NOTE | 2020-09-25 08:30 | NUR ---
FIO2 TITRATED TO 35% PER DR NIXON. PT TOLERATING WELL.
[2020-09-25] MEDS ORDERED: POTASSIUM CHL 20MEQ/100ML 100 ML IV ONE (09:15)
[2020-09-25] MEDS: CHOLECALCIFEROL (VITD3) 1,000UNIT=25mCg TAB GT SCH (10:18)
[2020-09-25] MEDS: ASCORBIC ACID 1,000 MG TAB GT SCH (10:18)
[2020-09-25] MEDS: amLODIPine BESYLATE 5 MG TAB PO SCH (10:19)
[2020-09-25] MEDS: ENOXAPARIN SOD 30 MG/0.3 ML SYRINGE SC SCH (10:19)
[2020-09-25] MEDS: ZINC SULFATE 220mg CAP or TAB GT SCH (10:19)
[2020-09-25] MEDS: POLYETHYLENE GLYCOL 17 GM PWDR PO SCH (10:20)
[2020-09-25] MEDS: NYSTATIN TOPICAL POWDER 15GM TOP SCH ×2 (10:21→22:00)
[2020-09-25] MEDS: NOREPINEPHRINE BITARTRATE 16 MG in SODIUM CHL 0.9% 250 ML IV SCH (11:53)
--- NOTE | 2020-09-25 12:21 | NUR ---
Faxed to [facility] [phone], transfer to [facility] request.
[2020-09-25] MEDS ORDERED: diphenhdrAMINE HCL 50 MG/1 ML VL IV ONE (12:45)
[2020-09-25] MEDS ORDERED: diphenhdrAMINE HCL 50 MG/1 ML VL IV PRN (12:45)
--- NOTE | 2020-09-25 12:55 | NUR ---
Received a call from [facility] [phone] marketing research analyst Jeannine gave update on the patient and fax number to [facility] [phone], stated disease case manager rn for today is Lacey.
--- NOTE | 2020-09-25 13:20 | NUR ---
Received call from [facility] DUPREE ([facility]), transfer refused d/t pt. on chest tube wall suction, must be on water seal x 24 hours to be accepted, Dr. Ramirez and Dr. Woodward aware, orders to take chest tube to water seal obtained, will implement and monitor for effectiveness, will cont.to monitor for any changes, assessment ongoing. Addendum: 09/25/20 at 1348 by LUKE CAM RN RN Dr. Houser, not James
--- NOTE | 2020-09-25 13:54 | NUR ---
Nutrition Followup Notes Wt 103.5 kg Pt is still intubated, sedated, positive for COVID. Pt with propofol running at 16.182 ml/hr which provides 427 kcal from lipids. Pt is with Nepro CS 1.8 at 40 ml/hr providing 1728 kcals and 77 gm proteins. Est Energy needs: 6788-8414 kcals (14-18 kcal/kgBW 97kg), Est Protein needs: 95-115 gms/day (2.0-2.5 gm/kgIBW of 47.7 kg). Will continue to monitor and reassess prn. Labs: BUN 51 H CREAT 2.08 H ALB 2.0 L BM: Pt had no BM per RN note Skin: BS 12 high risk, full details in reservoir caretaker note PES: 1) Inadequate oral intake aeb pt with 0% PO intake on BIPAP, refusal to eat r/t pt with a poor appetite 2) Obesity aeb 199% IBW and BMI of 39.6 kg/m2 r/t energy intake in excess of energy needs Comments: Will continue to monitor NPO status, EN tolerance, skin status. F/u high 2-3 days Rec: 1) Advance diet as medically feasible. 2) Consider Prostat 1 packet bid. 3) Continue current plan of care.
--- NOTE | 2020-09-25 14:35 | NUR ---
Received call from Steele RN (Lacey), transfer accepted per Steele Boris, will take pt. now on water seal, must be on water seal, Dr. Houser and Dr. Woodward aware, will cont.to await further direction from Steele, will implement and monitor for effectiveness, will cont.to monitor for any changes, assessment ongoing.
--- NOTE | 2020-09-25 15:59 | NUR ---
09/25/2020 Nicolette Called [facility] [phone] and spoke with Julio Cesar beauchampt stated they are still working on getting an accepting Md for the patient at [facility].
--- NOTE | 2020-09-25 19:10 | NUR ---
No distress noted, pt. report given to JOON Fiore. Care of pt. assumed per NOC RN, day shift RN relinquished care and signed off.
--- NOTE | 2020-09-25 19:49 | NUR ---
ADMITTED ON 08/16/20 : TESTED POSITIVE FOR COVID AT A CLINIC. CAME IN WITH DYSPNEA,PRODUCTIVE COUGH,CHEST PAIN, DIAPHORESIS, LOW O2 SATURATION. INITIALLY ON HIGH FLOW AND THEN WAS INTUBATED IN [place] AND BROUGHT TO ICU ON 08/21. [facility] IS SEARCHING FOR A BED AT [place]. PACKET AND CD READY FOR TRANSFER. RIGHT UPPER CHEST TUBE TO WATER SEAL. HAS HAD A RASH FOR A WEEK ON BODY AND FACE. MALHOTRA CHANGED TODAY. LAST RESPIRATORY CANCER AND URINE CULTURE SHOW LORRAINE/YEAST. NGT WITH NEPRO AT 40CC/HR. ORAL ETT TO VENTILATOR. IS ON PRESSURE CONTROL VENTILATION WITH A PRESSURE OF 30, RATE OF 30, FIO2 35% AND A PEEP OF 5. RECIEVED A UPC YESTERDAY FOR A HG OF 6.9. TODAY THE HG IS 7.6. ABG PH IS 7.26. POTASSIUM TODAY WAS 3.1. KCL RIDER GIVEN X 1.
--- NOTE | 2020-09-25 22:00 | NUR ---
SUCTIONED ETT FOR A MODERATE AMOUNT OF WHITE SECRETIONS. ORAL CARE DONE . THE SCABS ON THE SIDE OF HER MOUTH ARE HEALING. KARELY. LUNGS SLIGHTLY COARSE. ABDOMEN ROUND. NGT RESIDUAL 10CC. HANDS ARE SWOLLEN. SINUS TACHYCARDIA WITHOUT ECTOPY. RIGHT CHEST TUBE TO WATER SEAL. [facility] CALLED AND REPORTED THAT THIS PATIENT WILL NOT BE TRANSFERED UNTIL TOMORROW.
--- NOTE | 2020-09-25 23:20 | NUR ---
DESATURATION TO 85%. WENT IN AND LAVAGED AND SUCTIONED FOR A LARGE AMOUNT OF THICK OFF WHITE SECRETIONS. THE SATURATION STAYED UP FOR 30 MINUTES.
--- NOTE | 2020-09-25 23:53 | NUR ---
O2 SATURATION DESATURATED TO 87%. RT NOTIFIED. HE IS IN THE ROOM NOW TO TURN UP THE FIO2
--- NOTE | 2020-09-25 23:57 | NUR ---
Respiratory note: INCREASED FIO2 TO 45% AT THIS TIME
--- NOTE | 2020-09-25 23:58 | NUR ---
FIO2 INCREASED TO 45%. O2 SAT 96%
[2020-09-26] VITALS (61 sets, daily range): BP systolic 123–163; BP diastolic 64–92
--- NOTE | 2020-09-26 02:00 | NUR ---
VSS. TOLERATING TUBE FEEDING. LUNGS CLEAR. ORAL CARE DONE.
[2020-09-26] MEDS: MIDAZOLAM DRIP 50 mg/50mL 50 ML IV SCH ×3 (02:15→23:12)
[2020-09-26] MEDS: fentaNYL Drip 2500mCg/250mlNS 250 ML IV SCH ×2 (02:16→18:17)
--- NOTE | 2020-09-26 03:00 | NUR ---
no am labs ordered
[2020-09-26] MEDS: PHENYLEPHRINE IV 250 ML IV SCH (03:35)
--- NOTE | 2020-09-26 04:00 | NUR ---
CHG BATH AND PARTIAL LINEN CHANGE. SILICONE LOTION TO SKIN. RED RASH IS CONSISTENT. GROIN IS MOIST. CLEANED WELL, DRIED , AND MYCOSTATIIN APPLIED.NEW OPTIFOAM PLACED. SKIN IN POSTERIOR SACRAL AREA IS HYPERPIGMENTED AND FLAKY..
[2020-09-26] MEDS: PROPOFOL 100 ML IV SCH ×5 (05:00→23:08)
[2020-09-26] MEDS: BUDESONIDE (INHALATION) 0.5 MG/2 ML NEB NEB SCH ×2 (06:16→22:05)
[2020-09-26] MEDS: ALBUTEROL SULF 2.5 MG/0.5ML(0.5%) NEB SOLN NEB SCH ×3 (06:16→22:05)
[2020-09-26] MEDS: ACETYLCYSTEINE 10 %(100MG/ML) SOL 4ML NEB SCH ×2 (06:17→22:06)
--- NOTE | 2020-09-26 07:15 | NUR ---
Assumed care of pt., report received per JOON Fiore. No distress noted, pt. intubated and vented, reading sinus rhythm-sinus tachycardia 90's-100's, VSS, will cont.to monitor for any changes, assessment ongoing.
[2020-09-26] MEDS: ASCORBIC ACID 1,000 MG TAB GT SCH (10:25)
[2020-09-26] MEDS: POLYETHYLENE GLYCOL 17 GM PWDR PO SCH (10:25)
[2020-09-26] MEDS: ZINC SULFATE 220mg CAP or TAB GT SCH (10:25)
[2020-09-26] MEDS: amLODIPine BESYLATE 5 MG TAB PO SCH (10:26)
[2020-09-26] MEDS: ENOXAPARIN SOD 30 MG/0.3 ML SYRINGE SC SCH (10:26)
[2020-09-26] MEDS: CHOLECALCIFEROL (VITD3) 1,000UNIT=25mCg TAB GT SCH (10:27)
[2020-09-26] MEDS: NYSTATIN TOPICAL POWDER 15GM TOP SCH (10:27)
[2020-09-26 12:27] LABS: Hematocrit 24.3 % (36.0-46.0); Hemoglobin 7.9 g/dL (12.2-16.2); Mean Corpuscular Hgb Conc. 32.4 g/dL (32.0-36.0); White Blood Cell 10.3 10^3/uL (4.4-10.8)
[2020-09-26 12:29] LABS: Mean Corpuscular Hemoglobin 26.8 pg (28.0-32.0); Mean Corpuscular Volume 82.7 fL (80.0-100.0); Platelet Count (auto) 326 10^3/uL (140-450); Red Blood Cells 2.94 10^6/uL (4.0-5.20)
[2020-09-26 12:31] LABS: Red Cell Distribution Width 23.8 % (11.8-14.3)
[2020-09-26 12:32] LABS: Basophils % (manual) 0 (0.0-2.0); Blast Cells 0; Myelocytes % 0; Promyelocytes % 0; Reactive Lymphocytes 0
[2020-09-26 12:50] LABS: BUN/Creatinine Ratio 25.5; Calcium 9.1 mg/dL (8.5-10.1); Potassium 3.1 mmol/L (3.5-5.1)
[2020-09-26 12:54] LABS: Band Neutrophils % (manual) 6; Eosinophils % (manual) 19 (0-7); Lymphocytes % (manual) 7 (10.0-50.0); Metamyelocytes % 1; Monocytes % (manual) 8 (0-12)
--- NOTE | 2020-09-26 13:20 | NUR ---
09/26/20 1320 Faxed to [facility] clinicals, transfer to [place] order and post stabilization form. Received a call from [facility] asking if the patients family was okay with her going to [place] because there are no ICU beds in [facility], express to her I would call the nurse and get him to call the family and ask then and call her back with an answer.
[2020-09-26] MEDS ORDERED: ACETYLCYSTEINE 10 %(100MG/ML) SOL 4ML NEB SCH (14:00)
--- NOTE | 2020-09-26 14:00 | NUR ---
Received a message from Yao DUPREE that per the family the patient can go to [facility] in [place], Called [facility] [phone] and spoke to Jeannine geospatial imagery intelligence analyst for [facility] and told her that the family is okay with [place] and to let Mir[facility] know. verbalized she understood.
--- NOTE | 2020-09-26 15:59 | NUR ---
Called Lacey HANDLEY at [place] [phone] asking if she had a bed for the patient, stated she doesn't have a bed in [facility], but she is still working on finding a bed. IF she can not find a bed will will give send delgado cowart.
[2020-09-26] MEDS ORDERED: EPOETIN ALFA 10,000 UNIT/1 ML VIAL IV ONE (18:15)
--- NOTE | 2020-09-26 19:05 | NUR ---
No distress noted, pt. report given to JOON Fiore. Care of pt. assumed per NOC RN, day shift RN relinquished care and signed off.
--- NOTE | 2020-09-26 20:00 | NUR ---
ADMITTED ON 08/16/20 : TESTED POSITIVE FOR COVID AT A CLINIC. CAME IN WITH DYSPNEA,PRODUCTIVE COUGH,CHEST PAIN, DIAPHORESIS, LOW O2 SATURATION. INITIALLY ON HIGH FLOW AND THEN WAS INTUBATED IN [place] AND BROUGHT TO ICU ON 08/21. [facility] IS SEARCHING FOR A BED AT [facility] AND [place]. PACKET AND CD READY FOR TRANSFER. RIGHT UPPER CHEST TUBE TO WATER SEAL. HAS HAD A RASH FOR A WEEK ON BODY AND FACE. MALHOTRA CHANGED TODAY. LAST RESPIRATORY CULTURE AND URINE CULTURE SHOW LORRAINE/YEAST. NGT WITH NEPRO AT 40CC/HR. ORAL ETT TO VENTILATOR. IS ON PRESSURE CONTROL VENTILATION WITH A PRESSURE OF 30, RATE OF 30, FIO2 40% AND A PEEP OF 5. RECEIVED A UPC YESTERDAY FOR A HG OF 6.9. TODAY THE HG IS 7.6. ABG PH IS 7.23. POTASSIUM TODAY WAS 3.1. DIALYSIS TODAY. 4 LITERS OFF. DIALYSIS ENDED AT 0.
--- NOTE | 2020-09-26 22:00 | NUR ---
REPOSITIONED. ORAL CARE DONE. SUCTIONED THE ETT FOR A SMALL AMOUNT OF WHITE SECRETIONS. SINUS TACHYCARDIA WITHOUT ECTOPY. SEDATION DRIPS REMAIN AT THE SAME RATE. NO VENTILATOR CHANGES.
[2020-09-27] VITALS (76 sets, daily range): BP systolic 114–162; BP diastolic 56–90
--- NOTE | 2020-09-27 | NUR ---
REPOSITIONED. ORAL CARE DONE. LUNGS CLEAR. SINUS TACHYCARDIA.
--- NOTE | 2020-09-27 02:00 | NUR ---
No change of condition. Oral care and suctioning provided. Tolerating vent settings well. Tolerating tube feedings. Will continue plan of care and provide safe environment for patient.
--- NOTE | 2020-09-27 03:39 | NUR ---
am labs sent
[2020-09-27 03:53] LABS: Hematocrit 24.6 % (36.0-46.0); Hemoglobin 8.1 g/dL (12.2-16.2); Mean Corpuscular Volume 81.8 fL (80.0-100.0)
[2020-09-27 03:56] LABS: Mean Corpuscular Hemoglobin 26.9 pg (28.0-32.0); Mean Corpuscular Hgb Conc. 32.9 g/dL (32.0-36.0); Platelet Count (auto) 308 10^3/uL (140-450); Red Blood Cells 3.01 10^6/uL (4.0-5.20); White Blood Cell 13.1 10^3/uL (4.4-10.8)
[2020-09-27 03:59] LABS: Red Cell Distribution Width 23.8 % (11.8-14.3)
[2020-09-27 04:00] LABS: Basophils % (manual) 0 (0.0-2.0); Blast Cells 0; Metamyelocytes % 0; Myelocytes % 0; Promyelocytes % 0; Reactive Lymphocytes 0
[2020-09-27] MEDS: PROPOFOL 100 ML IV SCH ×5 (04:00→21:31)
--- NOTE | 2020-09-27 04:00 | NUR ---
Bed bath/CHG bath provided with linen change and oral care. F/C had 400 urine output. No change of condition.
[2020-09-27 04:17] LABS: Albumin 2.1 g/dL (3.4-5.0); Calcium 8.8 mg/dL (8.5-10.1)
[2020-09-27 04:20] LABS: Bilirubin, Total 0.4 mg/dL (0.2-1.0); Total Protein 7.2 g/dL (6.4-8.2)
[2020-09-27 04:35] LABS: Potassium 2.8 mmol/L (3.5-5.1)
--- NOTE | 2020-09-27 04:41 | NUR ---
POTASSIUM 2.8. RECEIVED AN ORDER FROM DR ASHER FOR 40MEQ IV KCL RIDER
[2020-09-27] MEDS ORDERED: POTASSIUM CHLORIDE 40 MEQ, LIDOCAINE 1% (LOCAL ANESTH.) 4 ML in SODIUM CHL 0.9% 250 ML IV ONE (04:45)
[2020-09-27] MEDS ORDERED: POTASSIUM CHL 20MEQ/100ML 200 ML IV ONE (04:52)
[2020-09-27 05:19] LABS: Band Neutrophils % (manual) 5; Eosinophils % (manual) 10 (0-7); Lymphocytes % (manual) 10 (10.0-50.0)
[2020-09-27 05:20] LABS: Monocytes % (manual) 6 (0-12)
[2020-09-27] MEDS: MIDAZOLAM DRIP 50 mg/50mL 50 ML IV SCH (06:59)
--- NOTE | 2020-09-27 07:00 | NUR ---
REPORT RECEIVED FROM RABBIT FANCIER NURSE. PATIENT RESTING IN BED INTUBATED AND SEDATED. RESPIRATIONS EVEN AND UNLABORED. RIGHT UPPER CHEST TUBE TO WATER SEAL, DRAINING CLEAR SEROUS DRAINAGE. NO CREPITUS NOTED OR AIR LEAK. NO SIGNS OF ACUTE DISTRESS NOTED. BED IN LOW POSITION WILL CONTINUE TO MONITOR.
[2020-09-27] MEDS: ALBUTEROL SULF 2.5 MG/0.5ML(0.5%) NEB SOLN NEB SCH ×3 (07:05→22:00)
[2020-09-27] MEDS: ACETYLCYSTEINE 10 %(100MG/ML) SOL 4ML NEB SCH ×3 (07:05→22:00)
[2020-09-27] MEDS: BUDESONIDE (INHALATION) 0.5 MG/2 ML NEB NEB SCH ×2 (07:05→22:00)
[2020-09-27] MEDS: fentaNYL Drip 2500mCg/250mlNS 250 ML IV SCH ×2 (08:30→23:49)
[2020-09-27] MEDS: amLODIPine BESYLATE 5 MG TAB PO SCH (10:00)
[2020-09-27] MEDS: ENOXAPARIN SOD 30 MG/0.3 ML SYRINGE SC SCH (10:00)
[2020-09-27] MEDS: POLYETHYLENE GLYCOL 17 GM PWDR PO SCH (10:00)
--- NOTE | 2020-09-27 11:09 | NUR ---
Called [facility] [phone] spoke with Michael beauchampt stated they received clinicals, per Liv CM are still being reviewed, stated there are no TELE or ICU beds in [place] or [place] at this time.
--- NOTE | 2020-09-27 11:33 | NUR ---
UPDATED SON ON PATIENT STATUS OF PATIENT. ALL QUESTIONS AND CONCERNS ADDRESSED AT TIME.
--- NOTE | 2020-09-27 11:50 | NUR ---
DR BURCH AT BEDSIDE TO ASSESS PATIENT AND DISCUSS PLAN OF CARE. ALL ORDERS NOTED IN CHART.
--- NOTE | 2020-09-27 12:14 | NUR ---
Faxed update progress notes to [facility] [phone], including order to Transfer to [facility], with post stabilization form
--- NOTE | 2020-09-27 13:00 | NUR ---
INHOUSE COVID TEST SENT TO LAB.
--- NOTE | 2020-09-27 14:39 | NUR ---
Nutrition Followup Notes Wt 103.4 kg Pt is still intubated, sedated, positive for COVID. Pt with propofol running at 16.182 ml/hr which provides 427 kcal from lipids. Pt is with Nepro CS 1.8 at 40 ml/hr providing 1728 kcals and 77 gm proteins. Pt received 561 ml of TF today so far per RN note Est Energy needs: 2354-0008 kcals (14-18 kcal/kgBW 97kg), Est Protein needs: 95-115 gms/day (2.0-2.5 gm/kgIBW of 47.7 kg). Will continue to monitor and reassess prn. Labs: BUN 49H, Creat 2.04H, K 2.8L BM: Pt had no BM per RN note Skin: BS 16 mod risk, full details in neonatal critical care nurse note PES: 1) Inadequate oral intake aeb pt with 0% PO intake on BIPAP, refusal to eat r/t pt with a poor appetite 2) Obesity aeb 199% IBW and BMI of 39.6 kg/m2 r/t energy intake in excess of energy needs Comments: Will continue to monitor NPO status, EN tolerance, skin status. F/u high 2-3 days Rec: 1) Advance diet as medically feasible. 2) Consider Prostat 1 packet bid. 3) Continue current plan of care.
--- NOTE | 2020-09-27 14:50 | NUR ---
DR CARREON AT BEDSIDE TO ASSESS PATIENT AND DISCUSS PLAN OF CARE. PER MD PATIENT TO HAVE DIALYSIS TOMORROW.
--- NOTE | 2020-09-27 19:19 | NUR ---
ADMITTED ON 08/16/20 : TESTED POSITIVE FOR COVID AT A CLINIC. CAME IN WITH DYSPNEA,PRODUCTIVE COUGH,CHEST PAIN, DIAPHORESIS, LOW O2 SATURATION. INITIALLY ON HIGH FLOW AND THEN WAS INTUBATED IN [place] AND BROUGHT TO ICU ON 08/21. [facility] IS SEARCHING FOR A BED AT [facility] AND [place]. PACKET AND CD READY FOR TRANSFER. RIGHT UPPER CHEST TUBE TO WATER SEAL. HAS HAD A RASH FOR A WEEK ON BODY AND FACE. MALHOTRA CHANGED 08/16. LAST RESPIRATORY CULTURE AND URINE CULTURE SHOW LORRAINE/YEAST. NGT WITH NEPRO AT 40CC/HR. ORAL ETT TO VENTILATOR. IS ON PRESSURE CONTROL VENTILATION WITH A PRESSURE OF 30, RATE OF 30, FIO2 40% AND A PEEP OF 5. RECEIVED A UPC YESTERDAY FOR A HG OF 6.9. TODAY THE HG IS 8.1. ABG PH IS 7.35. POTASSIUM TODAY WAS 2.8. 40meq k rider replacement. Dialysis tomorrow. Removed 4 liters last dialysis. Weaned off of versed today. Remains in sinus tachycardia 107. No beds available through [facility]. We do have an order for transfer.
[2020-09-27] MEDS: Nepro With Carb Steady 1 Liter Bottle GT SCH (19:30)
--- NOTE | 2020-09-27 22:00 | NUR ---
SINUS TACHYCARDIA 115. NO DRNG THROUGH THE CHEST TUBE. NO CREPITUS. NO AIR LEAK IN CHAMBER OF ATRIUM. A[facility]IUM IS TO WATER SEAL. ABDOMEN SOFT. TOLERATING TUBE FEEDING. NEPRO AT GOAL RATE OF 40CC/HR. GOOD URINE OUTPUT.
[2020-09-28] VITALS (75 sets, daily range): BP systolic 122–172; BP diastolic 53–100
--- NOTE | 2020-09-28 00:04 | NUR ---
VSS. REPOSITIONED TO LEFT. ABDOMEN SOFT. GOOD URINE OUTPUT. NO DRNG FROM THE CHEST TUBE. NO CREPITUS. NO AIR LEAK IN CHAMBER.
[2020-09-28] MEDS: PROPOFOL 100 ML IV SCH ×3 (02:51→10:15)
--- NOTE | 2020-09-28 03:07 | NUR ---
AM LABS DRAWN.
--- NOTE | 2020-09-28 03:30 | NUR ---
REPORT GIVEN TO JOON LAW
--- NOTE | 2020-09-28 03:40 | NUR ---
REPORT RECEIVED FROM GODWIN DUPREE TO ASSUME CARE, PT REMAINED STABLE, NO DISTRESS NOTED
[2020-09-28 04:08] LABS: Basophils # (auto) 0.1 10 ^3/uL (0-0.2); Hematocrit 24.7 % (36.0-46.0); Lymphocytes % (auto) 10.5 % (10.0-50.0); Mean Corpuscular Hgb Conc. 32.4 g/dL (32.0-36.0); Monocytes # (auto) 1.4 10 ^3/uL (0-1.3); Neutrophils # (auto) 7.4 10 ^3/uL (1.6-8.6); Nucleated Red Blood Cells % 0.2 %
[2020-09-28 04:10] LABS: Basophils % (auto) 0.8 % (0.0-2.0); Eosinophils # (auto) 1.8 10 ^3/uL (0-0.8); Eosinophils % (auto) 14.7 % (0.0-7.0); Lymphocytes # (auto) 1.3 10 ^3/uL (0.4-5.4); Mean Corpuscular Volume 83.3 fL (80.0-100.0); Platelet Count (auto) 340 10^3/uL (140-450); Red Blood Cells 2.97 10^6/uL (4.0-5.20); White Blood Cell 11.9 10^3/uL (4.4-10.8)
[2020-09-28 04:23] LABS: Potassium 3.2 mmol/L (3.5-5.1)
[2020-09-28 04:25] LABS: Red Cell Distribution Width 24.2 % (11.8-14.3)
[2020-09-28 04:27] LABS: BUN/Creatinine Ratio 26.3; Calcium 9.2 mg/dL (8.5-10.1)
[2020-09-28 04:30] LABS: Bilirubin, Total 0.4 mg/dL (0.2-1.0)
[2020-09-28] MEDS: ALBUTEROL SULF 2.5 MG/0.5ML(0.5%) NEB SOLN NEB SCH ×3 (06:24→22:19)
[2020-09-28] MEDS: ACETYLCYSTEINE 10 %(100MG/ML) SOL 4ML NEB SCH ×3 (06:24→22:19)
[2020-09-28] MEDS: BUDESONIDE (INHALATION) 0.5 MG/2 ML NEB NEB SCH ×2 (06:24→22:19)
[2020-09-28] MEDS: POLYETHYLENE GLYCOL 17 GM PWDR PO SCH (10:09)
[2020-09-28] MEDS: amLODIPine BESYLATE 5 MG TAB PO SCH (10:09)
[2020-09-28] MEDS: ENOXAPARIN SOD 30 MG/0.3 ML SYRINGE SC SCH (10:10)
--- NOTE | 2020-09-28 14:07 | NUR ---
RT NOTE FIO2 DECREASED TO 35%. JOON LOO MADE AWARE OF CHANGE.
[2020-09-28] MEDS: MIDAZOLAM DRIP 50 mg/50mL 50 ML IV SCH (14:15)
--- NOTE | 2020-09-28 14:24 | NUR ---
CALL FROM [facility] REGARDING PATIENTS CURRENT CONDITION. UPDATED ON LABS, ABG, VS, VENT SETTINGS AND CHEST TUBE OUT PUT. NICKI FROM AUTHORIZATION REVIEW AT [facility] STATES THAT THEY WILL BE PROVIDING AUTHORIZATION DUE TO PATIENT CONTINUING TO BE UNSTABLE TO BE TRANSPORTED TO [facility],
[2020-09-28] MEDS: fentaNYL Drip 2500mCg/250mlNS 250 ML IV SCH (15:45)
[2020-09-28] MEDS: Nepro With Carb Steady 1 Liter Bottle GT SCH (19:00)
--- NOTE | 2020-09-28 19:54 | NUR ---
ADMITTED ON 08/16/20 : TESTED POSITIVE FOR COVID AT A CLINIC. CAME IN WITH DYSPNEA,PRODUCTIVE COUGH,CHEST PAIN, DIAPHORESIS, LOW O2 SATURATION. INITIALLY ON HIGH FLOW AND THEN WAS INTUBATED IN [place] AND BROUGHT TO ICU ON 08/21. HERNANDEZ IS SEARCHING FOR A BED AT [facility] and has not found any beds.TODAY, HERNANDEZ STATED THAT SHE IS TOO UNSTABLE FOR TRANSFER. PACKET AND CD READY FOR TRANSFER. RIGHT UPPER CHEST TUBE TO WATER SEAL. HAS HAD A RASH FOR A WEEK ON BODY AND FACE. MALHOTRA CHANGED 10/04/20. LAST RESPIRATORY CULTURE AND URINE CULTURE SHOW LORRAINE/YEAST. NGT WITH NEPRO AT 40CC/HR. ORAL ETT TO VENTILATOR. IS ON PRESSURE CONTROL VENTILATION WITH A PRESSURE OF 30, RATE OF 30, FIO2 35% AND A PEEP OF 5. RECEIVED A UPC FOR A HG OF 6.9 FEW DAYS AGO. TODAY THE HG IS 8. ABG PH IS 7.30. POTASSIUM TODAY WAS 3.2. Dialysis tODAY. Removed 3 liters TODAY. DECREASED THE PROPOFOL TODAY. Remains in sinus tachycardia 114. We do have an order for transfer. NO DRNG FROM THE RU CHEST CHEST TUBE. TOLERATING THE NEPRO AT 40CC/HR. NO FEVERS.
[2020-09-28] MEDS ORDERED: EPOETIN ALFA 4,000 UNIT/ML VL SC ONE (21:00)
--- NOTE | 2020-09-28 22:30 | NUR ---
REPOSITIONED TO BACK. SUCTIONED WATERY BLOOD FROM THE MOUTH. PULLED OUT A LARGE BLOOD CLOT. ETT SUCTIONED FOR A MODERATE AMOUNT OF WHITE SECRETIONS. LUNGS SLIGHTLY COARSE. ABDOMEN ROUND AND SOFT. NO BM. MALHOTRA DRAINING CLEAR YELLOW LIQUID TO DOWN DRAIN BAG. SINUS TACHYCARDIA 117. NO ECTOPY. PILLOWS UNDER ARMS AND LEGS. MALHOTRA TO DOWN DRAIN BAG. CHEST TUBE DRAINING A MUCKY , CLOUDY SEROUS FLUID. NO CREPITUS. NO AIR LEAK. NO FEVER. NOT WAKING UP .
[2020-09-29] VITALS (72 sets, daily range): BP systolic 124–180; BP diastolic 63–108
--- NOTE | 2020-09-29 01:00 | NUR ---
REPOSITIONED. GENTLE ORAL CARE DONE. LUNGS CLEAR. SUCTIONING WHITE FROM THE ETT. NO CREPITUS. NO CHEST TUBE AIR LEAK. GOOD URINE OUTPUT.
[2020-09-29] MEDS: ACETAMINOPHEN 500 MG TAB PO PRN (01:30)
--- NOTE | 2020-09-29 03:00 | NUR ---
CHG BATH. COMPLETE LINEN CHANGE. PICC LINE DRESSING CHANGE. NO REDNESS , SWELLING, DRNG AT SITE. CHEST TUBE DRESSING CHANGE. SITE OF ENTRY IS RED, NO DRNG. NEW DRESSING WITH XEROFORM GAUZE AND 4X4S SECURED WITH FOAM TAPE. ATRIUM CHANGED OUT.
[2020-09-29 04:33] LABS: Mean Corpuscular Hemoglobin 26.8 pg (28.0-32.0); Mean Corpuscular Hgb Conc. 32.3 g/dL (32.0-36.0)
[2020-09-29 04:34] LABS: Hemoglobin 8.4 g/dL (12.2-16.2); Mean Corpuscular Volume 83.1 fL (80.0-100.0); Platelet Count (auto) 308 10^3/uL (140-450); Red Blood Cells 3.13 10^6/uL (4.0-5.20); White Blood Cell 13.2 10^3/uL (4.4-10.8)
[2020-09-29 04:35] LABS: Red Cell Distribution Width 24.5 % (11.8-14.3)
[2020-09-29 04:37] LABS: Band Neutrophils % (manual) 0; Basophils % (manual) 0 (0.0-2.0); Blast Cells 0; Metamyelocytes % 0; Myelocytes % 0; Promyelocytes % 0; Reactive Lymphocytes 0
[2020-09-29 05:03] LABS: Albumin 2.1 g/dL (3.4-5.0); Calcium 8.7 mg/dL (8.5-10.1); Potassium 3.2 mmol/L (3.5-5.1)
[2020-09-29 05:07] LABS: BUN/Creatinine Ratio 25.7; Bilirubin, Total 0.3 mg/dL (0.2-1.0); Total Protein 7.1 g/dL (6.4-8.2)
[2020-09-29 05:49] LABS: Eosinophils % (manual) 10 (0-7); Lymphocytes % (manual) 15 (10.0-50.0); Monocytes % (manual) 8 (0-12)
--- NOTE | 2020-09-29 06:07 | NUR ---
JESSICARIVAN TUBING CHANGE. REPOSITIONED . ORAL CARE. SUCTIONED ETT.
[2020-09-29] MEDS: fentaNYL Drip 2500mCg/250mlNS 250 ML IV SCH (06:15)
[2020-09-29] MEDS: PROPOFOL 100 ML IV SCH ×2 (06:15)
--- NOTE | 2020-09-29 07:15 | NUR ---
INCREASED FIO2 TO 40%, SPO2 MAINTAINING 94%
[2020-09-29] MEDS: BUDESONIDE (INHALATION) 0.5 MG/2 ML NEB NEB SCH ×2 (07:43→22:15)
[2020-09-29] MEDS: ACETYLCYSTEINE 10 %(100MG/ML) SOL 4ML NEB SCH ×3 (07:43→22:15)
[2020-09-29] MEDS: ALBUTEROL SULF 2.5 MG/0.5ML(0.5%) NEB SOLN NEB SCH ×3 (07:43→22:14)
[2020-09-29] MEDS: ZINC SULFATE 220mg CAP or TAB PO SCH (09:54)
[2020-09-29] MEDS: POLYETHYLENE GLYCOL 17 GM PWDR PO SCH (09:54)
[2020-09-29] MEDS: amLODIPine BESYLATE 5 MG TAB PO SCH (09:55)
[2020-09-29] MEDS: ENOXAPARIN SOD 30 MG/0.3 ML SYRINGE SC SCH (09:55)
[2020-09-29] MEDS ORDERED: POTASSIUM CHL 20MEQ/100ML 100 ML IV ONE (10:00)
--- NOTE | 2020-09-29 10:52 | NUR ---
WOUND CARE NOTE: Wound care in to see patient for skin integrity monitoring. Patient continue resting in ICU low air loss bed in Rm. 112. She remain on airborne precautions for CoVid19. Patient is still intubated, sedated and mechanically ventilated. Patient appears to be in no pain using Conklin Guardado Faces Pain Scale. Her Moo score is 12. Skin assessment done with the assistance of another nurse, JOON Woodard.Patient's distal tongue mucosal ulcer continue to improve. She's receiving routine oral care. Rt ear non-blanchable redness (2x1cm) now with dry peeling skin,no drainage/odor noted, left open to air. Non-blanchable redness to L ear continue to improve and erythema is fading. Rashes to trunk and limbs are improving as well. Patient's medial sacrum,buttocks and thighs MASD continue to improve with brown pigmented skin and dry peeling skin. Rosita care given and applied Z Guard cream. New photograph of mentioned skin issue are taken for reference. Repositioned patient for comfort on her back,redistributed pressure points with pillows. Patient tolerated well. RECOMMENDATION: Continuation of all wound care orders MD prescribed, Continue with skin/wound plan of care, continue monitoring by wound care while patient is hospitalized. Addendum: 09/29/20 at 1256 by Komal Dangelo RN Amended: Links added.
--- NOTE | 2020-09-29 11:17 | NUR ---
Nutrition Followup Notes Wt 94.8 KG Pt is still intubated, sedated, positive for COVID. Pt with propofol running at 16.182 ml/hr which provides 427 kcal from lipids. Pt is with Nepro CS 1.8 at 40 ml/hr providing 1728 kcals and 77 gm proteins. Est Energy needs: 5341-5200 kcals (14-18 kcal/kgBW 97kg), Est Protein needs: 95-115 gms/day (2.0-2.5 gm/kgIBW of 47.7 kg). Will continue to monitor and reassess prn. Labs: BUN 39 H CREAT 1.52 H ALB 2.1 L BM: Pt had 1 BM today per RN note Skin: BS 13 mod risk, full details in progressive care nurse note PES: 1) Inadequate oral intake aeb pt with 0% PO intake on BIPAP, refusal to eat r/t pt with a poor appetite 2) Obesity aeb 199% IBW and BMI of 39.6 kg/m2 r/t energy intake in excess of energy needs Comments: Will continue to monitor NPO status, EN tolerance, skin status. F/u high 2-3 days Rec: 1) Advance diet as medically feasible. 2) Consider Prostat 1 packet bid. 3) Continue current plan of care.
--- NOTE | 2020-09-29 13:16 | NUR ---
RECEIVED VERBAL ORDER FROM DR. BURCH FOR VENT CHANGES: DECREASE RR TO 28, DECREASE INSP PRESSURE TO 26. ABG TOMORROW MORNING. CHANGES MADE, PT NOW WITH SETTINGS: PCV, RR 28, IP 26, PEEP +5, I TIME 0.7, FIO2 40%. PT TOLERATING CHANGES, SPO2 94%. NOTIFIED RN OF CHANGES.
[2020-09-29] MEDS: MIDAZOLAM DRIP 50 mg/50mL 50 ML IV SCH (14:15)
[2020-09-29] MEDS: LABETALOL HCL 5 MG/ML 4ML SYRINGE IV PRN (17:53)
[2020-09-30] VITALS (62 sets, daily range): BP systolic 124–174; BP diastolic 63–95
[2020-09-30] MEDS: ACETYLCYSTEINE 10 %(100MG/ML) SOL 4ML NEB SCH ×3 (06:40→22:35)
[2020-09-30] MEDS: BUDESONIDE (INHALATION) 0.5 MG/2 ML NEB NEB SCH ×2 (06:40→22:34)
[2020-09-30] MEDS: ALBUTEROL SULF 2.5 MG/0.5ML(0.5%) NEB SOLN NEB SCH ×3 (06:40→22:34)
--- NOTE | 2020-09-30 07:08 | NUR ---
REPORT RECEIVED FROM SHOWER MAID RN
[2020-09-30 08:49] LABS: Basophils # (auto) 0.1 10 ^3/uL (0-0.2); Hemoglobin 8.5 g/dL (12.2-16.2); Mean Corpuscular Hgb Conc. 31.6 g/dL (32.0-36.0); Neutrophils # (auto) 7.4 10 ^3/uL (1.6-8.6); Platelet Count (auto) 323 10^3/uL (140-450)
[2020-09-30 08:51] LABS: Basophils % (auto) 0.5 % (0.0-2.0); Eosinophils # (auto) 1.7 10 ^3/uL (0-0.8); Eosinophils % (auto) 13.6 % (0.0-7.0); Hematocrit 26.9 % (36.0-46.0); Lymphocytes # (auto) 1.6 10 ^3/uL (0.4-5.4); Lymphocytes % (auto) 12.9 % (10.0-50.0); Mean Corpuscular Hemoglobin 26.6 pg (28.0-32.0); Mean Corpuscular Volume 84.2 fL (80.0-100.0); Monocytes # (auto) 1.7 10 ^3/uL (0-1.3); Monocytes % (auto) 13.7 % (0.0-12.0); Neutrophils % (auto) 59.3 % (37.0-80.0); Nucleated Red Blood Cells % 0.2 %; Red Blood Cells 3.19 10^6/uL (4.0-5.20); Red Cell Distribution Width 24.3 % (11.8-14.3); White Blood Cell 12.5 10^3/uL (4.4-10.8)
[2020-09-30 09:07] LABS: Albumin 2.2 g/dL (3.4-5.0); Potassium 3.6 mmol/L (3.5-5.1)
[2020-09-30 09:10] LABS: BUN/Creatinine Ratio 29.6; Bilirubin, Total 0.3 mg/dL (0.2-1.0); Calcium 9.2 mg/dL (8.5-10.1); Total Protein 7.5 g/dL (6.4-8.2)
--- NOTE | 2020-09-30 09:32 | NUR ---
DR. CANTU AT [facility] Addendum: 09/30/20 at 1109 by Tim Gonzalez RN WRONG PATIENT CHART
[2020-09-30] MEDS: ZINC SULFATE 220mg CAP or TAB PO SCH (09:50)
[2020-09-30] MEDS: POLYETHYLENE GLYCOL 17 GM PWDR PO SCH (09:50)
[2020-09-30] MEDS: amLODIPine BESYLATE 5 MG TAB PO SCH (09:50)
[2020-09-30] MEDS: ENOXAPARIN SOD 30 MG/0.3 ML SYRINGE SC SCH (09:51)
[2020-09-30] MEDS: fentaNYL Drip 2500mCg/250mlNS 250 ML IV SCH ×2 (10:43→22:30)
--- NOTE | 2020-09-30 10:47 | NUR ---
DR. NIXON AT BEDSIDE
--- NOTE | 2020-09-30 11:10 | NUR ---
ORAL CARE PERFORMED PATIENT TOLERATED WELL
--- NOTE | 2020-09-30 12:10 | NUR ---
09/30/20 1210 Faxed to [facility] [phone] clinical packet requesting transfer to a [facility] facility, packet included post stabilization form.
[2020-09-30] MEDS: PROPOFOL 100 ML IV SCH ×2 (13:19→18:19)
[2020-09-30] MEDS: MIDAZOLAM DRIP 50 mg/50mL 50 ML IV SCH (14:15)
--- NOTE | 2020-09-30 19:00 | NUR ---
Shift opening note: Patient intubated 7.5/ 23CM@LL, Vent on pressure control, bilateral lung sounds clear and diminished. Left upper arm PICC line infusing Fent, Prop. OG tube in place with feeding running at 40mL/hr, placement checked. Bean catheter draining via gravity with yellow urine. Safety precautions in place. Will continue to monitor. Patient on Isolation for COVID Positive.
[2020-09-30] MEDS: METOPROLOL TARTRATE 25 MG TAB PO SCH (22:30)
[2020-10-01] VITALS (57 sets, daily range): BP systolic 114–159; BP diastolic 52–93
--- NOTE | 2020-10-01 03:43 | NUR ---
PATIENT CARE PATIENT GIVEN BED BATH AND ORAL CARE AT THIS TIME. BED LINEN CHANGED AND BED MADE. NO DISTRESS, PATEINT TOLERATED WELL. SAFETY MAINTAINED WILL CONTINUE TO MONITOR.
[2020-10-01 03:50] LABS: Hemoglobin 8.2 g/dL (12.2-16.2)
[2020-10-01 03:52] LABS: Hematocrit 25.5 % (36.0-46.0); Mean Corpuscular Hgb Conc. 32.2 g/dL (32.0-36.0); Mean Corpuscular Volume 84.1 fL (80.0-100.0); Platelet Count (auto) 298 10^3/uL (140-450); Red Blood Cells 3.03 10^6/uL (4.0-5.20); White Blood Cell 12.2 10^3/uL (4.4-10.8)
[2020-10-01 04:02] LABS: Albumin 2.2 g/dL (3.4-5.0); Calcium 9.4 mg/dL (8.5-10.1); Potassium 3.4 mmol/L (3.5-5.1)
[2020-10-01 04:05] LABS: Bilirubin, Total 0.4 mg/dL (0.2-1.0); Total Protein 7.4 g/dL (6.4-8.2)
[2020-10-01 04:16] LABS: Blast Cells 0; Myelocytes % 0; Promyelocytes % 0; Reactive Lymphocytes 0
[2020-10-01 04:39] LABS: Band Neutrophils % (manual) 8; Basophils % (manual) 1 (0.0-2.0); Eosinophils % (manual) 14 (0-7); Lymphocytes % (manual) 14 (10.0-50.0); Metamyelocytes % 2; Monocytes % (manual) 4 (0-12)
[2020-10-01] MEDS: ACETYLCYSTEINE 10 %(100MG/ML) SOL 4ML NEB SCH ×3 (06:52→21:51)
[2020-10-01] MEDS: ALBUTEROL SULF 2.5 MG/0.5ML(0.5%) NEB SOLN NEB SCH ×3 (06:52→21:51)
[2020-10-01] MEDS: BUDESONIDE (INHALATION) 0.5 MG/2 ML NEB NEB SCH ×2 (06:52→21:51)
[2020-10-01] MEDS: ZINC SULFATE 220mg CAP or TAB PO SCH (09:41)
[2020-10-01] MEDS: POLYETHYLENE GLYCOL 17 GM PWDR PO SCH (09:42)
[2020-10-01] MEDS: METOPROLOL TARTRATE 25 MG TAB PO SCH ×2 (09:42→22:00)
[2020-10-01] MEDS: amLODIPine BESYLATE 5 MG TAB PO SCH (09:42)
[2020-10-01] MEDS: fentaNYL Drip 2500mCg/250mlNS 250 ML IV SCH (09:43)
[2020-10-01] MEDS: ENOXAPARIN SOD 30 MG/0.3 ML SYRINGE SC SCH (09:43)
--- NOTE | 2020-10-01 11:30 | NUR ---
Pulmonology rounding on pt. Order for vent changes. Will notify RT of changes
--- NOTE | 2020-10-01 12:00 | NUR ---
Dialysis nurse at bedside. Will continue to monitor pt closely during dialysis
--- NOTE | 2020-10-01 12:36 | NUR ---
Nephrology rounding on pt. no orders at this time.
--- NOTE | 2020-10-01 12:38 | NUR ---
Dr. Houser rounding on pt. Social service consult in to transfer to [facility]
[2020-10-01] MEDS: MIDAZOLAM DRIP 50 mg/50mL 50 ML IV SCH (14:15)
--- NOTE | 2020-10-01 14:30 | NUR ---
Nutrition Followup Notes Wt 98.8 kg Pt is still intubated, sedated, positive for COVID. Pt with propofol running at 18.879 ml/hr which provides 498 kcal from lipids. Pt is with Nepro CS 1.8 at 40 ml/hr providing 1728 kcals and 77 gm proteins. Pt has received 480 ml of TF 10/01 so far per Rn note Est Energy needs: 4305-4317 kcals (14-18 kcal/kgBW 97kg), Est Protein needs: 95-115 gms/day (2.0-2.5 gm/kgIBW of 47.7 kg). Will continue to monitor and reassess prn. Labs: BUN 68H, Creat 2.00H, Alb 2.2L, GLUC 110H BM: Pt had 1 BM 09/29 per RN note Skin: BS 15 mod risk, full details in field care coordinator note PES: 1) Inadequate oral intake aeb pt is intubated and sedated r/t current medical condition 2) Obesity aeb 199% IBW and BMI of 39.6 kg/m2 r/t energy intake in excess of energy needs Comments: Will continue to monitor NPO status, EN tolerance, skin status. F/u high 2-3 days Rec: 1) Advance diet as medically feasible. 2) Consider Prostat 1 packet bid. 3) Continue current plan of care.
--- NOTE | 2020-10-01 15:15 | NUR ---
VENT CHANGES MADE PER DR. NIXON: AC/VC, VT 450, RR 20, PEEP 5, 40% FIO2. PT JAMES. ABG TO FOLLOW. JOON JEAN-BAPTISTE MADE AWARE.
--- NOTE | 2020-10-01 15:45 | NUR ---
Dialysis complete. 2.9 liters off pt per aluminizer
[2020-10-01] MEDS: PROPOFOL 100 ML IV SCH ×2 (16:47→20:00)
--- NOTE | 2020-10-01 18:21 | NUR ---
RT aware that ventilator alarms with high PIP in the 50's.
--- NOTE | 2020-10-01 19:00 | NUR ---
Shift opening note: Patient intubated 7.5/ 22CM@LL, VENT on AC mode, bilateral lung sounds clear and diminished. Left upper arm PICC line infusing Fent, Prop. OG tube in place with feeding running at 40mL/hr, placement checked. Bean catheter draining via gravity with yellow urine. Safety precautions in place. Will continue to monitor. Patient on Isolation for COVID - 19 Positive.
--- NOTE | 2020-10-01 22:58 | NUR ---
Family: RN received call from family. Password verified. Family updated on POC.
[2020-10-02] VITALS (49 sets, daily range): BP systolic 107–153; BP diastolic 53–86
--- NOTE | 2020-10-02 02:33 | NUR ---
Bed bath: Patient was provided a bed bath and a full linen change was also provided. RN also changed patients sacral opti-foam. Patient tolerated intervention well with no s/s of discomfort or distress.
[2020-10-02 03:48] LABS: Hematocrit 25.9 % (36.0-46.0); Hemoglobin 8.2 g/dL (12.2-16.2); Mean Corpuscular Hemoglobin 26.7 pg (28.0-32.0); Mean Corpuscular Hgb Conc. 31.5 g/dL (32.0-36.0); Mean Corpuscular Volume 84.6 fL (80.0-100.0); Platelet Count (auto) 273 10^3/uL (140-450); Red Blood Cells 3.06 10^6/uL (4.0-5.20)
[2020-10-02 03:52] LABS: Red Cell Distribution Width 23.8 % (11.8-14.3)
[2020-10-02 03:53] LABS: Basophils % (manual) 0 (0.0-2.0); Blast Cells 0; Metamyelocytes % 0; Myelocytes % 0; Promyelocytes % 0; Reactive Lymphocytes 0
[2020-10-02 04:06] LABS: Albumin 2.3 g/dL (3.4-5.0); Calcium 8.9 mg/dL (8.5-10.1); Potassium 3.8 mmol/L (3.5-5.1)
[2020-10-02 04:08] LABS: Bilirubin, Total 0.3 mg/dL (0.2-1.0); Total Protein 7.6 g/dL (6.4-8.2)
[2020-10-02 04:10] LABS: Band Neutrophils % (manual) 1; Eosinophils % (manual) 16 (0-7); Lymphocytes % (manual) 10 (10.0-50.0); Monocytes % (manual) 10 (0-12)
[2020-10-02] MEDS: ALBUTEROL SULF 2.5 MG/0.5ML(0.5%) NEB SOLN NEB SCH ×2 (06:13→14:00)
[2020-10-02] MEDS: BUDESONIDE (INHALATION) 0.5 MG/2 ML NEB NEB SCH (06:13)
[2020-10-02] MEDS: ACETYLCYSTEINE 10 %(100MG/ML) SOL 4ML NEB SCH ×2 (06:14→14:00)
[2020-10-02] MEDS: MIDAZOLAM DRIP 50 mg/50mL 50 ML IV SCH (06:30)
[2020-10-02] MEDS: ZINC SULFATE 220mg CAP or TAB PO SCH (09:27)
[2020-10-02] MEDS: POLYETHYLENE GLYCOL 17 GM PWDR PO SCH (09:28)
[2020-10-02] MEDS: amLODIPine BESYLATE 5 MG TAB PO SCH (09:28)
[2020-10-02] MEDS: METOPROLOL TARTRATE 25 MG TAB PO SCH (09:28)
[2020-10-02] MEDS: ENOXAPARIN SOD 30 MG/0.3 ML SYRINGE SC SCH (09:29)
[2020-10-02] MEDS: fentaNYL Drip 2500mCg/250mlNS 250 ML IV SCH (10:28)
--- NOTE | 2020-10-02 10:51 | NUR ---
Pulmonology rounding. New order to switch from AC to pressure control. RT aware of new vent changes.
--- NOTE | 2020-10-02 11:23 | NUR ---
Received a call from [facility], updated on pt status. Waiting for bed.
--- NOTE | 2020-10-02 11:59 | NUR ---
Faxed clinical packet to [facility] [phone] as requested.
--- NOTE | 2020-10-02 15:30 | NUR ---
Received a call from Berna DONALDSON at [facility] and stated the patient is gong to [facility] in [place], room 503, picker packer after 1730, Dr Seymour accepting call report to [phone].
--- NOTE | 2020-10-02 15:45 | NUR ---
Called [facility] and spoke with Mónica HANDLEY at [facility] and told her that I had received a call from Berna DONALDSON at [facility] and stated the patient is going to [facility] in [place], Room 503 will accept the patient after 1730, accepting is Dr Seymour, call report to [phone], Stated she will call and have transportation to [facility] the patient at 1800.
--- NOTE | 2020-10-02 16:00 | NUR ---
Called Alma DUPREE in ICU and gave her the transfer information. Verbalized understanding.
--- NOTE | 2020-10-02 16:51 | NUR ---
Called report to JOON Pulido, receiving nurse at [facility], rm 503 ICU
--- NOTE | 2020-10-02 19:00 | NUR ---
Shift opening note: Patient intubated 7.5/ 22CM@LL, VENT on Pressure Control mode, bilateral lung sounds clear and diminished. Left upper arm PICC line infusing Fent, Prop. OG tube in place with feeding running at 40mL/hr, placement checked. Bean catheter draining via gravity with yellow urine. Safety precautions in place. Will continue to monitor. Patient on Isolation for COVID - 19 Positive.
--- NOTE | 2020-10-02 20:46 | NUR ---
PATRICIA and [facility] RN at bedside for patient transfer.
--- NOTE | 2020-10-02 20:55 | NUR ---
[facility] called: RN called [facility] and spoke with JOON Egan to informed them of patient's transport team arrival and patient about to leave this facility.
--- NOTE | 2020-10-02 21:00 | NUR ---
[facility] and [facility] transport team moving patient onto their gurney.
--- NOTE | 2020-10-02 21:40 | NUR ---
Patient off unit and left with transport team.
== END 2020-10-02 21:32 | disposition short-term general hospital (02) | DRG 870 ==
LOC: ER 21:34 → EDBD 21:34 → TELE 21:35 → DOU IN ICU 08-18 01:02 → ICU WEST 08-22 16:35
PROVIDERS: ADMIT Hospitalist; ATTEND Internal Medicine
PROC: 02HV33Z Insertion of Infusion Device into Superior Vena Cava, Percutaneous Approach (ICD-10-PCS; 2020-08-02)
PROC: B548ZZA Ultrasonography of Superior Vena Cava, Guidance (ICD-10-PCS; 2020-08-02)
PROC: 5A09557 Assistance with Respiratory Ventilation, Greater than 96 Consecutive Hours, Continuous Positive Airway Pressure (ICD-10-PCS; 2020-08-17)
PROC: XW13325 Transfusion of Convalescent Plasma (Nonautologous) into Peripheral Vein, Percutaneous Approach, New Technology Group 5 (ICD-10-PCS; 2020-08-20)
PROC: 02H633Z Insertion of Infusion Device into Right Atrium, Percutaneous Approach (ICD-10-PCS; 2020-08-21)
PROC: B548ZZA Ultrasonography of Superior Vena Cava, Guidance (ICD-10-PCS; 2020-08-21)
PROC: 30233N1 Transfusion of Nonautologous Red Blood Cells into Peripheral Vein, Percutaneous Approach (ICD-10-PCS; 2020-08-30)
PROC: 0W9930Z Drainage of Right Pleural Cavity with Drainage Device, Percutaneous Approach (ICD-10-PCS; 2020-09-16)
PROC: 5A1955Z Respiratory Ventilation, Greater than 96 Consecutive Hours (ICD-10-PCS; principal; 2020-09-20)
DX: A41.89 Other specified sepsis (principal); U07.1 COVID-19; E43 Unspecified severe protein-calorie malnutrition; J12.89 Other viral pneumonia; J96.21 Acute and chronic respiratory failure with hypoxia; N17.0 Acute kidney failure with tubular necrosis; R65.21 Severe sepsis with septic shock; B49 Unspecified mycosis; E66.2 Morbid (severe) obesity with alveolar hypoventilation; E87.0 Hyperosmolality and hypernatremia; E87.1 Hypo-osmolality and hyponatremia; E87.2 Acidosis; J93.83 Other pneumothorax; K51.90 Ulcerative colitis, unspecified, without complications; N39.0 Urinary tract infection, site not specified; Z99.11 Dependence on respirator [ventilator] status; Z68.41 Body mass index [BMI] 40.0-44.9, adult; E87.6 Hypokalemia; D64.9 Anemia, unspecified; E11.9 Type 2 diabetes mellitus without complications; E78.5 Hyperlipidemia, unspecified; J45.909 Unspecified asthma, uncomplicated; Z88.6 Allergy status to analgesic agent; Z99.2 Dependence on renal dialysis; Z79.899 Other long term (current) drug therapy
CPT/HCPCS: 36415; 36569; 36600; 71045; 76604; 76775; 76856; 80048; 80053; 80061; 80074; 80202; 81001; 82140; 82270; 82533; 82570; 82728; 82805; 82962; 83036; 83605; 83615; 83735; 83880; 83930; 83935; 84100; 84132; 84300; 84439; 84443; 84484; 84550; 85007; 85014; 85018; 85025; 85027; 85048; 85379; 85610; 85730; 86141; 86850; 86900; 86901; 86920; 87040; 87070; 87077; 87081; 87086; 87088; 87186; 87205; 87426; 87493; 90935; 93005; 93970; 94002; 94003; 94640; 94660; 94668; 96361; 96365; 96366; 96367; 96375; 96376; A4565; A4618; C9113; G0378; J0610; J0696; J0885; J1100; J1642; J2001; J2185; J2248; J2250; J2405; J2543; J2704; J3480; J3490; J7060; P9047